=== PATIENT | female | born 1935 | race Caucasian/White ===

== ENCOUNTER 2018-03-25 09:11 | Outpatient (CLI) | payer MEDICARE, SELFPAY ==
[2018-03-25 10:47] LABS: Abs Immature Grans 0.01 k/cumm (0.0-0.09); Absolute Basophil Count 0.02 k/cumm (0.0-0.2); Absolute Eosinophil Count 0.09 k/cumm (0.0-0.7); Absolute Lymphocyte Count 0.95 k/cumm (1.2-3.4); Absolute Monocyte Count 0.53 k/cumm (0.11-0.7); Absolute Neutrophil Count 4.66 k/cumm (1.2-6.7); Basophils % 0.3; Eosinophils % 1.4; HCT 43.4 % (36.0-46.0); HGB 14.2 g/dL (12.0-15.5); Immature Grans % 0.2; Lymphocytes % 15.2; Mean Corp. HGB Concentration 32.7 g/dL (32.0-36.0); Mean Corpuscular Volume 94.8 fL (80-95); Monocytes % 8.5; Neutrophils % 74.4; Platelet Count 240 x1000/uL (130-400); RBC 4.58 m/cumm (4.00-5.20); RBC Distribution Width 13.2 % (11.7-14.6); White Blood Cell Count 6.26 k/cumm (4.4-10.8)
[2018-03-25 11:23] LABS: ALT 28 U/L (12-78); AST 19 U/L (15-37); Albumin 3.8 g/dL (3.4-5.0); Alkaline Phosphatase 57 U/L (46-116); Amylase 55 U/L (25-115); BUN 11 mg/dL (7-18); Bilirubin, Total 0.7 mg/dL (0.2-1.0); C-Reactive Protein 0.56 mg/dL (0.0-0.3); CREATININE 0.77 mg/dL (0.55-1.02); Calcium 9.2 mg/dL (8.5-10.1); Chloride 98 mmol/L (98-107); Glucose 92 mg/dL (70-100); Lipase 119 U/L (73-393); Potassium 3.8 mmol/L (3.5-5.1); Sodium 137 mmol/L (136-145); TSH 2.03 uIU/mL (0.358-3.74); Total Protein 6.9 g/dL (6.4-8.2)
[2018-03-25 11:25] LABS: ESR 19 MM/HR (0-30)
[2018-03-25 21:32] LABS: CRP, High Sensitivity 3.83 mg/L
== END 2018-03-25 09:31 ==
PROVIDERS: PCP Nurse Practitioner Family; Visit Provider Physician Assistant Medical
DX: R61 Generalized hyperhidrosis (principal)
CPT/HCPCS: 36415; 80053; 83690; 85652; 86141; 82150; 84443; 85025; 86140

== ENCOUNTER 2018-04-02 00:26 | Outpatient (CLI) | payer MEDICARE, SELFPAY ==
--- NOTE | 2018-04-02 15:10 | DI.CT_ITS ---
SYMPTOMS/DIAGNOSIS: SMOKING GREATER THAN 40 PACK YEARS, F17.[address] FOR LUNG CANCER SCREENING: A low dose noncontrast exam was performed. There is a 4 mm nodule seen peripherally at the left upper lobe. There are a few scattered calcified nodules bilaterally. There are mild underlying emphysematous changes. There is bronchial thickening in the lower lobes and mild bronchiectasis, right greater than left. No acute infiltrates or effusions are seen. There is mild basilar atelectasis and/or scarring. The visualized portions of the upper abdomen are unremarkable. There is calcification in the aorta, which is normal in diameter. Coronary artery calcifications are seen. The heart size is normal. IMPRESSION: Benign findings. Annual low dose CT is recommended. Lung-RAD Category: 2- Benign Appearance/Behavior Lung- RAD Management of Findings: Continue annual LDCT screening in 12 months
== END 2018-04-02 00:46 ==
PROVIDERS: PCP Nurse Practitioner Family; Visit Provider Physician Assistant Medical
DX: F17.210 Nicotine dependence, cigarettes, uncomplicated (principal); Z12.2 Encounter for screening for malignant neoplasm of respiratory organs; R91.1 Solitary pulmonary nodule
CPT/HCPCS: 71250

== ENCOUNTER 2018-04-08 10:19 | Outpatient (REF) | payer MEDICARE, SELFPAY ==
[2018-04-08 20:28] LABS: Bacteria Negative HPF (Negative); C & S Indicated? Yes; Crystals Negative HPF (Negative); Epithelial Cells Few HPF (Negative); Mucus Moderate (Negative); WBC 20-50 HPF (0-5)
== END 2018-04-08 10:39 ==
LOC: NCHCN 10:19
PROVIDERS: PCP Nurse Practitioner Family; Visit Provider Specialist/Technologist Athletic Trainer
DX: R35.0 Frequency of micturition (principal)
CPT/HCPCS: 81015; 87086

== ENCOUNTER 2018-05-05 20:46 | Outpatient (REF) | payer MEDICARE, SELFPAY | END 2018-05-05 21:06 | LOC: NCHCN 20:46 | PROVIDERS: PCP Nurse Practitioner Family; Visit Provider Nurse Practitioner Family | DX: R35.0 Frequency of micturition (principal) | CPT/HCPCS: 87086 ==

== ENCOUNTER 2018-09-29 00:31 | Outpatient (CLI) | payer MEDICARE, SELFPAY ==
--- NOTE | 2018-09-29 10:20 | DI.MAMMO_ITS ---
SYMPTOM/DIAGNOSIS: SCREENING, Z12.39 MAMMOGRAMS: Mammograms were interpreted according to the usual protocol including computer analysis with CAD system, tomosynthesis and C view imaging. Comparison with prior examinations. Breast density A. No suspicious masses or microcalcifications are seen. There is no definite evidence of malignancy. IMPRESSION: Negative mammogram. Routine screening is recommended. Category I. MQSA ASSESSMENT OF FINDINGS: Negative. Category 1. Patient will receive a letter notifying them of these results. BI-RAD category A. The breasts are almost entirely fatty.
== END 2018-09-29 00:51 ==
PROVIDERS: PCP Nurse Practitioner Family; Visit Provider Nurse Practitioner Family
DX: Z12.31 Encounter for screening mammogram for malignant neoplasm of breast (principal)
CPT/HCPCS: 77063; 77067

== ENCOUNTER 2019-01-17 09:18 | Emergency (ER) | payer MEDICARE, SELFPAY ==
--- NOTE | 2019-01-17 09:23 | NUR.NOTE ---
Nursing Note: pt states that she developed neck pain back left side Saturday that has persisted till now. pain is aggravated by movement
[2019-01-17 09:24] VITALS: BP 161/57; PULSE 77; RESP 14; TEMP 36.7; O2SAT 97
--- NOTE | 2019-01-17 09:38 | DI.RAD_ITS ---
SYMPTOM/DIAGNOSIS: NECK PAIN, LEFT SIDE CERVICAL SPINE: Odontoid, AP lateral and oblique views. No priors for comparison. The odontoid appears intact. The lateral masses are well aligned. There is normal alignment of the cervical spine. There is disc space narrowing at C2-3 , C3-4 and C4-5. End plate osteophytes are seen posteriorly at C2, C3, anteriorly and posteriorly at C3-C4 and C4-C5. There are degenerative changes of the facet joints bilaterally. There is narrowing of the neural foramen on the right at C-3-4 and 4-5 and on the left at C3-4. No acute fractures or subluxations are seen. The soft tissues are unremarkable. Calcifications in the soft tissues are present predominantly on the right and likely reflecting vascular calcifications. IMPRESSION: 1. No acute fracture or subluxation of the cervical spine. 2. Moderate spondylosis of the cervical spine. If there are radicular concerns an MRI may be considered for further evaluation.
[2019-01-17] MEDS: Acetaminophen 500 MG TAB PO (10:12)
[2019-01-17] MEDS: Baclofen 10 MG TAB 5 MG PO (10:12)
--- NOTE | 2019-01-17 11:00 | DI.VRAD_ITS ---
EXAM: XR Spine, 1 view. EXAM DATE/TIME: 01/17/2019 9:43 AM CLINICAL HISTORY: 83 years old, female; Symptoms: Pain in left side of neck since Saturday. No trauma or fall TECHNIQUE: Imaging protocol: XR of the spine, 1 view. COMPARISON: No relevant prior studies available. FINDINGS: Vertebrae: No acute fracture of the cervical spine. No subluxation or dislocation of the cervical spine. Intervertebral disc space narrowing C3/C4 may represent degenerative disc disease.. Anterior osteophyte formation C3/C4 Posterior osteophyte formation C3/C4/C5 Degenerative changes in the facets at multiple levels Degenerative changes at C1/C2 Soft tissues: Normal. IMPRESSION: 1. No acute fracture of the cervical spine. 2. No subluxation or dislocation of the cervical spine. 3. Intervertebral disc space narrowing C3/C4 may represent degenerative disc disease. Recommend MRI if clinically indicated. Dictated and Authenticated by: Deshawn Quinones MD. Ordering:JEISON Moe MD
--- NOTE | 2019-01-17 11:21 | W.ED.GENAD ---
Discharge Plan Disposition Patient Disposition: HOME Discharge Details Chief Complaint: Nk/Back Pain Primary Care Provider: Mary Hollingsworth ED Provider: Abhi Ellison Home Meds and New Rx's Prescriptions: New baclofen 5 mg tablet 5 mg PO BID PRN (Reason: muscle spasm) Qty: 8 RF: 0 Continued ascorbate calcium (vitamin C) 500 MG tablet 500 mg PO DAILY RF: 0 nystatin-triamcinolone 15 GM cream 15 gm Topical BID RF: 0 aspirin 81 MG tablet,chewable 81 mg PO DAILY RF: 0 ranitidine HCl 150 MG capsule 150 mg PO BID RF: 0 cholecalciferol (vitamin D3) [Vitamin D3] 2,000 UNIT capsule 2,000 unit PO DAILY RF: 0 ProAir RespiClick 90 MCG aerosol powdr breath activated 90 mcg Inhalation Q 4 HR RF: 0 lidocaine 15 GM cream 15 gm Topical Q4H PRN Qty: 3 RF: 5 venlafaxine [Effexor XR] 37.5 MG capsule,extended release 24hr 37.5 mg PO DAILY Qty: 30 RF: 3 fluticasone propion-salmeterol [Advair Diskus] 1 EACH blister with device 1 ea Inhalation BID RF: 0 lisinopril 20 MG tablet 10 mg PO QAM RF: 0 hydrochlorothiazide 25 MG tablet 25 mg PO DAILY RF: 0 Discharge Data Discharge Date/Time-TO BE ENTERED AT DEPARTURE: 01/17/19 11:37 Medical Decision Making Patient presenting to the emergency department for chief complaint of left-sided neck pain. She states that 4 days ago she was doing laundry and reaching to get laundry does not remember specifically feeling anything abnormal but then shortly afterwards she started having neck pain. She states that it is significantly worsened when she turns her head and sometimes feels radiation of the pain up into her scalp. Physical exam shows point tenderness to the posterior superior aspect of the at the atachment point of the left trapezius. I feel that pain is secondary to muscular spasm plan to do radiological imaging given patient's age. Pending results patient given baclofen and acetaminophen. Review of radiological imaging and radiologist interpretation showsIMPRESSION: 1. No acute fracture of the cervical spine. 2. No subluxation or dislocation of the cervical spine. 3. Intervertebral disc space narrowing C3/C4 may represent degenerative disc disease. Recommend MRI if clinically indicated. Patient has no severe neurological symptoms I do not feel that MRI is needed at this time. Patient reassessed and did state improvement of symptoms after having the medications. Patient was given limited supply of baclofen. Return precautions were discussed. After discussion of diagnosis and plan of care patient has no further needs, questions, or concerns and states clear understanding to return to the emergency department for any worsening symptoms. HPI General Mode of arrival: ambulatory. Date/Time Provider Initiated Documentation: 01/17/19 09:19. Limitations to Documentation: no limitations. Information obtained by: patient and RN notes reviewed. History of Present Illness 83 year old F presents to the emergency department with the chief complaint of Left-sided neck, described as moderate, with intensity rated at 7. Quality is described as aching and sharp, and is localized to the neck (Posterior). Patient reports radiation to (Left side of skin). Patient started experiencing this day(s) (4) and it has been constant. Movement worsens symptoms . Patient notes no other symptoms.. Patient did receive the following treatments prior to arrival, other (Acetaminophen) Related Data Home Medications Medication Instructions Recorded Confirmed fluticasone propion-salmeterol 1 ea INHALATION BID 01/09/14 01/17/19 [Advair Diskus] hydrochlorothiazide 25 mg PO DAILY 01/09/14 01/17/19 lisinopril 10 mg PO QAM 01/09/14 01/17/19 ProAir RespiClick 90 mcg INHALATION Q 4 HR 06/10/17 01/17/19 ascorbate calcium (vitamin C) 500 mg PO DAILY 06/10/17 01/17/19 aspirin 81 mg PO DAILY tab-cap 06/10/17 01/17/19 cholecalciferol (vitamin D3) 2,000 unit PO DAILY 06/10/17 01/17/19 [Vitamin D3] nystatin-triamcinolone 15 gm TOPICAL BID 06/10/17 ranitidine HCl 150 mg PO BID tab-cap 06/10/17 01/17/19 lidocaine 15 gm TOPICAL Q4H PRN #3 tube 07/29/17 01/17/19 venlafaxine [Effexor XR] 37.5 mg PO DAILY #30 tab-cap 08/12/17 01/17/19 baclofen 5 mg PO BID PRN #8 tab 01/17/19 Previous Rx's Medication Instructions Recorded lidocaine 15 gm TOPICAL Q4H PRN #3 tube 07/29/17 venlafaxine [Effexor XR] 37.5 mg PO DAILY #30 tab-cap 08/12/17 baclofen 5 mg PO BID PRN #8 tab 01/17/19 Allergies Allergy/AdvReac Type Severity Reaction Status Date / Time pregabalin [From Lyrica] Allergy Severe RASH/EXTREMITY Unverified 01/17/19 09:27 EDEMA atorvastatin calcium Allergy Intermediate Unverified 01/17/19 09:27 [From Lipitor] gabapentin [From Neurontin] Allergy Intermediate Unverified 01/17/19 09:27 prednisone Allergy Mild Unverified 01/17/19 09:27 codeine Allergy Unverified 01/17/19 09:27 rosuvastatin calcium Allergy Unverified 01/17/19 09:27 [From Crestor] sulfamethoxazole Allergy Unverified 01/17/19 09:27 [From Bactrim] trimethoprim [From Bactrim] Allergy Unverified 01/17/19 09:27 General Stated Complaint: Nk/Back Pain SATHISH: 4 Review of Systems Constitutional Denies headache(s) and Denies weakness ENT Denies headache(s) and Reports neck pain Cardiovascular Denies syncope Musculoskeletal Reports as per HPI, Denies limited range of motion, Reports neck pain, Denies numbness, Denies radiating pain into limb, Denies stiffness and Denies tingling Integumentary/Breasts Denies rash, Denies sores and Denies wounds Neurologic Denies syncope, Denies headache(s), Denies numbness, Denies tingling and Denies weakness [facility] Medical History Cataracts, bilateral COPD (chronic obstructive pulmonary disease) Diabetes Diverticulosis Fatty liver Hyperlipidemia Hypertension Surgical History Biopsy of breast Family History Sister Personal history of malignant neoplasm Sister Personal history of malignant neoplasm Social History Smoking/Tobacco Use Status: Former Tobacco Use Alcohol Intake: never Drug use: Never Substance use type: does not use Do you feel safe at home: Yes Do you feel safe in your relationship?: Yes Exam HENIL Head: normal to inspection, no palpable skull fracture and atraumatic Neck Neck: normal visual inspection, full ROM, no lymphadenopathy, no meningeal signs, trachea midline, supple and no anterior neck swelling Carotids: normal carotid upstroke and no bruits Resp Effort & Inspection: normal respiratory effort and able to speak in complete sentences Auscultation: clear to auscultation bilaterally Cardio Rate: regular rate Rhythm: regular rhythm Heart Sounds: S1 normal, S2 normal, no click, no gallops, no murmurs and no rubs Back/Spine/Pelvis Cervical Spine: normal cervical lordosis, cervical ROM normal, No loss of normal cervical lordosis, cervical muscular tenderness (left upper trapezius), pain with cervical ROM, cervical spasm (left upper trapezius), No cervical spinal tenderness and No step off deformity Thoracic/Lumbar Spine: No thoracic spinal tenderness Neuro General: alert, awake, oriented x3, gait normal, tone normal, moves all extremities and no focal motor deficits Cognition: normal cognition Speech: speech normal Sensory Exam: no sensory deficits noted Course Vital Signs Temperature 36.7 C 01/17/19 09:24 Pulse 77 01/17/19 09:24 Respiratory Rate 75 H 01/17/19 09:24 Blood Pressure 161/57 H 01/17/19 09:24 Pulse Oximetry 97 01/17/19 09:24 Temperature 36.7 C 01/17/19 09:24 Temperature Source Skin 01/17/19 09:24 Pulse 77 01/17/19 09:24 Respiratory Rate 75 H 01/17/19 09:24 Respiratory Effort 01/17/19 09:28 Blood Pressure 161/57 H 01/17/19 09:24 Blood Pressure Position Sitting 01/17/19 09:24 Pulse Oximetry 97 01/17/19 09:24 Oxygen Delivery Method Room Air 01/17/19 09:24 Oxygen Flow Rate 0 01/17/19 09:24 Pain Level 7 01/17/19 09:24
[2019-01-17 11:34] VITALS: BP 154/50; PULSE 77; RESP 16; TEMP 36.7; O2SAT 95
== END 2019-01-17 11:37 | disposition home or self-care (01) ==
PROVIDERS: Emergency Provider Nurse Practitioner Family; PCP Nurse Practitioner Family
DX: S16.1XXA Strain of muscle, fascia and tendon at neck level, initial encounter (principal); X50.9XXA Other and unspecified overexertion or strenuous movements or postures, initial encounter; Y93.E2 Activity, laundry; J44.9 Chronic obstructive pulmonary disease, unspecified; Z87.891 Personal history of nicotine dependence; I10 Essential (primary) hypertension; E11.9 Type 2 diabetes mellitus without complications
CPT/HCPCS: 99283; 72050

== ENCOUNTER 2019-03-30 09:22 | Outpatient (REF) | payer MEDICARE, SELFPAY | END 2019-03-30 09:42 | LOC: NCHCO 09:22 | PROVIDERS: PCP Nurse Practitioner Family; Visit Provider Nurse Practitioner Family | DX: I10 Essential (primary) hypertension (principal); Z53.8 Procedure and treatment not carried out for other reasons | CPT/HCPCS: 80048 ==

== ENCOUNTER 2019-03-31 09:50 | Outpatient (CLI) | payer MEDICARE, SELFPAY ==
[2019-03-31 11:18] LABS: Anion Gap 7.6 mmol/L (3-11); BUN 17 mg/dL (7-18); CO2 30.4 mmol/L (21.0-32.0); CREATININE 0.95 mg/dL (0.55-1.02); Calcium 8.8 mg/dL (8.5-10.1); Chloride 103 mmol/L (98-107); Estimated GFR 56.46 (mL/min/1.73m2); Glucose 99 mg/dL (70-100); Potassium 4.6 mmol/L (3.5-5.1); Sodium 141 mmol/L (136-145)
== END 2019-03-31 10:10 ==
PROVIDERS: PCP Nurse Practitioner Family; Visit Provider Nurse Practitioner Family
DX: G25.0 Essential tremor (principal); E78.5 Hyperlipidemia, unspecified; I10 Essential (primary) hypertension; R35.0 Frequency of micturition
CPT/HCPCS: 36415; 80048; 80053

== ENCOUNTER → 2019-05-05 08:08 | Outpatient (BNVA) | payer MEDICARE, SELFPAY | PROVIDERS: PCP Nurse Practitioner Family; Referring Provider Nurse Practitioner Family; Visit Provider Nurse Practitioner Gerontology | DX: R35.0 Frequency of micturition (principal); E11.42 Type 2 diabetes mellitus with diabetic polyneuropathy; I10 Essential (primary) hypertension; J44.9 Chronic obstructive pulmonary disease, unspecified; Z87.891 Personal history of nicotine dependence | CPT/HCPCS: 51798; 99204; 99215 ==

== ENCOUNTER → 2019-06-25 10:12 | Outpatient (BNVA) | payer MEDICARE, SELFPAY | PROVIDERS: PCP Nurse Practitioner Family; Referring Provider Nurse Practitioner Family; Visit Provider Nurse Practitioner Gerontology | DX: R35.0 Frequency of micturition (principal); J44.9 Chronic obstructive pulmonary disease, unspecified; E11.9 Type 2 diabetes mellitus without complications; I10 Essential (primary) hypertension | CPT/HCPCS: 99213 ==

== ENCOUNTER 2019-08-28 09:35 | Outpatient (CLI) | payer MEDICARE, SELFPAY ==
[2019-08-28 11:21] LABS: Calculated LDL 132 mg/dL (<100); Cholesterol 198 mg/dL (<200); HDL Cholesterol 52 mg/dL (40-60); Triglyceride 71 mg/dL (<150)
== END 2019-08-28 09:55 ==
PROVIDERS: PCP Nurse Practitioner Family; Visit Provider Nurse Practitioner Family
DX: E78.5 Hyperlipidemia, unspecified (principal); I10 Essential (primary) hypertension; K76.0 Fatty (change of) liver, not elsewhere classified; R73.01 Impaired fasting glucose; R41.89 Other symptoms and signs involving cognitive functions and awareness
CPT/HCPCS: 36415; 80061

== ENCOUNTER → 2019-09-23 10:37 | Outpatient (BNVA) | payer MEDICARE, SELFPAY | PROVIDERS: PCP Nurse Practitioner Family; Referring Provider Nurse Practitioner Family; Visit Provider Nurse Practitioner Gerontology | DX: R35.0 Frequency of micturition (principal); J44.9 Chronic obstructive pulmonary disease, unspecified; E11.9 Type 2 diabetes mellitus without complications; I10 Essential (primary) hypertension; Z87.891 Personal history of nicotine dependence | CPT/HCPCS: 99213; 99442 ==

== ENCOUNTER 2019-10-02 13:12 | Outpatient (CLI) | payer MEDICARE, SELFPAY ==
--- NOTE | 2019-10-02 | DI.CT_ITS ---
EXAM: CT ABDOMEN PELVIS WO/W CLINICAL HISTORY: RLQ ABD PAIN, R10.31, GROSS HEMATURIA, R31.0 TECHNIQUE: COMPARISON: CT CHEST WO from 04/02/2018 FINDINGS: CT examination of the abdomen and pelvis was performed prior to and following intravenous infusion of 100 cc of Omnipaque 350. Images obtained through the lung bases show scattered reticular and tree i n bud opacities particularly in the right lung base which are nonspecific and may represent chronic o r acute process, acute infectious process not excluded. There is no evidence of urinary tract calcification on the noncontrast scan. However there is increa sed attenuation of the right renal collecting system which is hydronephrotic. The findings are sugge stive of obstructing thrombus in the in the renal collecting system. An upper to midpole caliceal f illing defect is noted which is nonspecific, probably representing a urine within the collecting syst em. There is 4 cm in diameter right lower pole renal cyst. Post contrast imaging shows the right renal cortex to enhance heterogeneously with in particular patc hy decreased attenuation in upper pole renal cortex. Right kidney is enlarged as compared to the lef t. There is perinephric fat stranding on the right, no fat stranding identified in left para renal f at. No gross extra renal fluid collection or abscess identified. The left kidney is normal in appea floyd except for a tiny upper pole renal cyst. Left renal cortex enhances normally and there is no e vidence obstruction. No ureteral calculus identified. Abdominal aorta is of normal diameter. No major vascular abnormality seen apart from moderate calcif ied atheromatous plaque of aorta and major vessels. There is a prior cholecystectomy. No biliary di latation. Tiny low-attenuation hepatic lesions noted consistent with cysts. Spleen and pancreas are unremarkable. No abdominal or pelvic adenopathy. No significant abdominal wall hernia. Appendix i s normal. No evidence of diverticulitis or bowel obstruction. IMPRESSION: Markedly abnormal appearance of right kidney, with renal cortical heterogeneity, enlargement of the k idney, perinephric fat stranding, and probable clot in right renal collecting system, etiology uncert ain. The findings as described could be due to obstructed pyelonephritis, possibility of a right upp er pole renal neoplasm with associated hematuria and resultant thrombus and obstruction is not exclud ed. Urgent urology consult recommended due to the possible infected obstructed kidney.
[2019-10-02 14:04] LABS: Abs Immature Grans 0.03 k/cumm (0.0-0.09); Absolute Eosinophil Count 0.01 k/cumm (0.0-0.7); Absolute Monocyte Count 0.61 k/cumm (0.11-0.7); Absolute Neutrophil Count 13.16 k/cumm (1.2-6.7); Basophils % 0.1; Eosinophils % 0.1; HCT 40.1 % (36.0-46.0); HGB 13.1 g/dL (12.0-15.5); Immature Grans % 0.2 %; Lymphocytes % 4.2; Mean Corp. HGB Concentration 32.7 g/dL (32.0-36.0); Mean Corpuscular Hemoglobin 30.7 pg (27.0-33.0); Mean Corpuscular Volume 93.9 fL (80-95); Mean Platelet Volume 10.2 fL (8.0-11.0); Monocytes % 4.2; Neutrophils % 91.2; Platelet Count 306 x1000/uL (130-400); RBC 4.27 m/cumm (4.00-5.20); RBC Distribution Width 13.6 % (11.7-14.6); White Blood Cell Count 14.43 k/cumm (4.4-10.8)
[2019-10-02 14:05] LABS: Absolute Basophil Count 0.01 k/cumm (0.0-0.2); Absolute Lymphocyte Count 0.61 k/cumm (1.2-3.4)
[2019-10-02 14:12] LABS: Anion Gap 6.9 mmol/L (3-11); BUN 20 mg/dL (7-18); CO2 31.1 mmol/L (21.0-32.0); CREATININE 1.04 mg/dL (0.55-1.02); Calcium 8.9 mg/dL (8.5-10.1); Chloride 96 mmol/L (98-107); Estimated GFR 50.73 (mL/min/1.73m2); Glucose 121 mg/dL (74-106); Potassium 3.5 mmol/L (3.5-5.1); Sodium 134 mmol/L (136-145)
[2019-10-02] MEDS: Normal Saline - Diluent 50 ML VIAL IV (14:27)
[2019-10-02 15:26] LABS: Bilirubin Moderate (Negative); Blood Large (Negative); Clarity Cloudy (Clear); Glucose Negative (Negative); Ketones 15 mg/dL (Negative); Leukocyte Esterase Negative (Negative); Nitrite Negative (Negative)
[2019-10-02 15:36] LABS: Bacteria Few HPF (Negative); Epithelial Cells Few HPF (Negative); Other Cells Negative (Negative); RBC >50 HPF (0-2)
[2019-10-02 15:37] LABS: C & S Indicated? C&S Done As Ordered; Casts Negative LPF (Negative); Crystals Negative HPF (Negative); Mucus Negative (Negative)
== END 2019-10-02 13:32 ==
PROVIDERS: PCP Nurse Practitioner Family; Visit Provider Nurse Practitioner Family
DX: R10.31 Right lower quadrant pain (principal); R31.0 Gross hematuria; N28.89 Other specified disorders of kidney and ureter; N28.1 Cyst of kidney, acquired; R93.41 Abnormal radiologic findings on diagnostic imaging of renal pelvis, ureter, or bladder
CPT/HCPCS: 80048; 74178; 81003; 81015; 85025; 87086

== ENCOUNTER 2019-10-02 15:21 | Emergency (ER) | payer MEDICARE, SELFPAY ==
--- NOTE | 2019-10-02 15:25 | ED.GENADUL_ITS ---
Discharge Plan Disposition Patient Disposition: HOME Condition: Stable Discharge Details Chief Complaint: Abd Prob Clinical Impression: Hematuria, Hydronephrosis, right Primary Care Provider: Mary Hollingsworth ED Provider: Kareen Doe Home Meds and New Rx's Prescriptions: No Action Myrbetriq 25 mg tablet extended release 24 hr 25 mg PO DAILY RF: 0 Hold Instructions: Home Medication placed on hold at Doctor's office ascorbate calcium (vitamin C) 500 MG tablet 500 mg PO DAILY RF: 0 nystatin-triamcinolone 15 GM cream 15 gm Topical BID RF: 0 aspirin 81 MG tablet,chewable 81 mg PO DAILY RF: 0 cholecalciferol (vitamin D3) [Vitamin D3] 2,000 UNIT capsule 2,000 unit PO DAILY RF: 0 ProAir RespiClick 90 MCG aerosol powdr breath activated 90 mcg Inhalation Q 4 HR RF: 0 lidocaine 15 GM cream 15 gm Topical Q4H PRN Qty: 3 RF: 5 venlafaxine [Effexor XR] 37.5 MG capsule,extended release 24hr 37.5 mg PO DAILY Qty: 30 RF: 3 hydrochlorothiazide 25 mg tablet 12.5 mg PO DAILY RF: 0 aluminum hydrox-magnesium carb 160-105 mg tablet,chewable 1 tab PO DAILY RF: 0 polyethylene glycol 3350 [Miralax] 17 gram/dose powder 17 gm PO DAILY PRNRF: 0 lisinopril 20 mg tablet 40 mg PO QAM RF: 0 fluticasone propion-salmeterol [Advair Diskus] 1 EACH blister with device 1 ea Inhalation BID RF: 0 baclofen 5 mg tablet 5 mg PO BID PRN (Reason: muscle spasm) Qty: 8 RF: 0 Discharge Instructions Instructions: Hematuria (ED) Additional Instructions: Dr. Max the urologist is going to call you in the a.m. If at all you are feeling any worse or start having a fever vomiting any concerns please return to the ED. Please make sure you have urine output at least every 3-4 hours. Follow up with primary care provider in 3-5 days. Return to ED sooner if any worsening or concerns. Increase oral fluids. We are sending you home with 2 tablets of tramadol 50 mg to be taken once every 6 hours as needed for pain. It is best taken with food. Do not drive or operate heavy machinery while taking this medication. Referrals: Rudolph Max MD [ [facility] STAFF PHYSICIAN] - Discharge Data Discharge Date/Time-TO BE ENTERED AT DEPARTURE: 10/02/19 16:37 Medical Decision Making <YOLY Myles - Last Filed: 10/03/19 16:21> 84-year-old female presents after having had an outpatient work-up, abnormal CT. I reviewed the CBC, CMP, urinalysis. I also reviewed the CT. A call was placed to urologist, Dr. Max. He does not request any additional laboratories outside of a CBC, CMP, urinalysis. He will review the case and come to the ER for evaluation. CBC reveals a white blood cell count of 14.43, BUN 20, creatinine 1.04, urinalysis reveals greater than 300 protein, 15 ketones, large blood, moderate bilirubin, greater than 50 high-power field red blood cells. CT reveals a markedly abnormal appearance of the right kidney, with renal cortical heterogeneity, enlargement of the kidney, perinephric fat stranding, and probable clot in the right renal collecting system, etiology uncertain. The findings as described could be due to obstructive pyelonephritis, possibility of a right upper pole renal neoplasm with associated hematuria and resultant thrombus and obstruction is not excluded. Urgent urology consult recommended due to the possible infected obstructing kidney Medical Records Medical records reviewed: Yes I reviewed the patient's medical records. Lab Data Lab results reviewed: Yes I reviewed the patient's lab results. <Kareen Doe - Last Filed: 10/02/19 16:55> 1616: Care assumed by YOLY Frias awaiting urology consult with Dr. Max who is at the bedside for patient evaluation. Spoke with Dr. Max regarding his discussion for possible options with patient. Option #1 to go to the OR putting the stent and discharge home. Option #2 is to give p.o. pain medication and have him follow-up with patient by phone tomorrow. Third option is for patient to be admitted. He relays that patient would rather try the pain medication go home and be followed up with tomorrow. I did confirm this with the patient. We will give a tramadol p.o. here in department and a bottle to go with 2 pills. HPI <YOLY Myles - Last Filed: 10/03/19 16:21> General Mode of arrival: ambulatory . Date/Time Provider Initiated Documentation: 10/02/19 15:25 . Limitations to Documentation: no limitations . Information obtained by: patient . HPI Narrative: This is a 84-year-old female who presents to the ER having already had an outpatient work-up completed today. She has an extensive past medical history which includes COPD, diabetes, esophagitis, fatty liver, GERD, hyperlipidemia, hypertension, nocturia, peripheral neuropathy, squamous cell carcinoma, urinary frequency and incontinence. She developed right sided abdominal pain, moderate in nature as well as mild hematuria this morning. She spoke with her primary care provider who ordered a CBC, CMP, urinalysis and a CT of her abdomen and pelvis. The CT was apparently abnormal and sent to the ER for urgent urology consultation. Patient denies any fever, chest pain, cough, shortness of breath, nausea, vomiting, back pain. She reports chronic urinary frequency but no dysuria. Denies diarrhea or constipation. Related Data Home Medications Medication Instructions Recorded Confirmed fluticasone propion-salmeterol 1 ea INHALATION BID 01/09/14 10/02/19 [Advair Diskus] ProAir RespiClick 90 mcg INHALATION Q 4 HR 06/10/17 10/02/19 ascorbate calcium (vitamin C) 500 mg PO DAILY 06/10/17 10/02/19 aspirin 81 mg PO DAILY tab-cap 06/10/17 10/02/19 cholecalciferol (vitamin D3) 2,000 unit PO DAILY 06/10/17 10/02/19 [Vitamin D3] nystatin-triamcinolone 15 gm TOPICAL BID 06/10/17 10/02/19 lidocaine 15 gm TOPICAL Q4H PRN #3 tube 07/29/17 10/02/19 venlafaxine [Effexor XR] 37.5 mg PO DAILY #30 tab-cap 08/12/17 09/23/19 baclofen 5 mg PO BID PRN #8 tab 01/17/19 09/23/19 aluminum hydrox-magnesium carb 160 1 tab PO DAILY tab 04/03/19 09/23/19 mg-105 mg chewable tablet hydrochlorothiazide 25 mg tablet 12.5 mg PO DAILY tab 04/03/19 10/02/19 polyethylene glycol 3350 17 17 gm PO DAILY PRN 04/03/19 10/02/19 gram/dose oral powder mirabegron 25 mg tablet,extended 25 mg PO DAILY 05/05/19 09/23/19 release 24 hr lisinopril 20 mg tablet 40 mg PO QAM tab 09/23/19 10/02/19 Previous Rx's Medication Instructions Recorded lidocaine 15 gm TOPICAL Q4H PRN #3 tube 07/29/17 venlafaxine [Effexor XR] 37.5 mg PO DAILY #30 tab-cap 08/12/17 baclofen 5 mg PO BID PRN #8 tab 01/17/19 Allergies Allergy/AdvReac Type Severity Reaction Status Date / Time pregabalin [From Lyrica] Allergy Severe RASH/EXTREMITY Unverified 10/02/19 15:41 EDEMA atorvastatin calcium Allergy Intermediate Unverified 10/02/19 15:41 [From Lipitor] gabapentin [From Neurontin] Allergy Intermediate Unverified 10/02/19 15:41 prednisone Allergy Mild Unverified 10/02/19 15:41 codeine Allergy Unverified 10/02/19 15:41 rosuvastatin calcium Allergy Unverified 10/02/19 15:41 [From Crestor] sulfamethoxazole Allergy Unverified 10/02/19 15:41 [From Bactrim] trimethoprim [From Bactrim] Allergy Unverified 10/02/19 15:41 General SATHISH: 4 Review of Systems <YOLY Myles - Last Filed: 10/03/19 16:21> Constitutional Constitutional: Denies fatigue and Denies fever(s) Eyes Eyes: Denies change in vision ENT Ears, Nose, Mouth, and Throat: Denies dizziness Cardiovascular Cardiovascular: Denies chest pain and Denies dyspnea Respiratory Respiratory: Denies cough and Denies dyspnea Gastrointestinal Gastrointestinal: Reports abdominal pain, Denies diarrhea, Denies nausea and Denies vomiting Genitourinary Genitourinary: Reports hematuria, Reports nocturia and Denies dysuria Musculoskeletal Musculoskeletal: Denies back pain Integumentary/Breasts Skin/Breast: Denies rash Neurologic Neurologic: Denies dizziness Endocrine Endocrine: Denies fatigue Hematologic/Lymphatic Hematologic/Lymphatic: Denies easy bleeding and Denies easy bruising PFSH <YOLY Myles - Last Filed: 10/03/19 16:21> Medical History (Updated 10/02/19 @ 16:34 by Kareen Doe) Cataracts, bilateral Cervical spondylosis (Acute) Colon polyps (Acute) COPD (chronic obstructive pulmonary disease) Diabetes Diverticulosis Diverticulosis (Acute) Easy bruising (Acute) Esophagitis (Acute) Essential tremor (Acute) Fatty liver Fatty liver disease, nonalcoholic (Acute) GERD (gastroesophageal reflux disease) (Chronic) Hiatal hernia (Chronic) Hydronephrosis, right (Acute) Hyperlipidemia Hypertension Impaired fasting glucose (Acute) Night sweats (Acute) Nocturia (Acute) Peripheral neuropathy (Acute) Squamous cell carcinoma (Acute) Statin intolerance (Acute) Urinary frequency (Acute) Urinary incontinence (Acute) Surgical History Biopsy of breast Family History Sister Personal history of malignant neoplasm breast, colon Sister Personal history of malignant neoplasm uterine Social History Smoking/Tobacco Use Status: Former Tobacco Use Alcohol Intake: never Drug use: Never Substance use type: does not use Do you feel safe at home: Yes Do you feel safe in your relationship?: Yes Exam <YOLY Myles - Last Filed: 10/03/19 16:21> Const General: cooperative, healthy appearing, comfortable and no acute distress Orientation: alert, awake and oriented x3 HENMT Head: normal to inspection, normocephalic and atraumatic Mouth: moist mucous membranes Eyes Conjunctivae: conjunctivae normal Neck Neck: normal visual inspection, full ROM, no lymphadenopathy, trachea midline and supple Resp Effort & Inspection: normal respiratory effort and able to speak in complete sentences Auscultation: clear to auscultation bilaterally Cardio Rate: regular rate Rhythm: regular rhythm GI Inspection: normal to inspection Palpation: soft, not firm, no guarding, not rigid and tender (Diffuse right demi e, worse over the right flank and right lower quadrant.) with no rebound tenderness Auscultation: normal bowel sounds Back/Spine/Pelvis Back: back tenderness (Mild diffuse lumbar region, slightly worse in the right) Skin General skin exam: no rashes or lesions noted Neuro General: patient alert, patient awake, patient oriented x3, moves all extremities and no focal motor deficits Gait: normal gait Motor: muscle tone normal throughout Sensory Exam: no sensory deficits noted Psych Appearance: grossly normal Mental Status: mental status grossly normal Sign Out <YOLY yMles - Last Filed: 10/03/19 16:21> Sign Out Data: Sign Out Comment: Pending evaluation and consultation by Dr. Max Last updated by Yordan Cerna PA at 10/02/19 16:02
[2019-10-02 15:30] VITALS: BP 131/72; PULSE 104; RESP 16; TEMP 37.1; O2SAT 95
--- NOTE | 2019-10-02 16:14 | W.UROLOGYCON ---
Date of service: 10/02/19 Time of Service: 16:18 Assessment and Plan Assessment and plan (1) Hydronephrosis, right: Status: Acute Assessment and plan: Clinically, she has no sign of an infected cyst. It is much more likely that she has a bleed from her right kidney. It is unclear as to the exact etiology at this point in time. From an acute standpoint, I did give the patient a few options. I could certainly place a ureteral stent to relieve any obstruction (as the obstruction is likely the source of her discomfort). Since she has not tried any pain medication and she is not septic, a trial of pain medication to see if any ureteral clot dissolves or passes is certainly reasonable. Finally, we gave her the option of staying in the hospital for observation overnight. After our discussion, she would like to try a trial of outpatient pain medication. She promises that she will return to the emergency room this evening if her pain is not controlled. If she does reasonably well through the night, I am planning on calling her by phone tomorrow to touch base and see if we need to bring her in as an outpatient for a stent placement. I discussed this plan with both the patient and her and they are both in agreement. History of Present Illness History of Present Illness Chief Complaint: Right hydronephrosis Narrative: This is an 84-year-old woman who has been followed by urology for lower urinary tract symptoms in the past. Back in 2016 she had 0-2 red cells per high-powered field, so no hematuria work-up was performed. She presented to the emergency room with right lower abdominal pain that began just this morning. She passed a small clot in her urine. She underwent a CT scan which showed right hydronephrosis, perinephric stranding and what appears to be a clot in her right ureter. The radiologist suggested an urgent urologic evaluation for the possibility of an infected system. The patient is not having any dysuria. She has no fevers or chills. She has not tried any oral pain medications for her discomfort. She did not sustain any flank trauma. She has no history of kidney stones. She is not on any anticoagulants. Review of Systems Narrative: No fevers or chills No vision change or dysphasia No diabetes or thyroid dysfunction Chronic shortness of breath, but no new sputum production or hemoptysis No chest pain or palpitations No nausea, vomiting, hepatitis, ulcers, jaundice No seizures, strokes. History of peripheral neuropathy No bleeding disorders but states that she bruises easily No gout. Chronic back pain [facility] Medical History Cataracts, bilateral Cervical spondylosis (Acute) Colon polyps (Acute) COPD (chronic obstructive pulmonary disease) Diabetes Diverticulosis Diverticulosis (Acute) Easy bruising (Acute) Esophagitis (Acute) Essential tremor (Acute) Fatty liver Fatty liver disease, nonalcoholic (Acute) GERD (gastroesophageal reflux disease) (Chronic) Hiatal hernia (Chronic) Hyperlipidemia Hypertension Impaired fasting glucose (Acute) Night sweats (Acute) Nocturia (Acute) Peripheral neuropathy (Acute) Squamous cell carcinoma (Acute) Statin intolerance (Acute) Urinary frequency (Acute) Urinary incontinence (Acute) Surgical History Biopsy of breast Family History Sister Personal history of malignant neoplasm breast, colon Sister Personal history of malignant neoplasm uterine Social History Smoking/Tobacco Use Status: Former Tobacco Use Alcohol Intake: never Drug use: Never Substance use type: does not use Do you feel safe at home: Yes Do you feel safe in your relationship?: Yes Exam Narrative Exam Narrative: She does not appear septic or toxic Her vital signs are documented elsewhere She does appear slightly short of breath at rest Her abdomen is soft with no guarding or rebound tenderness. There is some mild right lower quadrant tenderness She is awake and alert. I reviewed her CT scan on the PACS system The scan was done without contrast. There is definite right hydronephrosis and a filling defect in the right ureter. I do not see any sign of stone. Her urinalysis shows blood but no sign of infection Results Last Vital Signs Temp 37.1 C 10/02/19 15:30 Pulse 104 H 10/02/19 15:30 Resp 16 10/02/19 15:30 BP 131/72 10/02/19 15:30 Pulse Ox 95 10/02/19 15:30
[2019-10-02] MEDS: traMADol 50 MG TAB PO (16:34)
[2019-10-02 16:35] VITALS: BP 124/63; PULSE 80; RESP 16; TEMP 36.5; O2SAT 94
== END 2019-10-02 16:37 | disposition home or self-care (01) ==
PROVIDERS: Emergency Provider Registered Nurse Emergency; PCP Nurse Practitioner Family
DX: N13.39 Other hydronephrosis (principal); R31.9 Hematuria, unspecified; R93.41 Abnormal radiologic findings on diagnostic imaging of renal pelvis, ureter, or bladder; J44.9 Chronic obstructive pulmonary disease, unspecified; E11.40 Type 2 diabetes mellitus with diabetic neuropathy, unspecified; I10 Essential (primary) hypertension
CPT/HCPCS: 80048; 99252; 99283; 74178; 81003; 81015; 85025; 87086

== ENCOUNTER → 2019-10-05 10:14 | Outpatient (BNVA) | payer MEDICARE, SELFPAY | PROVIDERS: PCP Nurse Practitioner Family; Referring Provider Nurse Practitioner Family; Visit Provider Urology | DX: N13.30 Unspecified hydronephrosis (principal); R31.9 Hematuria, unspecified; J44.9 Chronic obstructive pulmonary disease, unspecified; E11.42 Type 2 diabetes mellitus with diabetic polyneuropathy; I10 Essential (primary) hypertension | CPT/HCPCS: 99213 ==

== ENCOUNTER 2019-10-05 11:10 | Day surgery (SDC) | payer MEDICARE, SELFPAY ==
[2019-10-05 11:32] VITALS: BP 143/59; PULSE 87; RESP 16; TEMP 36.4; O2SAT 92
[2019-10-05] MEDS: Lactated Ringers 1,000 ML 80 ML IV (12:02)
--- NOTE | 2019-10-05 12:07 | W.PM.DSUDISC ---
Discharge Plan Disposition Patient Disposition: HOME Condition: Stable Discharge Details Reason For Visit: CYSTOSCOPE RT RETROGRADE W/STINT Attending Provider: Rudolph Max Primary Care Provider: Mary Hollingsworth Home Meds and New Rx's Prescriptions: No Action Myrbetriq 25 mg tablet extended release 24 hr 25 mg PO DAILY RF: 0 Hold Instructions: Home Medication placed on hold at Doctor's office ascorbate calcium (vitamin C) 500 MG tablet 500 mg PO DAILY RF: 0 nystatin-triamcinolone 15 GM cream 15 gm Topical BID RF: 0 aspirin 81 MG tablet,chewable 81 mg PO DAILY RF: 0 cholecalciferol (vitamin D3) [Vitamin D3] 2,000 UNIT capsule 2,000 unit PO DAILY RF: 0 ProAir RespiClick 90 MCG aerosol powdr breath activated 90 mcg Inhalation Q 4 HR RF: 0 lidocaine 15 GM cream 15 gm Topical Q4H PRN Qty: 3 RF: 5 venlafaxine [Effexor XR] 37.5 MG capsule,extended release 24hr 37.5 mg PO DAILY Qty: 30 RF: 3 hydrochlorothiazide 25 mg tablet 12.5 mg PO DAILY RF: 0 aluminum hydrox-magnesium carb 160-105 mg tablet,chewable 1 tab PO DAILY RF: 0 polyethylene glycol 3350 [Miralax] 17 gram/dose powder 17 gm PO DAILY PRNRF: 0 lisinopril 20 mg tablet 40 mg PO QAM RF: 0 fluticasone propion-salmeterol [Advair Diskus] 1 EACH blister with device 1 ea Inhalation BID RF: 0 baclofen 5 mg tablet 5 mg PO BID PRN (Reason: muscle spasm) Qty: 8 RF: 0 Discharge Instructions Additional Instructions: my office will contact patient with arrangement for additional imaging studies and followup expect to see blood in urine as long as stent is present Activity:: Activity as Tolerated Shower/Bathe:: 24 hours Diet:: As Tolerated DS: Diagnosis Discharge Diagnosis (1) Hematuria: Status: Acute (2) Hydronephrosis, right: Status: Acute
[2019-10-05] MEDS: ceFAZolin 2 GM/50 ML BAG IVPB (12:30)
[2019-10-05] MEDS: Lidocaine 2% Jelly 6 ML SYR (12:40)
--- NOTE | 2019-10-05 12:40 | PAPNONF_PTH ---
PATIENT: Domenica Clemente LOC: [facility] U#:[id number] AGE/SX: 84/F ROOM: RE10/05/[address]: Rudolph Max MD : [id number] BED: DIS: 10/05/2019 SPEC #: [id number] RECD: 10/05/19 14:19 STATUS: ROSSI RE #: [id number] NELLIE: 10/05/19 12:[address]: Rudolph Max DEPT: [facility] Cytology RECD BY: Abe Stovall ENTERED: 10/05/19 14:22 SP TYPE: MOLLY LE DR: Mary Hollingsworth Tissues: 1 - BODY FLUID CYTO(SPUTUM/URINE)[facility] 2 - BODY FLUID CYTO(SPUTUM/URINE)[facility] Procedures: BODY FLUID CYTO(URINE/SPUTUM) Comments: [id number] (Total Volume= 60mls)
[2019-10-05] MEDS: Omnipaque 300 MG/ML 50 ML BTL (12:43)
--- NOTE | 2019-10-05 12:53 | DI.RAD_ITS ---
EXAM: XR RETROGRADE IN OR CLINICAL HISTORY: Hydronephrosis, right hematuria. TECHNIQUE: Fluoroscopy was provided for the referring physician for guidance with performing retrogr titus procedure. COMPARISON: CT ABDOMEN PELVIS WO/W from 10/02/2019 FINDINGS: Please see procedure note for details. Fluoro time: 20.7 sec, 4.40 mGy RADIATION DOSE DELIVERED:
[2019-10-05] MEDS: traMADol 50 MG TAB PO (13:23)
[2019-10-05] MEDS: Phenazopyridine 200 MG TAB PO (13:23)
[2019-10-05 13:31] VITALS: BP 137/54; PULSE 88; RESP 16; TEMP 37; O2SAT 98
--- NOTE | 2019-10-05 13:37 | ROE_ITS ---
DATE: OCTOBER 05, 2019 Preoperative Diagnosis: Right hydronephrosis Postoperative Diagnosis: Same Operation: Cystoscopy, right renal cytology, right retrograde pyelogram, insert right ureteral stent Surgeon: Rudolph Max M.D. Anesthesia: MAC with local Complications: none History: This is an 84 year-old woman who presented to the Emergency Department three days ago with right-sided pain and gross hematuria. She was found to have clot in the right renal pelvis and hydronephrosis. She had no clinical evidence of an infected renal unit. She failed conservative management with hydration and analgesia. Her pain returned today. She presents now for right ureteral stent. Procedure: The patient was brought to the Operating Room on 10/05/19. She was given monitored anesthesia care and placed in the dorsal lithotomy position. Her genitalia was prepped. 2% Xylocaine jelly was instilled into the urethra to act as a local anesthetic. A #22 Ecuadorean rigid cystoscope was passed through the urethra into the bladder. The urine that was in the bladder was collected and sent to pathology for cytology examination. The right ureteral orifice was then identified. The orifice was cannulated with a #6 Ecuadorean access catheter. Once the orifice was cannulated, multiple old blood clots could be seen coming around the catheter. Using saline, we irrigated through the catheter and collected a large amount of grossly bloody urine. The color was suggestive of old blood rather than an active bleed. This sample was also sent to pathology for cytology. We then injected Omnipaque through the access catheter under fluoroscopic guidance. A large amount of clot-type filling defect was seen within the collecting system. We then passed a guidewire through the access catheter and positioned a 4.8 Ecu[place]orean variable length stent such that the proximal end was curled in the renal pelvis and the distal end was curled within the bladder. Repeat cystoscopy revealed no significant clot within the bladder that would make it difficult for the patient to void. The patient tolerated the procedure well. There were no complications. We will plan on contacting the patient with the cytology exams and make arrangements for future imaging studies whether they may be a CT urogram, angiogram or ureteroscopy.
== END 2019-10-05 13:50 | disposition home or self-care (01) ==
PROVIDERS: PCP Nurse Practitioner Family; Visit Provider Urology
PROC: 0T768DZ Dilation of Right Ureter with Intraluminal Device, Via Natural or Artificial Opening Endoscopic (ICD-10-PCS; CPT 74450; principal; 2019-10-05 12:15)
DX: N13.39 Other hydronephrosis (principal); R31.9 Hematuria, unspecified; J44.9 Chronic obstructive pulmonary disease, unspecified; E11.42 Type 2 diabetes mellitus with diabetic polyneuropathy; I10 Essential (primary) hypertension
CPT/HCPCS: 52005; 52332; 99213; 74420; 88104; J0690; J2001; J2370; J2704; Q9967

== ENCOUNTER 2019-10-16 08:35 | Outpatient (CLI) | payer MEDICARE, SELFPAY ==
[2019-10-17 14:02] LABS: COVID-19 RT-PCR UVMMC Result Negative (Negative)
== END 2019-10-16 08:55 ==
PROVIDERS: PCP Nurse Practitioner Family; Visit Provider Urology
DX: Z03.818 Encounter for observation for suspected exposure to other biological agents ruled out (principal)
CPT/HCPCS: U0003

== ENCOUNTER 2019-10-22 06:46 | Day surgery (SDC) | payer MEDICARE, SELFPAY ==
--- NOTE | 2019-10-22 06:55 | HPE_ITS ---
Date of service: 10/22/19 Time of Service: 06:55 Assessment and Plan Assessment and plan (1) Hematuria: Status: Acute Assessment and plan: The site of her bleeding has been identified as the right kidney, but the exact source/etiology is unknown. We will plan to do a cystoscopy, remove her right ureteral stent, passed the flexible ureteroscope up the ureter to the kidney to evaluate for possible urothelial cell carcinoma of the ureter/renal pelvis/calyces. History of Present Illness History of Present Illness Chief Complaint: Hematuria Narrative: This is an 84-year-old woman who initially presented to the emergency room with right flank pain and hematuria. On CT scan, she had right hydronephrosis with soft tissue density in the renal pelvis and ureter. I placed a ureteral stent to relieve the hydronephrosis. We took cytology samples which were equivocal showing some atypical cells but also inflammation. Her stent has now been in place for 2 to 3 weeks. Her hematuria has resolved. She presents for ureteroscopy to help evaluate the source of the bleeding. If any abnormal mucosa is identified, we will be prepared to biopsy the ureter/renal pelvis endoscopically. Review of Systems Narrative: No fevers or chills No vision change or dysphasia No diabetes or thyroid dysfunction No shortness of breath, cough or hemoptysis No chest pain or palpitations No nausea, vomiting, hepatitis, ulcers, jaundice, diarrhea or constipation No seizures, strokes or peripheral neuropathy No bleeding disorders or anemia No gout or arthralgia. C/O sore knot on right lower back [facility] Medical History (Updated 10/05/19 @ 11:30 by Bernadette Green) Cataracts, bilateral Cervical spondylosis (Acute) Colon polyps (Acute) COPD (chronic obstructive pulmonary disease) Diabetes Diverticulosis Diverticulosis (Acute) Easy bruising (Acute) Esophagitis (Acute) Essential tremor (Acute) 10/05/19: Pt denies. -BR Fatty liver Fatty liver disease, nonalcoholic (Acute) GERD (gastroesophageal reflux disease) (Chronic) Hiatal hernia (Chronic) Hydronephrosis, right (Acute) Hyperlipidemia Hypertension Impaired fasting glucose (Acute) Night sweats (Acute) Nocturia (Acute) Peripheral neuropathy (Acute) Squamous cell carcinoma (Acute) Statin intolerance (Acute) Urinary frequency (Acute) Urinary incontinence (Acute) Surgical History (Updated 10/22/19 @ 07:13 by Bernadette Peter) Biopsy of breast History of cataract removal with insertion of prosthetic lens (Acute) History of cholecystectomy (Chronic) History of colonoscopy (Chronic) History of cystoscopy (Acute) Social History Smoking/Tobacco Use Status: Former Tobacco Use Alcohol Intake: never Drug use: Never Substance use type: does not use Do you feel safe at home: Yes Do you feel safe in your relationship?: Yes Meds Home Medications and Allergies Home Medications Medication Instructions Recorded Confirmed Type fluticasone propion-salmeterol 1 ea INHALATION BID 01/09/14 10/22/19 History [Advair Diskus] ProAir RespiClick 90 mcg INHALATION Q 4 HR 06/10/17 10/22/19 History ascorbate calcium (vitamin C) 500 mg PO DAILY 06/10/17 10/22/19 History aspirin 81 mg PO DAILY tab-cap 06/10/17 10/22/19 History cholecalciferol (vitamin D3) 2,000 unit PO DAILY 06/10/17 10/22/19 History [Vitamin D3] nystatin-triamcinolone 15 gm TOPICAL BID 06/10/17 10/22/19 History lidocaine 15 gm TOPICAL Q4H PRN #3 tube 07/29/17 10/22/19 Rx venlafaxine [Effexor XR] 37.5 mg PO DAILY #30 tab-cap 08/12/17 10/22/19 Rx baclofen 5 mg PO BID PRN #8 tab 01/17/19 10/22/19 Rx aluminum hydrox-magnesium carb 160 1 tab PO DAILY tab 04/03/19 10/22/19 History mg-105 mg chewable tablet hydrochlorothiazide 25 mg tablet 12.5 mg PO DAILY tab 04/03/19 10/22/19 History polyethylene glycol 3350 17 17 gm PO DAILY PRN 04/03/19 10/22/19 History gram/dose oral powder mirabegron 25 mg tablet,extended 25 mg PO DAILY 05/05/19 10/22/19 History release 24 hr lisinopril 20 mg tablet 40 mg PO QAM tab 09/23/19 10/22/19 History tramadol 50 mg tablet 50 mg PO Q6H PRN #20 tab 10/05/19 10/22/19 Rx Allergies Allergy/AdvReac Type Severity Reaction Status Date / Time pregabalin [From Lyrica] Allergy Severe RASH/EXTREMITY Unverified 10/22/19 07:12 EDEMA atorvastatin calcium Allergy Intermediate Unverified 10/22/19 07:12 [From Lipitor] gabapentin [From Neurontin] Allergy Intermediate Unverified 10/22/19 07:12 prednisone Allergy Mild Unverified 10/22/19 07:12 codeine Allergy Unverified 10/22/19 07:12 rosuvastatin calcium Allergy Unverified 10/22/19 07:12 [From Crestor] sulfamethoxazole Allergy Unverified 10/22/19 07:12 [From Bactrim] trimethoprim [From Bactrim] Allergy Unverified 10/22/19 07:12 Exam Narrative Exam Narrative: She is in no current distress. She is cooperative. Her vital signs are documented elsewhere in the chart Neck is supple Lungs are clear Cardiac exam shows a regular rate and rhythm Her abdomen is soft with no masses She has no edema in the lower extremities She is awake and alert COVID-19 Screening Traveled to [place] from one of the affected countries or regions?: NO Medical treatment received for symptoms/illness related to travel?: Preop COVID testing completed and negative
[2019-10-22 07:13] VITALS: BP 134/58; PULSE 75; RESP 16; TEMP 36.3; O2SAT 99
[2019-10-22] MEDS: Lactated Ringers 1,000 ML 80 ML IV (07:50)
[2019-10-22] MEDS: ceFAZolin 1 GM/50 ML BAG IVPB (07:56)
[2019-10-22] MEDS: Lidocaine 2% Jelly 6 ML SYR (08:11)
[2019-10-22] MEDS: Omnipaque 300 MG/ML 50 ML BTL (08:29)
--- NOTE | 2019-10-22 08:42 | PAPNONF_PTH ---
PATIENT: Domenica Clemente LOC: [facility] U#:[id number] AGE/SX: 84/F ROOM: RE10/22/[address]: Rudolph Max MD : [id number] BED: DIS: 10/22/2019 SPEC #: [id number] RECD: 10/22/19 13:16 STATUS: ROSSI REDaily #: [id number] NELLIE: 10/22/19 08:[address]: Rudolph Max DEPT: [facility] Cytology RECD BY: Abe Stovall ENTERED: 10/22/19 13:18 SP TYPE: MOLLY LE DR: Mary Hollingsworth Tissues: 1 - BODY FLUID CYTO(SPUTUM/URINE)[facility] Procedures: BODY FLUID CYTO(URINE/SPUTUM) Comments: [id number] (TOTAL VOLUME = 60 ml's) (30 ml's URINE & 30 ml's CYTOLYT ADDED)
--- NOTE | 2019-10-22 08:55 | DI.RAD_ITS ---
EXAM: XR RETROGRADE IN OR INDICATION: Hematuria. TECHNIQUE: 2D digital imaging was performed. FINDINGS: C-arm fluoroscopy was utilized by Dr. Max during retrograde ureterography. Please see Dr. Max's procedure note. Fluoro time was 23.2 seconds. DATA REPOSITORY: RADIATION DOSE DELIVERED:
--- NOTE | 2019-10-22 08:55 | W.PM.DSUDISC ---
Discharge Plan Disposition Patient Disposition: HOME Condition: Stable Discharge Details Reason For Visit: RT CYSTOSCOPY Attending Provider: Rudolph Max Primary Care Provider: Mayr Hollingsworth Home Meds and New Rx's Prescriptions: No Action tramadol 50 mg tablet 50 mg PO Q6H PRN (Reason: pain) Qty: 20 RF: 0 Myrbetriq 25 mg tablet extended release 24 hr 25 mg PO DAILY RF: 0 Hold Instructions: Home Medication placed on hold at Doctor's office ascorbate calcium (vitamin C) 500 MG tablet 500 mg PO DAILY RF: 0 nystatin-triamcinolone 15 GM cream 15 gm Topical BID RF: 0 aspirin 81 MG tablet,chewable 81 mg PO DAILY RF: 0 cholecalciferol (vitamin D3) [Vitamin D3] 2,000 UNIT capsule 2,000 unit PO DAILY RF: 0 ProAir RespiClick 90 MCG aerosol powdr breath activated 90 mcg Inhalation Q 4 HR RF: 0 lidocaine 15 GM cream 15 gm Topical Q4H PRN Qty: 3 RF: 5 venlafaxine [Effexor XR] 37.5 MG capsule,extended release 24hr 37.5 mg PO DAILY Qty: 30 RF: 3 hydrochlorothiazide 25 mg tablet 12.5 mg PO DAILY RF: 0 aluminum hydrox-magnesium carb 160-105 mg tablet,chewable 1 tab PO DAILY RF: 0 polyethylene glycol 3350 [Miralax] 17 gram/dose powder 17 gm PO DAILY PRNRF: 0 lisinopril 20 mg tablet 40 mg PO QAM RF: 0 fluticasone propion-salmeterol [Advair Diskus] 1 EACH blister with device 1 ea Inhalation BID RF: 0 baclofen 5 mg tablet 5 mg PO BID PRN (Reason: muscle spasm) Qty: 8 RF: 0 Discharge Instructions Additional Instructions: F/U 1 week to review cytology results - can be done by phone if pt prefers Activity:: Activity as Tolerated Shower/Bathe:: 24 hours Diet:: As Tolerated Discharge Orders Discharge Orders: Discharge Order (Routine); Ordered 10/22/19 Ordered By: Rudolph Max DS: Diagnosis Discharge Diagnosis (1) Hematuria: Status: Acute
--- NOTE | 2019-10-22 09:22 | ROE_ITS ---
Date of service: 10/22/19 Time of Service: 09:22 Operative Note Operative Note DATE OF PROCEDURE: 10/22/19 PRE-OP DIAGNOSIS: Hematuria POST-OP DIAGNOSIS: same PROCEDURE: Cystoscopy, remove right ureteral stent, right retrograde pyelogram, right flexible ureteroscopy with cytology from right upper pole calyx SURGEON: Rudolph Max ANESTHESIA: MAC ESTIMATED BLOOD LOSS: 50 PATHOLOGY: other (washings of right upper pole calyx for cytology) COMPLICATIONS: None Patient was transported to: same day Patient's condition: stable Indications: This is an 84-year-old woman who initially presented to the emergency room with flank pain and gross hematuria. The CT scan showed right hydronephrosis with soft tissue density within the collecting system and ureter. I wound up placing a ureteral stent and getting a cytology both from the bladder and from the right ureter. The cytologies were equivocal with some atypical urothelial cells as well as inflammatory cells. She presents now for stent removal and flexible ureteroscopy to evaluate her upper tract Findings: Irregular soft tissue/mucosa in right upper pole calyx Procedure Description: The patient was brought to the operating room on 10/22/2019. She is placed in the dorsolithotomy position. She was her genitalia is prepped and draped. 2% Xylocaine jelly was instilled into the urethra to act as a local anesthetic. A 22 [place] rigid cystoscope was passed through the urethra into the bladder. The bladder was inspected with a 30 degree lens. The stent could be seen protruding from the right ureteral orifice. The stent was grasped with alligator forceps and brought out to the level of the urethral meatus. A Glidewire was then advanced through the lumen of the stent and the stent was removed. A dual-lumen catheter was then advanced over the wire. A retrograde pyelogram was obtained by injecting Omnipaque through the second port and the dual-lumen catheter. There was minimal filling of the upper pole calyx but the remainder of the calyces appeared normal. We then passed a second wire through the dual-lumen catheter and shows 1 of the wires as a working wire and the other is a safety wire. The flexible ureteroscope was advanced over the working wire up to the renal pelvis. I saw no mucosal defects in the renal pelvis, lower pole calyces or midpole calyces. There was evidence of mucosal abnormality in the right upper pole calyx with a slow oozing of blood. I attempted to biopsy the mucosa, but was unable to find a suitable biopsy forceps for our ureteroscope. Instead, I performed barbotage of the upper pole calyx using saline. We sent the barbotage sample to the lab for cytology. All scopes and wires were then removed the patient tolerated the procedure well. Further recommendations will be based on the cytology result.
[2019-10-22] MEDS: Phenazopyridine 200 MG TAB PO (09:23)
[2019-10-22 09:26] VITALS: BP 147/62; PULSE 74; RESP 16; TEMP 36.5; O2SAT 99
== END 2019-10-22 09:52 | disposition home or self-care (01) ==
PROVIDERS: PCP Nurse Practitioner Family; Visit Provider Urology
PROC: (CPT 52351; principal; 2019-10-22 07:30)
DX: R31.0 Gross hematuria (principal); N28.89 Other specified disorders of kidney and ureter
CPT/HCPCS: 52351; NC; 74420; 88104; J0690; J2001; J2704; Q9967

== ENCOUNTER → 2019-10-29 15:16 | Outpatient (BNVA) | payer MEDICARE, SELFPAY | PROVIDERS: PCP Nurse Practitioner Family; Referring Provider Nurse Practitioner Family; Visit Provider Urology | DX: R31.9 Hematuria, unspecified (principal) | CPT/HCPCS: 99213; 99441 ==

== ENCOUNTER 2019-11-30 02:18 | Outpatient (CLI) | payer MEDICARE, SELFPAY ==
--- NOTE | 2019-11-30 07:45 | DI.CT_ITS ---
EXAM: CT ABDOMEN PELVIS WO/W CLINICAL HISTORY: spontaneous bleed from right kidney,hematuria,r31.9 TECHNIQUE: Imaging Protocol: Axial computed tomography images with coronal and sagittal reformatted images were created and reviewed CONTRAST MATERIAL: Intravenous: Omnipaque 350 Contrast volume:structured data in ml Oral: yes / no COMPARISON: CT CT CHEST WO from 04/02/[address] ABDOMEN PELVIS WO/W from 10/02/2019 FINDINGS: Noncontrast CT scan of the abdomen and pelvis was performed first. There is no nephrolithiasis prese nt. The patient is status post cholecystectomy. Contrast was administered and a CT scan of the abdomen and pelvis was then performed. There is geogr aphic fatty infiltration of the liver. No suspicious hepatic mass is seen are hypodense lesions seen scattered in the liver. They likely reflect cysts. The liver is enlarged. There is a lobulated co ntour of the liver suggesting hepatic cirrhosis. Please correlate clinically. No biliary ductal dil atation. The portal, superior mesenteric and splenic veins are patent. Spleen and pancreas are unre markable. There is stable thickening and nodularity of the adrenal glands left greater than right. The left kidney is unremarkable. There are few tiny hypodensities on the left kidney likely reflecti ng small cysts. There is again seen a large area of decreased attenuation in the superior pole of the right kidney me asuring 4.5 x 4.9 x 4.5 cm. There is an associated 3.6 cm cyst. Primary diagnostic concern is a [facility] renal neoplasm. There is concern for involvement of the right renal artery. (Series 4, image 2 9). There is no hydronephrosis. There is atherosclerosis of the abdominal aorta but no aneurysmal dilatation. No significant abdomin al or pelvic adenopathy ascites or pneumoperitoneum is present. There is colonic diverticulosis but no evidence of acute diverticulitis. No evidence of bowel obstruction or inflammation is seen. Ther e is a normal appendix present. There is a small hiatal hernia. Multilevel degenerative changes are seen in the spine. No aggressive osseous lesions are identified. A 7 minutes delayed image of the abdomen and pelvis was then performed. There is no dilatation or ob struction of the renal collecting system. The renal calyx in the right upper pole appears blunted an d extension of the mass into the collecting system cannot be excluded. IMPRESSION: 1. Heterogeneous enhancement of a 4.9 cm area in the upper pole of the right kidney suspicious for a mass. Primary renal neoplasm should be considered. Involvement of the renal vascularity and renal c ollecting system should be considered. RADIATION DOSE DELIVERED: 2,740.59mGy.cm Total DLP 2,740.59mGy.cm Total DLP DATA REPOSITORY: All CT scans at this facility are submitted to the National Radiology Data Registry (NRDR) Dose Index Registry (DIR) with the [employer] (A[employer]). RADIATION OPTIMIZATION: All CT scans at this facility use at least one of these dose optimization te chniques: automated exposure control; mA and/or kV adjustment per patient size (includes targeted exa ms where dose is matched to clinical indication); or iterative reconstruction.
[2019-11-30 09:52] LABS: CREATININE 0.86 mg/dL (0.55-1.02)
[2019-11-30] MEDS: Normal Saline - Diluent 50 ML VIAL IV (10:21)
[2019-11-30] MEDS: Omnipaque 350 MG/ML 100 ML BTL IJ (10:21)
[2019-11-30] MEDS: Normal Saline Flush 10 ML SYR IVP (10:22)
== END 2019-11-30 02:38 ==
PROVIDERS: PCP Nurse Practitioner Family; Visit Provider Urology
DX: R31.9 Hematuria, unspecified (principal); Z90.49 Acquired absence of other specified parts of digestive tract; K76.0 Fatty (change of) liver, not elsewhere classified; R16.0 Hepatomegaly, not elsewhere classified; N28.1 Cyst of kidney, acquired; N28.89 Other specified disorders of kidney and ureter
CPT/HCPCS: 36415; 74178; 82565; J3490

== ENCOUNTER → 2019-12-08 10:30 | Outpatient (BNVA) | payer MEDICARE, SELFPAY | PROVIDERS: PCP Nurse Practitioner Family; Referring Provider Nurse Practitioner Family; Visit Provider Urology | DX: N28.89 Other specified disorders of kidney and ureter (principal); J44.9 Chronic obstructive pulmonary disease, unspecified; E11.9 Type 2 diabetes mellitus without complications; I10 Essential (primary) hypertension; Z87.891 Personal history of nicotine dependence | CPT/HCPCS: 99213 ==

== ENCOUNTER 2019-12-14 11:36 | Outpatient (CLI) | payer MEDICARE, SELFPAY ==
[2019-12-16 11:38] LABS: SARS-CoV-2 RNA Undetected (Undetected); SARS-CoV-2 Specimen Source Nasopharynx
== END 2019-12-14 11:56 ==
PROVIDERS: PCP Nurse Practitioner Family; Visit Provider Nurse Practitioner Family
DX: Z03.818 Encounter for observation for suspected exposure to other biological agents ruled out (principal)
CPT/HCPCS: U0003

== ENCOUNTER → 2020-01-26 08:00 | Outpatient (BNVA) | payer MEDICARE, SELFPAY | PROVIDERS: PCP Nurse Practitioner Family; Referring Provider Nurse Practitioner Family; Visit Provider Urology | DX: C64.1 Malignant neoplasm of right kidney, except renal pelvis (principal); E11.9 Type 2 diabetes mellitus without complications; J44.9 Chronic obstructive pulmonary disease, unspecified; I10 Essential (primary) hypertension; Z87.891 Personal history of nicotine dependence | CPT/HCPCS: 99213 ==

== ENCOUNTER 2020-02-23 09:50 | Outpatient (CLI) | payer MEDICARE, SELFPAY ==
[2020-02-23 10:28] LABS: Abs Immature Grans 0.01 10^3/uL (0.0-0.06); Absolute Basophil Count 0.02 10^3/uL (0.0-0.2); Absolute Eosinophil Count 0.04 10^3/uL (0.0-0.7); Absolute Lymphocyte Count 0.62 10^3/uL (1.2-3.4); Absolute Neutrophil Count 2.68 10^3/uL (1.2-6.7); Basophils % 0.5; Eosinophils % 1.1; HCT 37.7 % (36.0-46.0); HGB 12.7 g/dL (11.2-15.7); Immature Grans % 0.3; Lymphocytes % 16.9; MCH 29.6 pg (27.0-33.0); MCHC 33.7 % (32.0-36.0); MCV 87.9 fL (80-95); MPV 10.1 fL (8.0-11.0); Monocytes % 8.2; Nucleated RBC 0 %; Platelet Count 105 10^3/uL (130-400); RBC 4.29 10^6/uL (3.93-5.22); RDW 12.6 % (11.7-14.6); RDW-SD 40.5 fL; WBC 3.67 10^3/uL (4.4-10.8)
[2020-02-23 10:46] LABS: ALT 58 U/L (14-59); AST 32 U/L (15-37); Albumin 3.3 g/dL (3.4-5.0); Alkaline Phosphatase 55 U/L (46-116); Anion Gap 9.9 mmol/L (3-11); BUN 17 mg/dL (7-18); Bilirubin, Total 0.5 mg/dL (0.2-1.0); CO2 27.1 mmol/L (21.0-32.0); CREATININE 1.18 mg/dL (0.55-1.02); Calcium 8.7 mg/dL (8.5-10.1); Chloride 97 mmol/L (98-107); Estimated GFR 43.85 (mL/min/1.73m2); Glucose 90 mg/dL (74-106); Potassium 4.3 mmol/L (3.5-5.1); Sodium 134 mmol/L (136-145); Total Protein 7.1 g/dL (6.4-8.2)
[2020-02-23 15:09] LABS: Magnesium 1.9 mg/dL (1.8-2.4)
== END 2020-02-23 10:10 ==
PROVIDERS: PCP Nurse Practitioner Family; Visit Provider Internal Medicine
DX: C64.1 Malignant neoplasm of right kidney, except renal pelvis (principal); C79.10 Secondary malignant neoplasm of unspecified urinary organs; C65.1 Malignant neoplasm of right renal pelvis
CPT/HCPCS: 36415; 80053; 83735; 85025

== ENCOUNTER 2020-03-15 01:29 | Outpatient (RCR) | payer MEDICARE, SELFPAY ==
[2020-03-08 08:36] LABS: HCT 39.1 % (36.0-46.0); HGB 12.7 g/dL (11.2-15.7); MCH 30.1 pg (27.0-33.0); MCHC 32.5 % (32.0-36.0); MCV 92.7 fL (80-95); MPV 9.7 fL (8.0-11.0); Nucleated RBC 0 %; Platelet Count 467 10^3/uL (130-400); RBC 4.22 10^6/uL (3.93-5.22); RDW 14.2 % (11.7-14.6); RDW-SD 46.7 fL; WBC 14.34 10^3/uL (4.4-10.8)
[2020-03-08 09:00] LABS: ALT 33 U/L (14-59); AST 21 U/L (15-37); Albumin 3.5 g/dL (3.4-5.0); Alkaline Phosphatase 87 U/L (46-116); Anion Gap 6.9 mmol/L (3-11); BUN 15 mg/dL (7-18); Bilirubin, Total 0.3 mg/dL (0.2-1.0); CO2 30.1 mmol/L (21.0-32.0); CREATININE 1.01 mg/dL (0.55-1.02); Calcium 9.2 mg/dL (8.5-10.1); Chloride 98 mmol/L (98-107); Estimated GFR 52.48 (mL/min/1.73m2); Glucose 124 mg/dL (74-106); Sodium 135 mmol/L (136-145); Total Protein 7.1 g/dL (6.4-8.2)
[2020-03-08 09:06] LABS: Absolute Neutrophil Count 11.62 10^3/uL (1.2-6.7); Bands % 7
[2020-03-08 09:07] LABS: Absolute Eosinophil Count 0.29 10^3/uL (0.0-0.7); Absolute Monocyte Count 0.57 10^3/uL (0.1-0.8); Diff Comment Manual Differential; Metamyelocytes % 2; Myelocytes % 4; RBC Morphology Normal
[2020-03-08] MEDS: Normal Saline Flush 10 ML SYR IVP (11:47)
[2020-03-15] MEDS: Normal Saline Flush 10 ML SYR IVP (08:03)
[2020-03-15 08:13] LABS: Abs Immature Grans 0.01 10^3/uL (0.0-0.06); Absolute Basophil Count 0.06 10^3/uL (0.0-0.2); Absolute Eosinophil Count 0.03 10^3/uL (0.0-0.7); Absolute Lymphocyte Count 0.87 10^3/uL (1.2-3.4); Absolute Monocyte Count 0.42 10^3/uL (0.1-0.8); Absolute Neutrophil Count 1.49 10^3/uL (1.2-6.7); Basophils % 2.1; HCT 34.7 % (36.0-46.0); HGB 11.3 g/dL (11.2-15.7); Immature Grans % 0.3; Lymphocytes % 30.2; MCHC 32.6 % (32.0-36.0); MPV 9.9 fL (8.0-11.0); Monocytes % 14.6; Neutrophils % 51.8; Nucleated RBC 0 %; RBC 3.77 10^6/uL (3.93-5.22); RDW 13.7 % (11.7-14.6); RDW-SD 45.4 fL; WBC 2.88 10^3/uL (4.4-10.8)
[2020-03-15 08:15] LABS: Platelet Count 322 10^3/uL (130-400)
[2020-03-15 08:22] LABS: ALT 52 U/L (14-59); AST 24 U/L (15-37); Albumin 3.3 g/dL (3.4-5.0); Alkaline Phosphatase 64 U/L (46-116); Anion Gap 6.9 mmol/L (3-11); BUN 21 mg/dL (7-18); Bilirubin, Total 0.4 mg/dL (0.2-1.0); CO2 30.1 mmol/L (21.0-32.0); Calcium 8.9 mg/dL (8.5-10.1); Chloride 100 mmol/L (98-107); Estimated GFR 53.08 (mL/min/1.73m2); Glucose 114 mg/dL (74-106); Potassium 3.6 mmol/L (3.5-5.1); Sodium 137 mmol/L (136-145); Total Protein 6.9 g/dL (6.4-8.2)
== END 2020-03-23 23:59 | disposition home or self-care (01) ==
LOC: INF 01:29
PROVIDERS: PCP Nurse Practitioner Family; Visit Provider Internal Medicine
DX: C64.1 Malignant neoplasm of right kidney, except renal pelvis (principal); C79.10 Secondary malignant neoplasm of unspecified urinary organs; Z45.2 Encounter for adjustment and management of vascular access device
CPT/HCPCS: 36591; 80053; 83735; 85025

== ENCOUNTER 2020-03-25 18:28 | Inpatient (IN) | payer MEDICARE, SELFPAY ==
[2020-03-25] VITALS (30 sets, daily range): BP systolic 93–136; BP diastolic 39–82; PULSE 84–103; RESP 15–27; TEMP 36.4–37; O2SAT 80–98
--- NOTE | 2020-03-25 18:30 | DI.CT_ITS ---
EXAM: CT ABDOMEN PELVIS W INDICATION: black stools, h/o kidney cancer, r/o acute process. COMPARISON: CT CT ABDOMEN PELVIS WO/W from 11/30/2019 TECHNIQUE: FINDINGS: CT examination of the abdomen and pelvis was performed with a bolus infusion of 100 cc of Omnipaque 3 50. Images obtained through the lung bases are unremarkable. Liver is unremarkable in appearance exc ept for presence of couple of apparent hepatic cysts. Gallbladder is been surgically removed. No bi liary dilatation. Unremarkable appearance the spleen. Adrenals appear normal. Previously described right renal mass lesion again seen, no gross interval change in appearance hilda rison with examination of November 29. Bilateral renal cysts again noted. No evidence of hydronephrosi s on either side. Poor delineation renal arterial circulation noted, unchanged from prior examinatio n, on the right. Mild pericaval/retrocaval lymph node prominence, largest nodes measure less than 10 millimeters in diameter, no change from prior study.. Abdominal aorta is of normal diameter and no major vascular abnormality is seen. No abdominal wall hernia. No additional abdominal or pelvic adenopathy. [employer] structures appear intact for age appendix is normal. No evidence of diverticulitis or bowel obstr uction. IMPRESSION: Stable appearance of right renal mass. No change from November 29 examination. No evidence of acute ob struction. RADIATION DOSE DELIVERED: 776.56mGy.cm Total DLP 776.56mGy.cm Total DLP
--- NOTE | 2020-03-25 18:34 | ED.GENADUL_ITS ---
Discharge Plan Disposition Patient Disposition: [facility] INPATIENT Condition: Stable Discharge Details Clinical Impression: GI bleed, Acute anemia, Melena, History of renal cell cancer Primary Care Provider: Mary Hollingsworth ED Provider: Liz Mace Home Meds and New Rx's Prescriptions: No Action tramadol 50 mg tablet 50 mg PO Q6H PRN (Reason: pain) Qty: 20 RF: 0 Myrbetriq 25 mg tablet extended release 24 hr 25 mg PO DAILY RF: 0 Hold Instructions: Home Medication placed on hold at Doctor's office ascorbate calcium (vitamin C) 500 MG tablet 500 mg PO DAILY RF: 0 nystatin-triamcinolone 15 GM cream 15 gm Topical BID RF: 0 aspirin 81 MG tablet,chewable 81 mg PO DAILY RF: 0 cholecalciferol (vitamin D3) [Vitamin D3] 2,000 UNIT capsule 2,000 unit PO DAILY RF: 0 ProAir RespiClick 90 MCG aerosol powdr breath activated 90 mcg Inhalation Q 4 HR RF: 0 lidocaine 15 GM cream 15 gm Topical Q4H PRN Qty: 3 RF: 5 venlafaxine [Effexor XR] 37.5 MG capsule,extended release 24hr 37.5 mg PO DAILY Qty: 30 RF: 3 hydrochlorothiazide 25 mg tablet 12.5 mg PO DAILY RF: 0 polyethylene glycol 3350 [Miralax] 17 gram/dose powder 17 gm PO DAILY PRNRF: 0 lisinopril 20 mg tablet 40 mg PO QAM RF: 0 fluticasone propion-salmeterol [Advair Diskus] 1 EACH blister with device 1 ea Inhalation BID RF: 0 baclofen 5 mg tablet 5 mg PO BID PRN (Reason: muscle spasm) Qty: 8 RF: 0 Medical Decision Making 1844 -- 84-year-old female with a history of 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 Per Nayan Ellison NP at urgent care, patient sent here for further evaluation and admission for serial H & H per [facility] heme/onc recommendations. Heart rate 100, blood pressure 93/66 on arrival. She appears nontoxic. Shortly after arrival, blood pressure 103/45, heart rate 87. Abdomen is soft and nontender. Bedside rectal exam noted maroon/black color stool and guaiac positive. We will check screening labs and CT abdomen and pelvis. 1935 --labs reviewed. Hemoglobin 8.4. White blood cell count 18. Normal coagulation studies. Bands 5, was 7 last month, suspect possibly due to neulasta injection. No fever and appears nontoxic so do not Case discussed with hospitalist who accepts patient for admission. Case also discussed with Dr. Tay who was notified of patient. No recommendations for Protonix drip at this time. Case d/w [facility] heme/onc -she was informed of lab results. States that there is a possibility she could have myelosuppression from her chemotherapy, but in the setting of melena, low threshold for obtaining EGD for GI bleed. Patient remains hemodynamically stable. Medical Records Medical records reviewed: Yes I reviewed the patient's medical records. Lab Data Lab results reviewed: Yes I reviewed the patient's lab results. Labs: Laboratory Tests Range/Units 03/25/20 03/25/20 03/25/20 19:00 19:00 19:00 WBC (4.4-10.8) 10^3/uL 18.05 H RBC (3.93-5.22) 10^6/uL 2.77 L Hgb (11.2-15.7) g/dL 8.4 L Hct (36.0-46.0) % 26.0 L MCV (80-95) fL 93.9 MCH (27.0-33.0) pg 30.3 MCHC (32.0-36.0) % 32.3 RDW (11.7-14.6) % 15.6 H Plt Count (130-400) 10^3/uL 121 L D MPV (8.0-11.0) fL 10.9 Immature Gran % See Differential Neutrophils % 73.0 Band Neutrophils % 5 Lymphocytes % 7.0 Monocytes % 11.0 Eosinophils % 1.0 Basophils % 0.0 Metamyelocytes % 1 Myelocytes % 2 Nucleated RBC % % 0 Absolute Neutrophils (1.2-6.7) 10^3/uL 14.08 H Absolute Lymphocytes (1.2-3.4) 10^3/uL 1.26 Absolute Monocytes (0.1-0.8) 10^3/uL 1.99 H Absolute Eosinophils (0.0-0.7) 10^3/uL 0.18 Absolute Basophils (0.0-0.2) 10^3/uL 0.00 RBC Morphology See below Polychromasia Present Hypochromasia 1+ Anisocytosis 1+ PT (9.3-11.0) sec 10.3 INR (0.9-1.1) 1.0 APTT (21.0-31.4) sec 19.7 L Sodium (136-145) mmol/L 139 Potassium (3.5-5.1) mmol/L 3.1 L Chloride (98-107) mmol/L 103 Carbon Dioxide (21.0-32.0) mmol/L 28.0 Anion Gap (3-11) mmol/L 8.0 BUN (7-18) mg/dL 25 H Creatinine (0.55-1.02) mg/dL 1.08 H Estimated GFR/1.73 m2 (mL/min/1.73m2) 48.57 Glucose (74-106) mg/dL 124 H Calcium (8.5-10.1) mg/dL 8.2 L Total Bilirubin (0.2-1.0) mg/dL 0.2 AST (15-37) U/L 11 L ALT (14-59) U/L 20 Alkaline Phosphatase (46-116) U/L 98 Total Protein (6.4-8.2) g/dL 6.0 L Albumin (3.4-5.0) g/dL 3.3 L HPI General Mode of arrival: ambulatory . Date/Time Provider Initiated Documentation: 03/25/20 18:29 . Limitations to Documentation: no limitations . Information obtained by: patient . HPI Narrative: Pt is a 84yo F with a history of metastatic urothelial cancer status post last chemotherapy treatment 2 weeks ago presents after sent from urgent care for downtrending hemoglobin and melena. Patient states she is followed by oncology at [facility] and receives her chemotherapy at the [facility]. She states she received a Neulasta injection the last 2 weeks. She states for the last 2 days she has had black-colored stools. She was advised to go to the urgent care from the [facility] and was noted there today to have a hemoglobin of 8.3, down trended from 11.7 in the last week. Nayan Ellison, nurse practitioner from urgent care, called the ED informing us of patient's arrival and that he call [facility] who recommended patient be admitted here for observation overnight and serial H&H. Patient denies any fever, chest pain, shortness of breath, abdominal pain, nausea, vomiting, diarrhea or rectal pain. She states she has had a normal appetite. She states her last colonoscopy within the last few years but was within normal limits. Related Data Home Medications Medication Instructions Recorded Confirmed fluticasone propion-salmeterol 1 ea INHALATION BID 01/09/14 03/25/20 [Advair Diskus] ProAir RespiClick 90 mcg INHALATION Q 4 HR 06/10/17 03/25/20 ascorbate calcium (vitamin C) 500 mg PO DAILY 06/10/17 03/25/20 aspirin 81 mg PO DAILY tab-cap 06/10/17 03/25/20 cholecalciferol (vitamin D3) 2,000 unit PO DAILY 06/10/17 03/25/20 [Vitamin D3] nystatin-triamcinolone 15 gm TOPICAL BID 06/10/17 03/25/20 lidocaine 15 gm TOPICAL Q4H PRN #3 tube 07/29/17 03/25/20 venlafaxine [Effexor XR] 37.5 mg PO DAILY #30 tab-cap 08/12/17 03/25/20 baclofen 5 mg PO BID PRN #8 tab 01/17/19 03/25/20 hydrochlorothiazide 25 mg tablet 12.5 mg PO DAILY tab 04/03/19 03/25/20 polyethylene glycol 3350 17 17 gm PO DAILY PRN 04/03/19 03/25/20 gram/dose oral powder mirabegron 25 mg tablet,extended 25 mg PO DAILY 05/05/19 01/26/20 release 24 hr lisinopril 20 mg tablet 40 mg PO QAM tab 09/23/19 03/25/20 tramadol 50 mg tablet 50 mg PO Q6H PRN #20 tab 10/05/19 03/25/20 Previous Rx's Medication Instructions Recorded lidocaine 15 gm TOPICAL Q4H PRN #3 tube 07/29/17 venlafaxine [Effexor XR] 37.5 mg PO DAILY #30 tab-cap 08/12/17 baclofen 5 mg PO BID PRN #8 tab 07/27/19 tramadol 50 mg tablet 50 mg PO Q6H PRN #20 tab 10/05/19 Allergies Allergy/AdvReac Type Severity Reaction Status Date / Time pregabalin [From Lyrica] Allergy Severe RASH/EXTREMITY Unverified 03/25/20 19:14 EDEMA atorvastatin calcium Allergy Intermediate Unverified 03/25/20 19:14 [From Lipitor] gabapentin [From Neurontin] Allergy Intermediate Unverified 03/25/20 19:14 prednisone Allergy Mild Unverified 03/25/20 19:14 codeine Allergy Unverified 03/25/20 19:14 rosuvastatin calcium Allergy Unverified 03/25/20 19:14 [From Crestor] sulfamethoxazole Allergy Unverified 03/25/20 19:14 [From Bactrim] trimethoprim [From Bactrim] Allergy Unverified 03/25/20 19:14 General SATHISH: 3 Review of Systems All systems reviewed & are unremarkable except as noted in HPI and below Constitutional Constitutional: Reports as per HPI, Denies chills and Denies fever(s) Eyes Eyes: Denies blurry vision ENT Ears, Nose, Mouth, and Throat: Denies dizziness, Denies sore throat and Denies throat swelling Cardiovascular Cardiovascular: Denies chest pain and Denies dyspnea Respiratory Respiratory: Denies cough and Denies dyspnea Gastrointestinal Gastrointestinal: Denies abdominal pain, Reports melena, Denies diarrhea and Denies vomiting Genitourinary Genitourinary: Denies hematuria and Denies dysuria Musculoskeletal Musculoskeletal: Denies back pain and Denies numbness Integumentary/Breasts Skin/Breast: Denies lesions and Denies rash Neurologic Neurologic: Denies dizziness, Denies localized weakness and Denies numbness Allergic/Immunologic Allergic/Immunologic: Denies throat swelling [facility] Medical History (Updated 03/25/20 @ 19:50 by Liz Mace DO) Cataracts, bilateral Cervical spondylosis Colon polyps COPD (chronic obstructive pulmonary disease) Diabetes Diverticulosis Diverticulosis Easy bruising Esophagitis Essential tremor 10/05/19: Pt denies. -BR Fatty liver Fatty liver disease, nonalcoholic GERD (gastroesophageal reflux disease) Hiatal hernia Hydronephrosis, right Hyperlipidemia Hypertension Impaired fasting glucose Night sweats Nocturia Peripheral neuropathy Renal mass Squamous cell carcinoma Statin intolerance Urinary frequency Urinary incontinence Surgical History Biopsy of breast History of cataract removal with insertion of prosthetic lens History of cholecystectomy History of colonoscopy History of cystoscopy Family History Sister Personal history of malignant neoplasm breast, colon Sister Personal history of malignant neoplasm uterine Social History Smoking/Tobacco Use Status: Former Tobacco Use Alcohol Intake: never Drug use: Never Substance use type: does not use Do you feel safe at home: Yes Do you feel safe in your relationship?: Yes Exam Const General: cooperative and no acute distress Orientation: alert, awake and oriented x3 HENMT Head: normal to inspection Face and sinus: normal facial exam Eyes General: appearance normal, both eyes and all related structures Pupils: PERRL EOM: EOM intact bilaterally Neck Neck: normal visual inspection and No submandibular swelling Lymphatic: no lymphadenopathy noted Chest Chest: normal inspection of the chest and no tenderness Resp Effort & Inspection: normal respiratory effort and able to speak in complete sentences Auscultation: clear to auscultation bilaterally Cardio Rate: regular rate Rhythm: regular rhythm GI Inspection: normal to inspection Palpation: soft, not firm, not rigid and nontender Auscultation: normal bowel sounds and hypoactive bowel sounds Rectal Exam - female: visual inspection normal and heme positive stool (maroon/black colored stool) Rectal exam heme positive - female: 3+ Skin General skin exam: no rashes or lesions noted Neuro General: patient alert, patient awake and patient oriented x3 Cognition: normal cognition Speech: speech normal Motor: muscle tone normal throughout Sensory Exam: no sensory deficits noted Extrem General: normal to inspection, full ROM, capillary refill normal, no calf tenderness bilaterally and no edema Psych Appearance: grossly normal Mental Status: mental status grossly normal Speech and Movement: speech and movement normal Affect: normal affect
[2020-03-25 19:10] LABS: HGB 8.4 g/dL (11.2-15.7); MCH 30.3 pg (27.0-33.0); MCHC 32.3 % (32.0-36.0); MCV 93.9 fL (80-95); MPV 10.9 fL (8.0-11.0); Nucleated RBC 0 %; RBC 2.77 10^6/uL (3.93-5.22); RDW 15.6 % (11.7-14.6); RDW-SD 48.9 fL; WBC 18.05 10^3/uL (4.4-10.8)
[2020-03-25 19:22] LABS: PTT Activated 19.7 sec (21.0-31.4); Prothrombin Time 10.3 sec (9.3-11.0)
[2020-03-25 19:24] LABS: ALT 20 U/L (14-59); AST 11 U/L (15-37); Albumin 3.3 g/dL (3.4-5.0); Alkaline Phosphatase 98 U/L (46-116); BUN 25 mg/dL (7-18); Bilirubin, Total 0.2 mg/dL (0.2-1.0); CREATININE 1.08 mg/dL (0.55-1.02); Calcium 8.2 mg/dL (8.5-10.1); Chloride 103 mmol/L (98-107); Estimated GFR 48.57 (mL/min/1.73m2); Glucose 124 mg/dL (74-106); Potassium 3.1 mmol/L (3.5-5.1); Sodium 139 mmol/L (136-145)
[2020-03-25 19:44] LABS: Absolute Eosinophil Count 0.18 10^3/uL (0.0-0.7); Absolute Lymphocyte Count 1.26 10^3/uL (1.2-3.4); Absolute Monocyte Count 1.99 10^3/uL (0.1-0.8); Absolute Neutrophil Count 14.08 10^3/uL (1.2-6.7); Bands % 5; Metamyelocytes % 1; Myelocytes % 2; Platelet Count 121 10^3/uL (130-400)
[2020-03-25 19:45] LABS: Anisocytosis 1+; Diff Comment Manual Differential; Hypochromasia 1+; Polychromasia Present
[2020-03-25] MEDS: Omnipaque 350 MG/ML 100 ML BTL IJ (19:47)
[2020-03-25] MEDS: Normal Saline Flush 10 ML SYR IVP (19:47)
[2020-03-25] MEDS: Normal Saline - Diluent 50 ML VIAL IV (19:48)
--- NOTE | 2020-03-25 20:08 | HPE_ITS ---
Date of service: 03/25/20 Time of Service: 20:08 Assessment and Plan Assessment and plan (1) GI bleed: Status: Chronic Assessment and plan: UGI bleed, ASA possible culprit. Though BP initially soft current hemodynamics after saline satisfactory. Unclear whether drop Hct from bleed, chemo or both. In any case will hold ASA, begin PPI, track Hct and would consider EGD (on preliminary discussion patient seems more inclined to empiric management without direct imaging but will await further discussions in AM). Will also hold antihypertensives until clear where situation settles. Leukocytosis noted. No s/s infection, likely due to Neulata. Will track. Reviewed ADs, unable to make decision. Advised default position is Full Code. History of Present Illness History of Present Illness Chief Complaint: melena Narrative: 84 female with high grade urothelial cell right kidney. Last chemo sometime in past few weeks (cannot locate precisely) and had Neulasta 03/15. On ASA for unknown indication. Presents today with two days of painless melena (initially seen at Urgent Care, sent here for further eval). In ER hcy 26 noted (most recent prior 34); initial BP 90s/sys, currently 120-130 during my visit. ER reviewed with [facility] and surgery, now admitted for further management. Patient states she feels entirely at baseline. Other than daily baby ASA no NSAIDs, no EtOH. Review of Systems All systems reviewed & are unremarkable except as noted in HPI and below PFSH Medical History Cataracts, bilateral Cervical spondylosis Colon polyps COPD (chronic obstructive pulmonary disease) Diabetes Diverticulosis Diverticulosis Easy bruising Esophagitis Essential tremor 10/05/19: Pt denies. -BR Fatty liver Fatty liver disease, nonalcoholic GERD (gastroesophageal reflux disease) Hiatal hernia Hydronephrosis, right Hyperlipidemia Hypertension Impaired fasting glucose Night sweats Nocturia Peripheral neuropathy Renal mass Squamous cell carcinoma Statin intolerance Urinary frequency Urinary incontinence Surgical History Biopsy of breast History of cataract removal with insertion of prosthetic lens History of cholecystectomy History of colonoscopy History of cystoscopy Family History Sister Personal history of malignant neoplasm breast, colon Sister Personal history of malignant neoplasm uterine Social History Smoking/Tobacco Use Status: Former Tobacco Use Alcohol Intake: never Drug use: Never Substance use type: does not use Do you feel safe at home: Yes Do you feel safe in your relationship?: Yes Meds Home Medications and Allergies Home Medications Medication Instructions Recorded Confirmed Type fluticasone propion-salmeterol 1 ea INHALATION BID 01/09/14 03/25/20 History [Advair Diskus] ProAir RespiClick 90 mcg INHALATION Q 4 HR 06/10/17 03/25/20 History ascorbate calcium (vitamin C) 500 mg PO DAILY 06/10/17 03/25/20 History aspirin 81 mg PO DAILY tab-cap 06/10/17 03/25/20 History cholecalciferol (vitamin D3) 2,000 unit PO DAILY 06/10/17 03/25/20 History [Vitamin D3] nystatin-triamcinolone 15 gm TOPICAL BID 06/10/17 03/25/20 History lidocaine 15 gm TOPICAL Q4H PRN #3 tube 07/29/17 03/25/20 Rx venlafaxine [Effexor XR] 37.5 mg PO DAILY #30 tab-cap 08/12/17 03/25/20 Rx baclofen 5 mg PO BID PRN #8 tab 01/17/19 03/25/20 Rx hydrochlorothiazide 25 mg tablet 12.5 mg PO DAILY tab 04/03/19 03/25/20 History polyethylene glycol 3350 17 17 gm PO DAILY PRN 04/03/19 03/25/20 History gram/dose oral powder mirabegron 25 mg tablet,extended 25 mg PO DAILY 05/05/19 01/26/20 History release 24 hr lisinopril 20 mg tablet 40 mg PO QAM tab 09/23/19 03/25/20 History tramadol 50 mg tablet 50 mg PO Q6H PRN #20 tab 10/05/19 03/25/20 Rx Allergies Allergy/AdvReac Type Severity Reaction Status Date / Time pregabalin [From Lyrica] Allergy Severe RASH/EXTREMITY Unverified 03/25/20 19:14 EDEMA atorvastatin calcium Allergy Intermediate Unverified 03/25/20 19:14 [From Lipitor] gabapentin [From Neurontin] Allergy Intermediate Unverified 10/02/20 19:14 prednisone Allergy Mild Unverified 03/25/20 19:14 codeine Allergy Unverified 03/25/20 19:14 rosuvastatin calcium Allergy Unverified 03/25/20 19:14 [From Crestor] sulfamethoxazole Allergy Unverified 03/25/20 19:14 [From Bactrim] trimethoprim [From Bactrim] Allergy Unverified 03/25/20 19:14 Exam Narrative Exam Narrative: 134/49, 96, 36.4, 19, 97% RA. HEENT atraumatic; neck supple; lungs clear; heart RRR w/o MRG; abdomen +BS soft and NT; extremities w/o edema; neuro Ox3, nonfocal Results Labs Result diagrams: 03/25/20 19:00 03/25/20 19:00 Labs: Laboratory Results - last 24 hr 03/25/20 03/25/20 03/25/20 19:00 19:00 19:00 WBC 18.05 H RBC 2.77 L Hgb 8.4 L Hct 26.0 L MCV 93.9 MCH 30.3 MCHC 32.3 RDW 15.6 H Plt Count 121 L D MPV 10.9 Immature Gran % See Differential Neutrophils % 73.0 Band Neutrophils % 5 Lymphocytes % 7.0 Monocytes % 11.0 Eosinophils % 1.0 Basophils % 0.0 Metamyelocytes % 1 Myelocytes % 2 Nucleated RBC % 0 Absolute Neutrophils 14.08 H Absolute Lymphocytes 1.26 Absolute Monocytes 1.99 H Absolute Eosinophils 0.18 Absolute Basophils 0.00 RBC Morphology See below Polychromasia Present Hypochromasia 1+ Anisocytosis 1+ PT 10.3 INR 1.0 APTT 19.7 L Sodium 139 Potassium 3.1 L Chloride 103 Carbon Dioxide 28.0 Anion Gap 8.0 BUN 25 H Creatinine 1.08 H Estimated GFR/1.73 m2 48.57 Glucose 124 H Calcium 8.2 L Total Bilirubin 0.2 AST 11 L ALT 20 Alkaline Phosphatase 98 Total Protein 6.0 L Albumin 3.3 L Last Vital Signs Temp 36.4 C L 03/25/20 18:33 Pulse 87 03/25/20 19:16 Resp 21 03/25/20 19:20 BP 105/44 L 03/25/20 19:16 Pulse Ox 96 03/25/20 19:20 COVID-19 Screening Have you,or household,traveled outside [place] in last 14 days?: No Had IN PERSON contact w/suspected or confirmed C-19 person: No
--- NOTE | 2020-03-25 20:14 | DI.VRAD_ITS ---
PROCEDURE INFORMATION: Exam: CT Abdomen And Pelvis With Contrast Exam date and time: 03/25/2020 7:47 PM Age: 84 years old Clinical indication: Other: Black stool; Patient HX: Currently undergoing cancer treatments for renal cancer TECHNIQUE: Imaging protocol: Computed tomography of the abdomen and pelvis with intravenous contrast. Radiation optimization: All CT scans at this facility use at least one of these dose optimization techniques: automated exposure control; mA and/or kV adjustment per patient size (includes targeted exams where dose is matched to clinical indication); or iterative reconstruction. Contrast material: [id number]; Contrast volume: 96 ml; Contrast route: INTRAVENOUS (IV); COMPARISON: CT ABDOMEN PELVIS WO/W 11/30/2019 10:13 AM FINDINGS: Mediastinal space: Hiatal hernia. Liver: Hepatic cysts. Gallbladder and bile ducts: The patient is status post cholecystectomy. No biliary ductal dilatation. Pancreas: Normal. No ductal dilation. Spleen: Normal. No splenomegaly. Adrenals: Normal adrenal glands. Kidneys and ureters: 4 cm right renal mass. 3 cm simple cyst right kidney. Hypoenhancing area or lesion in left kidney, too small to accurately characterize. No hydronephrosis.There is mild right perinephric stranding. Stomach and bowel: No dilated loops of small bowel or colonic dilatation. Colonic diverticula. Appendix: Normal appendix. Intraperitoneal space: No free intraperitoneal gas. No ascites. Vasculature: No aortic aneurysm or dissection. Both renal veins patent. Lymph nodes: Unremarkable. No enlarged lymph nodes. Urinary bladder: Unremarkable as visualized. Reproductive: Unremarkable as visualized. Bones/joints: Unremarkable. No acute fracture. Soft tissues: There is an uncomplicated fat-containing umbilical hernia. IMPRESSION: 1. Perinephric stranding of fat which could have several possible etiologies including scarring, third spacing of fluid, inflammatory process or infection. 2. Colonic diverticula. 3. Right renal mass, consistent with provided history. Dictated and Authenticated by: Gómez Medina MD. Ordering:TENZIN Hill MD
[2020-03-25] MEDS: Normal Saline 500 ML IV (20:16)
[2020-03-25] MEDS: Pantoprazole 40 MG VIAL IVP (20:17)
[2020-03-25] MEDS: Potassium Chloride 20 MEQ TABCR 40 MEQ PO (20:17)
[2020-03-25] MEDS: POTASSIUM CHLORIDE/0.9% NACL 1,000 ML 100 MEQ IV (22:30)
[2020-03-25 22:42] LABS: HCT 24.3 % (36.0-46.0); HGB 7.8 g/dL (11.2-15.7)
[2020-03-26] VITALS (28 sets, daily range): BP systolic 115–157; BP diastolic 55–85; PULSE 83–92; RESP 16–25; TEMP 36.2–36.7; O2SAT 92–98
[2020-03-26 08:19] LABS: HCT 22.3 % (36.0-46.0); HGB 7.2 g/dL (11.2-15.7); MCH 30.6 pg (27.0-33.0); MCHC 32.3 % (32.0-36.0); MCV 94.9 fL (80-95); MPV 10.6 fL (8.0-11.0); Platelet Count 108 10^3/uL (130-400); RBC 2.35 10^6/uL (3.93-5.22); RDW 16.4 % (11.7-14.6)
[2020-03-26 08:28] LABS: Anion Gap 2.4 mmol/L (3-11); BUN 20 mg/dL (7-18); CO2 29.6 mmol/L (21.0-32.0); CREATININE 0.81 mg/dL (0.55-1.02); Calcium 7.8 mg/dL (8.5-10.1); Chloride 109 mmol/L (98-107); Glucose 107 mg/dL (74-106); Potassium 4.2 mmol/L (3.5-5.1); Sodium 141 mmol/L (136-145)
[2020-03-26] MEDS: Venlafaxine 37.5 MG CAPCR PO (08:46)
[2020-03-26] MEDS: POTASSIUM CHLORIDE/0.9% NACL 1,000 ML 100 MEQ IV (08:46)
--- NOTE | 2020-03-26 08:53 | INITIAL_ITS ---
- If Service Date Differs Date of service: 03/26/20 Time of Service: 08:53 Care Management Initial Assess REASON FOR HOSPITALIZATION:: UGI bleed. PAST MEDICAL HISTORY/PAST SURGICAL HISTORY:: Medical History: Cataracts, bilateral, Cervical spondylosis, Colon polyps,. COPD (chronic obstructive pulmonary disease), Diabetes, Diverticulosis, Easy bruising, Esophagitis, Essential tremor 10/05/19: Pt denies. -BR, Fatty liver disease, nonalcoholic, GERD (gastroesophageal reflux disease), Hiatal hernia, Hydronephrosis, right, Hyperlipidemia, Hypertension, Impaired fasting glucose, Night sweats, Nocturia, Peripheral neuropathy,. Renal mass, Squamous cell carcinoma, Statin intolerance, Urinary frequency, and Urinary incontinence. Surgical History: Biopsy of breast, History of cataract removal with insertion of prosthetic lens, History of cholecystectomy, History of colonoscopy, and History of cystoscopy. PREVIOUS FUNCTIONAL STATUS/SOCIAL/FAMILY SUPPORTS:: Domenica lives in [place], [place], with her , Adiel. She has five children, one who lives in [place] and four in the [facility]. Her son Osorio and daughter Britni both reside in [place] and are identified as supports for Domenica, along with her . 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 She now spends her days cooking, baking, and caring for her home and flower garden. Domenica shares she still occasionally drives and is independent with her ADLs at baseline. CURRENT FUNCTIONAL STATUS:: Domenica is sitting in a chair when CM comes to meet with her. She is pleasant and easily engages in conversation. She tells CM she is remaining at the hospital through the night but is hopeful she will be going home tomorrow. CM will continue to follow. ADVANCE DIRECTIVES:: None on file but Domenica says she has the forms to complete at home. Has patient been provided with info about the portal/API?: Yes Did the patient sign up for the portal?: No (Not interested.) CODE STATUS:: Full Code INSURANCE COVERAGE / FINANCIAL ISSUES:: Medicare and Financial Asst 100. CURRENT HOME/COMMUNITY SERVICES/EQUIPMENT:: Domenica denies having any home/community services or medical equipment. She is independent at baseline. She is receiving chemotherapy for renal cell cancer at [facility]. PRIMARY CARE PHYSICIAN:: VICTORIA Parra POTENTIAL DISCHARGE NEEDS:: Follow up appointments with PCP and oncologist. PATIENT/FAMILY EDUCATION NEEDS:: Discharge instructions, limitations, and plan of care, including Ask Me Three and self-management. ANTICIPATED BARRIERS TO DISCHARGE:: No anticipated barriers at this time. TRANSPORTATION:: Via private vehicle with her , Adiel. PLAN:: Anticipate Domenica will be discharged home with no new services when medically cleared by provider. She will follow up with her PCP, oncologist, and plan of care as directed. Her will drive her home via private vehicle when ready. CM will continue to support Domenica and discharge planning considerations.
--- NOTE | 2020-03-26 08:56 | W.PM.PROGNOT ---
Date of Service Date of service: 03/26/20 Time of Service: 08:56 Assessment and Plan Assessment and plan (1) GI bleed: Status: Chronic Assessment and plan: UGI bleed, ASA possible culprit. Though BP initially soft current hemodynamics after saline satisfactory. Unclear whether drop Hct from bleed, chemo or both. continue to hold ASA, begin PPI, track Hct and would consider EGD awaiting surgical consultation. continue to hold antihypertensives for now. give one unit of PRBC for dropping H&H with 7.2/22.3 this am, continue to trend. iron studies pending give one dose of IV iron. case discussed with Dr King who is in agreement (2) Leukocytosis: Status: Acute Assessment and plan: normalizing and with no fevers or sign of infection likely due to Neulata. continue to monitor. (3) Hypertension: Status: Chronic Assessment and plan: blood pressures stable. continue to hold lisinipril and hctz for now. monitor and adjust as needed. Subjective Subjective Patient reports: no new complaints Interval history since last seen: continues to remain NPO awaiting surgical consult, stooling had stopped overnight but had another black tarry stool this morning, H&H still drifting down. denies chest pain, shortness of breath, dizziness or abdominal pain. is asymptomatic with no c/o. she is sitting up in her recliner in no acute distress. Exam Const General: cooperative, healthy appearing (elderly female of stated age), comfortable, no acute distress and well groomed Nutritional Appearance: average body habitus Orientation: alert, awake and oriented x3 HENMT Head: normal to inspection, normocephalic and atraumatic Mouth: oral mucosae normal (slightly dry) Resp Effort & Inspection: normal respiratory effort Auscultation: clear to auscultation bilaterally Cardio Rate: regular rate and not tachycardic Rhythm: regular rhythm GI Inspection: normal to inspection Palpation: soft Auscultation: normal bowel sounds Skin General skin exam: no rashes or lesions noted Neuro General: patient alert, patient awake, patient oriented x3, moves all extremities and no focal motor deficits Extrem General: normal to inspection, full ROM and no pedal edema Objective Last Vital Signs Temp 36.5 C 03/26/20 07:41 Pulse 87 03/26/20 07:41 Resp 17 03/26/20 07:41 BP 122/73 03/26/20 07:41 Pulse Ox 95 03/26/20 07:41 Laboratory Results - last 24 hr 03/25/20 03/25/20 03/25/20 19:00 19:00 19:00 WBC 18.05 H RBC 2.77 L Hgb 8.4 L Hct 26.0 L MCV 93.9 MCH 30.3 MCHC 32.3 RDW 15.6 H Plt Count 121 L D MPV 10.9 Immature Gran % See Differential Neutrophils % 73.0 Band Neutrophils % 5 Lymphocytes % 7.0 Monocytes % 11.0 Eosinophils % 1.0 Basophils % 0.0 Metamyelocytes % 1 Myelocytes % 2 Nucleated RBC % 0 Absolute Neutrophils 14.08 H Absolute Lymphocytes 1.26 Absolute Monocytes 1.99 H Absolute Eosinophils 0.18 Absolute Basophils 0.00 RBC Morphology See below Polychromasia Present Hypochromasia 1+ Anisocytosis 1+ PT 10.3 INR 1.0 APTT 19.7 L Sodium 139 Potassium 3.1 L Chloride 103 Carbon Dioxide 28.0 Anion Gap 8.0 BUN 25 H Creatinine 1.08 H Estimated GFR/1.73 m2 48.57 Glucose 124 H Calcium 8.2 L Total Bilirubin 0.2 AST 11 L ALT 20 Alkaline Phosphatase 98 Total Protein 6.0 L Albumin 3.3 L Patient ABO/Rh Antibody Screen Crossmatch 03/25/20 03/25/20 03/26/20 19:00 22:30 08:00 WBC RBC Hgb 7.8 L Hct 24.3 L MCV MCH MCHC RDW Plt Count MPV Immature Gran % Neutrophils % Band Neutrophils % Lymphocytes % Monocytes % Eosinophils % Basophils % Metamyelocytes % Myelocytes % Nucleated RBC % Absolute Neutrophils Absolute Lymphocytes Absolute Monocytes Absolute Eosinophils Absolute Basophils RBC Morphology Polychromasia Hypochromasia Anisocytosis PT INR APTT Sodium 141 Potassium 4.2 D Chloride 109 H Carbon Dioxide 29.6 Anion Gap 2.4 L BUN 20 H Creatinine 0.81 Estimated GFR/1.73 m2 >= 60.00 Glucose 107 H Calcium 7.8 L Total Bilirubin AST ALT Alkaline Phosphatase Total Protein Albumin Patient ABO/Rh A Positive Antibody Screen Negative Crossmatch See Detail 03/26/20 08:00 WBC 13.70 H RBC 2.35 L Hgb 7.2 L Hct 22.3 L MCV 94.9 MCH 30.6 MCHC 32.3 RDW 16.4 H Plt Count 108 L MPV 10.6 Immature Gran % Neutrophils % Band Neutrophils % Lymphocytes % Monocytes % Eosinophils % Basophils % Metamyelocytes % Myelocytes % Nucleated RBC % Absolute Neutrophils Absolute Lymphocytes Absolute Monocytes Absolute Eosinophils Absolute Basophils RBC Morphology Polychromasia Hypochromasia Anisocytosis PT INR APTT Sodium Potassium Chloride Carbon Dioxide Anion Gap BUN Creatinine Estimated GFR/1.73 m2 Glucose Calcium Total Bilirubin AST ALT Alkaline Phosphatase Total Protein Albumin Patient ABO/Rh Antibody Screen Crossmatch
[2020-03-26 10:05] LABS: Reticulocyte 3.5 % (0.5-2.4)
[2020-03-26 10:14] LABS: Iron 64 ug/dL (50-170); Total Iron Binding Capacity 224 ug/dL (250-450); Transferrin Sat 29 % (15-50)
[2020-03-26 10:28] LABS: Ferritin 629 ng/mL (8-252)
[2020-03-26] MEDS: Budesonide/Formoterol 160/4.5 6 GM 60 PUFF INH IH ×2 (10:39→21:29)
--- NOTE | 2020-03-26 12:01 | W.SURGCON ---
Date of service: 03/26/20 Time of Service: 11:00 Assessment and Plan Assessment and plan (1) Melena: Status: Acute Assessment and plan: She presumably has gastritis or an ulcer, potentially as a side effect of the aspirin. This has been stopped. She does not have any evidence of ongoing bleeding, urgent EGD not needed at this point. Continue antacids Clears Will follow History of Present Illness Narrative: This 84-year-old woman was admitted yesterday with black tarry stools and a drop in her hemoglobin from the 11.3 to 8.4. Since admission she has few complaints. She did have one black stool this morning. Reports no nausea or vomiting. No abdominal pain. She has been eating well. No change in bowel habits until this episode. She takes a daily aspirin as a precautionary measure but has never had a heart attack or stent. She notes no prior history of peptic ulcer disease. She has not ever had an upper endoscopy. Colonoscopy in 2012 showed a small polyp. She is currently having chemotherapy for renal cell cancer. She denies chest pain or dizziness. No new SOB. Review of Systems All systems reviewed & are unremarkable except as noted in HPI and below PFSH Medical History Cataracts, bilateral Cervical spondylosis Colon polyps COPD (chronic obstructive pulmonary disease) Diabetes Diverticulosis Diverticulosis Easy bruising Esophagitis Essential tremor 10/05/19: Pt denies. -BR Fatty liver Fatty liver disease, nonalcoholic GERD (gastroesophageal reflux disease) Hiatal hernia Hydronephrosis, right Hyperlipidemia Hypertension Impaired fasting glucose Night sweats Nocturia Peripheral neuropathy Renal mass Squamous cell carcinoma Statin intolerance Urinary frequency Urinary incontinence Surgical History Biopsy of breast History of cataract removal with insertion of prosthetic lens History of cholecystectomy History of colonoscopy History of cystoscopy Family History Sister Personal history of malignant neoplasm breast, colon Sister Personal history of malignant neoplasm uterine Social History Smoking/Tobacco Use Status: Former Tobacco Use Alcohol Intake: never Drug use: Never Substance use type: does not use Do you feel safe at home: Yes Do you feel safe in your relationship?: Yes Exam Narrative Exam Narrative: No distress Abdomen soft, nontender. Results Last Vital Signs Temp 97.9 F 03/26/20 11:10 Pulse 84 03/26/20 11:10 Resp 22 03/26/20 11:10 BP 133/77 03/26/20 11:10 Pulse Ox 97 03/26/20 11:10 Labs Result diagrams: 03/26/20 08:00 03/26/20 08:00 Labs: Laboratory Results - last 24 hr 03/25/20 03/25/20 03/25/20 19:00 19:00 19:00 WBC 18.05 H RBC 2.77 L Hgb 8.4 L Hct 26.0 L MCV 93.9 MCH 30.3 MCHC 32.3 RDW 15.6 H Plt Count 121 L D MPV 10.9 Reticulocyte % (Auto) Immature Gran % See Differential Neutrophils % 73.0 Band Neutrophils % 5 Lymphocytes % 7.0 Monocytes % 11.0 Eosinophils % 1.0 Basophils % 0.0 Metamyelocytes % 1 Myelocytes % 2 Nucleated RBC % 0 Absolute Neutrophils 14.08 H Absolute Lymphocytes 1.26 Absolute Monocytes 1.99 H Absolute Eosinophils 0.18 Absolute Basophils 0.00 RBC Morphology See below Polychromasia Present Hypochromasia 1+ Anisocytosis 1+ PT 10.3 INR 1.0 APTT 19.7 L Sodium 139 Potassium 3.1 L Chloride 103 Carbon Dioxide 28.0 Anion Gap 8.0 BUN 25 H Creatinine 1.08 H Estimated GFR/1.73 m2 48.57 Glucose 124 H Calcium 8.2 L Iron TIBC Transferrin % Sat Ferritin Total Bilirubin 0.2 AST 11 L ALT 20 Alkaline Phosphatase 98 Total Protein 6.0 L Albumin 3.3 L Patient ABO/Rh Antibody Screen Crossmatch 03/25/20 03/25/20 03/26/20 19:00 22:30 08:00 WBC RBC Hgb 7.8 L Hct 24.3 L MCV MCH MCHC RDW Plt Count MPV Reticulocyte % (Auto) Immature Gran % Neutrophils % Band Neutrophils % Lymphocytes % Monocytes % Eosinophils % Basophils % Metamyelocytes % Myelocytes % Nucleated RBC % Absolute Neutrophils Absolute Lymphocytes Absolute Monocytes Absolute Eosinophils Absolute Basophils RBC Morphology Polychromasia Hypochromasia Anisocytosis PT INR APTT Sodium 141 Potassium 4.2 D Chloride 109 H Carbon Dioxide 29.6 Anion Gap 2.4 L BUN 20 H Creatinine 0.81 Estimated GFR/1.73 m2 >= 60.00 Glucose 107 H Calcium 7.8 L Iron TIBC Transferrin % Sat Ferritin Total Bilirubin AST ALT Alkaline Phosphatase Total Protein Albumin Patient ABO/Rh A Positive Antibody Screen Negative Crossmatch See Detail 03/26/20 03/26/20 03/26/20 08:00 08:00 08:00 WBC 13.70 H RBC 2.35 L Hgb 7.2 L Hct 22.3 L MCV 94.9 MCH 30.6 MCHC 32.3 RDW 16.4 H Plt Count 108 L MPV 10.6 Reticulocyte % (Auto) Immature Gran % Neutrophils % Band Neutrophils % Lymphocytes % Monocytes % Eosinophils % Basophils % Metamyelocytes % Myelocytes % Nucleated RBC % Absolute Neutrophils Absolute Lymphocytes Absolute Monocytes Absolute Eosinophils Absolute Basophils RBC Morphology Polychromasia Hypochromasia Anisocytosis PT INR APTT Sodium Potassium Chloride Carbon Dioxide Anion Gap BUN Creatinine Estimated GFR/1.73 m2 Glucose Calcium Iron 64 TIBC 224 L Transferrin % Sat 29 Ferritin 629 H Total Bilirubin AST ALT Alkaline Phosphatase Total Protein Albumin Patient ABO/Rh Antibody Screen Crossmatch 03/26/20 08:00 WBC RBC Hgb Hct MCV MCH MCHC RDW Plt Count MPV Reticulocyte % (Auto) 3.5 H Immature Gran % Neutrophils % Band Neutrophils % Lymphocytes % Monocytes % Eosinophils % Basophils % Metamyelocytes % Myelocytes % Nucleated RBC % Absolute Neutrophils Absolute Lymphocytes Absolute Monocytes Absolute Eosinophils Absolute Basophils RBC Morphology Polychromasia Hypochromasia Anisocytosis PT INR APTT Sodium Potassium Chloride Carbon Dioxide Anion Gap BUN Creatinine Estimated GFR/1.73 m2 Glucose Calcium Iron TIBC Transferrin % Sat Ferritin Total Bilirubin AST ALT Alkaline Phosphatase Total Protein Albumin Patient ABO/Rh Antibody Screen Crossmatch
--- NOTE | 2020-03-26 12:36 | PHACLINREV_ITS ---
Pharmacy Admission Review - Admission Clinical Review (Last Reviewed 03/26/20 @ 12:06 by Ada Tay MD) Leukocytosis (Acute) Acute anemia (Acute) Melena (Acute) History of renal cell cancer (Acute) pregabalin [From Lyrica] Allergy (Severe, Unverified 03/25/20 19:14) RASH/EXTREMITY EDEMA atorvastatin calcium [From Lipitor] Allergy (Intermediate, Unverified 03/25/20 19:14) gabapentin [From Neurontin] Allergy (Intermediate, Unverified 03/25/20 19:14) prednisone Allergy (Mild, Unverified 03/25/20 19:14) codeine Allergy (Unverified 03/25/20 19:14) rosuvastatin calcium [From Crestor] Allergy (Unverified 03/25/20 19:14) sulfamethoxazole [From Bactrim] Allergy (Unverified 03/25/20 19:14) trimethoprim [From Bactrim] Allergy (Unverified 03/25/20 19:14) Height 5 ft 1.81 in Weight 67.132 kg - Renal Dosing Renal Dosing: BUN 20 mg/dL (7-18) H 03/26/20 08:00 Creatinine 0.81 mg/dL (0.55-1.02) 03/26/20 08:00 Medications needing adjustments: Reviewed (Crcl ~40.4 mL/min current meds okay.) - Anticoagulation Anticoagulation: Hgb Cancelled 03/26/20 12:00 Hct Cancelled 03/26/20 12:00 Plt Count 108 10^3/uL (130-400) L 03/26/20 08:00 INR 1.0 (0.9-1.1) 03/25/20 19:00 Creatinine 0.81 mg/dL (0.55-1.02) 03/26/20 08:00 DVT Prohphylaxis: N/A (H/H- 7.2/22.3 GI bleed, transfusion ordered for today) - Opiate Usage Evaluate Pain Scale/Pains Meds: Reviewed Scheduled Bowel Reg ordered if on Opiates?: No (PRN miralax ordered) - Relevant Labs Sodium 141 mmol/L (136-145) 03/26/20 08:00 Potassium 4.2 mmol/L (3.5-5.1) D 03/26/20 08:00 Chloride 109 mmol/L (98-107) H 03/26/20 08:00 Electrolytes, C-Reactive P, ESR: Reviewed (K+ improved, replacement given yesterday and in current IVF) - DM Control DM Control: Glucose 107 mg/dL (74-106) H 03/26/20 08:00 Insulin Dosing: Intervened (DM noted in patients medical history, no DM meds on home med list. Last A1c in 2014. Will mention to provider.) - Heart Failure/NV EF%, SOLEDAD's, B-Blockers, Diuretics: N/A - BP Control BP Control: Blood Pressure 115/56 Blood Pressure 133/77 Blood Pressure 120/77 Blood Pressure 121/78 Blood Pressure 122/73 If elevated: N/A - Qtc Review If Elevated: N/A - IV to PO Switch IV Medications: Reviewed - Home Meds Home Med List reviewed: Reviewed (Multiple [employer] depressants: baclofen, tramadol (avoid concomitant use when possible). Not much info in external med history.) Relevent Home Meds Not ordered & why?: adviar (symbicort is substituted), albuterol (PRN), ascorbic acid, aspirin (GI bleed), cholecalciferol, hydrochlorothiazide, lidocaine (PRN), lisinopril, mirabegron (unconfirmed), nystatin/triamcinolone - Current meds Current Medication Order Review: Intervened (discontinued DI meds (already given)) - Comments Comments/Follow Ups: Pt. receiving transfusion today. Watch BP, BG, K+, H/H, and for med changes (IV to PO, home med orders, renal adjustments).
[2020-03-26] MEDS: Pantoprazole 40 MG VIAL IVP ×2 (13:44→21:22)
[2020-03-26] MEDS: Furosemide 20 MG/2 ML VIAL IVP (13:44)
[2020-03-26] MEDS: IRON SUCROSE COMPLEX 100 MG in Normal Saline 100 ML 420 MG IVPB (15:08)
[2020-03-26 15:17] LABS: COVID-19 RT-PCR UVMMC Result Negative (Negative)
--- NOTE | 2020-03-26 16:07 | PGE_ITS ---
Date of Service Date of service: 03/26/20 Time of Service: 16:07 Assessment and Plan Assessment and plan (1) GI bleed: Status: Chronic Assessment and plan: Transfer to the intensive care unit. Transfuse at least 1 unit probably 2 units of packed red blood cells as anticipate that her repeat hemogram will probably not have improved since her 1 unit of packed cells this morning. Continue with Protonix 40 mg IV every 12 hours. Keep her n.p.o. and transfer her to the intensive care unit where she can be closely monitored. We will do serial hemograms every 4 hr Qualifiers: GI bleed type/associated pathology: unspecified gastrointestinal hemorrhage type Qualified Code(s): K92.2 - Gastrointestinal hemorrhage, unspecified Subjective Subjective Interval history since last seen: Patient had recurrent GI bleeding this afternoon. She has had 3 bowel movements the first 1 was black melanotic stools but in the last hour patient has had 2 maroon liquid bloody bowel movements. She denies any abdominal pain nausea or vomiting. She denies any dizziness or lightheadedness. Vital signs remained stable with a blood pressure 139/74 and a pulse of 92. She is can be transfused 2 more units of packed red cells and transferred to the intensive care unit. Dr. Ada Llanos is been notified of the recurrent GI bleeding. I will keep her n.p.o. anticipating that she will need an EGD tomorrow morning if not sooner. Patient will remain on double dose of IV Protonix. No Carafate is been added in that we anticipate she will need an EGD. Exam Narrative Exam Narrative: Elderly female now lying in bed. She appears to be pale but she is not diaphoretic she is alert and oriented person place time circumstance. Abdomen soft nondistended hyperactive bowel sounds no palpable masses. Extremities without edema or cyanosis. Heart is regular Lungs are clear Objective Last Vital Signs Temp 36.4 C L 03/26/20 15:57 Pulse 92 H 03/26/20 15:57 Resp 16 03/26/20 15:57 BP 139/74 03/26/20 15:57 Pulse Ox 95 03/26/20 15:57 Laboratory Results - last 24 hr 03/25/20 03/25/20 03/25/20 19:00 19:00 19:00 WBC 18.05 H RBC 2.77 L Hgb 8.4 L Hct 26.0 L MCV 93.9 MCH 30.3 MCHC 32.3 RDW 15.6 H Plt Count 121 L D MPV 10.9 Reticulocyte % (Auto) Immature Gran % See Differential Neutrophils % 73.0 Band Neutrophils % 5 Lymphocytes % 7.0 Monocytes % 11.0 Eosinophils % 1.0 Basophils % 0.0 Metamyelocytes % 1 Myelocytes % 2 Nucleated RBC % 0 Absolute Neutrophils 14.08 H Absolute Lymphocytes 1.26 Absolute Monocytes 1.99 H Absolute Eosinophils 0.18 Absolute Basophils 0.00 RBC Morphology See below Polychromasia Present Hypochromasia 1+ Anisocytosis 1+ PT 10.3 INR 1.0 APTT 19.7 L Sodium 139 Potassium 3.1 L Chloride 103 Carbon Dioxide 28.0 Anion Gap 8.0 BUN 25 H Creatinine 1.08 H Estimated GFR/1.73 m2 48.57 Glucose 124 H Calcium 8.2 L Iron TIBC Transferrin % Sat Ferritin Total Bilirubin 0.2 AST 11 L ALT 20 Alkaline Phosphatase 98 Total Protein 6.0 L Albumin 3.3 L COVID-19 PCR Nasopharyn COVID-19 PCR Ref Test Perform Site Patient ABO/Rh Antibody Screen Crossmatch 03/25/20 03/25/20 03/25/20 19:00 20:54 22:30 WBC RBC Hgb 7.8 L Hct 24.3 L MCV MCH MCHC RDW Plt Count MPV Reticulocyte % (Auto) Immature Gran % Neutrophils % Band Neutrophils % Lymphocytes % Monocytes % Eosinophils % Basophils % Metamyelocytes % Myelocytes % Nucleated RBC % Absolute Neutrophils Absolute Lymphocytes Absolute Monocytes Absolute Eosinophils Absolute Basophils RBC Morphology Polychromasia Hypochromasia Anisocytosis PT INR APTT Sodium Potassium Chloride Carbon Dioxide Anion Gap BUN Creatinine Estimated GFR/1.73 m2 Glucose Calcium Iron TIBC Transferrin % Sat Ferritin Total Bilirubin AST ALT Alkaline Phosphatase Total Protein Albumin COVID-19 PCR Negative Nasopharyn COVID-19 PCR Not Applicable Ref Test Perform Site [facility] lab Patient ABO/Rh A Positive Antibody Screen Negative Crossmatch See Detail 03/26/20 03/26/20 03/26/20 08:00 08:00 08:00 WBC 13.70 H RBC 2.35 L Hgb 7.2 L Hct 22.3 L MCV 94.9 MCH 30.6 MCHC 32.3 RDW 16.4 H Plt Count 108 L MPV 10.6 Reticulocyte % (Auto) Immature Gran % Neutrophils % Band Neutrophils % Lymphocytes % Monocytes % Eosinophils % Basophils % Metamyelocytes % Myelocytes % Nucleated RBC % Absolute Neutrophils Absolute Lymphocytes Absolute Monocytes Absolute Eosinophils Absolute Basophils RBC Morphology Polychromasia Hypochromasia Anisocytosis PT INR APTT Sodium 141 Potassium 4.2 D Chloride 109 H Carbon Dioxide 29.6 Anion Gap 2.4 L BUN 20 H Creatinine 0.81 Estimated GFR/1.73 m2 >= 60.00 Glucose 107 H Calcium 7.8 L Iron 64 TIBC 224 L Transferrin % Sat 29 Ferritin Total Bilirubin AST ALT Alkaline Phosphatase Total Protein Albumin COVID-19 PCR Nasopharyn COVID-19 PCR Ref Test Perform Site Patient ABO/Rh Antibody Screen Crossmatch 03/26/20 03/26/20 03/26/20 08:00 08:00 12:00 WBC RBC Hgb Cancelled Hct Cancelled MCV MCH MCHC RDW Plt Count MPV Reticulocyte % (Auto) 3.5 H Immature Gran % Neutrophils % Band Neutrophils % Lymphocytes % Monocytes % Eosinophils % Basophils % Metamyelocytes % Myelocytes % Nucleated RBC % Absolute Neutrophils Absolute Lymphocytes Absolute Monocytes Absolute Eosinophils Absolute Basophils RBC Morphology Polychromasia Hypochromasia Anisocytosis PT INR APTT Sodium Potassium Chloride Carbon Dioxide Anion Gap BUN Creatinine Estimated GFR/1.73 m2 Glucose Calcium Iron TIBC Transferrin % Sat Ferritin 629 H Total Bilirubin AST ALT Alkaline Phosphatase Total Protein Albumin COVID-19 PCR Nasopharyn COVID-19 PCR Ref Test Perform Site Patient ABO/Rh Antibody Screen Crossmatch
[2020-03-26 16:14] LABS: HCT 29.1 % (36.0-46.0); HGB 9.6 g/dL (11.2-15.7)
--- NOTE | 2020-03-26 16:24 | NUR.NOTE ---
Nursing Note: after blood was infused. other medications pending as well as the Venofer were infused. Staff repoirted that patient had a bm that was bloody, and reported as mixed black and red. This was reported to the [facility]. Short time later patient had another BM, ther were puddles of gelatinous blood both red and black along the path to the toilet. as well patient had soiled her gown. Patient was cleaned up , provider was contacted. He ordered a stat H&H, this I leo off the patients port, and gave to lab staff to transport down. Dr Mtz ordered 2 additional units of blood to be transfused and ordered transfer of the patient to the unit. I gave report to Jessica Nobles RN. and With staff facilitated a timely and coordinated transfer to the unit. She left the room and floor at about 1615. was present ahd accompanied the patient to her new room, and he was made comfortable to.
[2020-03-26] MEDS: Normal Saline 500 ML IV (18:00)
[2020-03-26] MEDS: Normal Saline Flush 10 ML SYR IVP ×2 (21:24→22:10)
[2020-03-26] MEDS: Furosemide 20 MG/2 ML VIAL 10 MG IVP (21:24)
[2020-03-26 22:51] LABS: HCT 30.4 % (36.0-46.0); HGB 10.1 g/dL (11.2-15.7)
[2020-03-27] VITALS (17 sets, daily range): BP systolic 121–156; BP diastolic 49–78; PULSE 75–89; RESP 15–24; TEMP 36.3–36.8; O2SAT 92–97
[2020-03-27 07:16] LABS: Abs Immature Grans 1.43 10^3/uL (0.0-0.06); HCT 28.4 % (36.0-46.0); HGB 9.7 g/dL (11.2-15.7); MCH 30.3 pg (27.0-33.0); MCHC 34.2 % (32.0-36.0); MCV 88.8 fL (80-95); MPV 10.4 fL (8.0-11.0); Nucleated RBC 0 %; Platelet Count 171 10^3/uL (130-400); RDW 17.9 % (11.7-14.6); RDW-SD 51.5 fL; WBC 16.44 10^3/uL (4.4-10.8)
[2020-03-27 07:49] LABS: Anion Gap 6.8 mmol/L (3-11); BUN 17 mg/dL (7-18); CO2 28.2 mmol/L (21.0-32.0); CREATININE 0.93 mg/dL (0.55-1.02); Calcium 8.2 mg/dL (8.5-10.1); Chloride 106 mmol/L (98-107); Estimated GFR 57.72 (mL/min/1.73m2); Glucose 114 mg/dL (74-106); Sodium 141 mmol/L (136-145)
[2020-03-27] MEDS: Budesonide/Formoterol 160/4.5 6 GM 60 PUFF INH IH ×2 (07:57→19:54)
[2020-03-27 08:00] LABS: Absolute Eosinophil Count 0.16 10^3/uL (0.0-0.7); Absolute Lymphocyte Count 0.49 10^3/uL (1.2-3.4); Absolute Monocyte Count 0.99 10^3/uL (0.1-0.8); Absolute Neutrophil Count 13.97 10^3/uL (1.2-6.7); Anisocytosis 1+; Bands % 5; Diff Comment Manual Differential; Metamyelocytes % 4; Myelocytes % 1; Polychromasia Present
[2020-03-27] MEDS: Pantoprazole 40 MG VIAL IVP ×2 (09:07→21:42)
[2020-03-27] MEDS: Normal Saline Flush 10 ML SYR IVP ×2 (09:08→21:43)
--- NOTE | 2020-03-27 09:51 | W.PM.PROGNOT ---
Date of Service Date of service: 03/27/20 Time of Service: 09:51 Assessment and Plan Assessment and plan (1) GI bleed: Status: Chronic Assessment and plan: HgB has responded appropriately to a total of 2units of PRBC No evidence of further bleeding overnight. Plan for EGD today. Risks per consent. Patient agrees to proceed. Qualifiers: GI bleed type/associated pathology: unspecified gastrointestinal hemorrhage type Qualified Code(s): K92.2 - Gastrointestinal hemorrhage, unspecified Subjective Subjective Interval history since last seen: Had two maroon stools yesterday afternoon. Transferred to ICU. Has been stable, no complaints Denies abdominal pain or SOB/chest pain Exam Narrative Exam Narrative: Appears well Lungs CTA Heart RRR Abdomen soft, nontender Objective Last Vital Signs Temp 97.9 F 03/27/20 07:22 Pulse 84 03/27/20 08:26 Resp 16 03/27/20 08:26 BP 138/55 L 03/27/20 08:26 Pulse Ox 94 03/27/20 08:26 Laboratory Results - last 24 hr 03/25/20 03/25/20 03/26/20 19:00 20:54 08:00 WBC RBC Hgb Hct MCV MCH MCHC RDW Plt Count MPV Reticulocyte % (Auto) Immature Gran % Neutrophils % Band Neutrophils % Lymphocytes % Monocytes % Eosinophils % Basophils % Metamyelocytes % Myelocytes % Nucleated RBC % Absolute Neutrophils Absolute Lymphocytes Absolute Monocytes Absolute Eosinophils Absolute Basophils RBC Morphology Polychromasia Anisocytosis Sodium Potassium Chloride Carbon Dioxide Anion Gap BUN Creatinine Estimated GFR/1.73 m2 Glucose Calcium Iron 64 TIBC 224 L Transferrin % Sat 29 Ferritin COVID-19 PCR Negative Nasopharyn COVID-19 PCR Not Applicable Ref Test Perform Site [facility] lab Patient ABO/Rh A Positive Antibody Screen Negative Crossmatch See Detail 03/26/20 03/26/20 03/26/20 08:00 08:00 12:00 WBC RBC Hgb Cancelled Hct Cancelled MCV MCH MCHC RDW Plt Count MPV Reticulocyte % (Auto) 3.5 H Immature Gran % Neutrophils % Band Neutrophils % Lymphocytes % Monocytes % Eosinophils % Basophils % Metamyelocytes % Myelocytes % Nucleated RBC % Absolute Neutrophils Absolute Lymphocytes Absolute Monocytes Absolute Eosinophils Absolute Basophils RBC Morphology Polychromasia Anisocytosis Sodium Potassium Chloride Carbon Dioxide Anion Gap BUN Creatinine Estimated GFR/1.73 m2 Glucose Calcium Iron TIBC Transferrin % Sat Ferritin 629 H COVID-19 PCR Nasopharyn COVID-19 PCR Ref Test Perform Site Patient ABO/Rh Antibody Screen Crossmatch 03/26/20 03/26/20 03/27/20 16:00 22:48 00:00 WBC RBC Hgb 9.6 L D 10.1 L Cancelled Hct 29.1 L D 30.4 L Cancelled MCV MCH MCHC RDW Plt Count MPV Reticulocyte % (Auto) Immature Gran % Neutrophils % Band Neutrophils % Lymphocytes % Monocytes % Eosinophils % Basophils % Metamyelocytes % Myelocytes % Nucleated RBC % Absolute Neutrophils Absolute Lymphocytes Absolute Monocytes Absolute Eosinophils Absolute Basophils RBC Morphology Polychromasia Anisocytosis Sodium Potassium Chloride Carbon Dioxide Anion Gap BUN Creatinine Estimated GFR/1.73 m2 Glucose Calcium Iron TIBC Transferrin % Sat Ferritin [facility]- [facility] COVID-[facility] PCR Ref Test Perform Site Patient ABO/Rh Antibody Screen Crossmatch 03/27/20 03/27/20 06:40 06:40 WBC 16.44 H RBC 3.20 L Hgb 9.7 L Hct 28.4 L MCV 88.8 D MCH 30.3 MCHC 34.2 RDW 17.9 H Plt Count 171 MPV 10.4 Reticulocyte % (Auto) Immature Gran % See Differential Neutrophils % 80.0 Band Neutrophils % 5 Lymphocytes % 3.0 Monocytes % 6.0 Eosinophils % 1.0 Basophils % 0.0 Metamyelocytes % 4 Myelocytes % 1 Nucleated RBC % 0 Absolute Neutrophils 13.97 H Absolute Lymphocytes 0.49 L Absolute Monocytes 0.99 H Absolute Eosinophils 0.16 Absolute Basophils 0.00 RBC Morphology See below Polychromasia Present Anisocytosis 1+ Sodium 141 Potassium 4.0 Chloride 106 Carbon Dioxide 28.2 Anion Gap 6.8 BUN 17 Creatinine 0.93 Estimated GFR/1.73 m2 57.72 Glucose 114 H Calcium 8.2 L Iron TIBC Transferrin % Sat Ferritin COVID-19 PCR Nasopharyn COVID-19 PCR Ref Test Perform Site Patient ABO/Rh Antibody Screen Crossmatch
[2020-03-27] MEDS: Lactated Ringers 1,000 ML 30 ML IV (10:09)
--- NOTE | 2020-03-27 10:22 | STOM_PTH ---
PATIENT: Domenica Clemente LOC: [facility]#:[id number] AGE/SX: 84/F ROOM: RE03/27/[address]: Nando Conrad : 1935 BED: A DIS: 03/30/2020 SPEC #: [id number] RECD: 03/28/20 12:50 STATUS: SOUT REQ #: [id number] NELLIE: 03/27/20 10:[address]: Nando Conrad DEPT: Surgical Specimen RECD BY: Wendi Clark ENTERED: 03/28/20 12:50 SP TYPE: STOMACH OTHR DR: YOLY Glaser PA Cole, Shola Eugene Dixon, MD Patrick Fitzpatrick, DO Wendy Frye, MD Heck,Mary Snyder,Velia Red,Chris Fernandez,MD Karen Noe,Bird Esteban,Lashay Sanches III,Oswaldo Manrique,MD Rocío Jennings,Andrea Birch,Cecille Swan Tissues: 1 - STOMACH BIOPSY Procedures: GROSS AND MICRO LEVEL 4 IMMUNOPEROXIDASE STAIN Comments: [id number]
--- NOTE | 2020-03-27 10:33 | ENDO_ITS ---
Date of service: 03/27/20 Time of Service: 10:33 Endoscopy Report DATE OF PROCEDURE: 03/27/20 PRE-OP DIAGNOSIS: Melena, anemia POST-OP DIAGNOSIS: other (Small hiatal hernia) PROCEDURE: EGD with gastric antrum biopsy SURGEON: Ada Tay ANESTHESIA: MAC INDICATIONS: This 84-year-old woman was admitted with black tarry stools and a drop in her hemoglobin from the 11 range to the 8 range. Since admission she has had 2 other more bloody stools. She has no complaints of abdominal pain. She has been taking aspirin. PROCEDURE DESCRIPTION: The patient was placed in the left lateral position and propofol titrated to sedation. The endoscope was advanced into the esophagus under direct visualization. The scope was passed through the stomach and into the duodenum. There was no duodenitis or ulceration noted. No blood present in the duodenum. The stomach itself was normal including on retroflexed view of the fundus and lesser curvature with the exception of a small hiatal hernia. No Black- Higgens ulcers noted. Routine biopsies were taken from the gastric antrum to evaluate for H pylori. The GE junction was inspected and showed no significant stricture, inflammation, masses or Barretts. The scope was slowly withdrawn with no other esophageal lesions found. The patient tolerated the procedure well and was stable to recovery.
--- NOTE | 2020-03-27 11:39 | PDOC.CMPRO ---
- If Service Date Differs Date of service: 03/27/20 Time of Service: 11:39 Care Management Progress Note S/O: Domenica was transferred from Med/Surg to ICU late afternoon yesterday due to recurrent GI bleeding. She received 1 unit of packed red blood cells yesterday and 1 more unit was transfused this morning. Domenica underwent an EGD with gastric antrum biopsy this a.m., performed by Dr. Tay. The EGD report states there was no duodenitis or ulceration noted, no blood present in the duodenum, and no Black-Higgens ulcers. CM will continue to follow. A: Domenica is a 84 year old female admitted to [facility] on 03/25/20 for a GI bleed. P: Anticipate Domenica will be discharged home with no new services when medically cleared by provider. She will follow up with her PCP, surgeon, and plan of care as directed. Her , Adiel, will drive her home via private vehicle when ready. CM will continue to support patient and discharge planning needs.
--- NOTE | 2020-03-27 11:59 | W.PM.PROGNOT ---
Date of Service Date of service: 03/27/20 Time of Service: 11:59 Assessment and Plan Assessment and plan (1) GI bleed: Status: Chronic Assessment and plan: Continue GI prophylaxis with Protonix. We will keep n.p.o. and prepare her for colonoscopy tomorrow. Continue with gentle IV fluid hydration overnight. Qualifiers: GI bleed type/associated pathology: unspecified gastrointestinal hemorrhage type Qualified Code(s): K92.2 - Gastrointestinal hemorrhage, unspecified Subjective Subjective Interval history since last seen: No further GI bleeding overnight. Hemoglobin is stabilized at 9.6 g after repeat transfusion yesterday evening. Patient denies any nausea or vomiting or abdominal pain. She denies any chest pain or shortness of breath. Patient underwent EGD this morning by Dr. Ada Llanos. No source of upper GI bleeding was found. Plan will be for her to have a colonoscopy tomorrow. Exam Narrative Exam Narrative: Elderly female alert and reports place time circumstance Lungs are clear Heart regular rate and rhythm Abdomen soft nondistended normal active bowel sounds nontender Objective Last Vital Signs Temp 36.6 C 03/27/20 07:22 Pulse 84 03/27/20 08:26 Resp 16 03/27/20 08:26 BP 138/55 L 03/27/20 08:26 Pulse Ox 94 03/27/20 08:26 Laboratory Results - last 24 hr 03/25/20 03/25/20 03/26/20 19:00 20:54 12:00 WBC RBC Hgb Cancelled Hct Cancelled MCV MCH MCHC RDW Plt Count MPV Immature Gran % Neutrophils % Band Neutrophils % Lymphocytes % Monocytes % Eosinophils % Basophils % Metamyelocytes % Myelocytes % Nucleated RBC % Absolute Neutrophils Absolute Lymphocytes Absolute Monocytes Absolute Eosinophils Absolute Basophils RBC Morphology Polychromasia Anisocytosis Sodium Potassium Chloride Carbon Dioxide Anion Gap BUN Creatinine Estimated GFR/1.73 m2 Glucose Calcium COVID-19 PCR Negative Nasopharyn COVID-19 PCR Not Applicable Ref Test Perform Site [facility] lab Patient ABO/Rh A Positive Antibody Screen Negative Crossmatch See Detail 03/26/20 03/26/20 03/27/20 16:00 22:48 00:00 WBC RBC Hgb 9.6 L D 10.1 L Cancelled Hct 29.1 L D 30.4 L Cancelled MCV MCH MCHC RDW Plt Count MPV Immature Gran % Neutrophils % Band Neutrophils % Lymphocytes % Monocytes % Eosinophils % Basophils % Metamyelocytes % Myelocytes % Nucleated RBC % Absolute Neutrophils Absolute Lymphocytes Absolute Monocytes Absolute Eosinophils Absolute Basophils RBC Morphology Polychromasia Anisocytosis Sodium Potassium Chloride Carbon Dioxide Anion Gap BUN Creatinine Estimated GFR/1.73 m2 Glucose Calcium COVID-19 PCR Nasopharyn COVID-19 PCR Ref Test Perform Site Patient ABO/Rh Antibody Screen Crossmatch 03/27/20 03/27/20 06:40 06:40 WBC 16.44 H RBC 3.20 L Hgb 9.7 L Hct 28.4 L MCV 88.8 D MCH 30.3 MCHC 34.2 RDW 17.9 H Plt Count 171 MPV 10.4 Immature Gran % See Differential Neutrophils % 80.0 Band Neutrophils % 5 Lymphocytes % 3.0 Monocytes % 6.0 Eosinophils % 1.0 Basophils % 0.0 Metamyelocytes % 4 Myelocytes % 1 Nucleated RBC % 0 Absolute Neutrophils 13.97 H Absolute Lymphocytes 0.49 L Absolute Monocytes 0.99 H Absolute Eosinophils 0.16 Absolute Basophils 0.00 RBC Morphology See below Polychromasia Present Anisocytosis 1+ Sodium 141 Potassium 4.0 Chloride 106 Carbon Dioxide 28.2 Anion Gap 6.8 BUN 17 Creatinine 0.93 Estimated GFR/1.73 m2 57.72 Glucose 114 H Calcium 8.2 L COVID-19 PCR Nasopharyn COVID-19 PCR Ref Test Perform Site Patient ABO/Rh Antibody Screen Crossmatch
[2020-03-27] MEDS: POTASSIUM CHLORIDE/0.9% NACL 1,000 ML 65 MEQ IV (13:57)
[2020-03-27 17:19] LABS: HCT 28.6 % (36.0-46.0); HGB 9.8 g/dL (11.2-15.7)
[2020-03-27] MEDS: Polyethylene Glycol 3350 238 GM BTL PO (18:11)
[2020-03-28] VITALS (7 sets, daily range): BP systolic 116–160; BP diastolic 64–89; PULSE 75–87; RESP 17–19; TEMP 36.5–37.4; O2SAT 94–98
[2020-03-28] MEDS: POTASSIUM CHLORIDE/0.9% NACL 1,000 ML 65 MEQ IV ×2 (04:20→12:25)
[2020-03-28 06:34] LABS: HCT 26.3 % (36.0-46.0); HGB 8.7 g/dL (11.2-15.7); MCH 29.9 pg (27.0-33.0); MCHC 33.1 % (32.0-36.0); MCV 90.4 fL (80-95); MPV 9.9 fL (8.0-11.0); Platelet Count 236 10^3/uL (130-400); RBC 2.91 10^6/uL (3.93-5.22); RDW 17.7 % (11.7-14.6); WBC 11.37 10^3/uL (4.4-10.8)
[2020-03-28 06:45] LABS: Anion Gap 4.6 mmol/L (3-11); BUN 14 mg/dL (7-18); CO2 30.4 mmol/L (21.0-32.0); CREATININE 0.86 mg/dL (0.55-1.02); Calcium 7.9 mg/dL (8.5-10.1); Chloride 107 mmol/L (98-107); Glucose 104 mg/dL (74-106); Potassium 3.8 mmol/L (3.5-5.1); Sodium 142 mmol/L (136-145)
[2020-03-28] MEDS: Budesonide/Formoterol 160/4.5 6 GM 60 PUFF INH IH ×2 (07:52→19:56)
[2020-03-28] MEDS: Pantoprazole 40 MG VIAL IVP (09:45)
[2020-03-28] MEDS: Normal Saline Flush 10 ML SYR IVP (09:45)
--- NOTE | 2020-03-28 10:46 | W.PM.PROGNOT ---
Date of Service Date of service: 03/28/20 Time of Service: 10:46 Assessment and Plan Assessment and plan (1) GI bleed: Status: Chronic Assessment and plan: Awaiting colonoscopy. Further therapy depends on C scope findings. Will discuss her case with Dr. Margareth Hanson Qualifiers: GI bleed type/associated pathology: unspecified gastrointestinal hemorrhage type Qualified Code(s): K92.2 - Gastrointestinal hemorrhage, unspecified Subjective Subjective Interval history since last seen: Patient denies any abdominal pain nausea or vomiting. Still having bloody stools however this is expected as the patient has been on a bowel regimen in preparation for her colonoscopy today. Hemoglobin dropped slightly overnight down to 8.7 hematocrit 26%. Patient gives a history of previous diverticulitis. However she has no abdominal pain or fever. Her leukocytosis of 16,000 is coming down on its own to 11,000. Exam Narrative Exam Narrative: Elderly female alert and reports place time circumstance Lungs are clear Heart regular rate and rhythm Abdomen soft nondistended normal active bowel sounds nontender Objective Last Vital Signs Temp 37.3 C 03/28/20 08:23 Pulse 82 03/28/20 08:23 Resp 18 03/28/20 08:23 BP 137/77 03/28/20 08:23 Pulse Ox 95 03/28/20 08:23 Laboratory Results - last 24 hr 03/27/20 03/28/20 03/28/20 17:05 06:05 06:05 WBC 11.37 H D RBC 2.91 L Hgb 9.8 L 8.7 L Hct 28.6 L 26.3 L MCV 90.4 MCH 29.9 MCHC 33.1 RDW 17.7 H Plt Count 236 MPV 9.9 Sodium 142 Potassium 3.8 Chloride 107 Carbon Dioxide 30.4 Anion Gap 4.6 BUN 14 Creatinine 0.86 Estimated GFR/1.73 m2 >= 60.00 Glucose 104 Calcium 7.9 L 03/28/20 08:30 WBC RBC Hgb Cancelled Hct Cancelled MCV MCH MCHC RDW Plt Count MPV Sodium Potassium Chloride Carbon Dioxide Anion Gap BUN Creatinine Estimated GFR/1.73 m2 Glucose Calcium
[2020-03-28] MEDS: Lactated Ringers 1,000 ML 80 ML IV (11:14)
--- NOTE | 2020-03-28 11:25 | W.PM.PROGNOT ---
Date of Service Date of service: 03/28/20 Time of Service: 11:25 Assessment and Plan Assessment and plan (1) GI bleed: Status: Chronic Assessment and plan: Risks: Informed consent is obtained for the procedural (explained in simple layman's terms that the pt and/or family could understand) explaining risks vs benefits and alternatives to the procedure and consequences if we do not do the procedure and need/rational for the procedure. Risks include but are not limited to: bleeding, infection, perforation of colon. This would necessitate emergency surgery to repair the damage w/ possible ostomy; and other associated complications w/ the required surgery. Also complications of anesthesia including aspiration, NV/CVA/. egd w steen over weekend- nl on PPI/ still having blood in stools hx of diverticuls. no blood thinners cisplatin/gemcitabine. Reviewed w/ pharmacy. Not usually a cause a GI bleeding/mucosal slough Qualifiers: GI bleed type/associated pathology: unspecified gastrointestinal hemorrhage type Qualified Code(s): K92.2 - Gastrointestinal hemorrhage, unspecified (2) Acute anemia: Status: Acute (3) Melena: Status: Acute (4) History of renal cell cancer: Status: Acute Assessment and plan: Last chemo 03/15. also received Neulasta Renal CA w/ mets to nodes. Notes from Onc reviewed Subjective Subjective Interval history since last seen: Reviewed notes from her H&P. Reviewed notes from Dr. Tan on 922. Reviewed findings from her EGD. Today the patient is Pt is not having any abo,dinal pain. No fevers. WHen she moves her bowels she is having dark bloody stools. EGD was nl. No prior hx of anything like this before. Does have divertiucla. SHe is on chemo. Last chemo was 03/15. SHe has had a CE in the past. No polyps. no problems w/ aenthesia. no staining to move her bowels. She says she was eating ok at home. SHe was having diarrhea at home =. NO it is bloody. Exam Const General: cooperative, comfortable, acute distress and ill appearing Orientation: alert, awake and oriented x3 HENMT Other: slt plaque on tongue no mouth/dental pain. Resp Effort & Inspection: normal respiratory effort and able to speak in complete sentences Auscultation: clear to auscultation bilaterally GI Palpation: soft and tender (none) Auscultation: normal bowel sounds Objective Last Vital Signs Temp 37.3 C 03/28/20 08:23 Pulse 82 03/28/20 08:23 Resp 18 03/28/20 08:23 BP 137/77 03/28/20 08:23 Pulse Ox 95 03/28/20 08:23 Laboratory Results - last 24 hr 03/27/20 03/28/20 03/28/20 17:05 06:05 06:05 WBC 11.37 H D RBC 2.91 L Hgb 9.8 L 8.7 L Hct 28.6 L 26.3 L MCV 90.4 MCH 29.9 MCHC 33.1 RDW 17.7 H Plt Count 236 MPV 9.9 Sodium 142 Potassium 3.8 Chloride 107 Carbon Dioxide 30.4 Anion Gap 4.6 BUN 14 Creatinine 0.86 Estimated GFR/1.73 m2 >= 60.00 Glucose 104 Calcium 7.9 L 03/28/20 08:30 WBC RBC Hgb Cancelled Hct Cancelled MCV MCH MCHC RDW Plt Count MPV Sodium Potassium Chloride Carbon Dioxide Anion Gap BUN Creatinine Estimated GFR/1.73 m2 Glucose Calcium
--- NOTE | 2020-03-28 11:56 | BOWEL_PTH ---
PATIENT: Domenica Clemente LOC: U#:[id number] AGE/SX: 84/F ROOM: RE03/27/[address]: Nando Conrad : 1935 BED: A DIS: 03/30/2020 SPEC #: [id number] RECD: 03/28/20 16:57 STATUS: ROSSI REQ #: [id number] NELLIE: 03/28/20 11:[address]: Nando Conrad DEPT: Surgical Specimen RECD BY: Wendi Clark ENTERED: 03/28/20 16:58 SP TYPE: Bowel OTHR DR: YOLY Glaser PA Cole, Shola Eugene Dixon, MD Patrick Fitzpatrick, DO Wendy Frye, MD Heck,Mary Snyder,Velia Red,Chris Fernandez,MD Karen Noe,Bird Esteban,Lashay Sanches III,Oswaldo Manrique,MD Rocío Jennings,Andrea Birch,Cecille Swan Tissues: 1 - BIOPSY BOWEL Procedures: GROSS AND MICRO LEVEL 4 Comments: [id number]
[2020-03-28] MEDS: Venlafaxine 37.5 MG CAPCR PO (12:25)
[2020-03-28] MEDS: Lisinopril 20 MG TAB 40 MG PO (12:25)
--- NOTE | 2020-03-28 13:50 | W.NUTCONSULT ---
Date of service: 03/28/20 Time of Service: 13:50 Nutritional Consult ASSESSMENT: 84 year old female admitted with GI bleed, melena. Recently on chemo for kidney CA. BMI 27, has lost 17 lbs in last 6 months (-11%) considered significant and of concern. Awaiting colonoscopy today and NPO. Met with Domenica and . They report no change in appetite that led to weight loss. Appears well nourished, weight wnl for age. Suspect weight loss related to CA dx. Estimated Needs: [id number] kcal, 67-77 g protein, 2000 ml NUTRITIONAL DIAGNOSIS: Moderate Malnutrition in view of significant weight loss in response to cancer treatment INTERVENTION: Advance to regular diet when able MONITORING AND EVALUATION: will monitor po intake, labs, weight. Time Spent in Nutritional Counseling and Treatment: 10 min spent face to face
--- NOTE | 2020-03-28 15:17 | CHAPLAIN ---
Domeinca was in bed when I visited. Her , Adiel was there. I introduced myself, explained my role and offered support. Adiel asked for a cup of copy. Domenica hopes to be discharged soon.
--- NOTE | 2020-03-28 15:37 | CMPROGNOTE_ITS ---
- If Service Date Differs Date of service: 03/28/20 Time of Service: 15:37 Care Management Progress Note S/O: Domenica remains acute today. No change in the plan, CM will continue to follow for coordination of discharge needs. A: Domenica is a 84 year old female admitted to [facility] on 03/25/20 for a GI bleed. P: Anticipate Domenica will be discharged home with no new services when medically cleared by provider. She will follow up with her PCP, surgeon, and plan of care as directed. Her , Adiel, will drive her home via private vehicle when ready. CM will continue to support patient and discharge planning needs.
[2020-03-28] MEDS: POTASSIUM CHLORIDE/0.45% NACL 1,000 ML 65 MEQ IV (16:25)
--- NOTE | 2020-03-28 17:10 | ROE_ITS ---
Date of service: 03/28/20 Time of Service: 12:00 Operative Note Operative Note DATE OF PROCEDURE: 03/27/20 PRE-OP DIAGNOSIS: rectal bleeding POST-OP DIAGNOSIS: other (diverticula ) PROCEDURE: flex sig w/ Bx ANESTHESIA: MAC ESTIMATED BLOOD LOSS: 1 PATHOLOGY: other Patient was transported to: PACU Procedure Description: After informed consent was obtained the patient was taken to the procedure room and placed in a left decubitous position. Monitors were applied and a time out was done. The patients name, date of , procedure, allergies to medications and metal in their body was reviewed. The patient was then sedated. Once sedated and comfortable a rectal exam was done. External exam was normal. Internal exam revealed a normal sphincter tone and no palpable masses. The scope was then introduced and retrofelexed. No internal hemorrhoids were identified. Old blood is identified in the colon. There are multiple small diverticula throught out the colon. the muscosa is very edmatous and pale. There are no signs of infection/inflammation/ischemia. Once I get to the splenic flexure, The mucosa is so swollen and edmatous, that I am not able to pass the colonoscope any further. The prep was adequate. A bx was done at 40cm. All specimen is retrieved adn no bleeding is noted. She has multiple small diverticula- there is no sign of bleeding or infection. The bleeding does not seem to be coming from any of the diverticula. The scope was removed and the patient was woken up and taken back to Same day surgery in stable condition. The patient tolerated the procedure well and there were no immediate complicatio ns.
[2020-03-28] MEDS: IRON SUCROSE COMPLEX 200 MG in Normal Saline 100 ML 400 MG IVPB (17:54)
[2020-03-28 20:52] LABS: HCT 29.6 % (36.0-46.0); HGB 9.6 g/dL (11.2-15.7)
[2020-03-28] MEDS: Magnesium Citrate 300 ML BTL PO (21:06)
[2020-03-29 04:42] VITALS: BP 155/74; PULSE 91; RESP 18; TEMP 36.7; O2SAT 95
[2020-03-29] MEDS: POTASSIUM CHLORIDE/0.45% NACL 1,000 ML 65 MEQ IV ×2 (06:00→23:05)
[2020-03-29 06:38] LABS: Anion Gap 5.6 mmol/L (3-11); BUN 11 mg/dL (7-18); C-Reactive Protein 1.35 mg/dL (0.0-0.3); CO2 28.4 mmol/L (21.0-32.0); CREATININE 0.79 mg/dL (0.55-1.02); Calcium 7.9 mg/dL (8.5-10.1); Chloride 106 mmol/L (98-107); Glucose 105 mg/dL (74-106); Potassium 3.9 mmol/L (3.5-5.1); Sodium 140 mmol/L (136-145)
[2020-03-29 06:40] LABS: HCT 26.5 % (36.0-46.0); HGB 8.8 g/dL (11.2-15.7)
[2020-03-29 07:15] VITALS: BP 111/66; PULSE 90; RESP 16; TEMP 36.8; O2SAT 95
[2020-03-29 07:15] LABS: Ferritin 959 ng/mL (8-252)
[2020-03-29 07:25] LABS: Iron 145 ug/dL (50-170); Total Iron Binding Capacity 205 ug/dL (250-450); Transferrin Sat 71 % (15-50)
[2020-03-29] MEDS: Pantoprazole 20 MG TABCR PO (07:52)
[2020-03-29] MEDS: Venlafaxine 37.5 MG CAPCR PO (07:52)
[2020-03-29] MEDS: Budesonide/Formoterol 160/4.5 6 GM 60 PUFF INH IH ×2 (07:54→19:40)
[2020-03-29 13:31] VITALS: BP 138/63; PULSE 87; RESP 17; TEMP 36.9; O2SAT 95
[2020-03-29 14:08] LABS: HCT 28.5 % (36.0-46.0); HGB 9.2 g/dL (11.2-15.7)
--- NOTE | 2020-03-29 14:43 | W.PM.PROGNOT ---
Date of Service Date of service: 03/29/20 Time of Service: 14:43 Assessment and Plan Assessment and plan (1) GI bleed: Status: Chronic Assessment and plan: Incomplete colonoscopy due to bowel wall edema. C scope only went as far as the splenic flexure. Patient has diverticuli but no diverticulitis. Nuclear bleeding scan was negative. We will proceed with barium enema as soon as feasible. Hemoglobin today has been stable at 9.2 g. Qualifiers: GI bleed type/associated pathology: unspecified gastrointestinal hemorrhage type Qualified Code(s): K92.2 - Gastrointestinal hemorrhage, unspecified Subjective Subjective Interval history since last seen: Patient states that she passed some blood with her bowel movement today. She denies abdominal pain nausea or vomiting. Nuclear GI bleeding scan was negative for acute bleeding thus it seems that the blood she passes probably old blood. Barium enema did not get done this morning. I placed a call to Dr. Ojeda, radiologist, regarding trying to expedite the barium enema. He indicated that they usually do not do a barium enema when people are acutely bleeding. Explained to him that with a negative GI bleeding scan and an incomplete colonoscopy we really need to get the barium enema done for completion evaluation of her transverse and ascending colon. He indicated he would get back to me and see if they have the technicians available to complete the studies today otherwise he will be tomorrow morning. Exam Narrative Exam Narrative: Elderly female sitting up in her chair talking with her in no distress. Abdomen is soft nondistended normal active bowel sounds nontender no guarding or rebound tenderness. Objective Last Vital Signs Temp 36.9 C 03/29/20 13:31 Pulse 87 03/29/20 13:31 Resp 17 03/29/20 13:31 BP 138/63 03/29/20 13:31 Pulse Ox 95 03/29/20 13:31 Laboratory Results - last 24 hr 03/25/20 03/28/20 03/28/20 19:00 16:19 20:20 Hgb 9.0 L 9.6 L Hct 28.0 L 29.6 L Sodium Potassium Chloride Carbon Dioxide Anion Gap BUN Creatinine Estimated GFR/1.73 m2 Glucose Calcium Iron TIBC Transferrin % Sat Ferritin C-Reactive Protein Crossmatch See Detail 03/29/20 03/29/20 03/29/20 06:05 06:05 06:05 Hgb 8.8 L Hct 26.5 L Sodium 140 Potassium 3.9 Chloride 106 Carbon Dioxide 28.4 Anion Gap 5.6 BUN 11 Creatinine 0.79 Estimated GFR/1.73 m2 >= 60.00 Glucose 105 Calcium 7.9 L Iron 145 TIBC 205 L Transferrin % Sat 71 H Ferritin 959 H C-Reactive Protein 1.35 H Crossmatch 03/29/20 14:00 Hgb 9.2 L Hct 28.5 L Sodium Potassium Chloride Carbon Dioxide Anion Gap BUN Creatinine Estimated GFR/1.73 m2 Glucose Calcium Iron TIBC Transferrin % Sat Ferritin C-Reactive Protein Crossmatch
[2020-03-29 15:37] VITALS: BP 140/56; PULSE 89; RESP 18; TEMP 36.7; O2SAT 95
--- NOTE | 2020-03-29 15:57 | DI.NM_ITS ---
EXAM: NM GI BLEED TAGGED RBC GRP CLINICAL HISTORY: acute lower GI bleeding. COMPARISON: CT CT ABDOMEN PELVIS W from 03/25/2020 EXAMINATION: GI bleed study was performed with injection of 25 millicuries of technetium 99 labeled autologous tagged red blood cells. There is normal expected uptake in vascular and visceral structur es. There is no evidence of GI bleed seen on serial images obtained up to 1 hour post injection of r adiopharmaceutical. FINDINGS: Negative GI bleed study. IMPRESSION:
--- NOTE | 2020-03-29 16:13 | PDOC.CMPRO ---
- If Service Date Differs Date of service: 03/29/20 Time of Service: 16:13 Care Management Progress Note S/O: Domenica was having a procedure when CM attempted to meet with her. Her , Adiel was in the room waiting for her. He shared that they have been for 61 years and they both take care of each other. Later, CM met with Domenica who reported that she was feeling better, and was hoping to return home soon. [facility]. CM will continue to follow. A: Domenica is an 84 year old female admitted to [facility] on 03/25/20 for a GI bleed. P: Anticipate Domenica will be discharged home with no new services when medically cleared by provider. She will follow up with her PCP, surgeon, and plan of care as directed. Her , Adiel, will drive her home via private vehicle when ready. CM will continue to support patient and discharge planning needs.
[2020-03-29 19:27] VITALS: BP 157/78; PULSE 89; RESP 18; TEMP 36.6; O2SAT 95
[2020-03-29 23:21] VITALS: BP 107/71; PULSE 92; RESP 17; TEMP 36.1; O2SAT 95
[2020-03-30 03:16] VITALS: BP 157/72; PULSE 88; RESP 18; TEMP 36.5; O2SAT 96
[2020-03-30 06:47] LABS: HCT 25.7 % (36.0-46.0); HGB 8.5 g/dL (11.2-15.7)
--- NOTE | 2020-03-30 07:00 | DI.RAD_ITS ---
EXAM: RF BARIUM ENEMA CLINICAL HISTORY: GI bleeding TECHNIQUE: COMPARISON: CT CT ABDOMEN PELVIS WO/W from 11/30/[address] ABDOMEN PELVIS W from 03/25/2020 FINDINGS: Barium was introduced in the rectum and flowed to the cecum. No terminal ileum reflux observed. Jane endix is normal. There is moderate sigmoid diverticulosis and muscular hypertrophy. The colonic mucosa appears intact throughout, no mass lesion identified IMPRESSION: negative barium enema except for diverticulosis of the sigmoid RADIATION DOSE DELIVERED: Total DLP
[2020-03-30] MEDS: Pantoprazole 20 MG TABCR PO (07:42)
[2020-03-30] MEDS: Venlafaxine 37.5 MG CAPCR PO (07:42)
[2020-03-30] MEDS: Budesonide/Formoterol 160/4.5 6 GM 60 PUFF INH IH (07:48)
[2020-03-30 07:53] VITALS: BP 160/80; PULSE 93; RESP 19; TEMP 37.2; O2SAT 97
--- NOTE | 2020-03-30 11:13 | PGE_ITS ---
Date of Service Date of service: 03/30/20 Time of Service: 11:13 Assessment and Plan Assessment and plan (1) GI bleed: Status: Chronic Assessment and plan: Incomplete colonoscopy due to bowel wall edema. C scope only went as far as the splenic flexure. Patient has diverticuli but no diverticulitis. Nuclear bleeding scan was negative. Awaiting results of barium enema. Repeat hemoglobin is now 8.5 g hematocrit 25%. Qualifiers: GI bleed type/associated pathology: unspecified gastrointestinal hemorrhage type Qualified Code(s): K92.2 - Gastrointestinal hemorrhage, unspecified Subjective Subjective Interval history since last seen: Patient denies any further GI bleeding. She has no abdominal pain nausea or vomiting. She is awaiting her barium enema. O nce with the results of that she can be discharged home with follow-up with her oncologist and her PCP. Exam Narrative Exam Narrative: Alert and oriented person place time circumstance and upper chair time with her . Abdomen soft nontender NABS nondistention no palpable masses Objective Last Vital Signs Temp 37.2 C 03/30/20 07:53 Pulse 93 H 03/30/20 07:53 Resp 19 03/30/20 07:53 BP 160/80 H 03/30/20 07:53 Pulse Ox 97 03/30/20 07:53 Laboratory Results - last 24 hr 03/29/20 03/30/20 14:00 06:25 Hgb 9.2 L 8.5 L Hct 28.5 L 25.7 L
--- NOTE | 2020-03-30 12:21 | W.PM.PROGNOT ---
Date of Service Date of service: 03/30/20 Time of Service: 12:21 Assessment and Plan Assessment and plan (1) GI bleed: Status: Chronic Assessment and plan: EGD was neg. Bx from colon was neg. BE was neg. No etiology for bleeding could be found. Paperwork was done to schedule her for capsular endoscopy by my office. She should f/u w/ oncology as previously scheduled for her chemo. d/c per hospitalist today. d/w Smith Qualifiers: GI bleed type/associated pathology: unspecified gastrointestinal hemorrhage type Qualified Code(s): K92.2 - Gastrointestinal hemorrhage, unspecified (2) Melena: Status: Acute (3) History of renal cell cancer: Status: Acute Assessment and plan: This was pt on 2nd sessinon of chemo. Subjective Subjective Interval history since last seen: BE was negative. No masses or strictures. no signs of tumor eroding into colon consider capsular endoscopy. hgb stable iron studies are nl. Exam GI Inspection: normal to inspection and non-distended Palpation: soft, not firm, no guarding and nontender Other: pt has never had any pain Objective Last Vital Signs Temp 37.2 C 03/30/20 07:53 Pulse 93 H 03/30/20 07:53 Resp 19 03/30/20 07:53 BP 160/80 H 03/30/20 07:53 Pulse Ox 97 03/30/20 07:53 Laboratory Results - last 24 hr 03/29/20 03/30/20 14:00 06:25 Hgb 9.2 L 8.5 L Hct 28.5 L 25.7 L
--- NOTE | 2020-03-30 13:27 | DSE_ITS ---
Date of service: 03/30/20 Time of Service: 13:27 DS: Diagnosis Discharge Diagnosis (1) GI bleed: Status: Chronic Asessment and Plan: Patient's GI bleed was treated with transfusion of packed red cells. She received a total of 2 units of packed red cells during this hospitalization. Patient underwent EGD and colonoscopy. EGD was negative for ulcer or source of upper GI bleeding. Colonoscopy was incomplete but demonstrated diverticulosis without evidence of bleeding. Colonoscopy was only accomplished to the level of her splenic flexure. Patient subsequently underwent a barium enema that showed diverticulosis but no diverticulitis and no polyps or masses or source for her bleeding. Dr. Birch had her office set the patient up for an outpatient capsule endoscopy through [facility]. Upon discharge patient was started on iron supplementation. Patient should have repeat iron levels and CBC checked in a few weeks. 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 Patient was directed from the urgent care center to the emergency room at [facility] for further evaluation and admission with serial hemograms per the handle machine operator/oncologist at [facility]. Upon arrival she was found to be tachycardic and mildly hypotensive. Rectal exam demonstrated maroon/black-colored stool that was guaiac positive. Hemoglobin was rechecked found to be 8.4 g coagulation studies were normal. CT of the abdomen pelvis showed a stable appearing right renal mass. There was no evidence of acute bowel obstruction. No evidence of diverticulitis. Patient was admitted to the hospital by jamilah Braun. Consultation was obtained with Dr. Ada Llanos from surgery to evaluate for possible upper GI bleeding. She saw the patient on March 26, 2020 and felt that the patient could potentially have gastritis or an ulcer as a side effect of her daily use of aspirin. Aspirin was discontinued and patient was started on IV Protonix. From 03/25/2020 to 03/26/2020 her Hb dropped from 8.4 gm to 7.2 gm necessitating transfusion of one unit of PRBC. Her hemoglobin subsequently pradip to 9.6 gm however she had resumption of her bleeding on 03/26 which necessitated another transfusion of PRBC and she underwent an EGD on 03/27 which demonstrated a small hiatal hernia but no PUD or gastritis. Biopsies of the gastric antrum were obtained for H. pylori. Patient underwent prep for C-scope which was performed on 03/27/[address] Cecille Birch. This was an incomplete exam as the patient had edematous bowel which limited the exam to the splenic flexure. Diverticulosis but no diverticular bleeding or diverticulitis was seen nor were any polyps seen. Procedure was terminated to avoid complications. Post colonoscopy the patient reported passing liquid bright red blood. Repeat hemogram was checked and found to be stable at 9.0 gm. A stat GI nuclear bleeding scan was ordered but not performed until the morning of 03/29/2020. This did not demonstrate any active GI bleeding. A barium enema was ordered to complete her evaluation of her colon. This was completed on the morning of 03/30/2020. This demonstrated sigmoid diverticulosis but no acute pathology. Patient's diet was advanced to regular diet and she was discharged home w/ follow up capsule endoscopy to be arranged by Dr. Birch's office [place] [facility] [place] Patient's hemoglobin was 8.5 gm at discharge. Patient was started on iron supplementation to treat her anemia. Home Meds and New Rx's Prescriptions: New ferrous sulfate 324 mg (65 mg iron) tablet,delayed release (DR/EC) 324 mg PO BID Qty: 60 RF: 0 Continued tramadol 50 mg tablet 50 mg PO Q6H PRN (Reason: pain) Qty: 20 RF: 0 Myrbetriq 25 mg tablet extended release 24 hr 25 mg PO DAILY RF: 0 Hold Instructions: Home Medication placed on hold at Doctor's office ascorbate calcium (vitamin C) 500 MG tablet 500 mg PO DAILY RF: 0 nystatin-triamcinolone 15 GM cream 15 gm Topical BID RF: 0 cholecalciferol (vitamin D3) [Vitamin D3] 2,000 UNIT capsule 2,000 unit PO DAILY RF: 0 ProAir RespiClick 90 MCG aerosol powdr breath activated 90 mcg Inhalation Q 4 HR RF: 0 lidocaine 15 GM cream 15 gm Topical Q4H PRN Qty: 3 RF: 5 venlafaxine [Effexor XR] 37.5 MG capsule,extended release 24hr 37.5 mg PO DAILY Qty: 30 RF: 3 hydrochlorothiazide 25 mg tablet 12.5 mg PO DAILY RF: 0 polyethylene glycol 3350 [Miralax] 17 gram/dose powder 17 gm PO DAILY PRNRF: 0 lisinopril 20 mg tablet 40 mg PO QAM RF: 0 fluticasone propion-salmeterol [Advair Diskus] 1 EACH blister with device 1 ea Inhalation BID RF: 0 baclofen 5 mg tablet 5 mg PO BID PRN (Reason: muscle spasm) Qty: 8 RF: 0 Discontinued aspirin 81 MG tablet,chewable 81 mg PO DAILY RF: 0 Discharge Instructions Instructions: Gastrointestinal Bleeding (DC), Capsule Endoscopy (DC) Additional Instructions: Dr. Birch's office will give you a call once your capsule endoscopy has been set up with [facility]. Stand Alone Forms: Nursing Discharge Form Referrals: Frederick Payne [ NON-[facility] STAFF PHYSICIAN] - 04/05/20 9:30 am Mary Hollingsworth [Primary Care Provider] - 03/31/20 8:15 am Activity:: Activity as Tolerated Equipment/Supplies:: No Equipment Needed Diet:: Normal Diet Discharge Orders Discharge Orders: Discharge Order (Routine); Ordered 03/30/20 Ordered By: Yordan Mtz Other Ambulatory Orders: Complete Blood Count w/Diff (Routine) Timeframe: 6 Weeks Facility: [facility] - Location: Laboratory Outpatient Ordered By: Yordan Mtz Discharge Data Discharge Date/Time-TO BE ENTERED AT DEPARTURE: 03/30/20 15:04 DS: Summary Status at Discharge Functional status at discharge: independent ambulation Overall status at discharge: patient is progressing back to baseline Mental Status: mental status grossly normal Speech and Movement: speech and movement normal Mood: congruent mood Affect: normal affect Time Spent with Patient providing and/or coordinating discharge services: Less than 30 minutes Exam Narrative Exam Narrative: Alert and oriented person place time circumstance and upper chair time with her . Abdomen soft nontender NABS nondistention no palpable masses Psych Mental Status: mental status grossly normal Speech and Movement: speech and movement normal Mood: congruent mood Affect: normal affect DS: Data Vitals/I&O Vitals and I&O: Vital Signs Temperature 37.2 C 03/30/20 07:53 Temperature Source Temporal Artery Scan 03/30/20 07:53 Pulse 93 H 03/30/20 07:53 Pulse Rhythm Regular 03/30/20 07:45 Pulse 84 03/27/20 15:00 Respiratory Rate 19 03/30/20 07:53 Respiratory Effort Non-Labored 03/30/20 07:45 Respiratory Depth Normal 03/30/20 07:45 Respiratory Pattern Normal 03/30/20 07:45 Blood Pressure 160/80 H 03/30/20 07:53 Blood Pressure Mean 79 03/27/20 14:57 Blood Pressure Position Supine 03/26/20 16:20 Pulse Oximetry 97 03/30/20 07:53 Oxygen Delivery Method Room Air 03/30/20 07:53 Oxygen Flow Rate 0 03/30/20 07:53 Pain Level 0 03/30/20 07:53 Comment 03/25/20 21:35 Intake & Output 03/29/20 03/30/20 03/30/20 23:59 11:59 23:59 Intake Total 2220 / 3142.917 738.833 / 738.833 Balance 2220 / 2342.917 738.833 / 738.833 Weight 66.7 kg Intake: IV 1000 / 1922.917 738.833 / 738.833 Oral 1220 / 1220 Other: Urine Color Yellow Urine Appearance Clear Clear Urine Odor None Comment stool mixed with urine Stool Occult Blood Positive Stool Size Moderate Stool Characteristics Bloody Voiding Methods Toilet Bedside Commode Data Completed and Pending Labs on day of discharge: Labs from last 24 hours 03/30/20 03/29/20 06:25 14:00 Hgb 8.5 L 9.2 L Hct 25.7 L 28.5 L PFSH Medical History Cataracts, bilateral Cervical spondylosis Colon polyps COPD (chronic obstructive pulmonary disease) Diabetes Diverticulosis Diverticulosis Easy bruising Esophagitis Essential tremor 10/05/19: Pt denies. -BR Fatty liver Fatty liver disease, nonalcoholic GERD (gastroesophageal reflux disease) Hiatal hernia Hydronephrosis, right Hyperlipidemia Hypertension Impaired fasting glucose Night sweats Nocturia Peripheral neuropathy Renal mass Squamous cell carcinoma Statin intolerance Urinary frequency Urinary incontinence Surgical History Biopsy of breast History of cataract removal with insertion of prosthetic lens History of cholecystectomy History of colonoscopy History of cystoscopy Family History Sister Personal history of malignant neoplasm breast, colon Sister Personal history of malignant neoplasm uterine Social History Smoking/Tobacco Use Status: Former Tobacco Use Alcohol Intake: never Drug use: Never Substance use type: does not use Do you feel safe at home: Yes Do you feel safe in your relationship?: Yes
[2020-03-30 13:42] VITALS: BP 148/73; PULSE 110; RESP 20; TEMP 36.8; O2SAT 95
[2020-03-30] MEDS: Normal Saline Flush 10 ML SYR IVP (14:55)
[2020-03-30] MEDS: Heparin 500 UNITS/5 ML SYRINGE IVP (14:55)
--- NOTE | 2020-03-30 14:57 | PDOC.CMDIS ---
- If Service Date Differs Date of service: 03/30/20 Time of Service: 14:57 LACE Index Scoring Tool - Questions: Length of Stay (in days): 3 Acuity (Admit via E.D.?): Yes Comorbidities: Any Tumor E.D. Visits: 2 - Answers: Total Score: 10 Risk of Readmission: High Risk Care Management Discharge Reason for Hospitalization: UGI bleed. Discharge Plan: Domenica will return home with no additional services at this time. Her will drive her home via private vehicle. She will follow up with surgical services, her PCP and discharge plan of care. She is happy to be going home. Patient/Family Education Needs: Review discharge instructions regarding activity levels and medications, discussion of self care needs and goals of care.
== END 2020-03-30 15:04 | disposition home or self-care (01) | DRG 378 ==
LOC: ER 20:42 → MS 03-27 11:02 → ICU 03-27 11:03 → MS 03-27 16:58
PROVIDERS: Internal Medicine; Nurse Practitioner Acute Care; Surgery; Admitting Provider General Practice; Emergency Provider Physician Assistant; PCP Nurse Practitioner Family; Visit Provider General Practice
PROC: 0DJ68ZZ Inspection of Stomach, Via Natural or Artificial Opening Endoscopic (ICD-10-PCS; CPT 43235; principal; 2020-03-27 09:20)
PROC: 0DJD8ZZ Inspection of Lower Intestinal Tract, Via Natural or Artificial Opening Endoscopic (ICD-10-PCS; CPT 45378; principal; 2020-03-28 10:30)
DX: K92.1 Melena (principal); C64.1 Malignant neoplasm of right kidney, except renal pelvis; C77.9 Secondary and unspecified malignant neoplasm of lymph node, unspecified; M47.892 Other spondylosis, cervical region; J44.9 Chronic obstructive pulmonary disease, unspecified; E11.9 Type 2 diabetes mellitus without complications; K20.90 Esophagitis, unspecified without bleeding; G25.0 Essential tremor; K76.0 Fatty (change of) liver, not elsewhere classified; K44.9 Diaphragmatic hernia without obstruction or gangrene; E78.5 Hyperlipidemia, unspecified; E11.42 Type 2 diabetes mellitus with diabetic polyneuropathy; D72.828 Other elevated white blood cell count; K57.30 Diverticulosis of large intestine without perforation or abscess without bleeding
CPT/HCPCS: 43239; 45331; 36415; 36591; 80048; 80053; 85027; 86850; 86900; 86901; 86920; 86945; 88305; 94640; 96361; 96374; 99212; 99222; 99226; 99231; 99232; 99233; 99238; 99252; 99285; 99291; U0003; 74177; 74270; 78278; 82728; 83540; 83550; 85014; 85018; 85025; 85045; 85610; 85730; 86140; 88361; 99219; G0378; J1756; J1941; J2001; J2704; J3490; P9016

== ENCOUNTER 2020-04-04 09:54 | Observation (INO) | payer MEDICARE, SELFPAY ==
[2020-04-04 10:01] VITALS: BP 153/59; PULSE 99; RESP 18; TEMP 36.4; O2SAT 96
--- NOTE | 2020-04-04 10:15 | DI.CT_ITS ---
EXAM: CT HEAD FACIAL WO CLINICAL HISTORY: fall, rt facial trauma. TECHNIQUE: Imaging Protocol: Axial computed tomography images with coronal and sagittal reformatted images were created and reviewed COMPARISON: No exams were available for comparison FINDINGS: CT Head: Ventricles and Extra axial spaces: Normal in size and morphology for the patient's age. Hemorrhage: There is a single round hyperdense focus to the right of the falx superior to the ventric les. A small focal hemorrhage cannot be excluded. It measures 0.5 cm. Cerebral parenchyma: There are areas of decreased attenuation in the white matter consistent with sma ll vessel ischemic disease. No acute territorial infarct. Midline shift: None. Brainstem/Cerebellum: Normal. Calvarium: Normal. Visualized Paranasal sinuses/Mastoids: Clear. Soft Tissues: Unremarkable. CT Face: Facial Bones: No definite fracture is noted in facial bones. Sinuses and Mastoids: Unremarkable. Globes, extraocular muscles, optic nerves and retrobulbar fat: Normal. Upper aerodigestive tract: Normal. Mandible and bilateral temporomandibular joints: Normal. Soft tissues: Normal. IMPRESSION: 1. Single 0.5 cm hyperdense focus to the right of the falx superior to the ventricles. A tiny focal extra-axial hemorrhage cannot be excluded. There is no mass effect on the surrounding structures. 2. No acute facial fracture. 3. Findings were discussed with the emergency department on the date of the examination. RADIATION DOSE DELIVERED: 988.04mGy.cm Total DLP DATA REPOSITORY: All CT scans at this facility are submitted to the National Radiology Data Registry (NRDR) Dose Index Registry (DIR) with the [employer] ([employer]). RADIATION OPTIMIZATION: All CT scans at this facility use at least one of these dose optimization te chniques: automated exposure control; mA and/or kV adjustment per patient size (includes targeted exa ms where dose is matched to clinical indication); or iterative reconstruction.
--- NOTE | 2020-04-04 10:22 | ED.GENADUL_ITS ---
Discharge Plan Disposition Patient Disposition: HOME Condition: Serious Discharge Details Clinical Impression: Fall, Laceration of chin, Contusion of face, Abnormal CT of the head Primary Care Provider: Mary Hollingsworth ED Provider: Wenceslao Palafox Discharge Data Discharge Date/Time-TO BE ENTERED AT DEPARTURE: 04/04/20 13:29 Medical Decision Making 84-year-old female here with mechanical trip and fall with laceration to her chin and pain and tenderness right maxilla. Considered facial fracture. Plan to obtain CT of the face. Patient did strike her head, consider acute intracranial traumatic hemorrhage. Will obtain CT of the head. Patient has no cervical tenderness or pain with range of motion. Laceration to be anesthetized, irrigated and repaired. See procedure report. --CT head and facial bones was interpreted by radiology: IMPRESSION: 1. Single 0.5 cm hyperdense focus to the right of the falx superior to the ventricles. A tiny focal extra-axial hemorrhage cannot be excluded. There is no mass effect on the surrounding structures. 2. No acute facial fracture. 3. Findings were discussed with the emergency department on the date of the examination. Patient was reassessed and continues to have no headache and no acute neurologic symptoms. I suspect CT finding is calcification but out of abundance of caution plan to hospitalize, monitor and repeat imaging. I called and spoke with Dr. Tay, on- call general surgeon, discussed ED presentation and course including diagnostics, she will admit the patient for observation and repeat head imaging. HPI General Mode of arrival: ambulatory . Date/Time Provider Initiated Documentation: 04/04/20 10:03 . Limitations to Documentation: no limitations . Information obtained by: patient . HPI Narrative: 84-year-old female presents with chief complaint of laceration. Patient tripped and fell over a heat register from standing to the floor and impacted her chin and right face. This occurred at 530 this morning. Laceration is moderate and continues to ooze blood. No modifiers. She did strike her head but does not have a headache. No loss of consciousness. No neck pain. No back pain. No other injury. Related Data Home Medications Medication Instructions Recorded Confirmed fluticasone propion-salmeterol 1 ea INHALATION BID 01/09/14 04/04/20 [Advair Diskus] ProAir RespiClick 90 mcg INHALATION Q 4 HR 06/10/17 04/04/20 ascorbate calcium (vitamin C) 500 mg PO DAILY 06/10/17 04/04/20 cholecalciferol (vitamin D3) 2,000 unit PO DAILY 06/10/17 04/04/20 [Vitamin D3] nystatin-triamcinolone 15 gm TOPICAL BID 06/10/17 04/04/20 lidocaine 15 gm TOPICAL Q4H PRN #3 tube 07/29/17 04/04/20 venlafaxine [Effexor XR] 37.5 mg PO DAILY #30 tab-cap 08/12/17 04/04/20 baclofen 5 mg PO BID PRN #8 tab 01/17/19 04/04/20 hydrochlorothiazide 25 mg tablet 12.5 mg PO DAILY tab 04/03/19 04/04/20 polyethylene glycol 3350 17 17 gm PO DAILY PRN 04/03/19 04/04/20 gram/dose oral powder mirabegron 25 mg tablet,extended 25 mg PO DAILY 05/05/19 04/04/20 release 24 hr lisinopril 20 mg tablet 40 mg PO QAM tab 09/23/19 04/04/20 tramadol 50 mg tablet 50 mg PO Q6H PRN #20 tab 10/05/19 04/04/20 ferrous sulfate 324 mg PO BID #60 tab 03/30/20 04/04/20 Previous Rx's Medication Instructions Recorded lidocaine 15 gm TOPICAL Q4H PRN #3 tube 07/29/17 venlafaxine [Effexor XR] 37.5 mg PO DAILY #30 tab-cap 08/12/17 baclofen 5 mg PO BID PRN #8 tab 01/17/19 tramadol 50 mg tablet 50 mg PO Q6H PRN #20 tab 10/05/19 ferrous sulfate 324 mg PO BID #60 tab 03/30/20 Allergies Allergy/AdvReac Type Severity Reaction Status Date / Time pregabalin [From Lyrica] Allergy Severe RASH/EXTREMITY Unverified 04/04/20 10:05 EDEMA atorvastatin calcium Allergy Intermediate Unverified 04/04/20 10:05 [From Lipitor] gabapentin [From Neurontin] Allergy Intermediate Unverified 04/04/20 10:05 prednisone Allergy Mild Unverified 04/04/20 10:05 codeine Allergy Unverified 04/04/20 10:05 rosuvastatin calcium Allergy Unverified 04/04/20 10:05 [From Crestor] sulfamethoxazole Allergy Unverified 04/04/20 10:05 [From Bactrim] trimethoprim [From Bactrim] Allergy Unverified 04/04/20 10:05 General Stated Complaint: HeadInjury SATHISH: 3 Review of Systems All systems reviewed & are unremarkable except as noted in HPI and below ENT Ears, Nose, Mouth, and Throat: Reports as per HPI Cardiovascular Cardiovascular: Denies chest pain Gastrointestinal Gastrointestinal: Denies abdominal pain PFSH Medical History Cataracts, bilateral Cervical spondylosis Colon polyps COPD (chronic obstructive pulmonary disease) Diabetes Diverticulosis Diverticulosis Easy bruising Esophagitis Essential tremor 10/05/19: Pt denies. -BR Fatty liver Fatty liver disease, nonalcoholic GERD (gastroesophageal reflux disease) Hiatal hernia Hydronephrosis, right Hyperlipidemia Hypertension Impaired fasting glucose Night sweats Nocturia Peripheral neuropathy Renal mass Squamous cell carcinoma Statin intolerance Urinary frequency Urinary incontinence Surgical History Biopsy of breast History of cataract removal with insertion of prosthetic lens History of cholecystectomy History of colonoscopy History of cystoscopy Family History Sister Personal history of malignant neoplasm breast, colon Sister Personal history of malignant neoplasm uterine Social History Smoking/Tobacco Use Status: Former Tobacco Use Alcohol Intake: never Drug use: Never Substance use type: does not use Do you feel safe at home: Yes Do you feel safe in your relationship?: Yes Exam Const General: cooperative and no acute distress HENMT Face and sinus: tenderness on the right mandible and maxilla Eyes EOM: EOM intact bilaterally Neck Neck: trachea midline, supple and nontender Resp Auscultation: clear to auscultation bilaterally, no rales, no rhonchi and no wheezes Cardio Rate: regular rate and not tachycardic Rhythm: regular rhythm GI Palpation: soft, not firm, no guarding, no masses, not rigid and nontender Back/Spine/Pelvis Cervical Spine: cervical ROM normal, No cervical spinal tenderness and No step off deformity Thoracic/Lumbar Spine: thoracic and lumbar spine normal to inspection Pelvis: no pain with lateral compression Skin Trauma: laceration (Flap chin laceration, oozing blood) Neuro General: patient alert, patient awake, patient oriented x3 and tone normal Extrem General: no edema Right upper extremity: wrist Details: normal ROM, ecchymosis and normal vascular exam; no tenderness Left upper extremity: wrist Details: normal ROM, ecchymosis and normal vascular exam; no tenderness Psych Appearance: grossly normal Mental Status: mental status grossly normal Speech and Movement: speech and movement normal Course Vital Signs Vital signs: Vital Signs Temperature 36.4 C L 04/04/20 10:01 Pulse 99 H 04/04/20 10:01 Respiratory Rate 18 04/04/20 10:01 Blood Pressure 153/59 H 04/04/20 10:01 Pulse Oximetry 96 04/04/20 10:01 Temperature 36.4 C L 04/04/20 10:01 Temperature Source Skin 04/04/20 10:01 Pulse 99 H 04/04/20 10:01 Respiratory Rate 18 04/04/20 10:01 Respiratory Effort 04/04/20 10:04 Blood Pressure 153/59 H 04/04/20 10:01 Blood Pressure Position Sitting 04/04/20 10:01 Pulse Oximetry 96 04/04/20 10:01 Oxygen Delivery Method Room Air 04/04/20 10:01 Oxygen Flow Rate 0 04/04/20 10:01 Pain Level 10 04/04/20 10:01 Procedures Laceration Laceration 1: Site: face Size (cm): 4 Description: flap Depth: simple, single layer Local Anesthetic: Bupivicaine 0.5% and with Epi Amount of anesthesia used (mL): 2 Pre-repair: wound explored, irrigated extensively and deep structures intact Skin layer closed with: other (prolene) Size (cm): 6-0 Number of sutures: 10 Technique: simple, interrupted (9) and horizontal mattress (1)
[2020-04-04] MEDS: Lidocaine/Epinephri/Tetracaine Topical Gel 3 ML TP (10:26)
[2020-04-04 11:10] VITALS: BP 126/46; PULSE 80; RESP 18; TEMP 36.1; O2SAT 96
--- NOTE | 2020-04-04 12:41 | HPE_ITS ---
Date of service: 04/04/20 Time of Service: 13:15 Assessment and Plan Assessment and plan (1) Fall: Status: Acute Assessment and plan: Head CT report:Single 0.5 cm hyperdense focus to the right of the falx superior to the ventricles. A tiny focal extra-axial hemorrhage cannot be excluded. Will observe patient for symptoms and repeat head CT in am. History and symptoms do not suggest a significant head injury. Will check CBC given history of recent GI bleed and dark stools. (2) Contusion of face: Status: Acute History of Present Illness Narrative: This 84 year old woman tripped over a heater this morning and fell on her wrists and face. She denies LOC or headache. Upon presentation to the ER she was noted to have a chin laceration which was repaired. She had some ten derness and bruising over the right maxillary and jaw area. Facial CT showed no evidence of fracture. Head CT done as a precaution showed a 5mm hyperdense area above the ventricle of uncertain significance. Review of Systems Narrative: She currently denies significant pain Has noted darker stools for the past two days [facility] Medical History Cataracts, bilateral Cervical spondylosis Colon polyps COPD (chronic obstructive pulmonary disease) Diabetes Diverticulosis Diverticulosis Easy bruising Esophagitis Essential tremor 10/05/19: Pt denies. -BR Fatty liver Fatty liver disease, nonalcoholic GERD (gastroesophageal reflux disease) Hiatal hernia Hydronephrosis, right Hyperlipidemia Hypertension Impaired fasting glucose Night sweats Nocturia Peripheral neuropathy Renal mass Squamous cell carcinoma Statin intolerance Urinary frequency Urinary incontinence Surgical History Biopsy of breast History of cataract removal with insertion of prosthetic lens History of cholecystectomy History of colonoscopy History of cystoscopy Family History Sister Personal history of malignant neoplasm breast, colon Sister Personal history of malignant neoplasm uterine Social History Smoking/Tobacco Use Status: Former Tobacco Use Alcohol Intake: never Drug use: Never Substance use type: does not use Do you feel safe at home: Yes Do you feel safe in your relationship?: Yes Meds Home Medications and Allergies Home Medications Medication Instructions Recorded Confirmed Type fluticasone propion-salmeterol 1 ea INHALATION BID 01/09/14 04/04/20 History [Advair Diskus] ProAir RespiClick 90 mcg INHALATION Q 4 HR 06/10/17 04/04/20 History ascorbate calcium (vitamin C) 500 mg PO DAILY 06/10/17 04/04/20 History cholecalciferol (vitamin D3) 2,000 unit PO DAILY 06/10/17 04/04/20 History [Vitamin D3] nystatin-triamcinolone 15 gm TOPICAL BID 06/10/17 04/04/20 History lidocaine 15 gm TOPICAL Q4H PRN #3 tube 07/29/17 04/04/20 Rx venlafaxine [Effexor XR] 37.5 mg PO DAILY #30 tab-cap 08/12/17 04/04/20 Rx baclofen 5 mg PO BID PRN #8 tab 01/17/19 04/04/20 Rx hydrochlorothiazide 25 mg tablet 12.5 mg PO DAILY tab 04/03/19 04/04/20 History polyethylene glycol 3350 17 17 gm PO DAILY PRN 04/03/19 04/04/20 History gram/dose oral powder mirabegron 25 mg tablet,extended 25 mg PO DAILY 05/05/19 04/04/20 History release 24 hr lisinopril 20 mg tablet 40 mg PO QAM tab 09/23/19 04/04/20 History tramadol 50 mg tablet 50 mg PO Q6H PRN #20 tab 10/05/19 04/04/20 Rx ferrous sulfate 324 mg PO BID #60 tab 03/30/20 04/04/20 Rx Allergies Allergy/AdvReac Type Severity Reaction Status Date / Time pregabalin [From Lyrica] Allergy Severe RASH/EXTREMITY Unverified 04/04/20 10:05 EDEMA atorvastatin calcium Allergy Intermediate Unverified 04/04/20 10:05 [From Lipitor] gabapentin [From Neurontin] Allergy Intermediate Unverified 04/04/20 10:05 prednisone Allergy Mild Unverified 04/04/20 10:05 codeine Allergy Unverified 04/04/20 10:05 rosuvastatin calcium Allergy Unverified 04/04/20 10:05 [From Crestor] sulfamethoxazole Allergy Unverified 04/04/20 10:05 [From Bactrim] trimethoprim [From Bactrim] Allergy Unverified 04/04/20 10:05 Exam Narrative Exam Narrative: Alert PERRLA No focal neurologic deficits. Bruising over right maxilla and jaw. Bandaged laceration on chin Bilateral wrist and left forearm with bruising. Results Labs Result diagrams: 04/04/20 13:25 Last Vital Signs Temp 97.0 F L 04/04/20 11:10 Pulse 80 04/04/20 11:10 Resp 18 04/04/20 11:10 BP 126/46 L 04/04/20 11:10 Pulse Ox 96 04/04/20 11:10 COVID-19 Screening Have you,or household,traveled outside [place] in last 14 days?: No Had IN PERSON contact w/suspected or confirmed C-19 person: No
[2020-04-04 13:31] VITALS: BP 135/73; PULSE 94; RESP 18; TEMP 36.9; O2SAT 98
[2020-04-04 13:36] LABS: HCT 26.2 % (36.0-46.0); HGB 8.5 g/dL (11.2-15.7); MCH 31.5 pg (27.0-33.0); MCHC 32.4 % (32.0-36.0); MPV 9.7 fL (8.0-11.0); Platelet Count 544 10^3/uL (130-400); RDW 20.4 % (11.7-14.6); RDW-SD 70.4 fL; WBC 11.08 10^3/uL (4.4-10.8)
[2020-04-04 15:20] VITALS: BP 112/69; PULSE 89; RESP 18; TEMP 37.1; O2SAT 95
[2020-04-04 18:45] VITALS: BP 112/52; PULSE 87; RESP 18; TEMP 37.5; O2SAT 96
[2020-04-04] MEDS: Acetaminophen 325 MG TAB 650 MG PO (18:48)
[2020-04-04] MEDS: Budesonide/Formoterol 160/4.5 6 GM 60 PUFF INH IH (20:08)
[2020-04-04 21:34] LABS: COVID-19 RT-PCR UVMMC Result Negative (Negative)
[2020-04-04 23:34] VITALS: BP 127/65; PULSE 82; RESP 17; TEMP 36.8; O2SAT 95
[2020-04-05] MEDS: Lactated Ringers 1,000 ML 30 ML IV (01:08)
[2020-04-05 02:45] VITALS: BP 129/71; PULSE 82; RESP 18; TEMP 36.9; O2SAT 96
[2020-04-05 06:48] LABS: Abs Immature Grans 0.03 10^3/uL (0.0-0.06); Absolute Basophil Count 0.06 10^3/uL (0.0-0.2); Absolute Lymphocyte Count 0.74 10^3/uL (1.2-3.4); Absolute Monocyte Count 0.62 10^3/uL (0.1-0.8); Absolute Neutrophil Count 2.84 10^3/uL (1.2-6.7); Basophils % 1.4; Eosinophils % 2.3; HCT 22.6 % (36.0-46.0); HGB 7.3 g/dL (11.2-15.7); Immature Grans % 0.7; Lymphocytes % 16.9; MCH 30.9 pg (27.0-33.0); MCHC 32.3 % (32.0-36.0); MCV 95.8 fL (80-95); MPV 9.7 fL (8.0-11.0); Monocytes % 14.1; Neutrophils % 64.6; Nucleated RBC 0 %; RBC 2.36 10^6/uL (3.93-5.22); RDW 20.3 % (11.7-14.6); RDW-SD 69.1 fL; WBC 4.39 10^3/uL (4.4-10.8)
[2020-04-05 07:22] LABS: Anisocytosis 2+; Diff Comment Diff Reviewed; Hypochromasia 2+
[2020-04-05 07:23] LABS: Poikilocytes 2+; Polychromasia Present
[2020-04-05 07:24] LABS: Platelet Count 367 10^3/uL (130-400)
--- NOTE | 2020-04-05 07:25 | DI.CT_ITS ---
EXAM: CT HEAD NECK WO CLINICAL HISTORY: Fall. TECHNIQUE: Imaging Protocol: Axial computed tomography images with coronal and sagittal reformatted images were created and reviewed COMPARISON: CT CT HEAD FACIAL WO from 04/04/2020 FINDINGS: Head CT Ventricles and Extra axial spaces: Atrophy, consistent with the patient's age. Hemorrhage: There is again noted to be a small focus of hemorrhage adjacent to the right side of the falx. It appears slightly less dense when compared with the previous exam. There are no new areas o f hemorrhage. Cerebral parenchyma: Atrophy and white matter changes of small vessel disease. No in intraparenchyma l hemorrhage. Midline shift: None. Brainstem/Cerebellum: Normal. Calvarium: Normal. Visualized Paranasal sinuses/Mastoids: Clear. Cervical Spine CT BONES: Vertebral body heights are maintained. Alignment is normal. There is no evidence of acute frac ture. Degenerative disc changes and facet degenerative changes are seen . SOFT TISSUES: No paraspinal hematoma. The airway appears intact. There is a port overlying the right pectoral muscle. No pneumothorax is seen at the lung apices. Mild emphysematous changes. IMPRESSION: Head CT: Mild interval decrease in size and intensity of the small focus of extra-axial hemorrhage a djacent to the right falx. C-spine CT: Degenerative changes, no acute abnormality. Incidental RADIATION DOSE DELIVERED: LINK-TO-SR Total DLP DATA REPOSITORY: All CT scans at this facility are submitted to the National Radiology Data Registry (NRDR) Dose Index Registry (DIR) with the [employer] (ACR). RADIATION OPTIMIZATION: All CT scans at this facility use at least one of these dose optimization te chniques: automated exposure control; mA and/or kV adjustment per patient size (includes targeted exa ms where dose is matched to clinical indication); or iterative reconstruction.
[2020-04-05 07:42] LABS: ALT 19 U/L (14-59); AST 13 U/L (15-37); Albumin 2.7 g/dL (3.4-5.0); Alkaline Phosphatase 51 U/L (46-116); BUN 12 mg/dL (7-18); Bilirubin, Total 0.3 mg/dL (0.2-1.0); CREATININE 0.84 mg/dL (0.55-1.02); Chloride 104 mmol/L (98-107); Glucose 107 mg/dL (74-106); Magnesium 1.9 mg/dL (1.8-2.4); Potassium 3.6 mmol/L (3.5-5.1); Sodium 143 mmol/L (136-145); Total Protein 4.9 g/dL (6.4-8.2)
[2020-04-05] MEDS: Lisinopril 20 MG TAB 40 MG PO (07:46)
[2020-04-05] MEDS: hydroCHLOROthiazide 12.5 MG TAB PO (07:47)
[2020-04-05] MEDS: Mirabegron 25 MG TABCR PO (07:47)
[2020-04-05] MEDS: Venlafaxine 37.5 MG CAPCR PO (07:47)
[2020-04-05 07:50] VITALS: BP 116/74; PULSE 90; RESP 17; TEMP 36.7; O2SAT 95
[2020-04-05] MEDS: Budesonide/Formoterol 160/4.5 6 GM 60 PUFF INH IH (07:52)
[2020-04-05 11:33] VITALS: BP 104/60; PULSE 85; RESP 17; TEMP 37.1; O2SAT 94
--- NOTE | 2020-04-05 12:16 | W.PM.PROGNOT ---
Date of Service Date of service: 04/05/20 Time of Service: 12:16 Assessment and Plan Assessment and plan (1) Abnormal CT of the head: Status: Acute Assessment and plan: Repeat CT today shows the same area near the falx which may be slightly less prominent. This has been reviewed by [place] [facility] [place] They are not convinced it represents a bleed and advises no further action except follow up at their clinic in one month with a head CT. (2) Fall: Status: Acute (3) Laceration of chin: Status: Acute Assessment and plan: Looks good. RTC one week for suture removal (4) Contusion of face: Status: Acute (5) Anemia: Status: Chronic Assessment and plan: Asymptomatic and no evidence of active bleeding. Suspect dilutional. Will check outpatient labs on . Subjective Subjective Interval history since last seen: No new complaints today No headache, no nausea, no weakness or tingling. No dizziness with ambulation. No pain in wrists No new injuries identified. Exam Narrative Exam Narrative: Alert, appropriate PERRLA. No focal deficits Chin laceration looks good. No infection or drainage Wrists bruised but not tender. Objective Last Vital Signs Temp 98.8 F 04/05/20 11:33 Pulse 85 04/05/20 11:33 Resp 17 04/05/20 11:33 BP 104/60 04/05/20 11:33 Pulse Ox 94 04/05/20 11:33 Laboratory Results - last 24 hr 04/04/20 04/04/20 04/05/20 13:00 13:25 06:19 WBC 11.08 H 4.39 L D RBC 2.70 L 2.36 L Hgb 8.5 L 7.3 L Hct 26.2 L 22.6 L MCV 97.0 H 95.8 H MCH 31.5 30.9 MCHC 32.4 32.3 RDW 20.4 H 20.3 H Plt Count 544 H D 367 D MPV 9.7 9.7 Immature Gran % 0.7 Neutrophils % 64.6 Lymphocytes % 16.9 Monocytes % 14.1 Eosinophils % 2.3 Basophils % 1.4 Nucleated RBC % 0 Absolute Neutrophils 2.84 Absolute Lymphocytes 0.74 L Absolute Monocytes 0.62 Absolute Eosinophils 0.10 Absolute Basophils 0.06 RBC Morphology See below Polychromasia Present Hypochromasia 2+ Poikilocytosis 2+ Anisocytosis 2+ Sodium Potassium Chloride Carbon Dioxide Anion Gap BUN Creatinine Estimated GFR/1.73 m2 Glucose Calcium Magnesium Total Bilirubin AST ALT Alkaline Phosphatase Total Protein Albumin COVID-19 PCR Negative Nasopharyn COVID-19 PCR Not Applicable Ref Test Perform Site [place] [facility] 04/05/20 06:19 WBC RBC Hgb Hct MCV MCH MCHC RDW Plt Count MPV Immature Gran % Neutrophils % Lymphocytes % Monocytes % Eosinophils % Basophils % Nucleated RBC % Absolute Neutrophils Absolute Lymphocytes Absolute Monocytes Absolute Eosinophils Absolute Basophils RBC Morphology Polychromasia Hypochromasia Poikilocytosis Anisocytosis Sodium 143 Potassium 3.6 Chloride 104 Carbon Dioxide 34.0 H Anion Gap 5.0 BUN 12 Creatinine 0.84 Estimated GFR/1.73 m2 >= 60.00 Glucose 107 H Calcium 8.0 L Magnesium 1.9 Total Bilirubin 0.3 AST 13 L ALT 19 Alkaline Phosphatase 51 Total Protein 4.9 L Albumin 2.7 L COVID-19 PCR Nasopharyn COVID-19 PCR Ref Test Perform Site
--- NOTE | 2020-04-05 12:25 | DSE_ITS ---
Date of service: 04/05/20 Time of Service: 12:25 DS: Diagnosis Discharge Diagnosis (1) Abnormal CT of the head: Status: Acute (2) Fall: Status: Acute (3) Laceration of chin: Status: Acute (4) Contusion of face: Status: Acute (5) Anemia: Status: Chronic Discharge Plan Disposition Patient Disposition: HOME Condition: Good Discharge Details Reason For Visit: FALL, HEAD INJURY Admit Date/Time: 04/04/20 12:00 Admit Provider: Ada Tay Attending Provider: Ada Tay Primary Care Provider: Mary Hollingsworth Hospital Course Hospital Course: This patient tripped and fell in her kitchen and landed on her wrists and face. She did not have loss of consciousness. She presented to the emergency department due to a bleeding chin laceration. She had a CT scan of her head and face which showed no facial bony injury. There is a possibility of a 5 mm bleed to the right side of the falx. The patient had no headache, nausea or neurologic symptoms. She was placed in observation with no development of any neurologic symptoms. Follow-up CT scan of the head the morning after admission showed the same area, possibly slightly less prominent. This was reviewed by neurosurgery at [facility] and was not felt to be definitely a bleed. May also be a calcified area. They advised follow-up in the neurosurgery clinic in [address] CT. The patient had no new complaints on the day of discharge. Her chin laceration had been repaired in the ER and looked good. She did have a drift in her hemoglobin from 8.5 to 7.3 but was asymptomatic with no abdominal pain, bloody stools or dizziness with ambulation. This will be rechecked in 2 days. She also plans to stop by the [facility] to reschedule her chemotherapy that did not happen as planned this morning. Home Meds and New Rx's Prescriptions: Continued tramadol 50 mg tablet 50 mg PO Q6H PRN (Reason: pain) Qty: 20 RF: 0 Myrbetriq 25 mg tablet extended release 24 hr 25 mg PO DAILY RF: 0 Hold Instructions: Home Medication placed on hold at Doctor's office ascorbate calcium (vitamin C) 500 MG tablet 500 mg PO DAILY RF: 0 nystatin-triamcinolone 15 GM cream 15 gm Topical BID RF: 0 cholecalciferol (vitamin D3) [Vitamin D3] 2,000 UNIT capsule 2,000 unit PO DAILY RF: 0 ProAir RespiClick 90 MCG aerosol powdr breath activated 90 mcg Inhalation Q 4 HR RF: 0 lidocaine 15 GM cream 15 gm Topical Q4H PRN Qty: 3 RF: 5 venlafaxine [Effexor XR] 37.5 MG capsule,extended release 24hr 37.5 mg PO DAILY Qty: 30 RF: 3 hydrochlorothiazide 25 mg tablet 12.5 mg PO DAILY RF: 0 polyethylene glycol 3350 [Miralax] 17 gram/dose powder 17 gm PO DAILY PRNRF: 0 lisinopril 20 mg tablet 40 mg PO QAM RF: 0 fluticasone propion-salmeterol [Advair Diskus] 1 EACH blister with device 1 ea Inhalation BID RF: 0 baclofen 5 mg tablet 5 mg PO BID PRN (Reason: muscle spasm) Qty: 8 RF: 0 ferrous sulfate 324 mg (65 mg iron) tablet,delayed release (DR/EC) 324 mg PO BID Qty: 60 RF: 0 Discharge Instructions Instructions: Laceration (ED) Additional Instructions: My office will contact you to schedule blood work for . Call with any headache, nausea, bloody stools, dizziness. May shower as usual Referrals: Mary Hollingsworth [Primary Care Provider] - Ada Tay MD [ [facility] STAFF PHYSICIAN] - (Return on 04/11 for suture removal) Activity:: Activity as Tolerated Equipment/Supplies:: No Equipment Needed Diet:: As Tolerated Discharge Orders Discharge Orders: Discharge Order (Routine); Ordered 04/05/20 Ordered By: Ada Tay DS: Summary Status at Discharge Functional status at discharge: independent ambulation Overall status at discharge: patient is progressing back to baseline Mental Status: mental status grossly normal Speech and Movement: speech and movement normal Mood: congruent mood Affect: normal affect Exam Psych Mental Status: mental status grossly normal Speech and Movement: speech and movement normal Mood: congruent mood Affect: normal affect DS: Data Vitals/I&O Vitals and I&O: Vital Signs Temperature 98.8 F 04/05/20 11:33 Temperature Source Temporal Artery Scan 04/05/20 11:33 Pulse 85 04/05/20 11:33 Pulse Rhythm Regular 04/05/20 09:05 Respiratory Rate 17 04/05/20 11:33 Respiratory Effort Non-Labored 04/05/20 09:05 Respiratory Depth Normal 04/05/20 09:05 Respiratory Pattern Normal 04/05/20 09:05 Blood Pressure 104/60 04/05/20 11:33 Blood Pressure Position Sitting 04/04/20 10:01 Pulse Oximetry 94 04/05/20 11:33 Oxygen Delivery Method Room Air 04/05/20 11:33 Oxygen Flow Rate 0 04/05/20 11:33 Pain Level 3 04/05/20 11:33 Comment 04/04/20 14:45 Intake & Output 04/04/20 04/05/20 04/05/20 23:59 11:59 23:59 Intake Total 1200 / 1200 490 / 490 Output Total 700 / 700 200 / 200 Balance 500 / 500 290 / 290 Weight 150 lb Intake: IV Oral 1200 / 1200 480 / 480 Output: Urine 700 / 700 200 / 200 Other: Urine Color Yellow Urine Appearance Clear Clear Urine Odor None Comment Void x1 in the toilet. Stool Size Moderate Stool Characteristics Formed Voiding Methods Toilet Toilet Data Completed and Pending Labs on day of discharge: Labs from last 24 hours 04/05/20 04/05/20 04/04/20 06:19 06:19 13:25 WBC 4.39 L D 11.08 H RBC 2.36 L 2.70 L Hgb 7.3 L 8.5 L Hct 22.6 L 26.2 L MCV 95.8 H 97.0 H MCH 30.9 31.5 MCHC 32.3 32.4 RDW 20.3 H 20.4 H Plt Count 367 D 544 H D MPV 9.7 9.7 Immature Gran % 0.7 Neutrophils % 64.6 Lymphocytes % 16.9 Monocytes % 14.1 Eosinophils % 2.3 Basophils % 1.4 Nucleated RBC % 0 Absolute Neutrophils 2.84 Absolute Lymphocytes 0.74 L Absolute Monocytes 0.62 Absolute Eosinophils 0.10 Absolute Basophils 0.06 RBC Morphology See below Polychromasia Present Hypochromasia 2+ Poikilocytosis 2+ Anisocytosis 2+ Sodium 143 Potassium 3.6 Chloride 104 Carbon Dioxide 34.0 H Anion Gap 5.0 BUN 12 Creatinine 0.84 Estimated GFR/1.73 m2 >= 60.00 Glucose 107 H Calcium 8.0 L Magnesium 1.9 Total Bilirubin 0.3 AST 13 L ALT 19 Alkaline Phosphatase 51 Total Protein 4.9 L Albumin 2.7 L COVID-19 PCR Nasopharyn COVID-19 PCR Ref Test Perform Site 04/04/20 13:00 WBC RBC Hgb Hct MCV MCH MCHC RDW Plt Count MPV Immature Gran % Neutrophils % Lymphocytes % Monocytes % Eosinophils % Basophils % Nucleated RBC % Absolute Neutrophils Absolute Lymphocytes Absolute Monocytes Absolute Eosinophils Absolute Basophils RBC Morphology Polychromasia Hypochromasia Poikilocytosis Anisocytosis Sodium Potassium Chloride Carbon Dioxide Anion Gap BUN Creatinine Estimated GFR/1.73 m2 Glucose Calcium Magnesium Total Bilirubin AST ALT Alkaline Phosphatase Total Protein Albumin COVID-19 PCR Negative Nasopharyn COVID-19 PCR Not Applicable Ref Test Perform Site [place] [facility] Medical History Cataracts, bilateral Cervical spondylosis Colon polyps COPD (chronic obstructive pulmonary disease) Diabetes Diverticulosis Diverticulosis Easy bruising Esophagitis Essential tremor 10/05/19: Pt denies. -BR Fatty liver Fatty liver disease, nonalcoholic GERD (gastroesophageal reflux disease) Hiatal hernia Hydronephrosis, right Hyperlipidemia Hypertension Impaired fasting glucose Night sweats Nocturia Peripheral neuropathy Renal mass Squamous cell carcinoma Statin intolerance Urinary frequency Urinary incontinence Surgical History Biopsy of breast History of cataract removal with insertion of prosthetic lens History of cholecystectomy History of colonoscopy History of cystoscopy Family History Sister Personal history of malignant neoplasm breast, colon Sister Personal history of malignant neoplasm uterine Social History Smoking/Tobacco Use Status: Former Tobacco Use Alcohol Intake: never Drug use: Never Substance use type: does not use Do you feel safe at home: Yes Do you feel safe in your relationship?: Yes
[2020-04-05] MEDS: Heparin 500 UNITS/5 ML SYRINGE (14:23)
--- NOTE | 2020-04-05 16:12 | INITIAL_ITS ---
- If Service Date Differs Date of service: 04/05/20 Time of Service: 16:12 Care Management Initial Assess REASON FOR HOSPITALIZATION:: Fall, Head Injury PAST MEDICAL HISTORY/PAST SURGICAL HISTORY:: Medical History . Cataracts, bilateral. Cervical spondylosis. Colon polyps. COPD (chronic obstructive pulmonary disease). Diabetes. Diverticulosis. Diverticulosis. Easy bruising. Esophagitis. Essential luis eduardo mor. 10/05/19: Pt denies. -BR. Fatty liver. Fatty liver disease, nonalcoholic. GERD (gastroesophageal reflux disease). Hiatal hernia. Hydronephrosis, right. Hyperlipidemia. Hypertension. Impaired fasting glucose. Night sweats. Nocturia. Peripheral neuropathy. Renal mass. Squamous cell carcinoma. Statin intolerance. Urinary frequency. Urinary incontinence. Surgical History . Biopsy of breast. History of cataract removal with insertion of prosthetic lens. History of cholecystectomy. History of colonoscopy. History of cystoscopy PREVIOUS FUNCTIONAL STATUS/SOCIAL/FAMILY SUPPORTS:: Domenica lives in [place], [place], with her , Adiel. She has five children, one who lives in [place] and four in the [facility]. Her son Osorio and daughter Britni both reside in [place] and are identified as supports for Domenica, along with her . 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 She now spends her days cooking, baking, and caring for her home and flower garden. Domenica shares she still occasionally drives and is independent with her ADLs at baseline. CURRENT FUNCTIONAL STATUS:: Domenica was sitting up in her chair when met with her. Her , Adiel was by her side. Dr. Tay was also in the room, dis cussing her discharge. Per MD, Domenica would be discharged today, and will have close follow up from surgical services. She will not need additional services at this time. ADVANCE DIRECTIVES:: None on file but Domenica says she has the forms to complete at home. Has patient been provided with info about the portal/API?: Yes Did the patient sign up for the portal?: No CODE STATUS:: Full Code INSURANCE COVERAGE / FINANCIAL ISSUES:: MCR/ Financial Assist 100% CURRENT HOME/COMMUNITY SERVICES/EQUIPMENT:: No current services or equipment. PRIMARY CARE PHYSICIAN:: VICTORIA Parra POTENTIAL DISCHARGE NEEDS:: Follow up appointments with PCP and oncologist. PATIENT/FAMILY EDUCATION NEEDS:: Discharge instructions, limitations, and plan of care, including Ask Me Three and self-management. ANTICIPATED BARRIERS TO DISCHARGE:: None identified at this time. TRANSPORTATION:: Via private vehicle by her . PLAN:: Anticipate Domenica will be discharged home with no new services when medically cleared by provider. She will follow up with her PCP, oncologist, and plan of care as directed. Her will drive her home via private vehicle when ready. CM will continue to support Domenica and discharge planning considerations. Readmission - Within the Past 30 Days Yes or No: Y - Date of First Admission Date of 1st Admission: 03/27/20 - Date of this Admission Date of Admission: 04/05/20 This admission was: Through ED - Office Visit Since 1st Admission Have you seen your PCP in the office since discharge?: No Date of PCP Appointment: 04/11/20 Had an appointment Been Scheduled?: Yes Date of Scheduled Appointment: 04/11/20 - I. Interview patient and/or Family Difficulty reaching your doctor or getting an office appt?: No Have you had trouble purchasing/ or taking medication?: No Have you had trouble with getting meals at home?: No Describe your typical meals since you have been home: Children help with food when needed. Did you feel ready for discharge when you left the last time: Yes Were services received that you thought were set up on disch: No If patient did not receive services, were there orders at: No Reason there were no orders at discharge: None needed, independent How do you think you became sick enough to come back?: Fall, head injury - Assessment for Readmission Summary of readmission circumstances, based upon interviews: Domenica had an accidental fall which brought her back into the ED. She reported that she felt she needed to be seen because she was bleeding a lot from a laceration on her chin. She did require stitches for the laceration. She was admitted for observation due to the risk of intracranial traumatic hemorrhage. She is ready for discharge today, and is happy to be returning home. She does n ot feel that the two admissions so close together are related.
--- NOTE | 2020-04-05 16:32 | PDOC.CMDIS ---
- If Service Date Differs Date of service: 04/05/20 Time of Service: 16:32 LACE Index Scoring Tool - Questions: Length of Stay (in days): 2 Acuity (Admit via E.D.?): Yes Comorbidities: Any Tumor E.D. Visits: 3 - Answers: Total Score: 10 Risk of Readmission: High Risk Care Management Discharge Reason for Hospitalization: Fall, Head Injury Discharge Plan: Domenica will return home today with no additional services at this time. She will follow up with her PCP, surgical services, and her discharge plan of care. Her will drive her home via private vehicle. She is happy to be returning home. Patient/Family Education Needs: Review discharge instructions regarding activity levels and medications, discussion of self care needs inlcuding ask me three and goals of care.
--- NOTE | 2020-04-07 16:03 | DI.VRAD_ITS ---
Addendum created by Roberto London MD on 04/05/2020 8:11:37 AM EDT: When compared with the prior study, the appearance is grossly stable regarding the trace traumatic subarachnoid hemorrhage in a right parafalcine parietal location and trace subdural blood layering along the falx Addendum created by Roberto London MD on 04/05/2020 8:09:52 AM EDT: THIS REPORT CONTAINS FINDINGS THAT MAY BE CRITICAL TO PATIENT CARE. The findings were verbally communicated via telephone conference with Ada Tay at 8:09 AM EDT on 04/05/2020. The findings were acknowledged and understood. Initial report created on 04/05/2020 8:03:15 AM EDT: PROCEDURE INFORMATION: Exam: CT Head Without Contrast Exam date and time: 04/05/2020 7:26 AM Age: 84 years old Clinical indication: Other: Fall TECHNIQUE: Imaging protocol: Computed tomography of the head without contrast. COMPARISON: CT HEAD FACIAL WO 04/04/2020 10:43 AM FINDINGS: Brain: A trace extra-axial hemorrhage in a right parafalcine parietal location compatible with trace traumatic subarachnoid hemorrhage. Trace hemorrhage along the falx may reflect subdural hemorrhage measuring up to 2 mm in transverse dimension without intracranial mass effect. Age- related chronic microvascular changes are noted within the white matter. Cerebral ventricles: The ventricles and sulci are prominent compatible with age-appropriate atrophy. Bones/joints: Unremarkable. No acute fracture. Paranasal sinuses: Visualized sinuses are unremarkable. No fluid levels. Mastoid air cells: Visualized mastoid air cells are well aerated. Soft tissues: Unremarkable. IMPRESSION: 1. A trace extra-axial hemorrhage in a right parafalcine parietal location compatible with trace traumatic subarachnoid hemorrhage. Trace hemorrhage along the falx may reflect subdural hemorrhage measuring up to 2 mm in transverse dimension without intracranial mass effect. 2. Age-appropriate atrophy and chronic microvascular change. PROCEDURE INFORMATION: Exam: CT Cervical Spine Without Contrast Exam date and time: 04/05/2020 7:26 AM Age: 84 years old Clinical indication: Other: Fall TECHNIQUE: Imaging protocol: Computed tomography images of the cervical spine without contrast. COMPARISON: CT HEAD FACIAL WO 04/04/2020 10:43 AM FINDINGS: Vertebrae: Cervical degenerative disc disease and facet joint arthropathy noted. No evidence for fracture, dislocation or subluxation. Soft tissues: Unremarkable. IMPRESSION: No acute findings Dictated and Authenticated by: Roberto London MD. Ordering:CRISTIANA Caballero MD
== END 2020-04-05 14:17 | disposition home or self-care (01) ==
LOC: ER 12:56 → MS 13:35
PROVIDERS: Admitting Provider Surgery; Emergency Provider Student in an Organized Health Care Education/Training Program; PCP Nurse Practitioner Family; Visit Provider Surgery
DX: S00.83XA Contusion of other part of head, initial encounter (principal); S01.81XA Laceration without foreign body of other part of head, initial encounter; R93.0 Abnormal findings on diagnostic imaging of skull and head, not elsewhere classified; J44.9 Chronic obstructive pulmonary disease, unspecified; K76.0 Fatty (change of) liver, not elsewhere classified; K21.9 Gastro-esophageal reflux disease without esophagitis; E78.5 Hyperlipidemia, unspecified; I10 Essential (primary) hypertension; E11.42 Type 2 diabetes mellitus with diabetic polyneuropathy; D64.9 Anemia, unspecified; W01.0XXA Fall on same level from slipping, tripping and stumbling without subsequent striking against object, initial encounter
CPT/HCPCS: 12013; 36415; 80053; 85027; 94640; 99217; 99219; 99225; 99285; U0003; 70450; 70486; 70490; 83735; 85025; G0378

== ENCOUNTER → 2020-04-11 12:48 | Outpatient (BNVA) | payer MEDICARE, SELFPAY | PROVIDERS: PCP Nurse Practitioner Family; Referring Provider Nurse Practitioner Family; Visit Provider Surgery | DX: S01.81XA Laceration without foreign body of other part of head, initial encounter (principal); W01.0XXA Fall on same level from slipping, tripping and stumbling without subsequent striking against object, initial encounter; Z48.02 Encounter for removal of sutures | CPT/HCPCS: 99212 ==

== ENCOUNTER 2020-04-17 09:43 | Emergency (ER) | payer MEDICARE, SELFPAY ==
[2020-04-17 09:47] VITALS: BP 137/65; PULSE 88; RESP 16; TEMP 36.1; O2SAT 96
--- NOTE | 2020-04-17 09:50 | ED.GENADUL_ITS ---
Discharge Plan Disposition Patient Disposition: HOME Condition: Good Discharge Details Clinical Impression: Visit for suture removal Primary Care Provider: Mary Hollingsworth ED Provider: Renee Amador Home Meds and New Rx's Prescriptions: Continued tramadol 50 mg tablet 50 mg PO Q6H PRN (Reason: pain) Qty: 20 RF: 0 Myrbetriq 25 mg tablet extended release 24 hr 25 mg PO DAILY RF: 0 Hold Instructions: Home Medication placed on hold at Doctor's office ascorbate calcium (vitamin C) 500 MG tablet 500 mg PO DAILY RF: 0 nystatin-triamcinolone 15 GM cream 15 gm Topical BID RF: 0 cholecalciferol (vitamin D3) [Vitamin D3] 2,000 UNIT capsule 2,000 unit PO DAILY RF: 0 ProAir RespiClick 90 MCG aerosol powdr breath activated 90 mcg Inhalation Q 4 HR RF: 0 lidocaine 15 GM cream 15 gm Topical Q4H PRN Qty: 3 RF: 5 venlafaxine [Effexor XR] 37.5 MG capsule,extended release 24hr 37.5 mg PO DAILY Qty: 30 RF: 3 hydrochlorothiazide 25 mg tablet 12.5 mg PO DAILY RF: 0 polyethylene glycol 3350 [Miralax] 17 gram/dose powder 17 gm PO DAILY PRNRF: 0 lisinopril 20 mg tablet 40 mg PO QAM RF: 0 fluticasone propion-salmeterol [Advair Diskus] 1 EACH blister with device 1 ea Inhalation BID RF: 0 baclofen 5 mg tablet 5 mg PO BID PRN (Reason: muscle spasm) Qty: 8 RF: 0 ferrous sulfate 324 mg (65 mg iron) tablet,delayed release (DR/EC) 324 mg PO BID Qty: 60 RF: 0 Discharge Instructions Instructions: Laceration (ED) Additional Instructions: Your wound appears to be healing quite well. I do not see any evidence of retained stitches. You do have some dry skin and scar tissue but this is normal for the stage of healing. You may use vitamin E oil to massage and break up scar tissue. Please monitor wounds for signs of infection including redness, warmth, drainage, increased pain, fever/chills. Develop these or the new/worsening symptoms to seek care urgently once again. Otherwise, please continue to do what you are doing as a seems to be working well for you. Referrals: Mary Hollingsworth [Primary Care Provider] - Discharge Data Discharge Date/Time-TO BE ENTERED AT DEPARTURE: 04/17/20 12:04 Medical Decision Making Patient is a pleasant 84-year-old female, accompanied by her , with chief complaint of suture removal. She reports that she had stitches placed in the emergency department a few weeks ago after a fall to her chin. She states that these were subsequently taken out by surgeon. There was concern that 2 may have been retained. She presents today for evaluation. Her wound appears to be healing very well. I do not see any evidence to suggest retained sutures. She does have some dry skin which may be causing the sensation she is feeling when she palpates the area. She also has 2 very small dots centrally along the wound that appear to be scabs. I do not see any evidence of retained sutures or infection. We did discuss wound care in depth. Return precautions were discussed. All the questions and concerns were addressed and she is in agreement this plan. HPI General Mode of arrival: ambulatory . Date/Time Provider Initiated Documentation: 04/17/20 09:49 . Limitations to Documentation: no limitations . Information obtained by: patient, RN notes reviewed and old records reviewed . History of Present Illness 84 year old F presents to the emergency department with the chief complaint of suture removal of chin, described as mild (denies any pain), and is localized to the face. Patient started experiencing this week(s) and it has been now resolved. Patient notes no other symptoms.. Trevor paul did receive the following treatments prior to arrival, none Related Data Home Medications Medication Instructions Recorded Confirmed fluticasone propion-salmeterol 1 ea INHALATION BID 01/09/14 04/17/20 [Advair Diskus] ProAir RespiClick 90 mcg INHALATION Q 4 HR 06/10/17 04/17/20 ascorbate calcium (vitamin C) 500 mg PO DAILY 06/10/17 04/17/20 cholecalciferol (vitamin D3) 2,000 unit PO DAILY 06/10/17 04/17/20 [Vitamin D3] nystatin-triamcinolone 15 gm TOPICAL BID 06/10/17 04/17/20 lidocaine 15 gm TOPICAL Q4H PRN #3 tube 07/29/17 04/17/20 venlafaxine [Effexor XR] 37.5 mg PO DAILY #30 tab-cap 08/12/17 04/17/20 baclofen 5 mg PO BID PRN #8 tab 01/17/19 04/17/20 hydrochlorothiazide 25 mg tablet 12.5 mg PO DAILY tab 04/03/19 04/17/20 polyethylene glycol 3350 17 17 gm PO DAILY PRN 04/03/19 04/11/20 gram/dose oral powder mirabegron 25 mg tablet,extended 25 mg PO DAILY 05/05/19 04/17/20 release 24 hr lisinopril 20 mg tablet 40 mg PO QAM tab 09/23/19 04/17/20 tramadol 50 mg tablet 50 mg PO Q6H PRN #20 tab 10/05/19 04/17/20 ferrous sulfate 324 mg PO BID #60 tab 03/30/20 04/17/20 Previous Rx's Medication Instructions Recorded lidocaine 15 gm TOPICAL Q4H PRN #3 tube 07/29/17 venlafaxine [Effexor XR] 37.5 mg PO DAILY #30 tab-cap 08/12/17 baclofen 5 mg PO BID PRN #8 tab 01/17/19 tramadol 50 mg tablet 50 mg PO Q6H PRN #20 tab 10/05/19 ferrous sulfate 324 mg PO BID #60 tab 03/30/20 Allergies Allergy/AdvReac Type Severity Reaction Status Date / Time pregabalin [From Lyrica] Allergy Severe RASH/EXTREMITY Unverified 04/17/20 09:51 EDEMA atorvastatin calcium Allergy Intermediate Unverified 04/17/20 09:51 [From Lipitor] gabapentin [From Neurontin] Allergy Intermediate Unverified 04/17/20 09:51 prednisone Allergy Mild Unverified 04/17/20 09:51 codeine Allergy Unverified 04/17/20 09:51 rosuvastatin calcium Allergy Unverified 04/17/20 09:51 [From Crestor] sulfamethoxazole Allergy Unverified 04/17/20 09:51 [From Bactrim] trimethoprim [From Bactrim] Allergy Unverified 04/17/20 09:51 General SATHISH: 3 Review of Systems Constitutional Constitutional: Reports as per HPI, Denies chills, Denies fever(s) and Denies weakness Musculoskeletal Musculoskeletal: Reports as per HPI and Denies tingling Integumentary/Breasts Skin/Breast: Reports as per HPI Neurologic Neurologic: Denies sensory deficit, Denies tingling and Denies weakness [facility] Medical History Cataracts, bilateral Cervical spondylosis Colon polyps COPD (chronic obstructive pulmonary disease) Diabetes Diverticulosis Diverticulosis Easy bruising Esophagitis Essential tremor 10/05/19: Pt denies. -BR Fatty liver Fatty liver disease, nonalcoholic GERD (gastroesophageal reflux disease) Hiatal hernia Hydronephrosis, right Hyperlipidemia Hypertension Impaired fasting glucose Night sweats Nocturia Peripheral neuropathy Renal mass Squamous cell carcinoma Statin intolerance Urinary frequency Urinary incontinence Surgical History Biopsy of breast History of cataract removal with insertion of prosthetic lens History of cholecystectomy History of colonoscopy History of cystoscopy Family History Sister Personal history of malignant neoplasm breast, colon Sister Personal history of malignant neoplasm uterine Social History Smoking/Tobacco Use Status: Former Tobacco Use Alcohol Intake: never Drug use: Never Substance use type: does not use Do you feel safe at home: Yes Do you feel safe in your relationship?: Yes Exam Const General: cooperative, healthy appearing, comfortable, no acute distress and well developed Nutritional Appearance: average body habitus and well nourished Orientation: alert and awake [facility] Face images: 1. Laceration appears to be healing very well. No erythema, warmth, drainage. Small amount of scar tissue is palpable. She does have some dry skin. This seems to be with the patient is feeling and confusing for sutures. I did examine with him magnifying glass. I do not see any evidence of retained suture s. Wound appears to be healing very well and do not feel that further intervention is warranted at this point. Resp Effort & Inspection: normal respiratory effort, able to speak in complete sentences and no respiratory distress Cardio Rate: regular rate Rhythm: regular rhythm Skin General skin exam: no rashes or lesions noted (As above) Neuro General: patient alert and patient awake Cognition: normal cognition Speech: speech normal Gait: normal gait Motor: muscle tone normal throughout Psych Appearance: grossly normal and well kempt Mental Status: mental status grossly normal Speech and Movement: speech and movement normal
== END 2020-04-17 12:04 | disposition home or self-care (01) ==
LOC: ER 10:04
PROVIDERS: Emergency Provider Physician Assistant; PCP Nurse Practitioner Family
DX: S01.81XA Laceration without foreign body of other part of head, initial encounter (principal); W01.0XXD Fall on same level from slipping, tripping and stumbling without subsequent striking against object, subsequent encounter; Z48.01 Encounter for change or removal of surgical wound dressing
CPT/HCPCS: 99282

== ENCOUNTER 2020-04-19 01:23 | Outpatient (RCR) | payer MEDICARE, SELFPAY ==
[2020-04-07] MEDS: Normal Saline Flush 10 ML SYR IVP (11:12)
[2020-04-07] MEDS: Heparin 500 UNITS/5 ML SYRINGE IV (11:13)
[2020-04-07 11:40] LABS: HGB 8.5 g/dL (11.2-15.7)
[2020-04-19 08:44] LABS: Abs Immature Grans 0.02 10^3/uL (0.0-0.06); Absolute Basophil Count 0.06 10^3/uL (0.0-0.2); Absolute Eosinophil Count 0.34 10^3/uL (0.0-0.7); Absolute Lymphocyte Count 0.96 10^3/uL (1.2-3.4); Absolute Monocyte Count 0.71 10^3/uL (0.1-0.8); Absolute Neutrophil Count 5.09 10^3/uL (1.2-6.7); Basophils % 0.8; Eosinophils % 4.7; HCT 30.2 % (36.0-46.0); HGB 9.5 g/dL (11.2-15.7); Immature Grans % 0.3; Lymphocytes % 13.4; MCH 32.1 pg (27.0-33.0); MCHC 31.5 % (32.0-36.0); MPV 10.1 fL (8.0-11.0); Monocytes % 9.9; Neutrophils % 70.9; Nucleated RBC 0 %; Platelet Count 212 10^3/uL (130-400); RBC 2.96 10^6/uL (3.93-5.22); RDW-SD 67.4 fL; WBC 7.18 10^3/uL (4.4-10.8)
[2020-04-19 09:07] LABS: ALT 19 U/L (14-59); AST 16 U/L (15-37); Albumin 3.2 g/dL (3.4-5.0); Alkaline Phosphatase 52 U/L (46-116); Anion Gap 3.6 mmol/L (3-11); BUN 13 mg/dL (7-18); Bilirubin, Total 0.3 mg/dL (0.2-1.0); CO2 30.4 mmol/L (21.0-32.0); CREATININE 0.83 mg/dL (0.55-1.02); Calcium 8.5 mg/dL (8.5-10.1); Chloride 102 mmol/L (98-107); Glucose 101 mg/dL (74-106); Magnesium 1.9 mg/dL (1.8-2.4); Potassium 3.7 mmol/L (3.5-5.1); Sodium 136 mmol/L (136-145); Total Protein 6.5 g/dL (6.4-8.2)
[2020-04-19] MEDS: Normal Saline Flush 10 ML SYR IVP (09:24)
== END 2020-04-23 23:59 | disposition home or self-care (01) ==
LOC: INF 01:23
PROVIDERS: Surgery; PCP Nurse Practitioner Family; Visit Provider Internal Medicine
DX: C79.10 Secondary malignant neoplasm of unspecified urinary organs (principal); Z45.2 Encounter for adjustment and management of vascular access device
CPT/HCPCS: 36591; 80053; 83735; 85018; 85025

== ENCOUNTER 2020-05-06 03:12 | Outpatient (CLI) | payer MEDICARE, SELFPAY ==
--- NOTE | 2020-05-06 07:15 | DI.CT_ITS ---
EXAM: CT HEAD WO CLINICAL HISTORY: Follow up bleed vs calcification,F/U ABNL CT OF HEAD,R93.0. TECHNIQUE: Imaging Protocol: Axial computed tomography images with coronal and sagittal reformatted images were created and reviewed COMPARISON: CT CT HEAD FACIAL WO from 04/04/[address] HEAD FACIAL WO from 04/04/[address] HEAD NECK WO from 04/05/2020 FINDINGS: Ventricles and Extra axial spaces: Normal in size and morphology for the patient's age. Hemorrhage: Hemorrhage seen to the right side of the falx has resolved since the prior examination. No acute intracranial hemorrhage is noted. Cerebral parenchyma: There are areas of decreased attenuation in the white matter consistent with chr onic microvascular ischemic change. No acute territorial infarct. Midline shift: None. Brainstem/Cerebellum: Normal. Calvarium: Normal. Visualized Paranasal sinuses/Mastoids: Clear. Soft Tissues: Unremarkable. IMPRESSION: Resolution of the intracranial hemorrhage. No acute intracranial process. RADIATION DOSE DELIVERED: 610.21mGy.cm Total DLP DATA REPOSITORY: All CT scans at this facility are submitted to the National Radiology Data Registry (NRDR) Dose Index Registry (DIR) with the [employer] (ACR). RADIATION OPTIMIZATION: All CT scans at this facility use at least one of these dose optimization te chniques: automated exposure control; mA and/or kV adjustment per patient size (includes targeted exa ms where dose is matched to clinical indication); or iterative reconstruction.
== END 2020-05-06 03:32 ==
PROVIDERS: PCP Nurse Practitioner Family; Visit Provider Surgery
DX: R93.0 Abnormal findings on diagnostic imaging of skull and head, not elsewhere classified (principal)
CPT/HCPCS: 70450

== ENCOUNTER 2020-05-17 02:02 | Outpatient (RCR) | payer MEDICARE, SELFPAY ==
[2020-04-26] MEDS: Normal Saline Flush 10 ML SYR IVP (08:32)
[2020-04-26 08:48] LABS: Abs Immature Grans 0.01 10^3/uL (0.0-0.06); Absolute Basophil Count 0.03 10^3/uL (0.0-0.2); Absolute Eosinophil Count 0.17 10^3/uL (0.0-0.7); Absolute Lymphocyte Count 0.76 10^3/uL (1.2-3.4); Absolute Monocyte Count 0.24 10^3/uL (0.1-0.8); Absolute Neutrophil Count 1.82 10^3/uL (1.2-6.7); Eosinophils % 5.6; HGB 9.8 g/dL (11.2-15.7); Immature Grans % 0.3; Lymphocytes % 25.1; MCH 32.7 pg (27.0-33.0); MCHC 32.7 % (32.0-36.0); MPV 9.9 fL (8.0-11.0); Monocytes % 7.9; Neutrophils % 60.1; Nucleated RBC 0 %; Platelet Count 117 10^3/uL (130-400); RDW 15.9 % (11.7-14.6); WBC 3.03 10^3/uL (4.4-10.8)
[2020-04-26 08:53] LABS: ALT 27 U/L (14-59); AST 15 U/L (15-37); Albumin 3.3 g/dL (3.4-5.0); Alkaline Phosphatase 57 U/L (46-116); Anion Gap 6.3 mmol/L (3-11); BUN 18 mg/dL (7-18); Bilirubin, Total 0.3 mg/dL (0.2-1.0); CO2 29.7 mmol/L (21.0-32.0); CREATININE 1.09 mg/dL (0.55-1.02); Calcium 8.5 mg/dL (8.5-10.1); Chloride 100 mmol/L (98-107); Estimated GFR 48.06 (mL/min/1.73m2); Glucose 97 mg/dL (74-106); Potassium 3.8 mmol/L (3.5-5.1); Sodium 136 mmol/L (136-145); Total Protein 6.9 g/dL (6.4-8.2)
[2020-05-10 09:10] LABS: Abs Immature Grans 0.88 10^3/uL (0.0-0.06); HCT 26.1 % (36.0-46.0); HGB 8.5 g/dL (11.2-15.7); MCH 32.9 pg (27.0-33.0); MCHC 32.6 % (32.0-36.0); MCV 101.2 fL (80-95); MPV 10.1 fL (8.0-11.0); RBC 2.58 10^6/uL (3.93-5.22); RDW 16.4 % (11.7-14.6); RDW-SD 56.9 fL; WBC 10.61 10^3/uL (4.4-10.8)
[2020-05-10 09:23] LABS: Platelet Count 239 10^3/uL (130-400)
[2020-05-10 09:24] LABS: Absolute Lymphocyte Count 0.85 10^3/uL (1.2-3.4); Absolute Monocyte Count 0.95 10^3/uL (0.1-0.8); Absolute Neutrophil Count 8.17 10^3/uL (1.2-6.7); Anisocytosis 1+; Bands % 3; Diff Comment Manual Differential; Macrocytosis 2+; Metamyelocytes % 4; Myelocytes % 2; Nucleated RBC 1 %; Polychromasia Present
[2020-05-10 09:30] LABS: ALT 15 U/L (14-59); AST 10 U/L (15-37); Albumin 3.4 g/dL (3.4-5.0); Alkaline Phosphatase 81 U/L (46-116); BUN 17 mg/dL (7-18); Bilirubin, Total 0.2 mg/dL (0.2-1.0); CREATININE 1.38 mg/dL (0.55-1.02); Calcium 8.8 mg/dL (8.5-10.1); Chloride 100 mmol/L (98-107); Glucose 132 mg/dL (74-106); Potassium 3.4 mmol/L (3.5-5.1); Sodium 138 mmol/L (136-145); Total Protein 6.5 g/dL (6.4-8.2)
[2020-05-10] MEDS: Normal Saline Flush 10 ML SYR IVP (09:36)
[2020-05-10 10:29] LABS: Magnesium 1.8 mg/dL (1.8-2.4)
[2020-05-17 08:36] LABS: Abs Immature Grans 0.15 10^3/uL (0.0-0.06); Absolute Basophil Count 0.03 10^3/uL (0.0-0.2); Absolute Eosinophil Count 0.04 10^3/uL (0.0-0.7); Absolute Lymphocyte Count 0.98 10^3/uL (1.2-3.4); Absolute Monocyte Count 1.16 10^3/uL (0.1-0.8); Absolute Neutrophil Count 6.71 10^3/uL (1.2-6.7); Basophils % 0.3; Eosinophils % 0.4; Immature Grans % 1.7; Lymphocytes % 10.8; MCH 33.3 pg (27.0-33.0); MCHC 32.1 % (32.0-36.0); MCV 103.7 fL (80-95); MPV 9.2 fL (8.0-11.0); Monocytes % 12.8; Nucleated RBC 0 %; Platelet Count 481 10^3/uL (130-400); RDW 17.5 % (11.7-14.6); RDW-SD 66.5 fL; WBC 9.07 10^3/uL (4.4-10.8)
[2020-05-17] MEDS: Normal Saline Flush 10 ML SYR IVP (08:39)
[2020-05-17 08:49] LABS: ALT 15 U/L (14-59); AST 14 U/L (15-37); Albumin 3.4 g/dL (3.4-5.0); Alkaline Phosphatase 69 U/L (46-116); Anion Gap 8.8 mmol/L (3-11); BUN 14 mg/dL (7-18); Bilirubin, Total 0.3 mg/dL (0.2-1.0); CO2 27.2 mmol/L (21.0-32.0); CREATININE 1.17 mg/dL (0.55-1.02); Calcium 8.7 mg/dL (8.5-10.1); Chloride 102 mmol/L (98-107); Estimated GFR 44.28 (mL/min/1.73m2); Glucose 102 mg/dL (74-106); Potassium 4.7 mmol/L (3.5-5.1); Sodium 138 mmol/L (136-145); Total Protein 6.6 g/dL (6.4-8.2)
== END 2020-05-23 23:59 | disposition home or self-care (01) ==
LOC: INF 02:02
PROVIDERS: PCP Nurse Practitioner Family; Visit Provider Internal Medicine
DX: C79.10 Secondary malignant neoplasm of unspecified urinary organs (principal); D63.0 Anemia in neoplastic disease; Z45.2 Encounter for adjustment and management of vascular access device
CPT/HCPCS: 36591; 80053; 86900; 86901; 83735; 85025

== ENCOUNTER 2020-06-07 11:00 | Outpatient (RCR) | payer MEDICARE, SELFPAY ==
[2020-05-24] MEDS: Normal Saline Flush 10 ML SYR 30 ML IVP (07:56)
[2020-05-24 08:00] LABS: Abs Immature Grans 0.01 10^3/uL (0.0-0.06); Absolute Basophil Count 0.05 10^3/uL (0.0-0.2); Absolute Eosinophil Count 0.02 10^3/uL (0.0-0.7); Absolute Lymphocyte Count 0.67 10^3/uL (1.2-3.4); Absolute Monocyte Count 0.49 10^3/uL (0.1-0.8); Absolute Neutrophil Count 1.59 10^3/uL (1.2-6.7); Basophils % 1.8; Eosinophils % 0.7; HCT 25.9 % (36.0-46.0); HGB 8.7 g/dL (11.2-15.7); Immature Grans % 0.4; Lymphocytes % 23.7; MCHC 33.6 % (32.0-36.0); MCV 101.2 fL (80-95); MPV 9.8 fL (8.0-11.0); Monocytes % 17.3; Neutrophils % 56.1; Nucleated RBC 0 %; Platelet Count 257 10^3/uL (130-400); RBC 2.56 10^6/uL (3.93-5.22); RDW 15.4 % (11.7-14.6); RDW-SD 58.1 fL; WBC 2.83 10^3/uL (4.4-10.8)
[2020-05-24 08:15] LABS: ALT 28 U/L (14-59); AST 20 U/L (15-37); Albumin 3.4 g/dL (3.4-5.0); Alkaline Phosphatase 60 U/L (46-116); Anion Gap 6.6 mmol/L (3-11); BUN 14 mg/dL (7-18); Bilirubin, Total 0.3 mg/dL (0.2-1.0); CO2 27.4 mmol/L (21.0-32.0); CREATININE 1.26 mg/dL (0.55-1.02); Calcium 8.6 mg/dL (8.5-10.1); Chloride 100 mmol/L (98-107); Estimated GFR 40.66 (mL/min/1.73m2); Glucose 121 mg/dL (74-106); Magnesium 1.6 mg/dL (1.8-2.4); Potassium 4.1 mmol/L (3.5-5.1); Sodium 134 mmol/L (136-145)
[2020-06-07] MEDS: Heparin 500 UNITS/5 ML SYRINGE IV (10:50)
[2020-06-07] MEDS: Normal Saline Flush 10 ML SYR 30 ML IVP (10:50)
[2020-06-07 11:14] LABS: Abs Immature Grans 0.61 10^3/uL (0.0-0.06); HCT 27.3 % (36.0-46.0); HGB 8.8 g/dL (11.2-15.7); MCHC 32.2 % (32.0-36.0); MCV 105.4 fL (80-95); MPV 10.1 fL (8.0-11.0); Nucleated RBC 0 %; Platelet Count 286 10^3/uL (130-400); RBC 2.59 10^6/uL (3.93-5.22); RDW 17.4 % (11.7-14.6); RDW-SD 66.6 fL
[2020-06-07 11:28] LABS: ALT 16 U/L (14-59); AST 13 U/L (15-37); Albumin 3.5 g/dL (3.4-5.0); Alkaline Phosphatase 97 U/L (46-116); Anion Gap 8.9 mmol/L (3-11); BUN 15 mg/dL (7-18); Bilirubin, Total 0.2 mg/dL (0.2-1.0); CO2 28.1 mmol/L (21.0-32.0); CREATININE 1.34 mg/dL (0.55-1.02); Calcium 8.5 mg/dL (8.5-10.1); Chloride 100 mmol/L (98-107); Estimated GFR 37.87 (mL/min/1.73m2); Glucose 120 mg/dL (74-106); Magnesium 1.3 mg/dL (1.8-2.4); Sodium 137 mmol/L (136-145); Total Protein 6.6 g/dL (6.4-8.2)
[2020-06-07 11:31] LABS: Absolute Lymphocyte Count 1.09 10^3/uL (1.2-3.4)
[2020-06-07 11:32] LABS: Absolute Eosinophil Count 0.41 10^3/uL (0.0-0.7); Absolute Monocyte Count 1.36 10^3/uL (0.1-0.8); Anisocytosis 2+; Diff Comment Manual Differential; Macrocytosis 2+; Metamyelocytes % 2; Myelocytes % 2; Poikilocytes 1+; Polychromasia Present
== END 2020-06-23 23:59 | disposition home or self-care (01) ==
LOC: INF 11:00
PROVIDERS: PCP Nurse Practitioner Family; Visit Provider Internal Medicine
DX: C79.10 Secondary malignant neoplasm of unspecified urinary organs (principal); Z45.2 Encounter for adjustment and management of vascular access device; D63.0 Anemia in neoplastic disease
CPT/HCPCS: 36591; 80053; 86850; 86900; 86901; 83735; 85025

== ENCOUNTER 2020-06-12 12:34 | Emergency (ER) | payer MEDICARE, SELFPAY ==
--- NOTE | 2020-06-12 12:35 | W.ED.GENAD ---
Discharge Plan Disposition Patient Disposition: HOME Condition: Stable Discharge Details Clinical Impression: Fall at home, Forehead contusion, Closed head injury without loss of consciousness, Contusion of forearm, right, Noninfected skin tear of leg Primary Care Provider: Mary Hollingsworth ED Provider: Liz Mace Home Meds and New Rx's Prescriptions: Continued Myrbetriq 25 mg tablet extended release 24 hr 25 mg PO DAILY RF: 0 Hold Instructions: Home Medication placed on hold at Doctor's office ascorbate calcium (vitamin C) 500 MG tablet 500 mg PO DAILY RF: 0 nystatin-triamcinolone 15 GM cream 15 gm Topical BID RF: 0 cholecalciferol (vitamin D3) [Vitamin D3] 2,000 UNIT capsule 2,000 unit PO DAILY RF: 0 ProAir RespiClick 90 MCG aerosol powdr breath activated 90 mcg Inhalation Q 4 HR RF: 0 lidocaine 15 GM cream 15 gm Topical Q4H PRN Qty: 3 RF: 5 hydrochlorothiazide 25 mg tablet 12.5 mg PO DAILY RF: 0 polyethylene glycol 3350 [Miralax] 17 gram/dose powder 17 gm PO DAILY PRNRF: 0 lisinopril 20 mg tablet 40 mg PO QAM RF: 0 fluticasone propion-salmeterol [Advair Diskus] 1 EACH blister with device 1 ea Inhalation BID RF: 0 Discharge Instructions Instructions: Head Injury (ED), Contusion in Adults (ED), Skin Tear (ED) Additional Instructions: Keep wounds clean and dry. You can replace with nonadherent dressings as needed to prevent risk of reopening or infection. Take Tylenol as needed and directed for headache. Follow-up with your primary care doctor in 1 week. Return to the emergency department with any worsening or new concerning symptoms such as persistent headaches, vomiting or any other concerns. Discharge Data Discharge Physician: Liz Mace Medical Decision Making 84-year-old female presents for evaluation after fall at home after losing her balance just prior to arrival. She has a history of balance problems. She denies any recent illnesses and states she has been feeling well. Vitals within normal limits. She appears nontoxic and comfortable. She is oriented x3. She has a hematoma to her right forehead. She has ecchymosis and a skin tear to her right forearm but no pain with range of motion of deformity. She has 3 abrasions to her right proximal lower leg with some tenderness to palpation. Lungs clear. Abdomen soft and nontender. No midline spinal tenderness. No focal deficits. Will obtain a CT head and cervical spine, right tib-fib x-ray and give a dose of Tylenol. All imaging reviewed and negative. Patient's skin tear and abrasion wounds were cleaned and covered with antibiotic ointment and Tegaderm. Tetanus up-to-date 2011. She was advised on proper wound care. She was given head injury instructions. Usual and customary return precautions given prior to discharge. Medical Records Medical records reviewed: Yes I reviewed the patient's medical records. Imaging Data Radiologic Study: Radiologist's impression: CT HEAD CERVICAL SPINE WO CLINICAL HISTORY: s/p fall, hematoma R forehead. TECHNIQUE: Imaging Protocol: Axial computed tomography images with coronal and sagittal reformatted images were created and reviewed COMPARISON: CT CT HEAD NECK WO from 04/05/[address] HEAD WO from 05/06/2020 FINDINGS: The examination is limited due to patient motion artifact. CT Head: Ventricles and Extra axial spaces: Normal in size and morphology for the patient's age. Hemorrhage: None. Cerebral parenchyma: There are areas of decreased attenuation in the white matter consistent with small vessel ischemic disease. No acute territorial infarct is present. Midline shift: None. Brainstem/Cerebellum: Normal. Calvarium: Normal. Visualized Paranasal sinuses/Mastoids: Clear. Soft Tissues: There is a small subcutaneous hematoma overlying the right frontal bone. CT Cervical Spine: Bones: No acute fracture or subluxation. Degenerative changes are seen in the spine. Soft Tissues: Unremarkable. Atherosclerosis. Lung Apices: Clear. IMPRESSION: 1. No acute intracranial process. 2. Small scalp hematoma overlying the right frontal bone. 3. No acute fracture or subluxation in the cervical spine. XR TIB/FIB RT CLINICAL HISTORY: s/p fall, abrasions R proximal lateral leg, r/o fx. TECHNIQUE: 2D digital imaging was performed. COMPARISON: No exams were available for comparison FINDINGS: BONES: No acute fracture is present. No bony destructive lesion is seen. Visualized portion of knee and ankle joints are unremarkable. SOFT TISSUE: Normal. IMPRESSION: Unremarkable radiographs of the right tibia and fibula. HPI General Date/Time Provider Initiated Documentation: 06/12/20 12:35. HPI Narrative: Pt is a 84yo F with a history of metastatic urothelial cancer with history of chemotherapy with planned surgical resection of cancer at [facility] next month presents for evaluation after fall at home just prior to arrival. Patient states she has a history of balance issues and states she lost her balance while walking today and fell and hit the right side of her head on a wooden table. She states she also scraped her right forearm and right leg in the fall. She admits to 4/10 headache but denies any report of LOC or vomiting. She denies dizziness, chest pain or shortness of breath prior to fall. She states she has been feeling well without report of fever, illness, nausea, vomiting and states this is typical of a fall after losing her balance. She denies any neck pain, chest pain, abdominal pain, back pain, left arm or leg pain. Related Data Home Medications Medication Instructions Recorded Confirmed fluticasone propion-salmeterol 1 ea INHALATION BID 01/09/14 06/12/20 [Advair Diskus] ProAir RespiClick 90 mcg INHALATION Q 4 HR 06/10/17 06/12/20 ascorbate calcium (vitamin C) 500 mg PO DAILY 06/10/17 06/12/20 cholecalciferol (vitamin D3) 2,000 unit PO DAILY 06/10/17 06/12/20 [Vitamin D3] nystatin-triamcinolone 15 gm TOPICAL BID 06/10/17 06/12/20 lidocaine 15 gm TOPICAL Q4H PRN #3 tube 07/29/17 06/12/20 hydrochlorothiazide 25 mg tablet 12.5 mg PO DAILY tab 04/03/19 06/12/20 polyethylene glycol 3350 17 17 gm PO DAILY PRN 04/03/19 06/12/20 gram/dose oral powder mirabegron 25 mg tablet,extended 25 mg PO DAILY 05/05/19 06/12/20 release 24 hr lisinopril 20 mg tablet 40 mg PO QAM tab 09/23/19 06/12/20 Previous Rx's Medication Instructions Recorded lidocaine 15 gm TOPICAL Q4H PRN #3 tube 07/29/17 Allergies Allergy/AdvReac Type Severity Reaction Status Date / Time pregabalin [From Lyrica] Allergy Severe RASH/EXTREMITY Unverified 06/12/20 12:42 EDEMA atorvastatin calcium Allergy Intermediate Unverified 06/12/20 12:42 [From Lipitor] gabapentin [From Neurontin] Allergy Intermediate Unverified 06/12/20 12:42 prednisone Allergy Mild Unverified 06/12/20 12:42 codeine Allergy Unverified 06/12/20 12:42 rosuvastatin calcium Allergy Unverified 06/12/20 12:42 [From Crestor] sulfamethoxazole Allergy Unverified 06/12/20 12:42 [From Bactrim] trimethoprim [From Bactrim] Allergy Unverified 06/12/20 12:42 General SATHISH: 3 Review of Systems All systems reviewed & are unremarkable except as noted in HPI and below Constitutional Constitutional: Reports as per HPI, Denies chills, Denies fever(s) and Reports headache(s) Eyes Eyes: Denies blurry vision ENT Ears, Nose, Mouth, and Throat: Denies dizziness, Reports headache(s), Denies sore throat and Denies throat swelling Cardiovascular Cardiovascular: Denies chest pain and Denies dyspnea Respiratory Respiratory: Denies cough and Denies dyspnea Gastrointestinal Gastrointestinal: Denies abdominal pain, Denies diarrhea and Denies vomiting Genitourinary Genitourinary: Denies hematuria and Denies dysuria Musculoskeletal Musculoskeletal: Denies back pain and Denies numbness Integumentary/Breasts Skin/Breast: Denies lesions and Denies rash Neurologic Neurologic: Denies dizziness, Reports headache(s), Denies localized weakness and Denies numbness Allergic/Immunologic Allergic/Immunologic: Denies throat swelling PFSH Medical History Cataracts, bilateral Cervical spondylosis Colon polyps COPD (chronic obstructive pulmonary disease) Diabetes Diverticulosis Diverticulosis Easy bruising Esophagitis Essential tremor 10/05/19: Pt denies. -BR Fatty liver Fatty liver disease, nonalcoholic GERD (gastroesophageal reflux disease) Hiatal hernia Hydronephrosis, right Hyperlipidemia Hypertension Impaired fasting glucose Night sweats Nocturia Peripheral neuropathy Renal mass Squamous cell carcinoma Statin intolerance Urinary frequency Urinary incontinence Surgical History Biopsy of breast History of cataract removal with insertion of prosthetic lens History of cholecystectomy History of colonoscopy History of cystoscopy Family History Sister Personal history of malignant neoplasm breast, colon Sister Personal history of malignant neoplasm uterine Social History Smoking/Tobacco Use Status: Former Tobacco Use Smoking risk assessment performed?: Yes Alcohol Intake: never Drug use: Never Substance use type: does not use Do you feel safe at home: Yes Do you feel safe in your relationship?: Yes Exam Const General: cooperative and no acute distress Orientation: alert, awake and oriented x3 HENMT Head: no palpable skull fracture Head images: 1. 7 x 6 mm raised area of ecchymosis consistent with hematoma to the right forehead. Ears: hearing grossly normal bilaterally, external ears normal and TM's normal bilaterally General nose exam: external nose normal Face and sinus: normal facial exam Mouth: oral mucosae normal Teeth and gingiva: edentulous Eyes General: appearance normal, both eyes and all related structures Eyelids: eyelids normal Pupils: PERRL EOM: EOM intact bilaterally Neck Neck: normal visual inspection Lymphatic: no lymphadenopathy noted Chest Chest: normal inspection of the chest, normal palpation of entire chest wall and no tenderness Chest/axillae images: 1. Port. No surrounding trauma, cellulitis, rash, crepitus. Resp Effort & Inspection: normal respiratory effort and able to speak in complete sentences Auscultation: clear to auscultation bilaterally Cardio Rate: regular rate Rhythm: regular rhythm GI Inspection: normal to inspection Palpation: soft, not firm, no guarding, no hepatosplenomegaly, no masses and nontender Auscultation: normal bowel sounds Back/Spine/Pelvis Cervical Spine: cervical ROM normal and No cervical spinal tenderness Thoracic/Lumbar Spine: No thoracic spinal tenderness and No lumbar spinal tenderness Pelvis: no pain with anterior-posterior compression Skin General skin exam: no rashes or lesions noted Neuro General: patient alert, patient awake, moves all extremities, no meningeal signs and no focal motor deficits Cranial Nerves: CN's II-XI intact bilaterally Cognition: normal cognition Speech: speech normal Motor: muscle tone normal throughout and strength 5/5 throughout Sensory Exam: no sensory deficits noted Extrem General: full ROM and capillary refill normal Elbow/forearm/wrist images: 1. Ecchymosis. There is a 1 x 2 cm skin tear noted at proximal aspect of this area of linear ecchymosis. No crepitus, tenderness to palpation, pain with range of motion or deformity. Knee images: 1. 3 separate 1 x 1 cm areas of abrasion and skin tear noted to right anterior lateral proximal leg. There is some tenderness to the area of the lateral proximal tibia. No deformity. Other: No pain in bilateral hips, knees, ankles or feet with range of motion. There is some tenderness to palpation of the right lateral proximal tibia. Bilateral distal pulses intact. Psych Appearance: grossly normal Mental Status: mental status grossly normal Speech and Movement: speech and movement normal Affect: normal affect Thought Process: normal
[2020-06-12 12:38] VITALS: BP 132/80; PULSE 97; RESP 18; TEMP 36.7; O2SAT 97
--- NOTE | 2020-06-12 13:00 | DI.CT_ITS ---
EXAM: CT HEAD CERVICAL SPINE WO CLINICAL HISTORY: s/p fall, hematoma R forehead. TECHNIQUE: Imaging Protocol: Axial computed tomography images with coronal and sagittal reformatted images were created and reviewed COMPARISON: CT CT HEAD NECK WO from 04/05/[address] HEAD WO from 05/06/2020 FINDINGS: The examination is limited due to patient motion artifact. CT Head: Ventricles and Extra axial spaces: Normal in size and morphology for the patient's age. Hemorrhage: None. Cerebral parenchyma: There are areas of decreased attenuation in the white matter consistent with sma ll vessel ischemic disease. No acute territorial infarct is present. Midline shift: None. Brainstem/Cerebellum: Normal. Calvarium: Normal. Visualized Paranasal sinuses/Mastoids: Clear. Soft Tissues: There is a small subcutaneous hematoma overlying the right frontal bone. CT Cervical Spine: Bones: No acute fracture or subluxation. Degenerative changes are seen in the spine. Soft Tissues: Unremarkable. Atherosclerosis. Lung Apices: Clear. IMPRESSION: 1. No acute intracranial process. 2. Small scalp hematoma overlying the right frontal bone. 3. No acute fracture or subluxation in the cervical spine. RADIATION DOSE DELIVERED: 1,532.85mGy.cm Total DLP DATA REPOSITORY: All CT scans at this facility are submitted to the National Radiology Data Registry (NRDR) Dose Index Registry (DIR) with the [employer] (A[employer]). RADIATION OPTIMIZATION: All CT scans at this facility use at least one of these dose optimization te chniques: automated exposure control; mA and/or kV adjustment per patient size (includes targeted exa ms where dose is matched to clinical indication); or iterative reconstruction.
[2020-06-12] MEDS: Acetaminophen 325 MG TAB 650 MG PO (13:11)
--- NOTE | 2020-06-12 13:38 | DI.RAD_ITS ---
EXAM: XR TIB/FIB RT CLINICAL HISTORY: s/p fall, abrasions R proximal lateral leg, r/o fx. TECHNIQUE: 2D digital imaging was performed. COMPARISON: No exams were available for comparison FINDINGS: BONES: No acute fracture is present. No bony destructive lesion is seen. Visualized portion of knee a nd ankle joints are unremarkable. SOFT TISSUE: Normal. IMPRESSION: Unremarkable radiographs of the right tibia and fibula. DATA REPOSITORY: RADIATION DOSE DELIVERED:
--- NOTE | 2020-06-12 13:50 | DI.VRAD_ITS ---
PROCEDURE INFORMATION: Exam: CT Head Without Contrast Exam date and time: 06/12/2020 1:08 PM Age: 84 years old Clinical indication: Other: S/P fall, hematoma R forehead TECHNIQUE: Imaging protocol: Computed tomography of the head without contrast. COMPARISON: CT HEAD WO 05/06/2020 1:12 PM FINDINGS: Brain: There is decreased white matter density which indicates chronic small vessel white matter ischemia. There is generalized chronic atrophy with prominence of the ventricles and sulci. No intracranial hemorrhage, edema or other acute abnormalities are seen in the brain. There is no mass effect or midline shift. Cerebral ventricles: See Brain finding. Bones/joints: Unremarkable. No acute fracture. Paranasal sinuses: Visualized sinuses are unremarkable. No fluid levels. Mastoid air cells: Visualized mastoid air cells are well aerated. Soft tissues: There is a small subcutaneous hematoma over the right side of the frontal bone. IMPRESSION: No acute intracranial abnormality. PROCEDURE INFORMATION: Exam: CT Cervical Spine Without Contrast Exam date and time: 06/12/2020 1:08 PM Age: 84 years old Clinical indication: Other: S/P fall, hematoma R forehead TECHNIQUE: Imaging protocol: Computed tomography images of the cervical spine without contrast. COMPARISON: CT HEAD WO 05/06/2020 1:12 PM FINDINGS: Bones/joints: No fracture or other acute abnormality is seen. There is no malalignment. Discs/Spinal canal/Neural foramina: Degenerative changes are present in cervical spine with disc space narrowing and osteophytes predominantly at C3-C4. No fracture or other acute bone or joint abnormality is seen. Lungs: Lung apices are normal. Vasculature: There is calcification of the carotid arteries. Soft tissues: Unremarkable. IMPRESSION: Degenerative disease. No acute abnormality. Dictated and Authenticated by: Jose Andres MD. Ordering:TENZIN Hill MD
--- NOTE | 2020-06-12 13:51 | DI.VRAD_ITS ---
PROCEDURE INFORMATION: Exam: XR Right Tibia and Fibula Exam date and time: 06/12/2020 1:38 PM Age: 84 years old Clinical indication: Other: S/P fall, abrasions R proximal lateral leg, R/O FX TECHNIQUE: Imaging protocol: XR Right tibia and fibula. Views: 2 views. COMPARISON: CR RIGHT KNEE 3 VIEWS 01/09/2014 4:57 PM FINDINGS: Bones/joints: Normal. Soft tissues: Normal. IMPRESSION: No acute findings. Dictated and Authenticated by: Jose Andres MD. Ordering:TENZIN Hill MD
[2020-06-12 15:08] VITALS: BP 144/60; PULSE 85; RESP 16; TEMP 36.6
== END 2020-06-12 15:09 | disposition home or self-care (01) ==
PROVIDERS: Emergency Provider Physician Assistant; PCP Nurse Practitioner Family
DX: S00.83XA Contusion of other part of head, initial encounter (principal); S50.11XA Contusion of right forearm, initial encounter; S81.811A Laceration without foreign body, right lower leg, initial encounter; W01.190A Fall on same level from slipping, tripping and stumbling with subsequent striking against furniture, initial encounter; J44.9 Chronic obstructive pulmonary disease, unspecified; Z87.891 Personal history of nicotine dependence; E11.9 Type 2 diabetes mellitus without complications; I10 Essential (primary) hypertension
CPT/HCPCS: 99284; 70450; 72125; 73590; 99285

== ENCOUNTER 2020-07-08 04:20 | Outpatient (CLI) | payer MEDICARE, SELFPAY ==
--- NOTE | 2020-07-08 12:21 | DI.US_ITS ---
APPROVED REPORT EXAM: Comprehensive 2D, Doppler, and color-flow Echocardiogram Patient Location: Out-Patient Pivot End Polisher: Elysia Bennett RDCS (AE) Indications: HTN, COPD, Exertional Dyspnea, Preop Other Information Study Quality: Fair. Technically limited study due to body habitus. Conclusion Normal left ventricular wall thickness and chamber size. Estimated ejection fraction is 55%.. Wall motion is normal Normal right ventricular size and function Both atria are normal in size The aortic valve is structurally normal without stenosis or regurgitation Mild mitral annular calcification with trace mitral regurgitation The tricuspid valve is structurally normal with trace regurgitation. Estimated right ventricular sys tolic pressure is 33 mmHg The pulmonic valve is not well visualized Wall motion Left Ventricle The left ventricle is normal size. The left ventricular systolic function is normal. The left ventric ular ejection fraction is within the normal range. There is normal left ventricular wall thickness. T here is normal LV segmental wall motion. There is no ventricular septal defect visualized. LVEF is 55 %. Right Ventricle The right ventricle is normal size. The right ventricular systolic function is normal. The RVSP is 33 .0mmHg. Atria The left atrium size is normal. Left atrium is not well visualized. The right atrium size is normal. The interatrial septum is intact with no evidence for an atrial septal defect. Aortic Valve The aortic valve is normal in structure. There is no aortic valvular stenosis. No aortic regurgitatio n is present. Mitral Valve Mild mitral annular calcification. No evidence of mitral valve stenosis. Trace mitral regurgitation. Tricuspid Valve The tricuspid valve is normal in structure. There is no tricuspid valve stenosis. Trace tricuspid reg urgitation. Pulmonic Valve Pulmonic valve is not well visualized. There is no pulmonic valvular stenosis. There is no pulmonic v alvular regurgitation. Great Vessels The aortic root is normal in size. The ascending aorta is normal in size. IVC is normal in size and c ollapses >50% with inspiration. Pericardium Trace pericardial effusion. 2D Dimensions IVSD d PLAX 1.05 cm F: 0.6-1.0 LV Vol A2C d MOD 64.0 mL LVPW d PLAX 1.03 cm F: 0.6 - 1.0 LV Vol A4C d MOD 68.2 mL LVID d PLAX 4.01 cm F: 3.8 - 5.2 LA vol/ BSA A2C s A-L 20.8 mL/m2 LVDs 2.80 cm F: 2.2 - 3.5 LA vol/ BSA A4C s A-L 27.9 mL/m2 Ao Root d 2.91 cm F: 2.7 - 3.3 LA Vol/ BSA Biplane s A-L 26.3 mL/m2 RA Area A4C 9.36 cm2 LA Area A4C s MOD 16.46 cm2 RA Vol/ BSA A4C s A-L 11.7 mL/m2 LA Area A2C s MOD 13.04 cm2 Ao Asc Diam d 2.51 cm F: 2.3 - 3.1 LV EF A4C MOD 55.0 % LV EF Teichholz 56.8 % LV EF A2C MOD 54.3 % LVEF (Caamrena's) 55.85 % F: 54 - 74 LV EF Biplane MOD 55.8 % LV Volume 55.48 mL F: 46 - 106 SV 38.69 mL LV Volume Index 33.42 mL/m2 F: 29 - 61 SV Index 23.28 mL/m2 LV Vol Biplane MOD 69.3 mL FS 29.35 % M-Mode TAPSE 1.89 cm (M/F) >1.7 LV Diastology MV E' medial 0.098 (>0.07 m/s) E/A Ratio 0.9 LV E/e MED 7.85 (<14) MV E Vmax 0.77 (0.4-1.3 m/s) MV E' lateral 0.098 (>0.1 m/s) MV A Vmax 0.85 (0.4-1.3 m/s) LV E/e LAT 7.85 (<14) MV E/A Ratio 0.90 MV E/E' medial 7.87 MV E/E' lateral 7.87 Aortic Valve LVOT Area 2.57 cm2 AoV Area Vmax 1.90 cm2 LVOT Vmax 1.08 m/s AoV Area/ BSA (Vmax) 1.14 cm2/m2 LVOT Mean Favio. 0.81 m/s KRYS Mean Favio. 2.01 cm2 LVOT Peak Grad 4.7 mmHg KRYS Mean Favio. Index 1.21 cm2/m2 LVOT Mean Grad 2.8 mmHg LVOT VTI 0.246 m LVOT Diam s 1.80 cm AoV Vmax 1.46 m/s Velocity Ratio 0.73 AoV Mean Favio. 1.04 m/s AoV Peak Grad 8.5 mmHg LVOT SV 63.26 mL AoV Mean Grad 4.6 mmHg AoV VTI 0.323 m AoV Area VTI 1.96 cm2 AoV Area/ BSA (VTI) 1.18 cm/m2 Mitral Valve MV DT 246 (160-240 msec) MV PHT 71 msec MV Area PHT 3.09 cm2 MV VTI 0.302 m MV VTI Annulus 0.304 m MV Area VTI 2.10 (4.0-6.0 cm2) Pulmonary Valve PV Vmax 0.98 (0.5-1.5 m/s) RVOT Peak Gr. 2.63 mmHg PV Peak Grad 3.8 mmHg RVOT Mean Gr. 1.30 mmHg PV Mean Grad 2.1 mmHg RVOT VTI 0.170 m PV VTI 0.226 m RVOT Vmax 0.81 m/s Tricuspid Valve TR Peak Grad 29.9 mmHg TR Vmax 2.74 m/s RA Pressure 3.00 mmHg RVSP (TR) 33.0 mmHg
== END 2020-07-08 04:40 ==
PROVIDERS: PCP Nurse Practitioner Family; Visit Provider Internal Medicine Adolescent Medicine
DX: R06.00 Dyspnea, unspecified (principal); I34.0 Nonrheumatic mitral (valve) insufficiency
CPT/HCPCS: 93306

== ENCOUNTER 2020-07-29 13:13 | Outpatient (REF) | payer MEDICARE, SELFPAY ==
[2020-07-29 14:32] LABS: Anion Gap 6.4 mmol/L (3-11); BUN 15 mg/dL (7-18); CO2 30.6 mmol/L (21.0-32.0); CREATININE 0.9 mg/dL (0.55-1.02); Calcium 8.6 mg/dL (8.5-10.1); Chloride 96 mmol/L (98-107); Glucose 98 mg/dL (74-106); Potassium 4.4 mmol/L (3.5-5.1); Sodium 133 mmol/L (136-145)
== END 2020-07-29 13:14 | disposition home or self-care (01) ==
LOC: LBN 13:13
PROVIDERS: PCP Nurse Practitioner Family; Visit Provider Nurse Practitioner Family
DX: C65.1 Malignant neoplasm of right renal pelvis (principal); C79.10 Secondary malignant neoplasm of unspecified urinary organs
CPT/HCPCS: 80048

== ENCOUNTER 2020-09-20 13:56 | Outpatient (RCR) | payer MEDICARE, SELFPAY ==
[2020-09-20] MEDS: Normal Saline Flush 10 ML SYR IVP (14:10)
[2020-09-20] MEDS: Heparin 500 UNITS/5 ML SYRINGE (14:10)
[2020-09-20 14:11] LABS: Abs Immature Grans 0.01 10^3/uL (0.0-0.06); Absolute Basophil Count 0.03 10^3/uL (0.0-0.2); Absolute Eosinophil Count 0.16 10^3/uL (0.0-0.7); Absolute Lymphocyte Count 1.08 10^3/uL (1.2-3.4); Absolute Monocyte Count 0.44 10^3/uL (0.1-0.8); Basophils % 0.5; Eosinophils % 2.7; HCT 29.6 % (36.0-46.0); HGB 9.4 g/dL (11.2-15.7); Immature Grans % 0.2; Lymphocytes % 18.2; MCH 31.2 pg (27.0-33.0); MCHC 31.8 % (32.0-36.0); MCV 98.3 fL (80-95); MPV 9.6 fL (8.0-11.0); Monocytes % 7.4; Nucleated RBC 0 %; Platelet Count 189 10^3/uL (130-400); RBC 3.01 10^6/uL (3.93-5.22); RDW 16.1 % (11.7-14.6); RDW-SD 58.3 fL; WBC 5.92 10^3/uL (4.4-10.8)
[2020-09-20 14:31] LABS: ALT 22 U/L (14-59); AST 13 U/L (15-37); Alkaline Phosphatase 65 U/L (46-116); Anion Gap 5.4 mmol/L (3-11); BUN 24 mg/dL (7-18); Bilirubin, Total 0.4 mg/dL (0.2-1.0); CO2 30.6 mmol/L (21.0-32.0); CREATININE 1.4 mg/dL (0.55-1.02); Calcium 8.9 mg/dL (8.5-10.1); Chloride 103 mmol/L (98-107); Estimated GFR 35.91 (mL/min/1.73m2); Glucose 116 mg/dL (74-106); Potassium 4.3 mmol/L (3.5-5.1); Sodium 139 mmol/L (136-145); Total Protein 6.5 g/dL (6.4-8.2)
== END 2020-09-21 23:59 | disposition home or self-care (01) ==
LOC: INF 13:56
PROVIDERS: PCP Nurse Practitioner Family; Visit Provider Internal Medicine
DX: C79.10 Secondary malignant neoplasm of unspecified urinary organs (principal); Z45.2 Encounter for adjustment and management of vascular access device
CPT/HCPCS: 36591; 80053; 85025

== ENCOUNTER → 2020-09-26 09:11 | Outpatient (BNVA) | payer MEDICARE, SELFPAY | PROVIDERS: PCP Nurse Practitioner Family; Referring Provider Nurse Practitioner Family; Visit Provider Surgery | DX: K29.60 Other gastritis without bleeding (principal); B96.81 Helicobacter pylori [H. pylori] as the cause of diseases classified elsewhere; D64.9 Anemia, unspecified; Z90.5 Acquired absence of kidney | CPT/HCPCS: 99211; 99213 ==

== ENCOUNTER → 2020-10-11 09:50 | Outpatient (BNVA) | payer MEDICARE, SELFPAY | PROVIDERS: PCP Nurse Practitioner Family; Referring Provider Nurse Practitioner Family; Visit Provider Nurse Practitioner Gerontology | DX: R35.0 Frequency of micturition (principal); N28.89 Other specified disorders of kidney and ureter; Z90.5 Acquired absence of kidney; C79.10 Secondary malignant neoplasm of unspecified urinary organs; D89.89 Other specified disorders involving the immune mechanism, not elsewhere classified; Z45.2 Encounter for adjustment and management of vascular access device; D63.0 Anemia in neoplastic disease | CPT/HCPCS: 36591; 80053; 99214; 83735; 84439; 84443; 85025 ==

== ENCOUNTER 2020-10-18 02:20 | Outpatient (CLI) | payer MEDICARE, SELFPAY ==
[2020-10-18] MEDS: Gadoterate meglumine 20 ML VIAL 7 ML IVP (11:14)
--- NOTE | 2020-10-18 11:15 | DI.MRI_ITS ---
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 CONTRAST MATERIAL: IV Contrast: 7 mL of Dotarem contrast administered. COMPARISON: CT CT ABDOMEN PELVIS W from 03/25/2020 CT,PT NM PET CT SKULL BASE TO MID-THIGH from 09/27/2020 FINDINGS: Liver: There are few simple cysts seen within the liver. The largest measures 9 mm and is in the ant erior segment of the right lobe of the liver. There is a 1.1 x 1.1 cm soft tissue mass interposed be tween the hepatic flexure of the colon and the inferior aspect of the liver. The lesion enhances fol lowing contrast administration. Pancreas: Unremarkable. Gallbladder and Bile Ducts: Status post cholecystectomy. No biliary ductal dilatation. Adrenals: The left adrenal gland is unremarkable. The right adrenal gland appears to have been remov ed. Kidneys: Status post right nephrectomy. The left kidney is unremarkable. Spleen: Unremarkable. Aorta: Unremarkable. Soft Tissues: Unremarkable. Bone: Within normal limits with degenerative changes seen in the lumbar spine. Lymph Nodes: Unremarkable. IMPRESSION: 1. 1.1 x 1.1 cm soft tissue enhancing mass adjacent to the inferior aspect of the right lobe of the l iver. Recurrent or metastatic disease should be considered. 2. Status post right nephrectomy. 3. Status post cholecystectomy. DATA REPOSITORY:
--- NOTE | 2020-10-18 11:15 | DI.MRI_ITS ---
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 CONTRAST MATERIAL: IV Contrast: 7 ML of Dotarem contrast administered. COMPARISON: CT,PT NM PET CT SKULL BASE TO MID-THIGH from 09/27/2020 FINDINGS: Examination is limited secondary to patient motion artifact. BONES: There is hyperintense signal on the T2 weighted images in the lateral aspect of the left 3rd r ib. Following contrast administration this area shows enhancement. (Series 50200, image 34). No ot her enhancing lesions are identified. The visualized lungs are unremarkable. SOFT TISSUES: Unremarkable. ENHANCEMENT: Please see the above discussion. IMPRESSION: Enhancing lesion involving the lateral aspect of the left 3rd rib. Metastatic focus cannot be exclud ed. DATA REPOSITORY:
== END 2020-10-18 02:40 ==
PROVIDERS: PCP Nurse Practitioner Family; Visit Provider Nurse Practitioner Adult Health
DX: C79.10 Secondary malignant neoplasm of unspecified urinary organs (principal); R93.89 Abnormal findings on diagnostic imaging of other specified body structures; R93.7 Abnormal findings on diagnostic imaging of other parts of musculoskeletal system; K76.89 Other specified diseases of liver; Z90.49 Acquired absence of other specified parts of digestive tract; Z90.5 Acquired absence of kidney; D89.89 Other specified disorders involving the immune mechanism, not elsewhere classified; Z45.2 Encounter for adjustment and management of vascular access device; D63.0 Anemia in neoplastic disease
CPT/HCPCS: 36591; 71552; 74183; 82565

== ENCOUNTER 2020-10-18 02:39 | Outpatient (RCR) | payer MEDICARE, SELFPAY ==
[2020-10-11 10:08] LABS: Abs Immature Grans 0.01 10^3/uL (0.0-0.06); Absolute Basophil Count 0.04 10^3/uL (0.0-0.2); Absolute Eosinophil Count 0.12 10^3/uL (0.0-0.7); Absolute Lymphocyte Count 0.97 10^3/uL (1.2-3.4); Absolute Monocyte Count 0.45 10^3/uL (0.1-0.8); Absolute Neutrophil Count 2.87 10^3/uL (1.2-6.7); Basophils % 0.9; Eosinophils % 2.7; HGB 10.6 g/dL (11.2-15.7); Immature Grans % 0.2; Lymphocytes % 21.7; MCH 32.2 pg (27.0-33.0); MCHC 33.1 % (32.0-36.0); MCV 97.3 fL (80-95); MPV 9.5 fL (8.0-11.0); Monocytes % 10.1; Neutrophils % 64.4; Nucleated RBC 0 %; Platelet Count 197 10^3/uL (130-400); RBC 3.29 10^6/uL (3.93-5.22); RDW 15.5 % (11.7-14.6); RDW-SD 55.5 fL; WBC 4.46 10^3/uL (4.4-10.8)
[2020-10-11] MEDS: Normal Saline Flush 10 ML SYR IVP (10:21)
[2020-10-11] MEDS: Heparin 500 UNITS/5 ML SYRINGE IV (10:22)
[2020-10-11 10:33] LABS: ALT 27 U/L (14-59); AST 17 U/L (15-37); Albumin 3.6 g/dL (3.4-5.0); Alkaline Phosphatase 69 U/L (46-116); Anion Gap 11.1 mmol/L (3-11); BUN 29 mg/dL (7-18); Bilirubin, Total 0.4 mg/dL (0.2-1.0); CO2 25.9 mmol/L (21.0-32.0); CREATININE 1.7 mg/dL (0.55-1.02); Calcium 9.1 mg/dL (8.5-10.1); Chloride 102 mmol/L (98-107); Glucose 112 mg/dL (74-106); Potassium 4.3 mmol/L (3.5-5.1); Sodium 139 mmol/L (136-145); TSH 1.93 uIU/mL (0.36-3.74); Total Protein 6.8 g/dL (6.4-8.2)
[2020-10-18] MEDS: Normal Saline Flush 10 ML SYR IVP (08:45)
[2020-10-18] MEDS: Heparin 500 UNITS/5 ML SYRINGE IV (09:02)
[2020-10-18 09:13] LABS: CREATININE 1.6 mg/dL (0.55-1.02); Estimated GFR 30.78 (mL/min/1.73m2)
== END 2020-10-21 23:59 | disposition home or self-care (01) ==
LOC: INF 02:39
PROVIDERS: Nurse Practitioner Adult Health; PCP Nurse Practitioner Family; Visit Provider Internal Medicine
DX: C79.10 Secondary malignant neoplasm of unspecified urinary organs (principal); D89.89 Other specified disorders involving the immune mechanism, not elsewhere classified; Z45.2 Encounter for adjustment and management of vascular access device; D63.0 Anemia in neoplastic disease
CPT/HCPCS: 36591; 80053; 96523; 82565; 83735; 84439; 84443; 85025

== ENCOUNTER 2020-11-08 02:41 | Outpatient (RCR) | payer MEDICARE, SELFPAY ==
[2020-11-08 09:00] LABS: Abs Immature Grans 0.01 10^3/uL (0.0-0.06); Absolute Basophil Count 0.02 10^3/uL (0.0-0.2); Absolute Eosinophil Count 0.13 10^3/uL (0.0-0.7); Absolute Lymphocyte Count 0.79 10^3/uL (1.2-3.4); Absolute Monocyte Count 0.36 10^3/uL (0.1-0.8); Absolute Neutrophil Count 2.79 10^3/uL (1.2-6.7); Basophils % 0.5; Eosinophils % 3.2; HCT 33.1 % (36.0-46.0); HGB 10.5 g/dL (11.2-15.7); Immature Grans % 0.2; Lymphocytes % 19.3; MCH 31.7 pg (27.0-33.0); MCHC 31.7 % (32.0-36.0); MPV 9.9 fL (8.0-11.0); Monocytes % 8.8; Nucleated RBC 0 %; Platelet Count 193 10^3/uL (130-400); RBC 3.31 10^6/uL (3.93-5.22); RDW 14.6 % (11.7-14.6); RDW-SD 53.3 fL
[2020-11-08] MEDS: Normal Saline Flush 10 ML SYR IVP (09:10)
[2020-11-08 09:21] LABS: ALT 22 U/L (14-59); AST 13 U/L (15-37); Albumin 3.4 g/dL (3.4-5.0); Alkaline Phosphatase 59 U/L (46-116); Anion Gap 6.1 mmol/L (3-11); BUN 28 mg/dL (7-18); Bilirubin, Total 0.4 mg/dL (0.2-1.0); CO2 29.9 mmol/L (21.0-32.0); CREATININE 1.3 mg/dL (0.55-1.02); Calcium 8.8 mg/dL (8.5-10.1); Chloride 104 mmol/L (98-107); Estimated GFR 39.12 (mL/min/1.73m2); FREE T4 1.07 ng/dL (0.76-1.46); Glucose 103 mg/dL (74-106); Potassium 4.3 mmol/L (3.5-5.1); Sodium 140 mmol/L (136-145); TSH 3.34 uIU/mL (0.36-3.74); Total Protein 6.6 g/dL (6.4-8.2)
== END 2020-11-21 23:59 | disposition home or self-care (01) ==
LOC: INF 02:41
PROVIDERS: PCP Nurse Practitioner Family; Visit Provider Internal Medicine
DX: C79.10 Secondary malignant neoplasm of unspecified urinary organs (principal); D89.89 Other specified disorders involving the immune mechanism, not elsewhere classified; D63.0 Anemia in neoplastic disease; Z45.2 Encounter for adjustment and management of vascular access device
CPT/HCPCS: 36591; 80053; 83735; 84439; 84443; 85025

== ENCOUNTER 2020-12-06 01:38 | Outpatient (RCR) | payer MEDICARE, SELFPAY ==
[2020-12-06] MEDS: Normal Saline Flush 10 ML SYR IVP (08:59)
[2020-12-06 09:08] LABS: Abs Immature Grans 0.01 10^3/uL (0.0-0.06); Absolute Basophil Count 0.03 10^3/uL (0.0-0.2); Absolute Eosinophil Count 0.16 10^3/uL (0.0-0.7); Absolute Lymphocyte Count 0.85 10^3/uL (1.2-3.4); Absolute Monocyte Count 0.42 10^3/uL (0.1-0.8); Absolute Neutrophil Count 3.24 10^3/uL (1.2-6.7); Basophils % 0.6; Eosinophils % 3.4; HCT 34.3 % (36.0-46.0); HGB 11.1 g/dL (11.2-15.7); Immature Grans % 0.2; MCHC 32.4 % (32.0-36.0); MCV 98.8 fL (80-95); MPV 9.6 fL (8.0-11.0); Monocytes % 8.9; Neutrophils % 68.9; Nucleated RBC 0 %; Platelet Count 192 10^3/uL (130-400); RBC 3.47 10^6/uL (3.93-5.22); RDW 13.4 % (11.7-14.6); RDW-SD 48.2 fL; WBC 4.71 10^3/uL (4.4-10.8)
[2020-12-06 09:34] LABS: ALT 22 U/L (14-59); AST 11 U/L (15-37); Albumin 3.5 g/dL (3.4-5.0); Alkaline Phosphatase 62 U/L (46-116); Anion Gap 6.2 mmol/L (3-11); BUN 25 mg/dL (7-18); Bilirubin, Total 0.5 mg/dL (0.2-1.0); CO2 28.8 mmol/L (21.0-32.0); CREATININE 1.3 mg/dL (0.55-1.02); Calcium 8.9 mg/dL (8.5-10.1); Chloride 105 mmol/L (98-107); Estimated GFR 39.12 (mL/min/1.73m2); FREE T4 1.08 ng/dL (0.76-1.46); Glucose 99 mg/dL (74-106); Potassium 4.5 mmol/L (3.5-5.1); Sodium 140 mmol/L (136-145); TSH 3.25 uIU/mL (0.36-3.74); Total Protein 6.8 g/dL (6.4-8.2)
== END 2020-12-21 23:59 | disposition home or self-care (01) ==
LOC: INF 01:38
PROVIDERS: PCP Nurse Practitioner Family; Visit Provider Internal Medicine
DX: C79.10 Secondary malignant neoplasm of unspecified urinary organs (principal); D89.89 Other specified disorders involving the immune mechanism, not elsewhere classified; Z45.2 Encounter for adjustment and management of vascular access device; D63.0 Anemia in neoplastic disease
CPT/HCPCS: 36591; 80053; 84439; 84443; 85025

== ENCOUNTER 2021-01-03 02:54 | Outpatient (RCR) | payer MEDICARE, SELFPAY ==
[2021-01-03] MEDS: Normal Saline Flush 10 ML SYR IVP (10:56)
[2021-01-03 11:20] LABS: Abs Immature Grans 0.01 10^3/uL (0.0-0.06); Absolute Basophil Count 0.02 10^3/uL (0.0-0.2); Absolute Eosinophil Count 0.17 10^3/uL (0.0-0.7); Absolute Monocyte Count 0.47 10^3/uL (0.1-0.8); Basophils % 0.4; Eosinophils % 3.8; HCT 33.5 % (36.0-46.0); HGB 10.8 g/dL (11.2-15.7); Immature Grans % 0.2; Lymphocytes % 22.4; MCHC 32.2 % (32.0-36.0); MCV 99.4 fL (80-95); MPV 9.6 fL (8.0-11.0); Monocytes % 10.5; Neutrophils % 62.7; Nucleated RBC 0 %; Platelet Count 191 10^3/uL (130-400); RBC 3.37 10^6/uL (3.93-5.22); RDW 13.2 % (11.7-14.6); RDW-SD 48.1 fL; WBC 4.47 10^3/uL (4.4-10.8)
[2021-01-03 11:41] LABS: ALT 19 U/L (14-59); AST 10 U/L (15-37); Albumin 3.5 g/dL (3.4-5.0); Alkaline Phosphatase 47 U/L (46-116); Anion Gap 5.7 mmol/L (3-11); BUN 24 mg/dL (7-18); Bilirubin, Total 0.3 mg/dL (0.2-1.0); CO2 29.3 mmol/L (21.0-32.0); CREATININE 1.5 mg/dL (0.55-1.02); Calcium 8.8 mg/dL (8.5-10.1); Chloride 105 mmol/L (98-107); Estimated GFR 33.16 (mL/min/1.73m2); FREE T4 0.89 ng/dL (0.76-1.46); Glucose 86 mg/dL (74-106); Magnesium 2.2 mg/dL (1.8-2.4); Potassium 4.6 mmol/L (3.5-5.1); Sodium 140 mmol/L (136-145); TSH 10.11 uIU/mL (0.36-3.74); Total Protein 6.5 g/dL (6.4-8.2)
== END 2021-01-21 23:59 | disposition home or self-care (01) ==
LOC: INF 02:54
PROVIDERS: PCP Nurse Practitioner Family; Visit Provider Internal Medicine
DX: C65.1 Malignant neoplasm of right renal pelvis (principal); C79.10 Secondary malignant neoplasm of unspecified urinary organs; D89.89 Other specified disorders involving the immune mechanism, not elsewhere classified; D63.0 Anemia in neoplastic disease; Z45.2 Encounter for adjustment and management of vascular access device
CPT/HCPCS: 36591; 80053; 83735; 84439; 84443; 85025

== ENCOUNTER 2021-01-31 02:18 | Outpatient (RCR) | payer MEDICARE, SELFPAY ==
[2021-01-31] MEDS: Normal Saline Flush 10 ML SYR IVP (11:00)
[2021-01-31 11:22] LABS: Absolute Basophil Count 0.03 10^3/uL (0.0-0.2); Absolute Eosinophil Count 0.17 10^3/uL (0.0-0.7); Absolute Lymphocyte Count 0.94 10^3/uL (1.2-3.4); Absolute Monocyte Count 0.52 10^3/uL (0.1-0.8); Absolute Neutrophil Count 3.29 10^3/uL (1.2-6.7); Basophils % 0.6; Eosinophils % 3.4; HCT 34.2 % (36.0-46.0); HGB 11.2 g/dL (11.2-15.7); MCH 32.2 pg (27.0-33.0); MCHC 32.7 % (32.0-36.0); MCV 98.3 fL (80-95); MPV 9.9 fL (8.0-11.0); Monocytes % 10.5; Neutrophils % 66.5; Nucleated RBC 0 %; Platelet Count 158 10^3/uL (130-400); RBC 3.48 10^6/uL (3.93-5.22); RDW-SD 46.8 fL; WBC 4.95 10^3/uL (4.4-10.8)
[2021-01-31 11:48] LABS: ALT 21 U/L (14-59); AST 16 U/L (15-37); Albumin 3.6 g/dL (3.4-5.0); Alkaline Phosphatase 50 U/L (46-116); Anion Gap 6.7 mmol/L (3-11); BUN 29 mg/dL (7-18); Bilirubin, Total 0.5 mg/dL (0.2-1.0); CO2 28.3 mmol/L (21.0-32.0); CREATININE 1.6 mg/dL (0.55-1.02); Calcium 8.7 mg/dL (8.5-10.1); Chloride 103 mmol/L (98-107); Estimated GFR 30.78 (mL/min/1.73m2); FREE T4 0.65 ng/dL (0.76-1.46); Glucose 102 mg/dL (74-106); Magnesium 2.1 mg/dL (1.8-2.4); Potassium 4.4 mmol/L (3.5-5.1); Sodium 138 mmol/L (136-145); TSH 27.68 uIU/mL (0.36-3.74); Total Protein 6.7 g/dL (6.4-8.2)
== END 2021-02-21 23:59 | disposition home or self-care (01) ==
LOC: INF 02:18
PROVIDERS: PCP Nurse Practitioner Family; Visit Provider Internal Medicine
DX: C79.10 Secondary malignant neoplasm of unspecified urinary organs (principal); C65.1 Malignant neoplasm of right renal pelvis; D63.0 Anemia in neoplastic disease; D89.89 Other specified disorders involving the immune mechanism, not elsewhere classified; Z45.2 Encounter for adjustment and management of vascular access device
CPT/HCPCS: 36591; 80053; 83735; 84439; 84443; 85025

== ENCOUNTER 2021-02-24 09:34 | Outpatient (REF) | payer MEDICARE, SELFPAY ==
--- NOTE | 2021-02-24 09:30 | SKI_PTH ---
PATIENT: Domenica Clemente LOC: [facility] U#:[id number] AGE/SX: 85/F ROOM: RE02/24/[address]: YOLY Glaser : 1935 BED: DIS: 02/28/2021 SPEC #: [id number] RECD: 02/28/21 10:14 STATUS: ROSSI REDaily #: [id number] NELLIE: 02/24/21 09:[address]: Hasmukh Jorgensne DEPT: Surgical Specimen RECD BY: Jackelyn Cook ENTERED: 02/28/21 10:15 SP TYPE: BENNY LE DR: Mary Hollingsworth Tissues: 1 - SKIN BIOPSY(SHAVE/PUNCH) Procedures: SKIN LEVEL 4 Comments: [id number]
== END 2021-02-28 08:57 | disposition home or self-care (01) ==
LOC: LBN 09:34
PROVIDERS: PCP Nurse Practitioner Family; Visit Provider Physician Assistant
DX: C44.41 Basal cell carcinoma of skin of scalp and neck (principal)
CPT/HCPCS: 88305

== ENCOUNTER 2021-02-28 10:50 | Outpatient (RCR) | payer MEDICARE, SELFPAY ==
[2021-02-28 11:20] LABS: Abs Immature Grans 0.02 10^3/uL (0.0-0.06); Absolute Basophil Count 0.03 10^3/uL (0.0-0.2); Absolute Eosinophil Count 0.16 10^3/uL (0.0-0.7); Absolute Lymphocyte Count 0.95 10^3/uL (1.2-3.4); Absolute Monocyte Count 0.55 10^3/uL (0.1-0.8); Absolute Neutrophil Count 3.53 10^3/uL (1.2-6.7); Basophils % 0.6; Eosinophils % 3.1; HCT 35.3 % (36.0-46.0); HGB 11.4 g/dL (11.2-15.7); Immature Grans % 0.4; Lymphocytes % 18.1; MCH 32.1 pg (27.0-33.0); MCHC 32.3 % (32.0-36.0); MCV 99.4 fL (80-95); MPV 9.5 fL (8.0-11.0); Monocytes % 10.5; Neutrophils % 67.3; Nucleated RBC 0 %; Platelet Count 195 10^3/uL (130-400); RBC 3.55 10^6/uL (3.93-5.22); RDW 12.8 % (11.7-14.6); RDW-SD 47.1 fL; WBC 5.24 10^3/uL (4.4-10.8)
[2021-02-28] MEDS: Normal Saline Flush 10 ML SYR IVP (11:31)
[2021-02-28 11:47] LABS: ALT 25 U/L (14-59); AST 15 U/L (15-37); Albumin 3.5 g/dL (3.4-5.0); Alkaline Phosphatase 59 U/L (46-116); Anion Gap 4.8 mmol/L (3-11); BUN 23 mg/dL (7-18); Bilirubin, Total 0.4 mg/dL (0.2-1.0); CO2 31.2 mmol/L (21.0-32.0); CREATININE 1.4 mg/dL (0.55-1.02); Calcium 8.8 mg/dL (8.5-10.1); Chloride 101 mmol/L (98-107); Estimated GFR 35.91 (mL/min/1.73m2); FREE T4 0.77 ng/dL (0.76-1.46); Glucose 94 mg/dL (74-106); Potassium 4.6 mmol/L (3.5-5.1); Sodium 137 mmol/L (136-145); Total Protein 6.7 g/dL (6.4-8.2)
[2021-02-28 11:55] LABS: Magnesium 2.1 mg/dL (1.8-2.4)
== END 2021-03-23 23:59 | disposition home or self-care (01) ==
LOC: INF 10:50
PROVIDERS: Nurse Practitioner Adult Health; PCP Nurse Practitioner Family; Visit Provider Internal Medicine
DX: C79.10 Secondary malignant neoplasm of unspecified urinary organs (principal); D63.0 Anemia in neoplastic disease; D89.89 Other specified disorders involving the immune mechanism, not elsewhere classified; Z45.2 Encounter for adjustment and management of vascular access device
CPT/HCPCS: 36591; 80053; 83735; 84439; 84443; 85025

== ENCOUNTER 2021-03-28 02:47 | Outpatient (RCR) | payer MEDICARE, SELFPAY ==
[2021-03-28] MEDS: Normal Saline Flush 10 ML SYR IVP (12:38)
[2021-03-28 12:39] LABS: Abs Immature Grans 0.01 10^3/uL (0.0-0.06); Absolute Basophil Count 0.04 10^3/uL (0.0-0.2); Absolute Eosinophil Count 0.18 10^3/uL (0.0-0.7); Absolute Lymphocyte Count 1.02 10^3/uL (1.2-3.4); Absolute Monocyte Count 0.62 10^3/uL (0.1-0.8); Basophils % 0.7; Eosinophils % 3.1; HCT 35.5 % (36.0-46.0); HGB 11.4 g/dL (11.2-15.7); Immature Grans % 0.2; Lymphocytes % 17.4; MCH 32.3 pg (27.0-33.0); MCHC 32.1 % (32.0-36.0); MCV 100.6 fL (80-95); MPV 9.6 fL (8.0-11.0); Monocytes % 10.6; Nucleated RBC 0 %; Platelet Count 195 10^3/uL (130-400); RBC 3.53 10^6/uL (3.93-5.22); RDW 13.2 % (11.7-14.6); RDW-SD 48.8 fL; WBC 5.87 10^3/uL (4.4-10.8)
[2021-03-28 13:08] LABS: ALT 21 U/L (14-59); AST 13 U/L (15-37); Albumin 3.7 g/dL (3.4-5.0); Alkaline Phosphatase 59 U/L (46-116); Anion Gap 5.3 mmol/L (3-11); BUN 29 mg/dL (7-18); Bilirubin, Total 0.5 mg/dL (0.2-1.0); CO2 30.7 mmol/L (21.0-32.0); CREATININE 1.5 mg/dL (0.55-1.02); Calcium 9.2 mg/dL (8.5-10.1); Chloride 103 mmol/L (98-107); Estimated GFR 33.16 (mL/min/1.73m2); FREE T4 0.65 ng/dL (0.76-1.46); Glucose 94 mg/dL (74-106); Potassium 4.3 mmol/L (3.5-5.1); Sodium 139 mmol/L (136-145)
== END 2021-04-23 23:59 | disposition home or self-care (01) ==
LOC: INF 02:47
PROVIDERS: PCP Nurse Practitioner Family; Visit Provider Internal Medicine
DX: C79.10 Secondary malignant neoplasm of unspecified urinary organs (principal); D63.0 Anemia in neoplastic disease; D89.89 Other specified disorders involving the immune mechanism, not elsewhere classified; Z45.2 Encounter for adjustment and management of vascular access device
CPT/HCPCS: 36591; 80053; 84439; 84443; 85025

== ENCOUNTER 2021-03-31 12:00 | Outpatient (REF) | payer MEDICARE, SELFPAY ==
--- NOTE | 2021-03-31 10:00 | SKI_PTH ---
PATIENT: Domenica Clemente LOC: [facility] U#:[id number] AGE/SX: 85/F ROOM: RE03/31/[address]: YOLY Glaser : 1935 BED: DIS: 03/31/2021 SPEC #: [id number] RECD: 04/03/21 12:44 STATUS: ROSSI REQ #: [id number] NELLIE: 03/31/21 10:[address]: Hasmukh Jorgensen DEPT: Surgical Specimen RECD BY: Wendi Clark ENTERED: 04/03/21 12:44 SP TYPE: BENNY LE DR: Mary Hollingsworth Tissues: 1 - SKIN BIOPSY(SHAVE/PUNCH) Procedures: SKIN LEVEL 4 Comments: [id number]
== END 2021-03-31 12:01 | disposition home or self-care (01) ==
LOC: LBN 12:00
PROVIDERS: PCP Nurse Practitioner Family; Visit Provider Physician Assistant
DX: L90.5 Scar conditions and fibrosis of skin (principal)
CPT/HCPCS: 88305

== ENCOUNTER 2021-04-25 01:55 | Outpatient (RCR) | payer MEDICARE, SELFPAY ==
[2021-04-25] MEDS: Normal Saline Flush 10 ML SYR IVP (10:24)
[2021-04-25 10:26] LABS: Abs Immature Grans 0.02 10^3/uL (0.0-0.06); Absolute Basophil Count 0.02 10^3/uL (0.0-0.2); Absolute Eosinophil Count 0.16 10^3/uL (0.0-0.7); Absolute Lymphocyte Count 0.81 10^3/uL (1.2-3.4); Absolute Monocyte Count 0.59 10^3/uL (0.1-0.8); Absolute Neutrophil Count 4.25 10^3/uL (1.2-6.7); Basophils % 0.3; Eosinophils % 2.7; HCT 35.5 % (36.0-46.0); HGB 11.4 g/dL (11.2-15.7); Immature Grans % 0.3; Lymphocytes % 13.8; MCHC 32.1 % (32.0-36.0); MCV 99.7 fL (80-95); MPV 10.1 fL (8.0-11.0); Monocytes % 10.1; Neutrophils % 72.8; Nucleated RBC 0 %; Platelet Count 175 10^3/uL (130-400); RBC 3.56 10^6/uL (3.93-5.22); RDW 13.1 % (11.7-14.6); RDW-SD 48.1 fL; WBC 5.85 10^3/uL (4.4-10.8)
[2021-04-25 10:48] LABS: ALT 21 U/L (14-59); AST 14 U/L (15-37); Albumin 3.6 g/dL (3.4-5.0); Alkaline Phosphatase 63 U/L (46-116); Anion Gap 6.4 mmol/L (3-11); BUN 27 mg/dL (7-18); Bilirubin, Total 0.4 mg/dL (0.2-1.0); CO2 29.6 mmol/L (21.0-32.0); CREATININE 1.5 mg/dL (0.55-1.02); Calcium 8.7 mg/dL (8.5-10.1); Chloride 106 mmol/L (98-107); Estimated GFR 33.16 (mL/min/1.73m2); FREE T4 0.82 ng/dL (0.76-1.46); Glucose 100 mg/dL (74-106); Potassium 4.1 mmol/L (3.5-5.1); Sodium 142 mmol/L (136-145); TSH 18.82 uIU/mL (0.36-3.74); Total Protein 6.8 g/dL (6.4-8.2)
== END 2021-05-23 23:59 | disposition home or self-care (01) ==
LOC: INF 01:55
PROVIDERS: Nurse Practitioner Adult Health; PCP Nurse Practitioner Family; Visit Provider Internal Medicine
DX: C79.10 Secondary malignant neoplasm of unspecified urinary organs (principal); D63.0 Anemia in neoplastic disease; D89.89 Other specified disorders involving the immune mechanism, not elsewhere classified
CPT/HCPCS: 36591; 80053; 84439; 84443; 85025

== ENCOUNTER 2021-06-20 02:19 | Outpatient (RCR) | payer MEDICARE, SELFPAY ==
[2021-05-24] MEDS: Normal Saline Flush 10 ML SYR IVP (08:11)
[2021-05-24 08:20] LABS: Abs Immature Grans 0.01 10^3/uL (0.0-0.06); Absolute Basophil Count 0.03 10^3/uL (0.0-0.2); Absolute Eosinophil Count 0.16 10^3/uL (0.0-0.7); Absolute Lymphocyte Count 0.91 10^3/uL (1.2-3.4); Absolute Monocyte Count 0.64 10^3/uL (0.1-0.8); Absolute Neutrophil Count 3.82 10^3/uL (1.2-6.7); Basophils % 0.5; Eosinophils % 2.9; HCT 36.9 % (36.0-46.0); HGB 11.9 g/dL (11.2-15.7); Immature Grans % 0.2; Lymphocytes % 16.3; MCHC 32.2 % (32.0-36.0); MCV 99.2 fL (80-95); MPV 9.4 fL (8.0-11.0); Monocytes % 11.5; Neutrophils % 68.6; Nucleated RBC 0 %; Platelet Count 178 10^3/uL (130-400); RBC 3.72 10^6/uL (3.93-5.22); RDW 12.7 % (11.7-14.6); WBC 5.57 10^3/uL (4.4-10.8)
[2021-05-24 08:58] LABS: ALT 26 U/L (14-59); AST 13 U/L (15-37); Albumin 3.4 g/dL (3.4-5.0); Alkaline Phosphatase 68 U/L (46-116); BUN 27 mg/dL (7-18); Bilirubin, Total 0.4 mg/dL (0.2-1.0); CREATININE 1.5 mg/dL (0.55-1.02); Calcium 8.4 mg/dL (8.5-10.1); Chloride 102 mmol/L (98-107); Estimated GFR 33.16 (mL/min/1.73m2); FREE T4 1.13 ng/dL (0.76-1.46); Glucose 89 mg/dL (74-106); Sodium 136 mmol/L (136-145); TSH 7.27 uIU/mL (0.36-3.74); Total Protein 6.6 g/dL (6.4-8.2)
[2021-06-20 12:02] LABS: Abs Immature Grans 0.02 10^3/uL (0.0-0.06); Absolute Basophil Count 0.03 10^3/uL (0.0-0.2); Absolute Eosinophil Count 0.19 10^3/uL (0.0-0.7); Absolute Lymphocyte Count 0.98 10^3/uL (1.2-3.4); Absolute Monocyte Count 0.62 10^3/uL (0.1-0.8); Absolute Neutrophil Count 3.93 10^3/uL (1.2-6.7); Basophils % 0.5; Eosinophils % 3.3; HCT 36.7 % (36.0-46.0); HGB 11.6 g/dL (11.2-15.7); Immature Grans % 0.3; MCH 31.6 pg (27.0-33.0); MCHC 31.6 % (32.0-36.0); MPV 9.2 fL (8.0-11.0); Monocytes % 10.7; Neutrophils % 68.2; Nucleated RBC 0 %; Platelet Count 206 10^3/uL (130-400); RBC 3.67 10^6/uL (3.93-5.22); RDW 12.7 % (11.7-14.6); RDW-SD 46.9 fL; WBC 5.77 10^3/uL (4.4-10.8)
[2021-06-20] MEDS: Normal Saline Flush 10 ML SYR IVP (12:06)
[2021-06-20 12:25] LABS: ALT 24 U/L (14-59); AST 15 U/L (15-37); Albumin 3.5 g/dL (3.4-5.0); Alkaline Phosphatase 71 U/L (46-116); BUN 32 mg/dL (7-18); Bilirubin, Total 0.4 mg/dL (0.2-1.0); CREATININE 1.5 mg/dL (0.55-1.02); Calcium 8.8 mg/dL (8.5-10.1); Chloride 102 mmol/L (98-107); Estimated GFR 33.16 (mL/min/1.73m2); FREE T4 1.09 ng/dL (0.76-1.46); Glucose 93 mg/dL (74-106); Potassium 4.5 mmol/L (3.5-5.1); Sodium 138 mmol/L (136-145); TSH 6.35 uIU/mL (0.36-3.74); Total Protein 7.1 g/dL (6.4-8.2)
== END 2021-06-23 23:59 | disposition home or self-care (01) ==
LOC: INF 02:19
PROVIDERS: Nurse Practitioner Adult Health; PCP Nurse Practitioner Family; Visit Provider Internal Medicine
DX: C79.10 Secondary malignant neoplasm of unspecified urinary organs (principal); D89.89 Other specified disorders involving the immune mechanism, not elsewhere classified; Z45.2 Encounter for adjustment and management of vascular access device; D63.0 Anemia in neoplastic disease
CPT/HCPCS: 36591; 80053; 84439; 84443; 85025

== ENCOUNTER 2021-07-18 03:48 | Outpatient (RCR) | payer MEDICARE, SELFPAY ==
[2021-07-18] MEDS: Normal Saline Flush 10 ML SYR IVP (08:34)
[2021-07-18 08:46] LABS: Abs Immature Grans 0.01 10^3/uL (0.0-0.06); Absolute Basophil Count 0.04 10^3/uL (0.0-0.2); Absolute Eosinophil Count 0.25 10^3/uL (0.0-0.7); Absolute Lymphocyte Count 0.78 10^3/uL (1.2-3.4); Absolute Neutrophil Count 3.32 10^3/uL (1.2-6.7); Basophils % 0.8; Eosinophils % 5.1; HCT 35.3 % (36.0-46.0); HGB 11.4 g/dL (11.2-15.7); Immature Grans % 0.2; Lymphocytes % 15.9; MCH 31.8 pg (27.0-33.0); MCHC 32.3 % (32.0-36.0); MCV 98.6 fL (80-95); MPV 10.1 fL (8.0-11.0); Monocytes % 10.2; Neutrophils % 67.8; Nucleated RBC 0 %; Platelet Count 184 10^3/uL (130-400); RBC 3.58 10^6/uL (3.93-5.22); RDW-SD 46.5 fL
[2021-07-18 09:10] LABS: ALT 22 U/L (14-59); AST 14 U/L (15-37); Albumin 3.5 g/dL (3.4-5.0); Alkaline Phosphatase 66 U/L (46-116); Anion Gap 7.2 mmol/L (3-11); BUN 25 mg/dL (7-18); Bilirubin, Total 0.5 mg/dL (0.2-1.0); CO2 27.8 mmol/L (21.0-32.0); CREATININE 1.7 mg/dL (0.55-1.02); Calcium 8.9 mg/dL (8.5-10.1); Chloride 103 mmol/L (98-107); FREE T4 1.19 ng/dL (0.76-1.46); Glucose 109 mg/dL (74-106); Potassium 4.4 mmol/L (3.5-5.1); Sodium 138 mmol/L (136-145); Total Protein 6.9 g/dL (6.4-8.2)
== END 2021-07-24 23:59 | disposition home or self-care (01) ==
LOC: INF 03:48
PROVIDERS: PCP Nurse Practitioner Family; Visit Provider Internal Medicine
DX: C79.10 Secondary malignant neoplasm of unspecified urinary organs (principal); D89.89 Other specified disorders involving the immune mechanism, not elsewhere classified; Z45.2 Encounter for adjustment and management of vascular access device
CPT/HCPCS: 36591; 80053; 84439; 84443; 85025

== ENCOUNTER 2021-08-04 16:59 | Inpatient (IN) | payer MEDICARE, SELFPAY ==
[2021-08-04] VITALS (22 sets, daily range): BP systolic 100–161; BP diastolic 33–102; PULSE 74–96; RESP 16–27; TEMP 36–36.7; O2SAT 87–97
--- NOTE | 2021-08-04 17:00 | RT.EKG_ITS ---
APPROVED REPORT Exam: Resting ECG Reason for Exam: shortness of breath Patient Location: E HR:84 bpm ECG Measurements Heart Rate 84 AXIS FL 194 P 65 QRSd 75 QRS 58 QT 365 T 59 QTc 433 Conclusion Sinus rhythm...normal P axis, V-rate 60- 99 Low voltage, extremity and precordial leads...extremity<0.5mV, precordial<1.0mV
--- NOTE | 2021-08-04 17:30 | DI.RAD_ITS ---
Exam(s) XR PORTABLE CHEST AP EXAM: XR PORTABLE CHEST AP CLINICAL HISTORY: cough TECHNIQUE: 2D digital imaging was performed of the chest. One image was obtained. An AP view was ob tained. COMPARISON: CR CHEST 2 VIEWS PA,LAT from 07/18/2012 FINDINGS: MEDIASTINUM: Normal. HEART: Normal. PULMONARY VASCULATURE: Normal. LUNGS: Clear. The lungs appear hyperinflated suggesting COPD. PLEURAL SPACE: No pleural effusion or pneumothorax. BONE:Within normal limits for the patient's age. OTHER FINDINGS:There is a right-sided central venous catheter. The tip is in good position at the ju nction of the superior vena cava and right atrium. IMPRESSION: No acute pulmonary findings. DATA REPOSITORY: RADIATION DOSE DELIVERED:
--- NOTE | 2021-08-04 17:55 | ED.GENADUL_ITS ---
Discharge Plan Disposition Patient Disposition: [facility] INPATIENT Condition: Improving Discharge Details Clinical Impression: Shortness of breath, Cough, Elevated d-dimer Admit Date/Time: 08/05/21 15:10 Admit Provider: Ubaldo Hamilton Attending Provider: Ubaldo Hamilton Primary Care Provider: Mary Hollingsworth ED Provider: Wenceslao Palafox Discharge Data Discharge Date/Time-TO BE ENTERED AT DEPARTURE: 08/04/21 21:05 Medical Decision Making --86-year-old female with multiple medical problems including history of nephrectomy for renal cell carcinoma, on chemotherapy, here for increased work of breathing and shortness of breath with new cough per cancer center. Patient is poor historian. Patient is saturating the mid 90s with some tachypnea, diminished lung sounds but clear bilaterally. No lower extremity edema or calf tenderness. Patient denies chest pain. Hemodynamically stable. EKG was reviewed and interpreted by me: Please see report, nondiagnostic, of note low voltage. Initial troponin is negative. Plan for CT of the chest. Unfortunately labs reviewed and patient has poor GFR. D-dimer is elevated. I am concerned about potential for pulmonary embolism. Plan to initiate treatment with Lovenox and obtain VQ scan when available. Consider Covid. Patient is vaccinated and boosted. Covid test pending. -- Additional history obtained on review of medical chart - history of COPD. Allergy to prednisone listed and patient does not have any knowledge of this allergy. Will hold prednisone at this time but I will treat with DuoNeb. I called and spoke with Dr. Hamilton, on-call hospitalist, discussed ED presentation and course, he will admit the patient. HPI General Mode of arrival: ambulatory . Date/Time Provider Initiated Documentation: 08/04/21 17:01 . Limitations to Documentation: no limitations . Information obtained by: patient . HPI Narrative: 86-year-old female with multiple medical problems including history of renal cancer status post nephrectomy, on chemotherapy, sent from cancer center with concern for shortness of breath, new cough and rash on bilateral upper extremities. History and review of systems is limited as patient is poor historian. Patient acknowledges some increased work of breathing and cough. Patient denies chest pain. Patient is vaccinated and boosted for Covid. Related Data Home Medications Medication Instructions Recorded Confirmed fluticasone 250 mcg-salmeterol 50 1 ea INHALATION BID 01/09/14 08/04/21 mcg/dose blistr powdr for inhalation (Advair Diskus) albuterol sulfate 90 mcg/actuation 90 mcg INHALATION Q 4 HR 06/10/17 08/04/21 breath activated powder inhaler (ProAir RespiClick) ascorbate calcium (vitamin C) 500 500 mg PO DAILY 06/10/17 08/04/21 mg tablet cholecalciferol (vitamin D3) 50 2,000 unit PO DAILY 06/10/17 08/04/21 mcg (2,000 unit) capsule (Vitamin D3) nystatin-triamcinolone 100,000 15 gm TOPICAL BID 06/10/17 08/04/21 unit/g-0.1 % topical cream lidocaine 5 % topical cream 15 gm TOPICAL Q4H PRN #3 tube 07/29/17 08/04/21 hydrochlorothiazide 25 mg tablet 12.5 mg PO DAILY tab 04/03/19 08/04/21 polyethylene glycol 3350 17 17 gm PO DAILY PRN 04/03/19 08/04/21 gram/dose oral powder (Miralax) lisinopril 20 mg tablet 40 mg PO QAM tab 09/23/19 08/04/21 L. acidophilus,casei,rhamnosus 50 1 cap PO DAILY #30 cap 09/26/20 08/04/21 billion cell capsule,delayed release (Bio-K plus) hydrocortisone 1 % topical cream 1 applic TOPICAL BID #28.4 g 08/07/21 with perineal applicator Previous Rx's Medication Instructions Recorded lidocaine 5 % topical cream 15 gm TOPICAL Q4H PRN #3 tube 07/29/17 L. acidophilus,casei,rhamnosus 50 1 cap PO DAILY #30 cap 09/26/20 billion cell capsule,delayed release (Bio-K plus) hydrocortisone 1 % topical cream 1 applic TOPICAL BID #28.4 g 08/07/21 with perineal applicator Allergies Allergy/AdvReac Type Severity Reaction Status Date / Time pregabalin [From Lyrica] Allergy Severe RASH/EXTREMITY Verified 09/26/20 09:01 EDEMA atorvastatin calcium Allergy Intermediate Verified 09/26/20 09:01 [From Lipitor] gabapentin [From Neurontin] Allergy Intermediate Verified 09/26/20 09:01 prednisone Allergy Mild Verified 09/26/20 09:01 codeine Allergy Verified 02/14/22 14:53 rosuvastatin calcium Allergy Verified 09/26/20 09:01 [From Crestor] sulfamethoxazole Allergy Verified 09/26/20 09:01 [From Bactrim] trimethoprim [From Bactrim] Allergy Verified 09/26/20 09:01 General Stated Complaint: GenMedical SATHISH: 3 Review of Systems All systems reviewed & are unremarkable except as noted in HPI and below Constitutional Constitutional: Denies fever(s) Cardiovascular Cardiovascular: Denies chest pain PFSH All Active Problems (Updated 08/08/21 @ 00:04 by NENITA WILLIAM) Rash (Acute) Shortness of breath (Acute) Cough (Acute) Elevated d-dimer (Acute) Helicobacter pylori gastritis (Acute) EGD 03/2020. rare. will treat 2wk amox/lilia AFTER her nephrectomy 07/13/20 Follow up (Acute) Anemia (Chronic) Abnormal CT of the head (Acute) Fall (Acute) Laceration of chin (Acute) Contusion of face (Acute) Leukocytosis (Acute) GI bleed (Chronic) Acute anemia (Acute) Melena (Acute) Renal mass (Acute) Hydronephrosis, right (Acute) Urinary frequency (Acute) Medical History Cataracts, bilateral Cervical spondylosis Colon polyps COPD (chronic obstructive pulmonary disease) Diabetes Diverticulosis Diverticulosis Easy bruising Esophagitis Essential tremor 10/05/19: Pt denies. -BR Fatty liver Fatty liver disease, nonalcoholic GERD (gastroesophageal reflux disease) Hiatal hernia Hyperlipidemia Hypertension Impaired fasting glucose Night sweats Nocturia Peripheral neuropathy Squamous cell carcinoma Statin intolerance Urinary incontinence Surgical History Biopsy of breast History of cataract removal with insertion of prosthetic lens History of cholecystectomy History of colonoscopy History of cystoscopy Family History Sister Personal history of malignant neoplasm breast, colon Sister Personal history of malignant neoplasm uterine Social History Smoking/Tobacco Use Status: Former Tobacco Use Smoking risk assessment performed?: Yes Alcohol Intake: never Drug use: Never Substance use type: does not use Do you feel safe at home: Yes Do you feel safe in your relationship?: Yes Exam Const General: cooperative and no acute distress HENMT Head: normocephalic Mouth: moist mucous membranes Eyes Conjunctivae: normal conjunctivae Sclera: normal sclerae Neck Neck: trachea midline and supple Resp Effort & Inspection: tachypneic Auscultation: clear to auscultation bilaterally, no rales, no rhonchi and no wheezes Cardio Rate: regular rate and not tachycardic Rhythm: regular rhythm GI Palpation: soft, not firm, no guarding, no masses, not rigid and nontender Skin Rashes: rashes noted (Macular rash sparsely distributed on upper extremities) Neuro General: patient alert, patient awake, oriented Patient Orientation: Person and Place and tone normal Cognition: abnormal cognition (Poor historian) Speech: speech normal Motor: strength 5/5 throughout Sensory Exam: no sensory deficits noted Extrem General: no edema Psych Appearance: grossly normal Speech and Movement: speech and movement normal Course Vital Signs Vital signs: Vital Signs Temperature 36.6 C 08/04/21 17:16 Pulse 96 H 08/04/21 17:16 Respiratory Rate 08/04/21 17:16 Blood Pressure 140/52 L 08/04/21 17:16 Pulse Oximetry 94 08/04/21 17:16 Temperature 36.6 C 08/04/21 17:16 Temperature Source Skin 08/04/21 17:16 Pulse 96 H 08/04/21 17:16 Respiratory Rate 22 08/04/21 17:16 Respiratory Effort 08/04/21 17:22 Blood Pressure 140/52 L 08/04/21 17:16 Pulse Oximetry 94 08/04/21 17:16 Oxygen Delivery Method Room Air 08/04/21 17:16 Oxygen Flow Rate 0 08/04/21 17:16 Pain Level 0 08/04/21 17:16
[2021-08-04 18:09] LABS: Abs Immature Grans 0.01 10^3/uL (0.0-0.06); Absolute Basophil Count 0.04 10^3/uL (0.0-0.2); Absolute Eosinophil Count 0.26 10^3/uL (0.0-0.7); Absolute Lymphocyte Count 0.88 10^3/uL (1.2-3.4); Absolute Monocyte Count 0.52 10^3/uL (0.1-0.8); Absolute Neutrophil Count 3.11 10^3/uL (1.2-6.7); Basophils % 0.8; Eosinophils % 5.4; HGB 10.8 g/dL (11.2-15.7); Immature Grans % 0.2; Lymphocytes % 18.3; MCH 31.9 pg (27.0-33.0); MCHC 31.8 % (32.0-36.0); MCV 100.3 fL (80-95); MPV 10.3 fL (8.0-11.0); Monocytes % 10.8; Neutrophils % 64.5; Nucleated RBC 0 %; Platelet Count 178 10^3/uL (130-400); RBC 3.39 10^6/uL (3.93-5.22); RDW 12.9 % (11.7-14.6); RDW-SD 48.4 fL; WBC 4.82 10^3/uL (4.4-10.8)
[2021-08-04 18:23] LABS: ALT 20 U/L (14-59); AST 15 U/L (15-37); Albumin 3.4 g/dL (3.4-5.0); Alkaline Phosphatase 69 U/L (46-116); Anion Gap 6.5 mmol/L (3-11); BUN 29 mg/dL (7-18); Bilirubin, Total 0.3 mg/dL (0.2-1.0); CO2 27.5 mmol/L (21.0-32.0); CREATININE 1.7 mg/dL (0.55-1.02); Calcium 8.7 mg/dL (8.5-10.1); Chloride 104 mmol/L (98-107); Estimated GFR 28.63 (mL/min/1.73m2); Glucose 130 mg/dL (74-106); Potassium 4.1 mmol/L (3.5-5.1); Sodium 138 mmol/L (136-145); Total Protein 6.5 g/dL (6.4-8.2); Troponin I < 50 ng/L (<or=60)
[2021-08-04 18:29] LABS: NT-proBNP 203 pg/mL (<300)
[2021-08-04 18:40] LABS: D-Dimer 1187 ng/mlFEU (<500)
[2021-08-04 18:44] LABS: Source Nasopharynx
--- NOTE | 2021-08-04 19:02 | DI.VRAD_ITS ---
PROCEDURE INFORMATION: Exam: XR Chest Exam date and time: 08/04/2021 5:39 PM Age: 86 years old Clinical indication: Cough TECHNIQUE: Imaging protocol: XR of the chest. Views: 1 view. COMPARISON: MR CHEST WO/W 10/18/2020 9:27 AM FINDINGS: Tubes, catheters and devices: Right chest/IJ Port-A-Cath is in position. Lungs: Hyperinflation suggesting emphysema or COPD. No consolidation. No edema. Pleural spaces: Unremarkable. No pleural effusion. No pneumothorax. Heart/Mediastinum: Unremarkable. No cardiomegaly. Bones/joints: Unremarkable. IMPRESSION: 1. No acute findings. 2. No acute lung infiltrates or consolidation. 3. Hyperinflation suggesting emphysema or COPD. Dictated and Authenticated by: Bernabe Overton MD. Ordering:TANNA Billy MD
[2021-08-04] MEDS: Enoxaparin 80 MG/0.8 ML SYR SC (19:20)
[2021-08-04 19:23] LABS: COVID-19 PCR Negative (Negative); Influenza A PCR Negative (Negative); Influenza B PCR Negative (Negative); RSV PCR Negative (Negative)
[2021-08-04 19:24] LABS: INR 1.1 (0.9-1.1); Prothrombin Time 10.6 sec (9.3-11.0)
[2021-08-04] MEDS: Albuterol/Ipratropium 3 ML UPD VIAL UPD (19:52)
--- NOTE | 2021-08-04 20:23 | W.PM.HP.N ---
Date of service: 08/04/21 Time of Service: 20:23 Assessment and Plan Assessment and plan (1) Hypertension: Status: Chronic Assessment and plan: On lisinopril 40mg daily. Creatinine has gone from 1.5 to 1.7 since late last year though readings in chart may reflect periods when there was an acute issue causing elevations. NS 250ml bolus given. Can continue lisinopril in AM with some caution given she has liver steatosis that can effect the metabolism of lisinopril. (2) History of renal cell cancer: Status: Acute Assessment and plan: s/p nephrectomy. Ongoing tx with oncology. Avoid hypotension and nephrotoxic drugs. (3) COPD (chronic obstructive pulmonary disease): Assessment and plan: LIkely cause of her cough, SOA, dyspnea. Sched Duonebs. Cont Advair Prn albuterol. Consider adding a steroid if not improving adequately. (4) Shortness of breath: Status: Acute Assessment and plan: No acute findngs on CXR NTProBNP normal. COPD vs concern for pulmonary embolism. No CTA chest d/t renal concerns. Ordered V/Q scan, but if improved with nebs less likely a P.E. so could consider cancelling the V/Q scan. (5) Rash: Status: Acute Assessment and plan: Not coincidental with any new meds. Not pruritic. Was given topical agent by oncologist. Hydrocortisone 1% BID. History of Present Illness History of Present Illness Chief Complaint: Dyspnea, Shortness of breath Narrative: This is an 86 yo female with a PMH of renal cell carcinoma s/p nephrectomy on chemotx, HTN, anemia, GI bleed. Pt noted to be a poor historian. She does endorse increasing SANTIAGO and shortness of breath. Also has noted a new cough / endorsed by staff at cancer center. Denied CP, F/C, dysuria. No N/V/hemetesesis/melena/hematochezia. Initial VS: Temperature ?36.6 C ?08/04/21 17:16 Pulse ?96 H ?08/04/21 17:16 Respiratory Rate ?22 ?08/04/21 17:16 Blood Pressure ?140/52 L ?08/04/21 17:16 Pulse Oximetry ?94 ?08/04/21 17:16 Lab in ED: WBC count 4.82. Hgb 10.8. Platelets 178. INR 1.1. Lytes normal. Creatinine 1.7. Troponin neg. LFTS normal. Covid-19 neg. Influenza neg. RSV neg. She was given a duoneb treatment in ED. D-dimer elevated. Review of Systems All systems reviewed & are unremarkable except as noted in HPI and below PFSH All Active Problems (Updated 08/04/21 @ 21:34 by Ubaldo Hamilton MD) Rash (Acute) Shortness of breath (Acute) Cough (Acute) Elevated d-dimer (Acute) Helicobacter pylori gastritis (Acute) EGD 03/2020. rare. will treat 2wk amox/lilia AFTER her nephrectomy 07/13/20 Follow up (Acute) Anemia (Chronic) Abnormal CT of the head (Acute) Fall (Acute) Laceration of chin (Acute) Contusion of face (Acute) Hypertension (Chronic) Leukocytosis (Acute) GI bleed (Chronic) Acute anemia (Acute) Melena (Acute) History of renal cell cancer (Acute) Renal mass (Acute) Hydronephrosis, right (Acute) Urinary frequency (Acute) Medical History Cataracts, bilateral Cervical spondylosis Colon polyps COPD (chronic obstructive pulmonary disease) Diabetes Diverticulosis Diverticulosis Easy bruising Esophagitis Essential tremor 10/05/19: Pt denies. -BR Fatty liver Fatty liver disease, nonalcoholic GERD (gastroesophageal reflux disease) Hiatal hernia Hyperlipidemia Hypertension Impaired fasting glucose Night sweats Nocturia Peripheral neuropathy Squamous cell carcinoma Statin intolerance Urinary incontinence Surgical History Biopsy of breast History of cataract removal with insertion of prosthetic lens History of cholecystectomy History of colonoscopy History of cystoscopy Family History Sister Personal history of malignant neoplasm breast, colon Sister Personal history of malignant neoplasm uterine Social History Smoking/Tobacco Use Status: Former Tobacco Use Smoking risk assessment performed?: Yes Alcohol Intake: never Drug use: Never Substance use type: does not use Do you feel safe at home: Yes Do you feel safe in your relationship?: Yes Meds Allergies and Home Medications Allergies Allergy/AdvReac Type Severity Reaction Status Date / Time pregabalin [From Lyrica] Allergy Severe RASH/EXTREMITY Verified 09/26/20 09:01 EDEMA atorvastatin calcium Allergy Intermediate Verified 09/26/20 09:01 [From Lipitor] gabapentin [From Neurontin] Allergy Intermediate Verified 09/26/20 09:01 prednisone Allergy Mild Verified 09/26/20 09:01 codeine Allergy Verified 09/26/20 09:01 rosuvastatin calcium Allergy Verified 09/26/20 09:01 [From Crestor] sulfamethoxazole Allergy Verified 09/26/20 09:01 [From Bactrim] trimethoprim [From Bactrim] Allergy Verified 09/26/20 09:01 Home Medications Medication Instructions Recorded Confirmed Type fluticasone 250 mcg-salmeterol 50 1 ea INHALATION BID 01/09/14 08/04/21 History mcg/dose blistr powdr for inhalation (Advair Diskus) albuterol sulfate 90 mcg/actuation 90 mcg INHALATION Q 4 HR 06/10/17 08/04/21 History breath activated powder inhaler (ProAir RespiClick) ascorbate calcium (vitamin C) 500 500 mg PO DAILY 06/10/17 08/04/21 History mg tablet cholecalciferol (vitamin D3) 50 2,000 unit PO DAILY 06/10/17 08/04/21 History mcg (2,000 unit) capsule (Vitamin D3) nystatin-triamcinolone 100,000 15 gm TOPICAL BID 06/10/17 08/04/21 History unit/g-0.1 % topical cream lidocaine 5 % topical cream 15 gm TOPICAL Q4H PRN #3 tube 07/29/17 08/04/21 Rx hydrochlorothiazide 25 mg tablet 12.5 mg PO DAILY tab 04/03/19 08/04/21 History polyethylene glycol 3350 17 17 gm PO DAILY PRN 04/03/19 08/04/21 History gram/dose oral powder (Miralax) lisinopril 20 mg tablet 40 mg PO QAM tab 09/23/19 08/04/21 History L. acidophilus,casei,rhamnosus 50 1 cap PO DAILY #30 cap 09/26/20 08/04/21 Rx billion cell capsule,delayed release (Bio-K plus) Exam Narrative Exam Narrative: Lying supine in bed. No labored breathing noted. Pleasant and interactive. Const Nutritional Appearance: overweight Orientation: alert, oriented to person and oriented to place [facility] Head: normocephalic and atraumatic Ears: hearing grossly normal bilaterally Eyes General: appearance normal, both eyes and all related structures Sclera: sclerae normal Neck Neck: full ROM and no JVD Resp Effort & Inspection: normal respiratory effort Auscultation: clear to auscultation bilaterally and diminished lung sounds Cardio Rate: regular rate Rhythm: regular rhythm Heart Sounds: S1 normal and S2 normal GI Palpation: soft and nontender Skin Rashes: rashes noted (red,macular,hands/arms/upper back. Crusts. No drainage.) Neuro General: moves all extremities Cranial Nerves: facial strength normal Speech: speech normal Extrem General: no pedal edema and no calf tenderness Psych Appearance: grossly normal Affect: normal affect Results Labs Result diagrams: 08/04/21 17:40 08/04/21 17:40 Labs: Laboratory Results - last 24 hr 08/04/21 08/04/21 08/04/21 17:40 17:40 17:40 WBC 4.82 RBC 3.39 L Hgb 10.8 L Hct 34.0 L MCV 100.3 H MCH 31.9 MCHC 31.8 L RDW 12.9 Plt Count 178 MPV 10.3 Immature Gran % 0.2 Neutrophils % 64.5 Lymphocytes % 18.3 Monocytes % 10.8 Eosinophils % 5.4 Basophils % 0.8 Nucleated RBC % 0 Absolute Neutrophils 3.11 Absolute Lymphocytes 0.88 L Absolute Monocytes 0.52 Absolute Eosinophils 0.26 Absolute Basophils 0.04 PT INR APTT D-Dimer Sodium 138 Potassium 4.1 Chloride 104 Carbon Dioxide 27.5 Anion Gap 6.5 BUN 29 H Creatinine 1.7 H Estimated GFR/1.73 m2 28.63 Glucose 130 H Calcium 8.7 Total Bilirubin 0.3 AST 15 ALT 20 Alkaline Phosphatase 69 Troponin I < 50 NT-Pro-B Natriuret Pep 203 Total Protein 6.5 Albumin 3.4 COVID-19 Source SARS-CoV-2 (PCR) Influenza Type A (PCR) Influenza Type B (PCR) RSV (PCR) 08/04/21 08/04/21 08/04/21 17:40 17:40 18:00 WBC RBC Hgb Hct MCV MCH MCHC RDW Plt Count MPV Immature Gran % Neutrophils % Lymphocytes % Monocytes % Eosinophils % Basophils % Nucleated RBC % Absolute Neutrophils Absolute Lymphocytes Absolute Monocytes Absolute Eosinophils Absolute Basophils PT 10.6 INR 1.1 APTT 27.0 D-Dimer 1187 H Sodium Potassium Chloride Carbon Dioxide Anion Gap BUN Creatinine Estimated GFR/1.73 m2 Glucose Calcium Total Bilirubin AST ALT Alkaline Phosphatase Troponin I NT-Pro-B Natriuret Pep Total Protein Albumin COVID-19 Source Nasopharynx SARS-CoV-2 (PCR) Negative Influenza Type A (PCR) Negative Influenza Type B (PCR) Negative RSV (PCR) Negative Last Vital Signs Temp 36.6 C 08/04/21 17:16 Pulse 78 08/04/21 20:01 Resp 16 08/04/21 20:01 BP 124/45 L 08/04/21 20:01 Pulse Ox 96 08/04/21 19:49
[2021-08-04] MEDS: Normal Saline 250 ML IV (20:59)
[2021-08-05] VITALS (12 sets, daily range): BP systolic 101–149; BP diastolic 68–81; PULSE 71–111; RESP 14–24; TEMP 36.3–37.3; O2SAT 89–96
--- NOTE | 2021-08-05 | DI.US_ITS ---
Exam(s) US EXTREMITY VENOUS BI EXAM: US EXTREMITY VENOUS BI CLINICAL HISTORY: shortness of breath, concern for DVT/PE. TECHNIQUE: Bilateral lower extremity venous ultrasound performed using grayscale, color-flow, and sp ectral Doppler analysis. COMPARISON: No exams were available for comparison FINDINGS: The bilateral common femoral, femoral and popliteal veins demonstrate normal compressibility, augment ation, and color Doppler. The posterior tibial veins are patent. The saphenofemoral junctions are unr emarkable. There is no evidence of a Ferguson's cyst. The soft tissues are unremarkable. IMPRESSION: Right: Negative for DVT Left: Negative for DVT DATA REPOSITORY:
[2021-08-05 08:07] LABS: Abs Immature Grans 0.01 10^3/uL (0.0-0.06); Absolute Basophil Count 0.02 10^3/uL (0.0-0.2); Absolute Eosinophil Count 0.19 10^3/uL (0.0-0.7); Absolute Lymphocyte Count 0.67 10^3/uL (1.2-3.4); Absolute Monocyte Count 0.43 10^3/uL (0.1-0.8); Absolute Neutrophil Count 2.39 10^3/uL (1.2-6.7); Basophils % 0.5; Eosinophils % 5.1; HGB 10.3 g/dL (11.2-15.7); Immature Grans % 0.3; Lymphocytes % 18.1; MCHC 32.2 % (32.0-36.0); MCV 99.4 fL (80-95); MPV 9.7 fL (8.0-11.0); Monocytes % 11.6; Neutrophils % 64.4; Nucleated RBC 0 %; Platelet Count 148 10^3/uL (130-400); RBC 3.22 10^6/uL (3.93-5.22); RDW 12.8 % (11.7-14.6); RDW-SD 46.8 fL; WBC 3.71 10^3/uL (4.4-10.8)
--- NOTE | 2021-08-05 08:12 | INITIAL_ITS ---
- If Service Date Differs Date of service: 08/05/21 Time of Service: 08:12 Care Management Initial Assess REASON FOR HOSPITALIZATION:: Shortness of breath, COPD,rash PAST MEDICAL HISTORY/PAST SURGICAL HISTORY:: All Active Problems (Updated 08/04/21 @ 21:34 by Ubaldo Hamilton MD). Rash (Acute). Shortness of breath (Acute). Cough (Acute). Elevated d-dimer (Acute). Helicobacter pylori gastritis (Acute). EGD 03/2020. rare. will treat 2wk amox/lilia AFTER her nephrectomy 07/13/20. Follow up (Acute). Anemia (Chronic). Abnormal CT of the head (Acute). Fall (Acute). Laceration of chin (Acute). Contusion of face (Acute). Hypertension (Chronic). Leukocytosis (Acute). GI bleed (Chronic). Acute anemia (Acute). Melena (Acute). History of renal cell cancer (Acute). Renal mass (Acute). Hydronephrosis, right (Acute). Urinary frequency (Acute). Medical History . Cataracts, bilateral. Cervical spondylosis. Colon polyps. COPD (chronic obstructive pulmonary disease). Diabetes. Diverticulosis. Diverticulosis. Easy bruising. Esophagitis. Essential tremor. 10/05/19: Pt denies. -BR. Fatty liver. Fatty liver disease, nonalcoholic. GERD (gastroesophageal reflux disease). Hiatal hernia. Hyperlipidemia. Hypertension. Impaired fasting glucose. Night sweats. Nocturia. Peripheral neuropathy. Squamous cell carcinoma. Statin intolerance. Urinary incontinence. Surgical History . Biopsy of breast. History of cataract removal with insertion of prosthetic lens. History of cholecystectomy. History of colonoscopy. History of cystoscopy PREVIOUS FUNCTIONAL STATUS/SOCIAL/FAMILY SUPPORTS:: Domenica lives in [place], [place], with her , Adiel. She has five children, one who lives in [facility] and [place] [facility] [place] Her son Osorio and daughter Britni both reside in [place] and are identified as supports for Domenica, along with her . 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 She now spends her days cooking, baking, and caring for her home and flower garden. Domenica shares she still occasionally drives and is independent with her ADLs at baseline. CURRENT FUNCTIONAL STATUS:: Domenica was sitting up in her chair when CM met with her. She was pleasant and easily engaged in conversation. She reports that she is feeling fine and denies sob. She is on RA. She is hoping to be discharged home today. RT is planning on doing a walking oximetry assessment and depending on her O2 requirements she may discharge after that. ADVANCE DIRECTIVES:: None on file but Domenica says she has the forms to complete at home. Has patient been provided with info about the portal/API?: Yes Did the patient sign up for the portal?: No CODE STATUS:: Full Code INSURANCE COVERAGE / FINANCIAL ISSUES:: MCR/ Financial Assist 100% CURRENT HOME/COMMUNITY SERVICES/EQUIPMENT:: None at this time. PRIMARY CARE PHYSICIAN:: VICTORIA Parra POTENTIAL DISCHARGE NEEDS:: Discharge plan and follow up appointment. PATIENT/FAMILY EDUCATION NEEDS:: Discharge instructions, limitations, and plan of care, including Ask Me Three and self-management. ANTICIPATED BARRIERS TO DISCHARGE:: None identified TRANSPORTATION:: Via private vehicle by her . PLAN:: Anticipate Domenica will be discharged home with no new services when medically cleared by provider. Her will drive her home via private vehicle when ready. CM will continue to support Domenica and discharge planning considerations.
[2021-08-05 08:19] LABS: Anion Gap 8.5 mmol/L (3-11); BUN 26 mg/dL (7-18); CO2 27.5 mmol/L (21.0-32.0); CREATININE 1.5 mg/dL (0.55-1.02); Calcium 8.4 mg/dL (8.5-10.1); Chloride 107 mmol/L (98-107); Estimated GFR 33.08 (mL/min/1.73m2); Glucose 104 mg/dL (74-106); Magnesium 1.8 mg/dL (1.8-2.4); Potassium 3.9 mmol/L (3.5-5.1); Sodium 143 mmol/L (136-145)
[2021-08-05] MEDS: hydroCHLOROthiazide 25 MG TAB 12.5 MG PO (10:42)
[2021-08-05] MEDS: Lisinopril 20 MG TAB 40 MG PO (10:43)
[2021-08-05] MEDS: Hydrocortisone 1% CR 30 GM TUBE TP ×2 (10:52→19:35)
[2021-08-05] MEDS: Albuterol/Ipratropium 3 ML UPD VIAL UPD ×2 (14:18→19:25)
--- NOTE | 2021-08-05 15:03 | W.PM.PROGNOT ---
Date of Service Date of service: 08/05/21 Time of Service: 15:06 Assessment and Plan Assessment and plan (1) Shortness of breath: Status: Acute Assessment and plan: Highest on differential are acute exacerbation of COPD vs PE vs pulmonary toxicity of nivolumab. Nivolumab can also cause respiratory failure. Would agree with avoiding IV contrast at this time given h/o renal cell ca. Continue scheduled and prn nebs as well as symbicort. Allergic to prednisone per medical record (unclear if this is a true allergy). Continue full anticoagulation on empiric basis. Await VQ scan (unavailable until Saturday08/07/21); obtain venous doppler of BLEs. There may still be a role for a dry CT of the chest and pulmonology consult, if above studies are unremarkable. 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 s/p nephrectomy On nivolumab. Has immune-mediated hypothyroidism. Cr is at her baseline, but will avoid IV contrast. Consider role of nivolumab in her respiratory symptoms. (4) Rash: Status: Acute Assessment and plan: Dermatitis could be due to opdivo as well. Continue hydrocortisone (was just initiated by oncology). (5) Hypertension: Status: Chronic Assessment and plan: Continue lisinopril and HCTZ while monitoring kidney function. (6) DVT prophylaxis: Status: Acute Assessment and plan: Empirically fully anticoagulated. (7) Discharge planning issues: Status: Acute Assessment and plan: Full code. Consider palliative care consult if still here past Saturday. Subjective Subjective Interval history since last seen: Ms Clemente states that she does not feel short of breath and wants to go home. Her who is visiting states that her breathing is not normal and that it became like this two days ago. The patient states that she has had a nonproductive cough. She denies dizziness, chest pain, nausea. Exam Narrative Exam Narrative: General: Pleasant elderly female who is having an abdominal breathing pattern/is dyspneic. She is able to complete short sentences. HEENT: EOMI, MMM Heart: RRR, no m/r/g Lungs: CTAB (forces an expiratory wheeze) Abdomen: soft, nontender, nondistended Extremities: trace edema RLE, no edema LLE. Objective Last Vital Signs Temp 37.3 C 08/05/21 14:04 Pulse 82 08/05/21 14:18 Resp 22 08/05/21 14:18 BP 124/71 08/05/21 14:04 Pulse Ox 95 08/05/21 14:18 Laboratory Results - last 24 hr 08/04/21 08/04/21 08/04/21 17:40 17:40 17:40 WBC 4.82 RBC 3.39 L Hgb 10.8 L Hct 34.0 L MCV 100.3 H MCH 31.9 MCHC 31.8 L RDW 12.9 Plt Count 178 MPV 10.3 Immature Gran % 0.2 Neutrophils % 64.5 Lymphocytes % 18.3 Monocytes % 10.8 Eosinophils % 5.4 Basophils % 0.8 Nucleated RBC % 0 Absolute Neutrophils 3.11 Absolute Lymphocytes 0.88 L Absolute Monocytes 0.52 Absolute Eosinophils 0.26 Absolute Basophils 0.04 PT INR APTT D-Dimer Sodium 138 Potassium 4.1 Chloride 104 Carbon Dioxide 27.5 Anion Gap 6.5 BUN 29 H Creatinine 1.7 H Estimated GFR/1.73 m2 28.63 Glucose 130 H Calcium 8.7 Magnesium Total Bilirubin 0.3 AST 15 ALT 20 Alkaline Phosphatase 69 Troponin I < 50 NT-Pro-B Natriuret Pep 203 Total Protein 6.5 Albumin 3.4 COVID-19 Source SARS-CoV-2 (PCR) Influenza Type A (PCR) Influenza Type B (PCR) RSV (PCR) 08/04/21 08/04/21 08/04/21 17:40 17:40 18:00 WBC RBC Hgb Hct MCV MCH MCHC RDW Plt Count MPV Immature Gran % Neutrophils % Lymphocytes % Monocytes % Eosinophils % Basophils % Nucleated RBC % Absolute Neutrophils Absolute Lymphocytes Absolute Monocytes Absolute Eosinophils Absolute Basophils PT 10.6 INR 1.1 APTT 27.0 D-Dimer 1187 H Sodium Potassium Chloride Carbon Dioxide Anion Gap BUN Creatinine Estimated GFR/1.73 m2 Glucose Calcium Magnesium Total Bilirubin AST ALT Alkaline Phosphatase Troponin I NT-Pro-B Natriuret Pep Total Protein Albumin COVID-19 Source Nasopharynx SARS-CoV-2 (PCR) Negative Influenza Type A (PCR) Negative Influenza Type B (PCR) Negative RSV (PCR) Negative 08/05/21 08/05/21 07:55 07:55 WBC 3.71 L RBC 3.22 L Hgb 10.3 L Hct 32.0 L MCV 99.4 H MCH 32.0 MCHC 32.2 RDW 12.8 Plt Count 148 MPV 9.7 Immature Gran % 0.3 Neutrophils % 64.4 Lymphocytes % 18.1 Monocytes % 11.6 Eosinophils % 5.1 Basophils % 0.5 Nucleated RBC % 0 Absolute Neutrophils 2.39 Absolute Lymphocytes 0.67 L Absolute Monocytes 0.43 Absolute Eosinophils 0.19 Absolute Basophils 0.02 PT INR APTT D-Dimer Sodium 143 Potassium 3.9 Chloride 107 Carbon Dioxide 27.5 Anion Gap 8.5 BUN 26 H Creatinine 1.5 H Estimated GFR/1.73 m2 33.08 Glucose 104 Calcium 8.4 L Magnesium 1.8 Total Bilirubin AST ALT Alkaline Phosphatase Troponin I NT-Pro-B Natriuret Pep Total Protein Albumin COVID-19 Source SARS-CoV-2 (PCR) Influenza Type A (PCR) Influenza Type B (PCR) RSV (PCR)
[2021-08-05] MEDS: Enoxaparin 40 MG/0.4 ML SYR 80 MG SC (19:31)
[2021-08-05] MEDS: Normal Saline Flush 10 ML SYR IVP (19:41)
--- NOTE | 2021-08-05 21:31 | DI.VRAD_ITS ---
PROCEDURE INFORMATION: Exam: US Duplex Lower Extremity Veins, Bilateral Exam date and time: 08/05/2021 15:13 Age: 86 years old Clinical indication: Pain; Leg, lower; Bilateral TECHNIQUE: Imaging protocol: Real-time Duplex ultrasound of the bilateral extremities with 2-D goodman scale, color Doppler flow and spectral waveform analysis with image documentation. Complete exam focused on the bilateral lower extremity veins. COMPARISON: CT ABDOMEN PELVIS W 03/25/2020 19:43 FINDINGS: Right deep veins: The common femoral, femoral and popliteal veins are patent without thrombus. Normal compressibility, augmentation response and Doppler waveforms. Visualized calf veins are patent. Right superficial veins: Saphenofemoral junction is patent without thrombus. Left deep veins: The common femoral, femoral and popliteal veins are patent without thrombus. Normal compressibility, augmentation response and Doppler waveforms. Visualized calf veins are patent. Left superficial veins: Saphenofemoral junction is patent without thrombus. Soft tissues: Unremarkable. IMPRESSION: No deep venous thrombus. Dictated and Authenticated by: Mesha Pierre MD. Ordering:AL Tejeda MD
[2021-08-05 21:51] LABS: Bilirubin Negative (Negative); Blood Negative (Negative); Clarity Clear (Clear); Glucose Negative (Negative); Ketones Negative (Negative); Leukocyte Esterase Moderate (Negative); Nitrite Negative (Negative); Specific Gravity 1.015 (1.005-1.025); Urobilinogen 0.2 EU/dL (Up TO 0.2)
[2021-08-05 22:00] LABS: Bacteria Few HPF (Negative); C & S Indicated? Yes; Crystals Negative HPF (Negative); Epithelial Cells Moderate HPF (Negative); Mucus Negative (Negative); RBC 0-2 HPF (0-2)
[2021-08-06] VITALS (11 sets, daily range): BP systolic 110–121; BP diastolic 53–81; PULSE 75–93; RESP 1–18; TEMP 36.5–37.1; O2SAT 92–96
--- NOTE | 2021-08-06 | DI.CT_ITS ---
Exam(s) CT CHEST WO EXAM: CT CHEST WO CLINICAL HISTORY: shortness of breath, on immunotherapy. TECHNIQUE: Imaging protocol: Axial computed tomography images were obtained and coronal and sagittal reformatted images were created and reviewed. COMPARISON: CT CT CHEST WO from 04/02/[address] ABDOMEN PELVIS W from 03/25/2020 CR,XR XR PORTABLE CHEST AP from 08/04/2021 FINDINGS: The examination is limited due to patient motion artifact. Tracheobronchial tree: Patent where visualized. Pulmonary parenchyma: There is an unchanged area of scarring or atelectasis in the right middle lobe. Mild bronchiectatic changes are again seen in the right lung base. Scarring and/or atelectasis is seen in the lower lobes, right greater than left. Mild emphysematous changes are present in the lung s. There is a 2 mm nodule in the right upper lobe. There is a 2 mm nodule in the left upper lobe. These are unchanged. Mediastinum and Liss: No dominant adenopathy or fluid collection. The esophagus is unremarkable.There is a small hiatal hernia. Thyroid gland: Unremarkable. Pleura: No effusion or pneumothorax. Heart: The heart is not dilated. Coronary artery calcifications are present. No pericardial effusion . Aorta: Thoracic aorta non-dilated. Atherosclerosis. Upper abdomen: Status post cholecystectomy. Stable hepatic cysts are present. There is stable nodu larity of the left adrenal gland. The liver has a cirrhotic appearance. Please correlate clinically . Lymph nodes: Within normal limits. Tubes, Catheters, and Lines: The tip of the Actrdf-V-Ecgi catheter is in good position at the junctio n of the superior vena cava and right atrium. Soft tissues: Unremarkable. Bones:Within normal limits for the patient's age. The left 3rd rib lesion is best appreciated on the MRI from 2020. IMPRESSION: No acute pulmonary process. RADIATION DOSE DELIVERED: 588.29mGy.cm Total DLP DATA REPOSITORY: All CT scans at this facility are submitted to the National Radiology Data Registry (NRDR) Dose Index Registry (DIR) with the [employer] ([employer]). RADIATION OPTIMIZATION: All CT scans at this facility use at least one of these dose optimization te chniques: automated exposure control; mA and/or kV adjustment per patient size (includes targeted exa ms where dose is matched to clinical indication); or iterative reconstruction.
[2021-08-06 00:31] LABS: HCT 31.7 % (36.0-46.0); HGB 10.1 g/dL (11.2-15.7); MCH 31.9 pg (27.0-33.0); MCHC 31.9 % (32.0-36.0); MPV 9.5 fL (8.0-11.0); Platelet Count 166 10^3/uL (130-400); RBC 3.17 10^6/uL (3.93-5.22); RDW 12.8 % (11.7-14.6); WBC 4.54 10^3/uL (4.4-10.8)
[2021-08-06] MEDS: Hydrocortisone 1% CR 30 GM TUBE TP ×2 (08:18→20:06)
[2021-08-06] MEDS: Lisinopril 20 MG TAB 40 MG PO (08:18)
[2021-08-06] MEDS: hydroCHLOROthiazide 25 MG TAB 12.5 MG PO (08:19)
[2021-08-06] MEDS: Albuterol/Ipratropium 3 ML UPD VIAL UPD ×3 (08:26→20:06)
--- NOTE | 2021-08-06 09:48 | DI.VRAD_ITS ---
PROCEDURE INFORMATION: Exam: CT Chest Without Contrast; Diagnostic Exam date and time: 08/06/2021 8:53 AM Age: 86 years old Clinical indication: Other: Shortness of breath, on immunotherapy TECHNIQUE: Imaging protocol: Diagnostic computed tomography of the chest without contrast. 3D rendering (Not supervised by radiologist): MIP and/or 3D reconstructed images were created by the technologist. Radiation optimization: All CT scans at this facility use at least one of these dose optimization techniques: automated exposure control; mA and/or kV adjustment per patient size (includes targeted exams where dose is matched to clinical indication); or iterative reconstruction. COMPARISON: MR CHEST WO/W 10/18/2020 9:27 AM and PET-CT 09/27/2020 FINDINGS: Tubes, catheters and devices: Right internal jugular MediPort Lungs: Centrilobular emphysema. Mild diffuse bronchiectasis. Scarring in the right lung base, unchanged Pleural spaces: 3 mm pleural base nodule left upper lobe, unchanged Heart: Coronary artery atherosclerotic calcifications Aorta: Unremarkable. No aortic aneurysm. Lymph nodes: Pretracheal lymph nodes, unchanged Liver: Cirrhotic appearing liver Gallbladder and bile ducts: Status post cholecystectomy Kidneys and ureters: Prior right nephrectomy Bones/joints: Left 3rd rib lesion better seen with MRI imaging. Soft tissues: Unremarkable. IMPRESSION: Stable appearance of the chest Dictated and Authenticated by: Magdalena Mccabe MD. Ordering:AL Tejeda MD
--- NOTE | 2021-08-06 16:10 | PGE_ITS ---
Date of Service Date of service: 08/06/21 Time of Service: 16:11 Assessment and Plan Assessment and plan (1) Shortness of breath: Status: Acute Assessment and plan: Highest on differential are acute exacerbation of COPD vs PE. CT chest w/o contrast shows evidence of acute process. Venous dopplers are negative for DVT. Await VQ scan tomorrow. Avoiding IV contrast at this time given h/o renal cell ca. Continue scheduled and prn nebs as well as symbicort. Allergic to prednisone per medical record (unclear if this is a true allergy). Continue full anticoagulation on empiric basis. 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 s/p nephrectomy On nivolumab. Has immune-mediated hypothyroidism. Cr is at her baseline, but will avoid IV contrast. Nivolivumab does not appear to be causing toxicity as per CT chest. (4) Rash: Status: Acute Assessment and plan: Dermatitis could be due to opdivo as well. Continue hydrocortisone (was just initiated by oncology). (5) Hypertension: Status: Chronic Assessment and plan: Continue lisinopril and HCTZ while monitoring kidney function. (6) DVT prophylaxis: Status: Acute Assessment and plan: Empirically fully anticoagulated. (7) Discharge planning issues: Status: Acute Assessment and plan: Full code. Consider palliative care consult if still here past Saturday. Likely discharge home tomorrow independent of the results of the VQ scan as doing much better. Subjective Subjective Interval history since last seen: Breathing is better, per the patient and per . Denies dizziness, chest pain, nausea. Exam Narrative Exam Narrative: General: Pleasant elderly female who looks significantly less dyspneic, A&Ox3, able to complete sentences without having to pause to breathe; I see a lot less of the abdominal breathing pattern today. HEENT: EOMI, MMM Heart: RRR, no m/r/g Lungs: CTAB Abdomen: soft, nontender, nondistended Extremities: trace edema RLE, no edema LLE. Objective Last Vital Signs Temp 36.7 C 08/06/21 11:50 Pulse 89 08/06/21 11:50 Resp 17 08/06/21 11:50 BP 121/81 08/06/21 11:50 Pulse Ox 95 08/06/21 14:16 Laboratory Results - last 24 hr 08/05/21 08/06/21 20:30 00:25 WBC 4.54 RBC 3.17 L Hgb 10.1 L Hct 31.7 L MCV 100.0 H MCH 31.9 MCHC 31.9 L RDW 12.8 Plt Count 166 MPV 9.5 Urine Color Yellow Urine Clarity Clear Urine pH 6.0 Ur Specific [place] 1.015 Urine Protein Negative Urine Ketones Negative Urine Blood Negative Urine Nitrite Negative Urine Bilirubin Negative Urine Urobilinogen 0.2 Ur Leukocyte Esterase Moderate H Urine RBC 0-2 Urine WBC 10-20 H Ur Epithelial Cells Moderate Urine Crystals Negative Urine Bacteria Few Urine Mucus Negative Ur Culture Indicated? Yes Urine Glucose Negative
[2021-08-06] MEDS: Enoxaparin 40 MG/0.4 ML SYR 80 MG SC (20:01)
--- NOTE | 2021-08-07 | DI.NM_ITS ---
Exam(s) NM LUNG SCAN VENT PERF AEROS EXAM: NM LUNG SCAN VENT PERF AEROS CLINICAL HISTORY: Shortness of air, elevated d-dimer. TECHNIQUE: Injected Dose: Ventilation: 32 mCi Tc-99m DTPA via inhalation Perfusion: 4 mCi Tc-99m MAA via IV COMPARISON: CR,XR XR PORTABLE CHEST AP from 08/04/[address] CHEST WO from 08/06/2021 There is no chest x-ray from today or yesterday. Chest x-ray 08/04/2021 revealed no acute pulmonary findings. FINDINGS: There are multiple bilateral subsegmental perfusion defects noted. However, there are matched ventil ation defects at these levels. There are centrally no V/Q mismatches. IMPRESSION: 1. Multiple bilateral matched defects. No V/Q mismatches.. By the PIOPED criteria there is no evide nce of acute hemodynamically significant pulmonary emboli Modified PIOP. ED II criteria Probability Criteria High Two or more segments of V/Q mismatch Low Normal Perfusion, Non segmental perfusion abnormalitie s, pleural effusion in at least 1/3 of pleural cavity with no other defect Radiograph/perfusion matched defect in mid to upper lung confined to segment, one to three small segmental perfusion defects (<25% of segment) Perfusion defect smaller than corresponding radiogra phic lesion. Intermediate All other findings DATA REPOSITORY:
[2021-08-07 03:34] VITALS: BP 110/56; PULSE 76; RESP 16; TEMP 36.6; O2SAT 94
[2021-08-07 07:10] LABS: Abs Immature Grans 0.01 10^3/uL (0.0-0.06); Absolute Basophil Count 0.03 10^3/uL (0.0-0.2); Absolute Eosinophil Count 0.22 10^3/uL (0.0-0.7); Absolute Lymphocyte Count 0.84 10^3/uL (1.2-3.4); Absolute Monocyte Count 0.49 10^3/uL (0.1-0.8); Absolute Neutrophil Count 2.53 10^3/uL (1.2-6.7); Basophils % 0.7; Eosinophils % 5.3; HCT 32.9 % (36.0-46.0); HGB 10.5 g/dL (11.2-15.7); Immature Grans % 0.2; Lymphocytes % 20.4; MCH 31.5 pg (27.0-33.0); MCHC 31.9 % (32.0-36.0); MCV 98.8 fL (80-95); MPV 10.4 fL (8.0-11.0); Monocytes % 11.9; Neutrophils % 61.5; Nucleated RBC 0 %; Platelet Count 175 10^3/uL (130-400); RBC 3.33 10^6/uL (3.93-5.22); RDW 13.1 % (11.7-14.6); RDW-SD 47.7 fL; WBC 4.12 10^3/uL (4.4-10.8)
[2021-08-07 07:31] LABS: Anion Gap 8.5 mmol/L (3-11); BUN 28 mg/dL (7-18); CO2 26.5 mmol/L (21.0-32.0); CREATININE 1.6 mg/dL (0.55-1.02); Calcium 8.9 mg/dL (8.5-10.1); Chloride 103 mmol/L (98-107); Estimated GFR 30.71 (mL/min/1.73m2); Glucose 111 mg/dL (74-106); Magnesium 1.9 mg/dL (1.8-2.4); Potassium 4.2 mmol/L (3.5-5.1); Sodium 138 mmol/L (136-145)
[2021-08-07 08:15] VITALS: PULSE 76; RESP 1; RESP 16; RESP 8; O2SAT 95
[2021-08-07] MEDS: Albuterol/Ipratropium 3 ML UPD VIAL UPD ×2 (08:15→13:30)
[2021-08-07 08:18] VITALS: PULSE 80; RESP 1; RESP 16; RESP 8; O2SAT 98
--- NOTE | 2021-08-07 08:22 | W.PALLCONSUL ---
Date of service: 08/07/21 Time of Service: 08: [facility] All Active Problems (Updated 08/05/21 @ 15:14 by Ileana Beebe MD) Discharge planning issues (Acute) DVT prophylaxis (Acute) Rash (Acute) Shortness of breath (Acute) Cough (Acute) Elevated d-dimer (Acute) Helicobacter pylori gastritis (Acute) EGD 03/2020. rare. will treat 2wk amox/lilia AFTER her nephrectomy 07/13/20 Follow up (Acute) Anemia (Chronic) Abnormal CT of the head (Acute) Fall (Acute) Laceration of chin (Acute) Contusion of face (Acute) Hypertension (Chronic) Leukocytosis (Acute) GI bleed (Chronic) Acute anemia (Acute) Melena (Acute) History of renal cell cancer (Acute) Renal mass (Acute) Hydronephrosis, right (Acute) Urinary frequency (Acute) Medical History Cataracts, bilateral Cervical spondylosis Colon polyps COPD (chronic obstructive pulmonary disease) Diabetes Diverticulosis Diverticulosis Easy bruising Esophagitis Essential tremor 10/05/19: Pt denies. -BR Fatty liver Fatty liver disease, nonalcoholic GERD (gastroesophageal reflux disease) Hiatal hernia Hyperlipidemia Hypertension Impaired fasting glucose Night sweats Nocturia Peripheral neuropathy Squamous cell carcinoma Statin intolerance Urinary incontinence Surgical History Biopsy of breast History of cataract removal with insertion of prosthetic lens History of cholecystectomy History of colonoscopy History of cystoscopy Family History Sister Personal history of malignant neoplasm breast, colon Sister Personal history of malignant neoplasm uterine Social History Smoking/Tobacco Use Status: Former Tobacco Use Smoking risk assessment performed?: Yes Alcohol Intake: never Drug use: Never Substance use type: does not use Do you feel safe at home: Yes Do you feel safe in your relationship?: Yes Results Last Vital Signs Temp 97.9 F 08/07/21 03:34 Pulse 80 08/07/21 08:18 Resp 16 08/07/21 08:18 BP 110/56 L 08/07/21 03:34 Pulse Ox 98 08/07/21 08:18 Labs Result diagrams: 08/07/21 06:40 08/07/21 06:40 Labs: Laboratory Results - last 24 hr 08/07/21 08/07/21 06:40 06:40 WBC 4.12 L RBC 3.33 L Hgb 10.5 L Hct 32.9 L MCV 98.8 H MCH 31.5 MCHC 31.9 L RDW 13.1 Plt Count 175 MPV 10.4 Immature Gran % 0.2 Neutrophils % 61.5 Lymphocytes % 20.4 Monocytes % 11.9 Eosinophils % 5.3 Basophils % 0.7 Nucleated RBC % 0 Absolute Neutrophils 2.53 Absolute Lymphocytes 0.84 L Absolute Monocytes 0.49 Absolute Eosinophils 0.22 Absolute Basophils 0.03 Sodium 138 Potassium 4.2 Chloride 103 Carbon Dioxide 26.5 Anion Gap 8.5 BUN 28 H Creatinine 1.6 H Estimated GFR/1.73 m2 30.71 Glucose 111 H Calcium 8.9 Magnesium 1.9
[2021-08-07] MEDS: hydroCHLOROthiazide 25 MG TAB 12.5 MG PO (08:35)
[2021-08-07] MEDS: Lisinopril 20 MG TAB 40 MG PO (08:35)
[2021-08-07] MEDS: Hydrocortisone 1% CR 30 GM TUBE TP (08:37)
[2021-08-07 08:40] VITALS: BP 124/55; PULSE 79; RESP 18; TEMP 36; O2SAT 96
[2021-08-07 11:14] VITALS: BP 115/70; PULSE 81; RESP 18; TEMP 36.7; O2SAT 97
[2021-08-07 13:30] VITALS: PULSE 81; RESP 1; RESP 16; O2SAT 97
--- NOTE | 2021-08-07 14:29 | W.PM.DS.N ---
Date of service: 08/07/21 Time of Service: 14:29 DS: Diagnosis Discharge Diagnosis (1) Shortness of breath: Status: Acute (2) COPD (chronic obstructive pulmonary disease): (3) History of renal cell cancer: Status: Acute (4) Rash: Status: Acute (5) Hypertension: Status: Chronic Discharge Plan Disposition Patient Disposition: HOME Condition: Improving Discharge Details Reason For Visit: Shortness of breath Admit Date/Time: 08/05/21 15:10 Admit Provider: Ubaldo Hamilton Attending Provider: Ubaldo Hamilton Primary Care Provider: Mary Hollingsworth [facility] Course Hospital Course: Ms Clemente is an 86 year old female with PMHx of non-oxygen dependent COPD, renal cell ca s/p nephrectomy on nivolumab infusions, CKD, HTN, chronic anemia, who was admitted to [facility] Hospitalist service on 08/04/21 with shortness of breath. There was no evidence of acute pulmonary process on acute CXR and, later, on non-contrast CT of the chest. Due to patient's impaired renal function, we avoided IV contrast in ruling out of a PE and treated her empirically with therapeutic lovenox while awaiting a VQ scan and venous dopplers of BLE's, both of which were negative. The patient is allergic to prednisone which is confirmed by her , but neither her nor her can share with us what the allergy is. She was treated with scheduled and prn bronchodilators which helped somewhat, but some component of dyspnea remains. The patient does not have any evidence of wheezing or rales. She is not requiring oxygen at rest or on ambulation. It is possible that the patient's symptoms are due to a COPD exacerbation, but I cannot rule out a side effect of nivolumab as shortness of breath is seen in >18% of patients on this therapy. I am contacting [facility] [place] team to inform them of my concerns prior to patient's discharge. She states she has not had pulmonary function test and it is felt she would benefit from one as an outpatient. The patient is medically stable for discharge at this time. Care for patient as well as completion of her discharge paperwork on the day of discharge took 45 minutes. Home Meds and New Rx's Prescriptions: New hydrocortisone 1 % Cream With Perineal Applicator 1 applic topical BID Qty: 28.4 0RF Continued Bio-K plus 50 billion cell capsule,delayed release(DR/EC) 1 cap PO DAILY Qty: 30 0RF Rx Instructions: finish all ascorbate calcium (vitamin C) 500 MG tablet 500 mg PO DAILY 0RF nystatin-triamcinolone 15 GM cream 15 gm Topical BID 0RF cholecalciferol (vitamin D3) [Vitamin D3] 2,000 UNIT capsule 2,000 unit PO DAILY 0RF ProAir RespiClick 90 MCG aerosol powdr breath activated 90 mcg Inhalation Q 4 HR 0RF lidocaine 15 GM cream 15 gm Topical Q4H PRN Qty: 3 5RF Rx Instructions: Rr for Emla Cream. Apply to bilateral legs q4h hr prn pain. Dispense 1 month supply. hydrochlorothiazide 25 mg tablet 12.5 mg PO DAILY 0RF polyethylene glycol 3350 [Miralax] 17 gram/dose powder 17 gm PO DAILY PRN0RF lisinopril 20 mg tablet 40 mg PO QAM 0RF fluticasone propion-salmeterol [Advair Diskus] 1 EACH blister with device 1 ea Inhalation BID 0RF Discharge Instructions Instructions: COPD (Chronic Obstructive Pulmonary Disease) (DC), Shortness of Breath (DC) Additional Instructions: Return to the hospital with any worsening breathing, chest pain, fever, or bleeding. Follow up with [facility] oncology in 1- 2 weeks. Follow up with your PCP in 1- 2 weeks. Follow up for outpatient PFTs. Stand Alone Forms: Nursing Discharge Form Referrals: Frederick Payne [ NON-[facility] STAFF PHYSICIAN] - 08/15/21 9:00 am Mary Hollingsworth [Primary Care Provider] - 08/24/21 9:30 am (This appointment will take 1 hour.) Activity:: Activity as Tolerated Equipment/Supplies:: No Equipment Needed Diet:: As Tolerated Discharge Orders Discharge Orders: Discharge Order (Routine); Ordered 08/07/21 Ordered By: Ileana Beebe Discharge Data Discharge Date/Time-TO BE ENTERED AT DEPARTURE: 08/07/21 15:09 DS: Summary Time Spent with Patient providing and/or coordinating discharge services: Greater than 30 minutes Status at Discharge Functional status at discharge: independent ambulation Overall status at discharge: patient is progressing back to baseline Mental Status: mental status grossly normal Speech and Movement: speech and movement normal Mood: congruent mood Affect: normal affect Exam Narrative Exam Narrative: General: Pleasant elderly female who looks significantly less dyspneic, A&Ox3, able to complete sentences without having to pause to breathe; I see a lot less of the abdominal breathing pattern today. HEENT: EOMI, MMM Heart: RRR, no m/r/g Lungs: CTAB Abdomen: soft, nontender, nondistended Extremities: trace edema RLE, no edema LLE. Psych Mental Status: mental status grossly normal Speech and Movement: speech and movement normal Mood: congruent mood Affect: normal affect DS: Data Vitals/I&O Vitals and I&O: Vital Signs Temperature 36.7 C 08/07/21 11:14 Temperature Source Tympanic 08/07/21 11:14 Pulse 81 08/07/21 13:30 Pulse Rhythm Regular 08/07/21 08:40 Pulse 86 08/04/21 20:50 Respiratory Rate 16 08/07/21 13:30 Respiratory Effort Non-Labored 08/07/21 08:40 Respiratory Depth Normal 08/07/21 08:40 Respiratory Pattern Normal 08/07/21 08:40 Blood Pressure 115/70 08/07/21 11:14 Blood Pressure Mean 56 08/04/21 20:46 Pulse Oximetry 97 08/07/21 13:30 Oxygen Delivery Method Room Air 08/07/21 13:30 Oxygen Flow Rate 0 08/07/21 13:30 Fraction of Inspired Oxygen (FIO2) 21 08/05/21 14:18 Pain Level 0 08/07/21 11:14 Comment 08/05/21 14:04 Intake & Output 08/06/21 08/07/21 08/07/21 23:59 11:59 23:59 Intake Total 650 / 1020 610 / 850 240 / 850 Output Total 200 / 200 Balance 650 / 1020 410 / 650 240 / 650 Intake: Oral 650 / 1020 610 / 850 240 / 850 Output: Urine 200 / 200 Other: Urine Color Yellow Urine Appearance Clear Urine Odor Normal Comment patient is incontinent at times. Stool Size Moderate Stool Characteristics Formed Voiding Methods Toilet Data Completed and Pending Completed studies during hospitalization [Text1]: CXR; No acute pulmonary findings. Venous dopplers BLEs: Right: Negative for DVT Left: Negative for DVT CT chest w/o contrast :No acute pulmonary process.? VQ scan: 1. Multiple bilateral matched defects.? No V/Q mismatches..? By the PIOPED criteria there is no evidence of acute hemodynamically significant pulmonary emboli Labs on day of discharge: Labs from last 24 hours 08/07/21 08/07/21 06:40 06:40 WBC 4.12 L RBC 3.33 L Hgb 10.5 L Hct 32.9 L MCV 98.8 H MCH 31.5 MCHC 31.9 L RDW 13.1 Plt Count 175 MPV 10.4 Immature Gran % 0.2 Neutrophils % 61.5 Lymphocytes % 20.4 Monocytes % 11.9 Eosinophils % 5.3 Basophils % 0.7 Nucleated RBC % 0 Absolute Neutrophils 2.53 Absolute Lymphocytes 0.84 L Absolute Monocytes 0.49 Absolute Eosinophils 0.22 Absolute Basophils 0.03 Sodium 138 Potassium 4.2 Chloride 103 Carbon Dioxide 26.5 Anion Gap 8.5 BUN 28 H Creatinine 1.6 H Estimated GFR/1.73 m2 30.71 Glucose 111 H Calcium 8.9 Magnesium 1.9 PFSH All Active Problems (Updated 08/05/21 @ 15:14 by Ileana Beebe MD) Discharge planning issues (Acute) DVT prophylaxis (Acute) Rash (Acute) Shortness of breath (Acute) Cough (Acute) Elevated d-dimer (Acute) Helicobacter pylori gastritis (Acute) EGD 03/2020. rare. will treat 2wk amox/lilia AFTER her nephrectomy 07/13/20 Follow up (Acute) Anemia (Chronic) Abnormal CT of the head (Acute) Fall (Acute) Laceration of chin (Acute) Contusion of face (Acute) Hypertension (Chronic) Leukocytosis (Acute) GI bleed (Chronic) Acute anemia (Acute) Melena (Acute) History of renal cell cancer (Acute) Renal mass (Acute) Hydronephrosis, right (Acute) Urinary frequency (Acute) Medical History Cataracts, bilateral Cervical spondylosis Colon polyps COPD (chronic obstructive pulmonary disease) Diabetes Diverticulosis Diverticulosis Easy bruising Esophagitis Essential tremor 10/05/19: Pt denies. -BR Fatty liver Fatty liver disease, nonalcoholic GERD (gastroesophageal reflux disease) Hiatal hernia Hyperlipidemia Hypertension Impaired fasting glucose Night sweats Nocturia Peripheral neuropathy Squamous cell carcinoma Statin intolerance Urinary incontinence Surgical History Biopsy of breast History of cataract removal with insertion of prosthetic lens History of cholecystectomy History of colonoscopy History of cystoscopy Family History Sister Personal history of malignant neoplasm breast, colon Sister Personal history of malignant neoplasm uterine Social History Smoking/Tobacco Use Status: Former Tobacco Use Smoking risk assessment performed?: Yes Alcohol Intake: never Drug use: Never Substance use type: does not use Do you feel safe at home: Yes Do you feel safe in your relationship?: Yes
[2021-08-07] MEDS: Normal Saline Flush 10 ML SYR IVP (15:01)
[2021-08-07] MEDS: Heparin 500 UNITS/5 ML SYRINGE IVP (15:03)
--- NOTE | 2021-08-07 15:05 | CMDISCH_ITS ---
- If Service Date Differs Date of service: 08/07/21 Time of Service: 15:05 LACE Index Scoring Tool - Questions: Length of Stay (in days): 2 Acuity (Admit via E.D.?): Yes Comorbidities: Diabetes w/o Complication, Chronic Pulmonary Disease, Any Tumor E.D. Visits: 1 - Answers: Total Score: 11 Risk of Readmission: High Risk Care Management Discharge Reason for Hospitalization: Shortness of breath, COPD,rash Discharge Plan: Discharge home with no new services via private vehicle with . Resume activity and diet as tolerated. Follow up with [facility] oncology and PCP in 1-2 weeks. Follow up for out patient PFT's. Return to the hospital with any worsening breathing, chest pain, fever, or bleeding. Patient/Family Education Needs: Review discharge instructions, limitations, medications and plan to follow up with [facility] oncology and PCP in 1-2 weeks. Ask me three.
== END 2021-08-07 15:09 | disposition home or self-care (01) | DRG 191 ==
LOC: ER 20:06 → MS 21:06
PROVIDERS: Internal Medicine; Admitting Provider Family Medicine; Emergency Provider Student in an Organized Health Care Education/Training Program; PCP Nurse Practitioner Family; Visit Provider Family Medicine
DX: J44.1 Chronic obstructive pulmonary disease with (acute) exacerbation (principal); C64.1 Malignant neoplasm of right kidney, except renal pelvis; C77.5 Secondary and unspecified malignant neoplasm of intrapelvic lymph nodes; I10 Essential (primary) hypertension; Z87.891 Personal history of nicotine dependence; K76.0 Fatty (change of) liver, not elsewhere classified; K21.9 Gastro-esophageal reflux disease without esophagitis; E78.5 Hyperlipidemia, unspecified; E11.42 Type 2 diabetes mellitus with diabetic polyneuropathy; M47.812 Spondylosis without myelopathy or radiculopathy, cervical region; D64.9 Anemia, unspecified; Z90.5 Acquired absence of kidney; R21 Rash and other nonspecific skin eruption; R06.02 Shortness of breath; T45.1X5A Adverse effect of antineoplastic and immunosuppressive drugs, initial encounter; E03.8 Other specified hypothyroidism; Z79.899 Other long term (current) drug therapy
CPT/HCPCS: 71250; 80048; 80053; 85027; 87637; 93005; 94618; 94640; 96372; 99285; J1650; 71045; 78582; 81003; 81015; 83735; 83880; 84484; 85025; 85379; 85610; 85730; 87086; 93010; 93970; 99220; 99233; 99239; G0378; J7620

== ENCOUNTER 2021-08-10 02:56 | Outpatient (CLI) | payer MEDICARE, SELFPAY ==
[2021-08-10] MEDS: Albuterol HFA 18 GM 200 PUFF INH IH (13:57)
[2021-08-10] MEDS: Inhaler, Assist Device 1 EACH MC (13:58)
== END 2021-08-10 02:57 | disposition home or self-care (01) ==
LOC: RT 02:57
PROVIDERS: PCP Nurse Practitioner Family; Visit Provider Student in an Organized Health Care Education/Training Program
DX: R06.02 Shortness of breath (principal); R06.09 Other forms of dyspnea; R05.9 Cough, unspecified; Z87.891 Personal history of nicotine dependence
CPT/HCPCS: 94060; 94726; 94729

== ENCOUNTER 2021-08-16 00:55 | Outpatient (RCR) | payer MEDICARE, SELFPAY ==
[2021-08-16] MEDS: Normal Saline Flush 10 ML SYR IVP (08:37)
[2021-08-16 09:07] LABS: Abs Immature Grans 0.01 10^3/uL (0.0-0.06); Absolute Basophil Count 0.02 10^3/uL (0.0-0.2); Absolute Eosinophil Count 0.31 10^3/uL (0.0-0.7); Absolute Lymphocyte Count 0.72 10^3/uL (1.2-3.4); Absolute Neutrophil Count 2.75 10^3/uL (1.2-6.7); Basophils % 0.5; HCT 36.1 % (36.0-46.0); HGB 11.6 g/dL (11.2-15.7); Immature Grans % 0.2; Lymphocytes % 16.3; MCHC 32.1 % (32.0-36.0); MCV 99.4 fL (80-95); MPV 10.2 fL (8.0-11.0); Monocytes % 13.6; Neutrophils % 62.4; Nucleated RBC 0 %; Platelet Count 183 10^3/uL (130-400); RBC 3.63 10^6/uL (3.93-5.22); RDW 12.8 % (11.7-14.6); RDW-SD 46.5 fL; WBC 4.41 10^3/uL (4.4-10.8)
[2021-08-16 09:29] LABS: ALT 24 U/L (14-59); AST 15 U/L (15-37); Albumin 3.4 g/dL (3.4-5.0); Alkaline Phosphatase 65 U/L (46-116); Anion Gap 6.5 mmol/L (3-11); BUN 25 mg/dL (7-18); Bilirubin, Total 0.5 mg/dL (0.2-1.0); CO2 28.5 mmol/L (21.0-32.0); CREATININE 1.6 mg/dL (0.55-1.02); Calcium 8.9 mg/dL (8.5-10.1); Chloride 103 mmol/L (98-107); Estimated GFR 30.71 (mL/min/1.73m2); FREE T4 1.11 ng/dL (0.76-1.46); Glucose 116 mg/dL (74-106); Potassium 4.2 mmol/L (3.5-5.1); Sodium 138 mmol/L (136-145); TSH 8.74 uIU/mL (0.36-3.74); Total Protein 6.8 g/dL (6.4-8.2)
== END 2021-08-21 23:59 | disposition home or self-care (01) ==
LOC: INF 00:55
PROVIDERS: PCP Nurse Practitioner Family; Visit Provider Internal Medicine
DX: C79.10 Secondary malignant neoplasm of unspecified urinary organs (principal); D89.89 Other specified disorders involving the immune mechanism, not elsewhere classified; Z45.2 Encounter for adjustment and management of vascular access device
CPT/HCPCS: 36591; 80053; 84439; 84443; 85025

== ENCOUNTER 2021-09-12 08:33 | Outpatient (RCR) | payer MEDICARE, SELFPAY ==
[2021-09-12] MEDS: Normal Saline Flush 10 ML SYR IVP (08:49)
[2021-09-12 09:20] LABS: Abs Immature Grans 0.01 10^3/uL (0.0-0.06); Absolute Basophil Count 0.05 10^3/uL (0.0-0.2); Absolute Eosinophil Count 0.36 10^3/uL (0.0-0.7); Absolute Lymphocyte Count 0.71 10^3/uL (1.2-3.4); Absolute Monocyte Count 0.49 10^3/uL (0.1-0.8); Absolute Neutrophil Count 2.83 10^3/uL (1.2-6.7); Basophils % 1.1; Eosinophils % 8.1; HGB 11.2 g/dL (11.2-15.7); Immature Grans % 0.2; MCH 31.2 pg (27.0-33.0); MCV 97.5 fL (80-95); MPV 10.2 fL (8.0-11.0); Neutrophils % 63.6; Nucleated RBC 0 %; Platelet Count 198 10^3/uL (130-400); RBC 3.59 10^6/uL (3.93-5.22); RDW 12.9 % (11.7-14.6); RDW-SD 46.1 fL; WBC 4.45 10^3/uL (4.4-10.8)
[2021-09-12 09:43] LABS: ALT 13 U/L (14-59); AST 12 U/L (15-37); Albumin 3.3 g/dL (3.4-5.0); Alkaline Phosphatase 67 U/L (46-116); Anion Gap 6.8 mmol/L (3-11); BUN 23 mg/dL (7-18); Bilirubin, Total 0.4 mg/dL (0.2-1.0); CO2 28.2 mmol/L (21.0-32.0); CREATININE 1.5 mg/dL (0.55-1.02); Calcium 8.8 mg/dL (8.5-10.1); Chloride 104 mmol/L (98-107); Estimated GFR 33.08 (mL/min/1.73m2); FREE T4 1.05 ng/dL (0.76-1.46); Glucose 129 mg/dL (74-106); Potassium 3.9 mmol/L (3.5-5.1); Sodium 139 mmol/L (136-145); TSH 4.79 uIU/mL (0.36-3.74); Total Protein 6.6 g/dL (6.4-8.2)
== END 2021-09-21 23:59 | disposition home or self-care (01) ==
LOC: INF 08:33
PROVIDERS: Nurse Practitioner Adult Health; PCP Nurse Practitioner Family; Visit Provider Internal Medicine
DX: C79.10 Secondary malignant neoplasm of unspecified urinary organs (principal); D89.89 Other specified disorders involving the immune mechanism, not elsewhere classified; Z45.2 Encounter for adjustment and management of vascular access device; D63.0 Anemia in neoplastic disease
CPT/HCPCS: 36591; 80053; 84439; 84443; 85025

== ENCOUNTER 2022-01-16 03:14 | Outpatient (RCR) | payer MEDICARE, SELFPAY ==
[2022-01-16] MEDS: Normal Saline Flush 10 ML SYR IVP (14:42)
[2022-01-16] MEDS: Heparin 500 UNITS/5 ML SYRINGE IV (14:43)
[2022-01-16 14:55] LABS: Abs Immature Grans 0.03 10^3/uL (0.0-0.06); Absolute Basophil Count 0.03 10^3/uL (0.0-0.2); Absolute Eosinophil Count 0.46 10^3/uL (0.0-0.7); Absolute Lymphocyte Count 0.46 10^3/uL (1.2-3.4); Absolute Monocyte Count 0.76 10^3/uL (0.1-0.8); Absolute Neutrophil Count 3.86 10^3/uL (1.2-6.7); Basophils % 0.5; Eosinophils % 8.2; HCT 34.6 % (36.0-46.0); HGB 11.2 g/dL (11.2-15.7); Immature Grans % 0.5; Lymphocytes % 8.2; MCH 31.7 pg (27.0-33.0); MCHC 32.4 % (32.0-36.0); MCV 98 fL (80-95); MPV 10.4 fL (8.0-11.0); Monocytes % 13.6; Platelet Count 238 10^3/uL (130-400); RBC 3.53 10^6/uL (3.93-5.22); RDW-SD 46.7 fL
[2022-01-16 15:20] LABS: ALT 15 U/L (14-59); AST 15 U/L (15-37); Alkaline Phosphatase 56 U/L (46-116); Anion Gap 6.5 mmol/L (3-11); BUN 23 mg/dL (7-18); Bilirubin, Total 0.6 mg/dL (0.2-1.0); CO2 29.5 mmol/L (21.0-32.0); CREATININE 1.8 mg/dL (0.55-1.02); Calcium 8.9 mg/dL (8.5-10.1); Chloride 101 mmol/L (98-107); Estimated GFR 26.81 (mL/min/1.73m2); FREE T4 1.28 ng/dL (0.76-1.46); Glucose 111 mg/dL (74-106); Sodium 137 mmol/L (136-145); Total Protein 6.5 g/dL (6.4-8.2)
== END 2022-01-21 23:59 | disposition home or self-care (01) ==
LOC: INF 03:14
PROVIDERS: PCP Nurse Practitioner Family; Visit Provider Internal Medicine
DX: C79.10 Secondary malignant neoplasm of unspecified urinary organs (principal); R94.6 Abnormal results of thyroid function studies; Z45.2 Encounter for adjustment and management of vascular access device
CPT/HCPCS: 36415; 36591; 80053; 84439; 84443; 85025

== ENCOUNTER → 2022-01-22 13:16 | Outpatient (BNVA) | payer MEDICARE, SELFPAY | PROVIDERS: PCP Nurse Practitioner Family; Referring Provider Nurse Practitioner Family; Visit Provider Nurse Practitioner Gerontology | DX: R35.0 Frequency of micturition (principal); N28.89 Other specified disorders of kidney and ureter; R39.89 Other symptoms and signs involving the genitourinary system | CPT/HCPCS: 51798; 81003; 99214 ==

== ENCOUNTER 2022-04-25 13:38 | Outpatient (CLI) | payer MEDICARE, SELFPAY ==
[2022-04-25 13:42] LABS: Abs Immature Grans 0.02 10^3/uL (0.0-0.06); Absolute Basophil Count 0.05 10^3/uL (0.0-0.2); Absolute Eosinophil Count 0.46 10^3/uL (0.0-0.7); Absolute Lymphocyte Count 0.83 10^3/uL (1.2-3.4); Absolute Monocyte Count 0.52 10^3/uL (0.1-0.8); Absolute Neutrophil Count 4.09 10^3/uL (1.2-6.7); Basophils % 0.8; Eosinophils % 7.7; HCT 36.9 % (36.0-46.0); HGB 11.8 g/dL (11.2-15.7); Immature Grans % 0.3; Lymphocytes % 13.9; MCH 31.3 pg (27.0-33.0); MCV 98 fL (80-95); MPV 10.3 fL (8.0-11.0); Monocytes % 8.7; Neutrophils % 68.6; Platelet Count 188 10^3/uL (130-400); RBC 3.77 10^6/uL (3.93-5.22); RDW 14.3 % (11.7-14.6); RDW-SD 51.8 fL; WBC 5.97 10^3/uL (4.4-10.8)
[2022-04-25 13:46] LABS: ESR 10 mm/hr (0-30)
[2022-04-25 13:55] LABS: Hemoglobin A1C 5.7 % (<5.7)
[2022-04-25 14:35] LABS: ALT 18 U/L (14-59); AST 20 U/L (15-37); Albumin 3.5 g/dL (3.4-5.0); Alkaline Phosphatase 46 U/L (46-116); BUN 26 mg/dL (7-18); Bilirubin, Total 0.5 mg/dL (0.2-1.0); CREATININE 1.7 mg/dL (0.55-1.02); Chloride 105 mmol/L (98-107); Estimated GFR 29.39 (mL/min/1.73m2); Glucose 140 mg/dL (74-106); Potassium 3.5 mmol/L (3.5-5.1); Sodium 141 mmol/L (136-145); TSH (W/Ref FT4) 1.31 uIU/mL (0.36-3.74); Total Protein 6.7 g/dL (6.4-8.2)
== END 2022-04-25 13:39 | disposition home or self-care (01) ==
LOC: LBO 13:38
PROVIDERS: PCP Nurse Practitioner Family; Visit Provider Nurse Practitioner Family
DX: R63.4 Abnormal weight loss (principal)
CPT/HCPCS: 36415; 80053; 85652; 83036; 84443; 85025

== ENCOUNTER → 2022-05-31 10:23 | Outpatient (BNVA) | payer MEDICARE, SELFPAY | PROVIDERS: PCP Nurse Practitioner Family; Referring Provider Nurse Practitioner Family; Visit Provider Physical Therapy Assistant | DX: R06.09 Other forms of dyspnea (principal); Z99.81 Dependence on supplemental oxygen; R63.4 Abnormal weight loss; R94.8 Abnormal results of function studies of other organs and systems | CPT/HCPCS: 99213 ==

== ENCOUNTER 2022-06-12 08:51 | Day surgery (SDC) | payer MEDICARE, SELFPAY ==
--- NOTE | 2022-06-11 21:47 | W.PM.DSUDISC ---
Date of service: 06/12/22 Time of Service: 10:13 Discharge Plan Disposition Patient Disposition: Home Condition: Good Discharge Details Reason For Visit: EGD Attending Provider: Dany Clemente Primary Care Provider: Mary Hollingsworth Home Meds and New Rx's Prescriptions: Continued Bio-K plus 50 billion cell capsule,delayed release(DR/EC) 1 cap PO DAILY Qty: 30 0RF Rx Instructions: finish all Spiriva Respimat 2.5 mcg/actuation mist 2 puff inhalation DAILY Qty: 4 6RF ascorbate calcium (vitamin C) 500 MG tablet 500 mg PO DAILY nystatin-triamcinolone 15 GM cream 15 gm Topical BID cholecalciferol (vitamin D3) [Vitamin D3] 2,000 UNIT capsule 2,000 unit PO DAILY ProAir RespiClick 90 MCG aerosol powdr breath activated 90 mcg Inhalation Q 4 HR polyethylene glycol 3350 [Miralax] 17 gram/dose powder 17 gm PO DAILY PRN lisinopril 20 mg tablet 40 mg PO QAM acetaminophen 325 mg tablet 650 mg PO Q6H PRN docusate sodium 100 mg capsule 100 mg PO BID garlic 5,000 mcg tablet 5 mg PO DAILY potassium chloride 10 mEq tablet,ER particles/crystals 10 meq PO BID prednisone 20 mg tablet 40 mg PO DAILY Qty: 10 0RF Gaviscon Extra Strength 160-105 mg tablet,chewable 1 tab PO HS lidocaine 5 % cream 1 applic topical BID PRN (DME) Oxygen Tank See Rx Instructions .Route Rx Instructions: As directed prednisone 10 mg tablet 10 mg PO DAILY hydrochlorothiazide 25 mg tablet 25 mg PO DAILY levothyroxine 50 mcg capsule 50 mcg PO DAILY fluticasone propion-salmeterol [Advair Diskus] 1 EACH blister with device 1 ea Inhalation BID hydrocortisone 1 % Cream With Perineal Applicator 1 applic topical BID Qty: 28.4 0RF Discharge Instructions Additional Instructions: 1. If tolerated, consume a soft, low fiber diet for 1-2 days. [address] Do not drive, drink alcohol, operate machinery, make critical decisions, or do activities that require coordination or balance for 24 hours. 3. You may experience a sore throat for 24 to 48 hours. You may use throat lozenges or gargle with warm salt water to relieve the discomfort. 4. Because air was put into your stomach during the procedure, you may experience some belching. 5. Go directly to the emergency room if you notice any of the following: Develop chills (warm to touch), or if you have a thermometer and your temperature is above 101 Difficulty breathing or difficultly swallowing Persistent vomiting Severe abdominal pain, other than gas cramps Severe chest pain Black, tarry stools Any bleeding ? exceeding one tablespoon 6. Call your physician if the site where your intravenous was started becomes red, swollen, painful, and warm to touch. 7. Your physician has reviewed your pre-procedure medications. Please continue to take those medications as previously ordered. You will be given specific information/education regarding any changes to your medications before leaving. Activity:: Activity as Tolerated Diet:: As Tolerated Discharge Orders Discharge Orders: Discharge Order (Routine); Ordered 06/11/22 Ordered By: Dany Clemente DS: Diagnosis Discharge Diagnosis (1) Abnormal gastrointestinal PET scan: Status: Acute Asessment and Plan: The EGD is negative. There is no evidence of any abnormality within the lining of the stomach.
--- NOTE | 2022-06-11 21:49 | ENDO_ITS ---
Date of service: 06/12/22 Time of Service: 10:16 Endoscopy Report DATE OF PROCEDURE: 06/12/22 PRE-OP DIAGNOSIS: Positive PET CT scan POST-OP DIAGNOSIS: other (Normal EGD) PROCEDURE: EGD SURGEON: Dany Clemente ANESTHESIA TYPE: General:No Airway ESTIMATED BLOOD LOSS: 0 PATHOLOGY: none sent COMPLICATIONS: None DISPOSITION: same day INDICATIONS: Domenica is an 86-year-old woman with metastatic urothelial carcinoma. She was und ergoing surveillance PET/CT, when abnormality was noted in the distal body, and proximal antrum. PROCEDURE START TIME: 10:04 PROCEDURE END TIME: 10:07 FINDINGS: Normal stomach, duodenum, esophagus. PROCEDURE DESCRIPTION: After the initiation of monitored anesthetic care, and with the assistance of a bite block, I advanced a standard gastroscope through the mouth past the hypopharynx and into the esophagus.? Under the direct vision of the scope, I adv anced down the esophagus into the stomach.? Once I entered the stomach, I performed a brief inspection, followed by retroflexion towards the gastric cardia.? This appeared normal.? After that, I gently advanced the scope around the incisura angularis and examined the pylorus.? This also appeared normal.? Next, I advanced the scope through the pylorus into the duodenum.? The mucosa was pink and healthy appearing.? There were no abnormalities.? I was able to visualize bile draining into the duodenum through the ampulla Vater. ?Next, I began retracting the endoscope.? Again, I returned to the stomach which was carefully examined once again.? I then gently desufflated some of the stomach, and withdrew the endoscope into the distal esophagus. The Z-line and GE junction were normal-appearing around 36 cm. ?Finally, I withdrew the scope along the length of the esophagus taking great care to examine the entirety of the mucosa.? I did not appreciate any abnormalities.
[2022-06-12 08:55] VITALS: BP 157/61; PULSE 80; RESP 16; TEMP 36.2; O2SAT 94
--- NOTE | 2022-06-12 09:41 | ANES.PREOP_ITS ---
General Info Date of Service Date Performed: 06/12/22 Height: 5 ft 2.5 in Weight: 66.6 kg Body Mass Index (BMI): 26.4 Surgical Procedure: Operation Date: 06/12/22 10:35 Proposed Procedure Side Surgeon p Gastroscopy Dany Clemente MD Meds Allergies and Home Medications Allergies Allergy/AdvReac Type Severity Reaction Status Date / Time pregabalin [From Lyrica] Allergy Severe RASH/EXTREMITY Verified 06/12/22 09:20 EDEMA atorvastatin calcium Allergy Intermediate Verified 06/12/22 09:20 [From Lipitor] gabapentin [From Neurontin] Allergy Intermediate Verified 06/12/22 09:20 prednisone Allergy Mild Verified 06/12/22 09:20 codeine Allergy Verified 06/12/22 09:20 rosuvastatin calcium Allergy Verified 06/12/22 09:20 [From Crestor] sulfamethoxazole Allergy Verified 06/12/22 09:20 [From Bactrim] trimethoprim [From Bactrim] Allergy Verified 06/12/22 09:20 Home Medication Medication Instructions Recorded fluticasone 250 mcg-salmeterol 50 1 ea inhalation BID 01/09/14 mcg/dose blistr powdr for inhalation (Advair Diskus) albuterol sulfate 90 mcg/actuation 90 mcg inhalation Q 4 HR 06/10/17 breath activated powder inhaler (ProAir RespiClick) ascorbate calcium (vitamin C) 500 500 mg PO DAILY 06/10/17 mg tablet cholecalciferol (vitamin D3) 50 2,000 unit PO DAILY 06/10/17 mcg (2,000 unit) capsule (Vitamin D3) nystatin-triamcinolone 100,000 15 gm topical BID 06/10/17 unit/g-0.1 % topical cream polyethylene glycol 3350 17 17 gm PO DAILY PRN 04/03/19 gram/dose oral powder (Miralax) lisinopril 20 mg tablet 40 mg PO QAM 09/23/19 L. acidophilus,casei,rhamnosus 50 1 cap PO DAILY #30 caps 09/26/20 billion cell capsule,delayed release (Bio-K plus) hydrocortisone 1 % topical cream 1 applic topical BID #28.4 grams 08/07/21 with perineal applicator acetaminophen 325 mg tablet 650 mg PO Q6H PRN 08/31/21 docusate sodium 100 mg capsule 100 mg PO BID 08/31/21 garlic 5,000 mcg tablet 5 mg PO DAILY 08/31/21 potassium chloride 10 mEq 10 meq PO BID 08/31/21 tablet,extended release(part/cryst) tiotropium bromide 2.5 2 puff inhalation DAILY #4 grams 12/12/21 mcg/actuation mist for inhalation (Spiriva Respimat) prednisone 20 mg tablet 40 mg PO DAILY #10 tabs 01/17/22 Oxygen 05/24/22 aluminum hydrox-magnesium carb 160 1 tab PO HS 05/24/22 mg-105 mg chewable tablet (Gaviscon Extra Strength) hydrochlorothiazide 25 mg tablet 25 mg PO DAILY 05/24/22 levothyroxine 50 mcg capsule 50 mcg PO DAILY 05/24/22 lidocaine 5 % topical cream 1 applic topical BID PRN 05/24/22 prednisone 10 mg tablet 10 mg PO DAILY 05/24/22 Current Visit Medications: Current Medications Generic Name Dose Route Start Last Admin Trade Name Freq PRN Reason Stop Dose Admin Hyoscyamine Sulfate 0.125 mg 06/11/22 21:50 Hyoscyamine 0.125 Mg Sl/Oral/Chew SL DIRECTED PRN Ringer's Solution 1,000 mls @ 80 mls/hr 06/12/22 06:00 IV 07/11/22 23:59 [facility] IV Miscellaneous Supplies 1 each 06/12/22 06:00 Iv Access IV 07/11/22 23:59 DIRECTED [facility] Ondansetron HCl 4 mg 06/11/22 21:50 Ondansetron 4 Mg/2 Ml Vial IVP Q4H PRN PRN Nausea / Vomiting Sodium Chloride 0 ml 06/12/22 06:00 Normal Saline Flush 10 Ml Syr IV 07/11/22 23:59 PRN PRN Sodium Chloride 0 ml 06/12/22 06:00 Normal Saline 10 Ml Vial IJ 07/11/22 23:59 DIRECTED PRN Sterile Water 0 ml 06/12/22 06:00 Water,Injection,Sterile 10 Ml Vial IJ 07/11/22 23:59 DIRECTED PRN PFSH Active Problems Active Problems: Problem Status Onset Code 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 Abnormal TSH R79.89 Loose stools R19.5 Exertional shortness of breath R06.02 On home oxygen therapy Z99.81 Abnormal pulmonary function test R94.2 Hypoxemic respiratory failure, chronic J96.11 Unintentional weight loss R63.4 Abnormal gastrointestinal PET scan R94.8 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 Respiratory failure with hypoxia J96.91 COPD (chronic obstructive pulmonary disease) J44.9 Rash R21 Shortness of breath R06.02 Cough R05.9 Elevated d-dimer R79.89 Helicobacter pylori gastritis K29.70, B96.81 Follow up Z09 An[address]64.[address] of the head R93.0 Fall W19.XXXA Laceration of chin S01.81XA Contusion of face S00.83XA Leukocytosis D72.829 GI bleed K92.2 Acute anemia D64.9 Melena K92.1 Renal mass N28.89 Hydronephrosis, right N13.30 Urinary frequency R35.0 Medical History Medical History Cataracts, bilateral Cervical spondylosis Colon polyps COPD (chronic obstructive pulmonary disease) Diabetes Diverticulosis Diverticulosis Easy bruising Esophagitis Essential tremor 10/05/19: Pt denies. -BR Fatty liver Fatty liver disease, nonalcoholic GERD (gastroesophageal reflux disease) Hiatal hernia History of renal cell cancer Hyperlipidemia Hypertension Hypertension Impaired fasting glucose Night sweats Nocturia Peripheral neuropathy Squamous cell carcinoma Statin intolerance Urinary incontinence Surgical History Surgical History Biopsy of breast History of cataract removal with insertion of prosthetic lens History of cholecystectomy History of colonoscopy History of cystoscopy History of nephrectomy, right Tobacco Smoking/Tobacco Use Status: Former Tobacco Use Alcohol Alcohol Intake: never Substance Use Substance use: Never Substance use type: does not use Vital Signs and Lab Results Vital Signs Most Recent Vital Signs in EMR: Most Recent Vital Signs Temp Pulse Resp BP Pulse Ox 36.2 C L 80 16 157/61 H 94 06/12/22 08:55 06/12/22 08:55 06/12/22 08:55 06/12/22 08:55 06/12/22 08:55 Lab Results Blood Type / Crossmatch: No Data to Display Complete Blood Count: No Data to Display Complete Metabolic Panel: No Data to Display Liver Function Panel: No Data to Display Coagulation Panel: No Data to Display Cardiac Panel: No Data to Display Arterial Blood Gas: No Data to Display Venous Blood Gas: No Data to Display Pancreas Panel: No Data to Display Thyroid Panel: No Data to Display Infectious Disease: No Data to Display Blood Cultures: No Data to Display Toxicology Panel: 2 No Data to Display Anesthesia Assessment and Plan Anesthesia History Personal History: No History of Anesthesia Complications Family History: No Family History of Anesthesia Complications Exercise Tolerance Exercise Tolerance: Metabolic Equivalents<4 Pertinent Negatives Pertinent Negatives: No Symptoms of GERD, No Major Cardiovascular Symptoms or Complaints and No History of CVA/TIA Cardiac & Pulmonary Exam Cardiac Exam: Normal S1/S2 Heart Sounds Pulmonary Exam: Wheezing Present Implantable Cardiac Device Does patient have a Pacemaker or an ICD?: No Airway Exam Known Difficult Airway: No Mallampati Class: 2 Mouth Opening: Normal (> 3cm) Thyromental Distance: Greater than 3 cm Neck Range of Motion: Full ROM Neck Circumference: Normal Teeth Condition: Normal Dentition ASA Classification ASA Score: ASA 4 Emergency Case?: No NPO Status NPO Status: NPO Clears >2 hours, Solids >8 hours Anesthesia Plan Resuscitation Status: Full Code Anesthesia Technique: General Anesthesia Airway Planned: Natural Airway Monitors Used: Standard Monitors Preoperative Comments:: EKG 11/12 ECHO 07/14 EF 55% no valvular abnormalities COPD Oxygen dependent 2 L O2 Accessory muscle use states My breathing feels good today
[2022-06-12] MEDS: Lactated Ringers 1,000 ML 80 ML IV (09:43)
[2022-06-12 09:45] VITALS: BMI 26.4
--- NOTE | 2022-06-12 10:21 | W.ANESPOSTOP ---
Postoperative Evaluation Date, Time and Location Date Performed: 06/12/22 Time Performed: 10:21 Patient Location: Day Surgery Unit Vital Signs Most Recent Imported Vital Signs: Most Recent Vital Signs Temp Pulse Resp BP Pulse Ox 36.2 C L 80 16 157/61 H 94 06/12/22 08:55 06/12/22 08:55 06/12/22 08:55 06/12/22 08:55 06/12/22 08:55 Most Recent Manually Entered Vital Signs: Adult Blood Pressure: 92/47 Heart Rate: 79 Respirations: 16 Oxygen Saturation (%): 99 Temperature (C): 36.5 C Pain Score (0-10 Scale): 0 Assessment Mental Status: Awake (Alert & Oriented to Patient Baseline) Airway and Respiratory Function: Patent airway with normal (patient baseline) respiratory exam Cardiovascular Function: Hemodynamically Stable Hydration Status: Adequately Hydrated Nausea & Vomiting: No Nausea or Vomiting Pain: Pt. Denies Any Pain Peripheral Nerve Block: Patient did not receive a nerve block
[2022-06-12 10:22] VITALS: BP 92/47; PULSE 79; RESP 16; TEMPC 36.5; O2SAT 99
[2022-06-12 10:26] VITALS: BP 92/47; PULSE 84; RESP 20; TEMP 36.5; O2SAT 98
[2022-06-12 10:30] VITALS: BP 90/51; PULSE 76; RESP 20; TEMP 36.4; O2SAT 96
[2022-06-12 10:43] VITALS: BP 110/44; PULSE 76; RESP 18; O2SAT 97
== END 2022-06-12 11:48 | disposition home or self-care (01) ==
PROVIDERS: PCP Nurse Practitioner Family; Visit Provider Surgery
PROC: 0DJ68ZZ Inspection of Stomach, Via Natural or Artificial Opening Endoscopic (ICD-10-PCS; CPT 43235; principal; 2022-06-12 10:30)
DX: R93.3 Abnormal findings on diagnostic imaging of other parts of digestive tract (principal); C79.9 Secondary malignant neoplasm of unspecified site; Z85.528 Personal history of other malignant neoplasm of kidney
CPT/HCPCS: 43235

== ENCOUNTER 2022-09-04 02:00 | Outpatient (RCR) | payer MEDICARE, SELFPAY ==
[2022-09-04] MEDS: Heparin 500 UNITS/5 ML SYRINGE IV (08:34)
[2022-09-04] MEDS: Normal Saline Flush 10 ML SYR IVP (08:34)
[2022-09-04 08:50] LABS: Abs Immature Grans 0.02 10^3/uL (0.0-0.06); Absolute Basophil Count 0.02 10^3/uL (0.0-0.2); Absolute Eosinophil Count 0.24 10^3/uL (0.0-0.7); Absolute Lymphocyte Count 0.87 10^3/uL (1.2-3.4); Absolute Monocyte Count 0.42 10^3/uL (0.1-0.8); Absolute Neutrophil Count 3.23 10^3/uL (1.2-6.7); Basophils % 0.4; HCT 35.4 % (36.0-46.0); HGB 11.2 g/dL (11.2-15.7); Immature Grans % 0.4; Lymphocytes % 18.1; MCH 31.5 pg (27.0-33.0); MCHC 31.6 % (32.0-36.0); MCV 100 fL (80-95); MPV 10.2 fL (8.0-11.0); Monocytes % 8.8; Neutrophils % 67.3; Platelet Count 181 10^3/uL (130-400); RBC 3.55 10^6/uL (3.93-5.22); RDW 13.2 % (11.7-14.6)
[2022-09-04 09:07] LABS: ALT 20 U/L (14-59); AST 13 U/L (15-37); Albumin 3.4 g/dL (3.4-5.0); Alkaline Phosphatase 55 U/L (46-116); Anion Gap 10.1 mmol/L (3-11); BUN 26 mg/dL (7-18); Bilirubin, Total 0.5 mg/dL (0.2-1.0); CO2 26.9 mmol/L (21.0-32.0); CREATININE 1.7 mg/dL (0.55-1.02); Calcium 8.7 mg/dL (8.5-10.1); Chloride 103 mmol/L (98-107); Estimated GFR 29.21 (mL/min/1.73m2); Glucose 102 mg/dL (74-106); Potassium 4.1 mmol/L (3.5-5.1); Sodium 140 mmol/L (136-145); Total Protein 6.4 g/dL (6.4-8.2)
== END 2022-09-21 23:59 | disposition home or self-care (01) ==
LOC: INF 02:00
PROVIDERS: PCP Nurse Practitioner Family; Visit Provider Internal Medicine
DX: C79.10 Secondary malignant neoplasm of unspecified urinary organs (principal); Z45.2 Encounter for adjustment and management of vascular access device
CPT/HCPCS: 36591; 80053; 85025

== ENCOUNTER → 2023-01-22 10:13 | Outpatient (BNVA) | payer MEDICARE, SELFPAY | PROVIDERS: PCP Nurse Practitioner Family; Visit Provider Nurse Practitioner Gerontology | DX: N28.89 Other specified disorders of kidney and ureter (principal); Z85.528 Personal history of other malignant neoplasm of kidney; R35.0 Frequency of micturition | CPT/HCPCS: 99213 ==

== ENCOUNTER 2023-03-06 02:43 | Outpatient (RCR) | payer MEDICARE, SELFPAY ==
[2023-03-06] MEDS: Heparin 500 UNITS/5 ML SYRINGE IV (10:18)
[2023-03-06] MEDS: Normal Saline Flush 10 ML SYR IVP (10:18)
[2023-03-06 10:31] LABS: Abs Immature Grans 0.01 10^3/uL (0.0-0.06); Absolute Basophil Count 0.04 10^3/uL (0.0-0.2); Absolute Eosinophil Count 0.19 10^3/uL (0.0-0.7); Absolute Lymphocyte Count 0.86 10^3/uL (1.2-3.4); Absolute Monocyte Count 0.46 10^3/uL (0.1-0.8); Absolute Neutrophil Count 3.37 10^3/uL (1.2-6.7); Basophils % 0.8; Eosinophils % 3.9; HCT 36.3 % (36.0-46.0); HGB 11.9 g/dL (11.2-15.7); Immature Grans % 0.2; Lymphocytes % 17.4; MCH 31.4 pg (27.0-33.0); MCHC 32.8 % (32.0-36.0); MCV 96 fL (80-95); MPV 10.5 fL (8.0-11.0); Monocytes % 9.3; Neutrophils % 68.4; Platelet Count 187 10^3/uL (130-400); RBC 3.79 10^6/uL (3.93-5.22); RDW-SD 45.9 fL; WBC 4.93 10^3/uL (4.4-10.8)
[2023-03-06 10:56] LABS: ALT 22 U/L (14-59); AST 13 U/L (15-37); Albumin 3.6 g/dL (3.4-5.0); Alkaline Phosphatase 59 U/L (46-116); Anion Gap 9.3 mmol/L (3-11); BUN 30 mg/dL (7-18); Bilirubin, Total 0.5 mg/dL (0.2-1.0); CO2 27.7 mmol/L (21.0-32.0); CREATININE 1.8 mg/dL (0.55-1.02); Calcium 8.7 mg/dL (8.5-10.1); Chloride 99 mmol/L (98-107); Estimated GFR 27.27 (mL/min/1.73m2); FREE T4 1.57 ng/dL (0.76-1.46); Glucose 103 mg/dL (74-106); Sodium 136 mmol/L (136-145); TSH 1.86 uIU/mL (0.36-3.74); Total Protein 6.7 g/dL (6.4-8.2)
== END 2023-03-23 23:59 | disposition home or self-care (01) ==
LOC: INF 02:43
PROVIDERS: PCP Nurse Practitioner Family; Visit Provider Nurse Practitioner Family
DX: C79.10 Secondary malignant neoplasm of unspecified urinary organs (principal); R94.6 Abnormal results of thyroid function studies; E03.2 Hypothyroidism due to medicaments and other exogenous substances; Z45.2 Encounter for adjustment and management of vascular access device
CPT/HCPCS: 36591; 80053; 84439; 84443; 85025

== ENCOUNTER 2023-05-29 12:44 | Outpatient (CLI) | payer MEDICARE, SELFPAY ==
[2023-05-29 12:12] LABS: TSH (W/Ref FT4) 0.93 uIU/mL (0.36-3.74)
== END 2023-05-29 12:45 | disposition home or self-care (01) ==
LOC: LBO 12:45
PROVIDERS: PCP Nurse Practitioner Family; Visit Provider Nurse Practitioner Family
DX: E03.9 Hypothyroidism, unspecified (principal)
CPT/HCPCS: 36415; 84443

== ENCOUNTER 2023-07-22 08:06 | Emergency (ER) | payer MEDICARE, SELFPAY ==
[2023-07-22] VITALS (46 sets, daily range): BP systolic 117–182; BP diastolic 52–96; PULSE 73–90; RESP 12–30; TEMP 36.6–36.7; O2SAT 94–99
--- NOTE | 2023-07-22 08:13 | ED.GENADUL_ITS ---
HPI General Date/Time Provider Initiated Documentation: 07/22/23 08:12 . HPI Narrative: 88 year-old female presents to ED today by EMS with a chief complaint of generalized malaise, weakness with onset noticed last night by her . Quality described as feels great, by patient, question their reliability, no radiation to abdominal pain, nausea/vomiting, respiratory distress, chest pain, slurred speech. Severity is described as 0/10. Palliating factors include nothing specific attempted. Provoking factors include nothing specific. Patient not anticoagulated. Related Data Home Medications Medication Instructions Recorded Confirmed fluticasone 250 mcg-salmeterol 50 1 ea inhalation BID 01/09/14 07/22/23 mcg/dose blistr powdr for inhalation (Advair Diskus) albuterol sulfate 90 mcg/actuation 90 mcg inhalation Q 4 HR 06/10/17 07/22/23 breath activated powder inhaler (ProAir RespiClick) ascorbate calcium (vitamin C) 500 250 mg PO DAILY 06/10/17 07/22/23 mg tablet cholecalciferol (vitamin D3) 50 2,000 unit PO DAILY 06/10/17 07/22/23 mcg (2,000 unit) capsule (Vitamin D3) nystatin-triamcinolone 100,000 15 gm topical BID 06/10/17 07/22/23 unit/g-0.1 % topical cream polyethylene glycol 3350 17 17 gm PO DAILY PRN 04/03/19 07/22/23 gram/dose oral powder (Miralax) lisinopril 20 mg tablet 40 mg PO QAM 09/23/19 07/22/23 garlic 5,000 mcg tablet 5 mg PO DAILY 08/31/21 07/22/23 potassium chloride 10 mEq 10 meq PO BID 08/31/21 07/22/23 tablet,extended release(part/cryst) Oxygen 05/24/22 07/22/23 aluminum hydrox-magnesium carb 160 1 tab PO HS 05/24/22 07/22/23 mg-105 mg chewable tablet (Gaviscon Extra Strength) hydrochlorothiazide 25 mg tablet 25 mg PO DAILY 05/24/22 07/22/23 levothyroxine 50 mcg capsule 50 mcg PO DAILY 05/24/22 07/22/23 lidocaine 5 % topical cream 1 applic topical BID PRN 05/24/22 07/22/23 tiotropium bromide 2.5 2 puff inhalation DAILY #4 grams 08/03/22 07/22/23 mcg/actuation mist for inhalation (Spiriva Respimat) Previous Rx's Medication Instructions Recorded tiotropium bromide 2.5 2 puff inhalation DAILY #4 grams 08/03/22 mcg/actuation mist for inhalation (Spiriva Respimat) Allergies Allergy/AdvReac Type Severity Reaction Status Date / Time pregabalin [From Lyrica] Allergy Severe RASH/EXTREMITY Verified 07/22/23 13:39 EDEMA atorvastatin calcium Allergy Intermediate Verified 07/22/23 13:39 [From Lipitor] gabapentin [From Neurontin] Allergy Intermediate Verified 07/22/23 13:39 prednisone Allergy Mild Verified 07/22/23 13:39 rosuvastatin calcium Allergy Verified 07/22/23 13:39 [From Crestor] sulfamethoxazole Allergy Verified 07/22/23 13:39 [From Bactrim] trimethoprim [From Bactrim] Allergy Verified 07/22/23 13:39 codeine AdvReac nausea per Verified 07/22/23 13:39 [facility] chart General Stated Complaint: GenMedical SATHISH: 3 Review of Systems All systems reviewed & are unremarkable except as noted in HPI and below Exam Narrative Exam Narrative: GENERAL APPEARANCE: Well-nourished, non-toxic, awake and alert, atraumatic, no acute distress. SKIN: Warm, pink, dry, intact, without rashes/lesions/ulcerations. HEAD: Normocephalic, atraumatic, normal hair distribution for gender/age. EYES: Pupils PERRLA, EOMs intact without nystagmus, normal conjunctiva, no exudates on lids/lashes. ENT: Nares patent, no circumoral cyanosis, no facial swelling NECK: Supple, trachea midline, painless cervical ROM. LUNGS/CHEST: Lungs- diffuse rhonchi, expiratory wheezing, non-labored respirations, normal A/P diameter, symmetrical expansion, no chest wall deformity, on home 2L O2 by NC HEART (CV/PV): Regular rate and rhythm without murmur, no peripheral edema, no JVD. ABDOMEN: Soft, non-distended, no guarding, no tenderness. MSK: Normal ROM, no swelling/deformity to bilateral UEs or LEs, moving all extremities without weakness, no cyanosis, spine midline without tenderness, normal curvature. NEURO: Mental Status AAOx4 - alert to person, place, time, events No facial droop, no forehead involvement. Motor: No focal weakness - strength 5/5 in bilateral UEs and LEs, proximal and distal, symmetric. Sensory: sensation intact to light touch globally. Gait NT. PSYCH: euthymic, cooperative, pleasant, appropriate speech Course Vital Signs Vital signs: Vital Signs Temperature 36.6 C 07/22/23 08:05 Pulse 79 07/22/23 08:05 Respiratory Rate 12 07/22/23 08:05 Blood Pressure 182/90 H 07/22/23 08:05 Pulse Oximetry 96 07/22/23 08:05 Temperature 36.6 C 07/22/23 08:10 Temperature Source Tympanic 07/22/23 08:10 Pulse 79 07/22/23 08:10 Respiratory Rate 12 07/22/23 08:10 Blood Pressure 182/90 H 07/22/23 08:10 Blood Pressure Position Supine 07/22/23 08:10 Pulse Oximetry 96 07/22/23 08:10 Oxygen Delivery Method Nasal Cannula 07/22/23 08:10 Oxygen Flow Rate 2 07/22/23 08:10 Pain Level 0 07/22/23 08:10 Medical Decision Making This dictation utilizes [id number] dictation software and may contain unedited grammatical errors. 88 y/o F presents to ED today with a chief complaint of generalized malaise, onset last night. Patient states she feels fine herself, but noticed it last night- denies abdominal pain, chest pain, increased oxygen demand, nausea/vomiting, slurred speech. 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 Family and social history: lives at home with . Pertinent exam findings / vital signs include rhonchi, no respiratory distress beyond baseline O2 use, benign abdomen, nontoxic vitals. Differential / pathologies of concern include viral syndrome, GI bleeding, PNA, PE less likely. Diagnostic studies of: -CBC, CMP, CRP/ESR, lactate, lipase, D-dimer, urinalysis, Trop I, BNP, ma gnesium, Covid/Flu Rapid Ag. -Covid/Flu Ag negative -CBC no leukocytosis, low lymphocytes, HgB stable do not suspect GI bleeding -D-dimer 1705 -Lactate 1.2, not septic -Lipase wnl -Trop I negative, BNP elevated to 889 -ESR wnl / CRP 5.9 H -Mild hypokalemia of 3.2, SCr 1.5 (baseline), BUN 22, Mg++ 1.9 wnl -Elevated bilirubin 1.5, reflex to liver panel for obstructive pattern, conjugated shows 0.6- not convincing for biliary pathology with history cholecystectomy. -UA patient was unable to give urine -V:Q scan ordered due to patients poor GFR, s/p nephrectomy- which is negative. -CXR shows no focal PNA Interventions of: -IVF. ED Course/Assessment/Plan: 88-year-old female presents with subjective fatigue per her , states she feels fine, he states she has been coughing COVID flu is negative her CBC is benign, she is not septic there is no focal pulmonary edema on her chest x-ray or focal pneumonia, her VQ scan was negative for PE which was ordered because of her nephrectomy and poor GFR, she did not give a urinalysis sample- no actionable diagnoses for admission or empiric antibiotics, possible viral syndrome. Findings not consistent with sepsis, PE, increased oxygen requirement, PNA, ACS. Disposition of Viral Syndrome. Patient verbalized understanding of the plan and return to ED criteria and engaged in shared decision making. Medical Records Medical records reviewed: Yes I reviewed the patient's medical records. Imaging Data Radiologic Study: Attestation: I personally reviewed and interpreted this imaging study as follows: Radiologist's impression: EXAM: NM LUNG SCAN VENT PERF GRP CLINICAL HISTORY: elevated d-dimer, CA history, poor GFR. TECHNIQUE: Injected Dose: Ventilation: 30 mCi Tc-99m DTPA via inhalation Perfusion: 4 mCi Tc-99m MAA via IV COMPARISON: NM NM LUNG SCAN VENT PERF AEROS from 08/07/2021 CR XR CHEST 2V PA LATERAL from 07/22/2023 FINDINGS: Chest X-Ray: The lungs are clear. The are hyperinflated with flattened diaphragms consistent with underlying COPD. Perfusion: No perfusion defects are seen. Ventilation:There is a mottled ventilation pattern consistent with COPD. IMPRESSION: 1. Low probability VQ examination. No VQ mismatches are identified. 2. Findings consistent with COPD. 3. Findings were discussed with the emergency department at 3:13 p.m. on 07/22/2023. . . . Modified PIOPED II criteria Probability Criteria High Two or more segments of V/Q mismatch Low Normal Perfusion, Non segmental perfusion abnormalities, pleural effusion in at least 1/3 of pleural cavity with no other defect Radiograph/perfusion matched defect in mid to upper lung confined to segment, one to three small segmental perfusion defects (<25% of segment) Perfusion defect smaller than corresponding radiographic lesion. Intermediate All other findings DATA REPOSITORY: Radiologic Study #2: Imaging: X-Ray Radiologist's impression: EXAM: XR CHEST 2V PA LATERAL CLINICAL HISTORY: cough, V;Q scan TECHNIQUE: 2D digital imaging was performed of the chest. Two images were obtained. PA and lateral views were obtained. COMPARISON: CR,XR XR PORTABLE CHEST AP from 08/04/2021 FINDINGS: MEDIASTINUM: Normal. HEART: Normal. PULMONARY VASCULATURE: Normal. LUNGS: The lungs are hyperinflated with flattened diaphragms consistent with underlying COPD. No focal consolidating infiltrates are present. PLEURAL SPACE: No pleural effusion or pneumothorax. BONE:Within normal limits for the patient's age. OTHER FINDINGS:There is a right [id number] catheter again seen. It is stable in position. IMPRESSION: 1. No acute pulmonary findings. 2. COPD. Lab Data Lab results reviewed: Yes I reviewed the patient's lab results. Labs: Laboratory Tests Range/Units 07/22/23 07/22/23 07/22/23 08:32 08:32 08:32 WBC (4.4-10.8) 10^3/uL 5.64 RBC (3.93-5.22) 10^6/uL 3.85 L Hgb (11.2-15.7) g/dL 12.4 Hct (36.0-46.0) % 36.4 MCV (80-95) fL 95 MCH (27.0-33.0) pg 32.2 MCHC (32.0-36.0) % 34.1 RDW (11.7-14.6) % 12.8 Plt Count (130-400) 10^3/uL 238 MPV (8.0-11.0) fL 9.9 Immature Gran % 0.4 Neutrophils % 76.4 Lymphocytes % 9.8 Monocytes % 9.0 Eosinophils % 3.7 Basophils % 0.7 Nucleated RBC % (0.0-0.3) % 0.0 Absolute Neutrophils (1.2-6.7) 10^3/uL 4.31 Absolute Lymphocytes (1.2-3.4) 10^3/uL 0.55 L Absolute Monocytes (0.1-0.8) 10^3/uL 0.51 Absolute Eosinophils (0.0-0.7) 10^3/uL 0.21 Absolute Basophils (0.0-0.2) 10^3/uL 0.04 ESR (0-30) mm/hr 25 D-Dimer (<500) ng/mlFEU 1705 H VBG Lactate (0.6-1.4) mmol/L 1.2 Sodium (136-145) mmol/L 137 Potassium (3.5-5.1) mmol/L 3.2 L Chloride (98-107) mmol/L 96 L Carbon Dioxide (21.0-32.0) mmol/L 33.6 H Anion Gap (3-11) mmol/L 7.4 BUN (7-18) mg/dL 22 H Creatinine (0.55-1.02) mg/dL 1.5 H Est GFR (CKD-EPI 2020) (mL/min/1.73m2) 33.73 Glucose (74-106) mg/dL 96 Calcium (8.5-10.1) mg/dL 9.4 Magnesium (1.8-2.4) mg/dL 1.9 Total Bilirubin (0.2-1.0) mg/dL 1.5 H 1.5 H Conjugated Bilirubin TNP AST (15-37) U/L 39 H 37 ALT (14-59) U/L 22 Alkaline Phosphatase (46-116) U/L Troponin I (< or =60) ng/L C-Reactive Protein (0.0-0.3) mg/dL NT-Pro-B Natriuret Pep (<300) pg/mL Total Protein (6.4-8.2) g/dL Albumin (3.4-5.0) g/dL Lipase (16-77) U/L Range/Units 07/22/23 07/22/23 07/22/23 08:32 08:32 08:32 WBC (4.4-10.8) 10^3/uL RBC (3.93-5.22) 10^6/uL Hgb (11.2-15.7) g/dL Hct (36.0-46.0) % MCV (80-95) fL MCH (27.0-33.0) pg MCHC (32.0-36.0) % RDW (11.7-14.6) % Plt Count (130-400) 10^3/uL MPV (8.0-11.0) fL Immature Gran % Neutrophils % Lymphocytes % Monocytes % Eosinophils % Basophils % Nucleated RBC % (0.0-0.3) % Absolute Neutrophils (1.2-6.7) 10^3/uL Absolute Lymphocytes (1.2-3.4) 10^3/uL Absolute Monocytes (0.1-0.8) 10^3/uL Absolute Eosinophils (0.0-0.7) 10^3/uL Absolute Basophils (0.0-0.2) 10^3/uL ESR (0-30) mm/hr D-Dimer (<500) ng/mlFEU VBG Lactate (0.6-1.4) mmol/L Sodium (136-145) mmol/L Potassium (3.5-5.1) mmol/L Chloride (98-107) mmol/L Carbon Dioxide (21.0-32.0) mmol/L Anion Gap (3-11) mmol/L BUN (7-18) mg/dL Creatinine (0.55-1.02) mg/dL Est GFR (CKD-EPI 2020) (mL/min/1.73m2) Glucose (74-106) mg/dL Calcium (8.5-10.1) mg/dL Magnesium (1.8-2.4) mg/dL Total Bilirubin (0.2-1.0) mg/dL Conjugated Bilirubin AST (15-37) U/L ALT (14-59) U/L 22 Alkaline Phosphatase (46-116) U/L 57 58 Troponin I (< or =60) ng/L < 50 C-Reactive Protein (0.0-0.3) mg/dL 5.29 H NT-Pro-B Natriuret Pep (<300) pg/mL 889 H Total Protein (6.4-8.2) g/dL 6.5 6.6 Albumin (3.4-5.0) g/dL 3.0 L Lipase (16-77) U/L Range/Units 07/22/23 07/22/23 08:32 11:38 WBC (4.4-10.8) 10^3/uL RBC (3.93-5.22) 10^6/uL Hgb (11.2-15.7) g/dL Hct (36.0-46.0) % MCV (80-95) fL MCH (27.0-33.0) pg MCHC (32.0-36.0) % RDW (11.7-14.6) % Plt Count (130-400) 10^3/uL MPV (8.0-11.0) fL Immature Gran % Neutrophils % Lymphocytes % Monocytes % Eosinophils % Basophils % Nucleated RBC % (0.0-0.3) % Absolute Neutrophils (1.2-6.7) 10^3/uL Absolute Lymphocytes (1.2-3.4) 10^3/uL Absolute Monocytes (0.1-0.8) 10^3/uL Absolute Eosinophils (0.0-0.7) 10^3/uL Absolute Basophils (0.0-0.2) 10^3/uL ESR (0-30) mm/hr D-Dimer (<500) ng/mlFEU VBG Lactate (0.6-1.4) mmol/L Sodium (136-145) mmol/L Potassium (3.5-5.1) mmol/L Chloride (98-107) mmol/L Carbon Dioxide (21.0-32.0) mmol/L Anion Gap (3-11) mmol/L BUN (7-18) mg/dL Creatinine (0.55-1.02) mg/dL Est GFR (CKD-EPI 2020) (mL/min/1.73m2) Glucose (74-106) mg/dL Calcium (8.5-10.1) mg/dL Magnesium (1.8-2.4) mg/dL Total Bilirubin (0.2-1.0) mg/dL Conjugated Bilirubin 0.6 H AST (15-37) U/L ALT (14-59) U/L Alkaline Phosphatase (46-116) U/L Troponin I (< or =60) ng/L C-Reactive Protein (0.0-0.3) mg/dL NT-Pro-B Natriuret Pep (<300) pg/mL Total Protein (6.4-8.2) g/dL Albumin (3.4-5.0) g/dL 3.0 L Lipase (16-77) U/L 29 Quality:[facility] Health Related Social Needs: No Data to Display PFSH All Active Problems (Updated 07/22/23 @ 15:23 by YOLY Nieves) Viral syndrome (Acute) 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 rare. will treat 2wk amox/lilia AFTER her nephrectomy 07/13/20 Follow up (Acute) Anemia (Chronic) Abnormal CT of the head (Acute) Fall (Acute) Laceration of chin (Acute) Contusion of face (Acute) Leukocytosis (Acute) GI bleed (Chronic) Acute anemia (Acute) Melena (Acute) Renal mass (Acute) Hydronephrosis, right (Acute) Urinary frequency (Acute) Medical History (Updated 07/22/23 @ 15:23 by YOLY Nieves) Hypertension History of renal cell cancer Statin intolerance Fatty liver disease, nonalcoholic Colon polyps Diverticulosis Peripheral neuropathy Impaired fasting glucose Squamous cell carcinoma GERD (gastroesophageal reflux disease) Easy bruising Night sweats Esophagitis Hiatal hernia Cervical spondylosis Essential tremor 10/05/19: Pt denies. -BR Nocturia Urinary incontinence Hypertension COPD (chronic obstructive pulmonary disease) Hyperlipidemia Fatty liver Diabetes Diverticulosis Cataracts, bilateral Surgical History History of nephrectomy, right History of cystoscopy History of cataract removal with insertion of prosthetic lens History of colonoscopy History of cholecystectomy Biopsy of breast Family History Sister Personal history of malignant neoplasm breast, colon Sister Personal history of malignant neoplasm uterine Social History Smoking/Tobacco Use Status: Former Tobacco Use Smoking risk assessment performed?: Yes Alcohol Intake: never Drug use: Never Substance use type: does not use Do you feel safe at home: Yes Do you feel safe in your relationship?: Yes Discharge Plan Disposition Patient Disposition: Home Condition: Stable Discharge Details Clinical Impression: Viral syndrome Primary Care Provider: Mary Hollingsworth ED Provider: Ean Damon Home Meds and New Rx's Prescriptions: Continued Spiriva Respimat 2.5 mcg/actuation mist 2 puff inhalation DAILY Qty: 4 12RF ascorbate calcium (vitamin C) 500 MG tablet 250 mg PO DAILY nystatin-triamcinolone 15 GM cream 15 gm Topical BID cholecalciferol (vitamin D3) [Vitamin D3] 2,000 UNIT capsule 2,000 unit PO DAILY ProAir RespiClick 90 MCG aerosol powdr breath activated 90 mcg Inhalation Q 4 HR polyethylene glycol 3350 [Miralax] 17 gram/dose powder 17 gm PO DAILY PRN lisinopril 20 mg tablet 40 mg PO QAM garlic 5,000 mcg tablet 5 mg PO DAILY potassium chloride 10 mEq tablet,ER particles/crystals 10 meq PO BID Gaviscon Extra Strength 160-105 mg tablet,chewable 1 tab PO HS lidocaine 5 % cream 1 applic topical BID PRN (DME) Oxygen Tank See Rx Instructions .Route Rx Instructions: As directed hydrochlorothiazide 25 mg tablet 25 mg PO DAILY levothyroxine 50 mcg capsule 50 mcg PO DAILY fluticasone propion-salmeterol [Advair Diskus] 1 EACH blister with device 1 ea Inhalation BID Discharge Instructions Instructions: Viral Syndrome (ED) Additional Instructions: You were seen in the emergency department for your 's subjective fatigue, there is no remarkable studies on her labs she is not having any increased oxyg en demand at this time, there is no focal pneumonia seen on her chest x-ray, her labs are reassuring for a possible viral syndrome like a common cold virus causing a little bit increased fatigue. There is no blood clot in her lungs and she is not having any damage to the heart currently, she was unable to give urine but perhaps you could schedule this with your primary care provider to give a urine sample otherwise I do not see any admittable criteria, please give regular doses of Tylenol and Motrin as needed, continue all her at home medications and return for any worsening especially with respiratory distress, fever, nausea vomiting, try to keep her hydrated and eating good food. Referrals: Mary Hollingsworth [Primary Care Provider] -
[2023-07-22 08:38] LABS: Lactate 1.2 mmol/L (0.6-1.4)
[2023-07-22 08:40] LABS: Abs Immature Grans 0.02 10^3/uL (0.0-0.06); Absolute Basophil Count 0.04 10^3/uL (0.0-0.2); Absolute Eosinophil Count 0.21 10^3/uL (0.0-0.7); Absolute Lymphocyte Count 0.55 10^3/uL (1.2-3.4); Absolute Monocyte Count 0.51 10^3/uL (0.1-0.8); Absolute Neutrophil Count 4.31 10^3/uL (1.2-6.7); Basophils % 0.7; Eosinophils % 3.7; HCT 36.4 % (36.0-46.0); HGB 12.4 g/dL (11.2-15.7); Immature Grans % 0.4; Lymphocytes % 9.8; MCH 32.2 pg (27.0-33.0); MCHC 34.1 % (32.0-36.0); MCV 95 fL (80-95); MPV 9.9 fL (8.0-11.0); Neutrophils % 76.4; Platelet Count 238 10^3/uL (130-400); RBC 3.85 10^6/uL (3.93-5.22); RDW 12.8 % (11.7-14.6); RDW-SD 44.6 fL; WBC 5.64 10^3/uL (4.4-10.8)
[2023-07-22 08:42] LABS: ESR 25 mm/hr (0-30)
[2023-07-22 09:13] LABS: D-Dimer 1705 ng/mlFEU (<500)
[2023-07-22 09:14] LABS: ALT 22 U/L (14-59); AST 39 U/L (15-37); Alkaline Phosphatase 57 U/L (46-116); Anion Gap 7.4 mmol/L (3-11); BUN 22 mg/dL (7-18); Bilirubin, Total 1.5 mg/dL (0.2-1.0); C-Reactive Protein 5.29 mg/dL (0.0-0.3); CO2 33.6 mmol/L (21.0-32.0); CREATININE 1.5 mg/dL (0.55-1.02); Calcium 9.4 mg/dL (8.5-10.1); Chloride 96 mmol/L (98-107); Estimated GFR 33.73 (mL/min/1.73m2); Glucose 96 mg/dL (74-106); Lipase 29 U/L (16-77); Magnesium 1.9 mg/dL (1.8-2.4); NT-proBNP 889 pg/mL (<300); Potassium 3.2 mmol/L (3.5-5.1); Sodium 137 mmol/L (136-145); Total Protein 6.5 g/dL (6.4-8.2); Troponin I < 50 ng/L (< or =60)
[2023-07-22 10:30] LABS: ALT 22 U/L (14-59); AST 37 U/L (15-37); Alkaline Phosphatase 58 U/L (46-116); Bilirubin, Total 1.5 mg/dL (0.2-1.0); Total Protein 6.6 g/dL (6.4-8.2)
--- NOTE | 2023-07-22 10:45 | DI.NM_ITS ---
Exam(s) NH LUNG SCAN VENT PERF GRP EXAM: NH LUNG SCAN VENT PERF GRP CLINICAL HISTORY: elevated d-dimer, CA history, poor GFR. TECHNIQUE: Injected Dose: Ventilation: 30 mCi Tc-99m DTPA via inhalation Perfusion: 4 mCi Tc-99m MAA via IV COMPARISON: [facility] LUNG SCAN VENT PERF AEROS from 08/07/2021 CR XR CHEST 2V PA LATERAL from 07/22/2023 FINDINGS: Chest X-Ray: The lungs are clear. The are hyperinflated with flattened diaphragms consistent with un derlying COPD. Perfusion: No perfusion defects are seen. Ventilation:There is a mottled ventilation pattern consistent with COPD. IMPRESSION: 1. Low probability VQ examination. No VQ mismatches are identified. 2. Findings consistent with COPD. 3. Findings were discussed with the emergency department at 3:13 p.m. on 07/22/2023. . . . Modified PIOPED II criteria Probability Criteria High Two or more segments of V/Q mismatch Low Normal Perfusion, Non segmental perfusion abnormalitie s, pleural effusion in at least 1/3 of pleural cavity with no other defect Radiograph/perfusion matched defect in mid to upper lung confined to segment, one to three small segmental perfusion defects (<25% of segment) Perfusion defect smaller than corresponding radiogra phic lesion. Intermediate All other findings DATA REPOSITORY:
[2023-07-22] MEDS: Normal Saline 1,000 ML 150 ML IV (10:52)
[2023-07-22 12:04] LABS: Bilirubin, Direct 0.6 mg/dL (0.0-0.2)
--- NOTE | 2023-07-22 15:00 | DI.RAD_ITS ---
Exam(s) XR CHEST 2V PA LATERAL EXAM: XR CHEST 2V PA LATERAL CLINICAL HISTORY: cough, V;Q scan TECHNIQUE: 2D digital imaging was performed of the chest. Two images were obtained. PA and lateral views were obtained. COMPARISON: CR,XR XR PORTABLE CHEST AP from 08/04/2021 FINDINGS: MEDIASTINUM: Normal. HEART: Normal. PULMONARY VASCULATURE: Normal. LUNGS: The lungs are hyperinflated with flattened diaphragms consistent with underlying COPD. No foc al consolidating infiltrates are present. PLEURAL SPACE: No pleural effusion or pneumothorax. BONE:Within normal limits for the patient's age. OTHER FINDINGS:There is a right Fbjuti-Q-Nwex catheter again seen. It is stable in position. IMPRESSION: 1. No acute pulmonary findings. 2. COPD. DATA REPOSITORY: RADIATION DOSE DELIVERED:
== END 2023-07-22 15:43 | disposition home or self-care (01) ==
PROVIDERS: Emergency Provider Physician Assistant; PCP Nurse Practitioner Family
DX: B34.9 Viral infection, unspecified (principal); R53.1 Weakness; J44.9 Chronic obstructive pulmonary disease, unspecified; E11.42 Type 2 diabetes mellitus with diabetic polyneuropathy; E78.5 Hyperlipidemia, unspecified; I10 Essential (primary) hypertension; Z95.9 Presence of cardiac and vascular implant and graft, unspecified; Z85.528 Personal history of other malignant neoplasm of kidney; Z99.81 Dependence on supplemental oxygen
CPT/HCPCS: 36415; 78582; 80053; 80076; 83690; 85652; 87426; 99285; 71046; 81003; 82248; 83605; 83735; 83880; 84484; 85025; 85379; 86140; 99284

== ENCOUNTER 2023-07-30 07:31 | Emergency (ER) | payer MEDICARE, SELFPAY ==
[2023-07-30 07:33] VITALS: BP 173/49; PULSE 71; RESP 18; TEMP 36.6; O2SAT 94
--- NOTE | 2023-07-30 07:46 | ED.GENADUL_ITS ---
HPI General Date/Time Provider Initiated Documentation: 07/30/23 07:39 . HPI Narrative: 88-year-old female history of renal cell carcinoma status post nephrectomy, COPD, presents brought in by EMS at request of family for shortness of breath and fatigue over the last couple of days. Nonproductive cough, slight wheezing. Patient uses 2 L nasal cannula at home at baseline. Patient currently has no complaints. Related Data Home Medications Medication Instructions Recorded Confirmed fluticasone 250 mcg-salmeterol 50 1 ea inhalation BID 01/09/14 07/22/23 mcg/dose blistr powdr for inhalation (Advair Diskus) albuterol sulfate 90 mcg/actuation 90 mcg inhalation Q 4 HR 06/10/17 07/22/23 breath activated powder inhaler (ProAir RespiClick) ascorbate calcium (vitamin C) 500 250 mg PO DAILY 06/10/17 07/22/23 mg tablet cholecalciferol (vitamin D3) 50 2,000 unit PO DAILY 06/10/17 07/22/23 mcg (2,000 unit) capsule (Vitamin D3) nystatin-triamcinolone 100,000 15 gm topical BID 06/10/17 07/22/23 unit/g-0.1 % topical cream polyethylene glycol 3350 17 17 gm PO DAILY PRN 04/03/19 07/22/23 gram/dose oral powder (Miralax) lisinopril 20 mg tablet 40 mg PO QAM 09/23/19 07/22/23 garlic 5,000 mcg tablet 5 mg PO DAILY 08/31/21 07/22/23 potassium chloride 10 mEq 10 meq PO BID 08/31/21 07/22/23 tablet,extended release(part/cryst) Oxygen 05/24/22 07/22/23 aluminum hydrox-magnesium carb 160 1 tab PO HS 05/24/22 07/22/23 mg-105 mg chewable tablet (Gaviscon Extra Strength) hydrochlorothiazide 25 mg tablet 25 mg PO DAILY 05/24/22 07/22/23 levothyroxine 50 mcg capsule 50 mcg PO DAILY 05/24/22 07/22/23 lidocaine 5 % topical cream 1 applic topical BID PRN 05/24/22 07/22/23 tiotropium bromide 2.5 2 puff inhalation DAILY #4 grams 08/03/22 07/22/23 mcg/actuation mist for inhalation (Spiriva Respimat) Previous Rx's Medication Instructions Recorded tiotropium bromide 2.5 2 puff inhalation DAILY #4 grams 08/03/22 mcg/actuation mist for inhalation (Spiriva Respimat) Allergies Allergy/AdvReac Type Severity Reaction Status Date / Time pregabalin [From Lyrica] Allergy Severe RASH/EXTREMITY Verified 07/22/23 13:39 EDEMA atorvastatin calcium Allergy Intermediate Verified 07/22/23 13:39 [From Lipitor] gabapentin [From Neurontin] Allergy Intermediate Verified 07/22/23 13:39 prednisone Allergy Mild Verified 07/22/23 13:39 rosuvastatin calcium Allergy Verified 07/22/23 13:39 [From Crestor] sulfamethoxazole Allergy Verified 07/22/23 13:39 [From Bactrim] trimethoprim [From Bactrim] Allergy Verified 07/22/23 13:39 codeine AdvReac nausea per Verified 07/22/23 13:39 [facility] [place] General Stated Complaint: SOB SATHISH: 3 Review of Systems Narrative: Review of Systems Constitutional: negative Eyes: negative ENT: negative Cardiovascular: negative Respiratory: Cough, shortness of breath Gastrointestinal: negative : negative Musculoskeletal: negative Skin: negative Neurologic: negative Psych: negative Exam Narrative Exam Narrative: Physical Examination General: alert, awake, cooperative, resting comfortably, no acute distress HEENT: normocephalic, atraumatic; PERRL, EOM intact, conjunctiva normal; no nasal discharge; moist mucous membranes, oral and pharyngeal mucosa normal, tolerating secretions Neck: supple, trachea midline; full ROM Chest: normal to inspection Respiratory: normal respiratory effort, speaking in full sentences, clear to auscultation, no wheezing, rales or rhonchi Cardiac: regular rate, regular rhythm, S1S2 intact, no murmurs rubs or gallops GI: abdomen soft, non-tender, non-distended; no palpable mass or hepatosplenomegaly Skin: no lesions, rashes or trauma appreciated Neuro: AAOx3, normal speech, moving all extremities Extremities: No peripheral edema Psych: Appropriate mood and affect Course Vital Signs Vital signs: Vital Signs Temperature 36.6 C 07/30/23 07:33 Pulse 71 07/30/23 07:33 Respiratory Rate 18 07/30/23 07:33 Blood Pressure 173/49 H 07/30/23 07:33 Pulse Oximetry 94 02/06/24 07:33 Temperature 36.6 C 07/30/23 07:33 Temperature Source Temporal Artery Scan 07/30/23 07:33 Pulse 71 07/30/23 07:33 Respiratory Rate 18 07/30/23 07:33 Respiratory Effort Normal, Non-Labored 07/30/23 07:43 Blood Pressure 173/49 H 07/30/23 07:33 Blood Pressure Position Supine 07/30/23 07:33 Pulse Oximetry 94 07/30/23 07:33 Oxygen Delivery Method Room Air 07/30/23 07:33 Oxygen Flow Rate 0 07/30/23 07:33 Medical Decision Making 88-year-old female history of COPD, on 2 L nasal cannula at home presents with cough and shortness of breath wheezing reported by family, patient resting comfortably currently, lungs clear on examination, saturating 94% on room air. Speaking in full sentences. No peripheral edema. Consider COPD exacerbation mild versus viral illness versus early pneumonia lower suspicion for ACS CHF PE or pneumothorax given history and physical. Will obtain viral swab, screening x-ray, trial of nebs, close reassessment likely home with family. 9: 11 patient resting comfortably no acute distress. Feeling better after nebs. 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 rare. will treat 2wk amox/lilia AFTER her nephrectomy 07/13/20 Follow up (Acute) Anemia (Chronic) Abnormal CT of the head (Acute) Fall (Acute) Laceration of chin (Acute) Contusion of face (Acute) Leukocytosis (Acute) GI bleed (Chronic) Acute anemia (Acute) Melena (Acute) Renal mass (Acute) Hydronephrosis, right (Acute) Urinary frequency (Acute) Medical History (Updated 07/30/23 @ 09:11 by Ubaldo Sparks MD) Hypertension History of renal cell cancer Statin intolerance Fatty liver disease, nonalcoholic Colon polyps Diverticulosis Peripheral neuropathy Impaired fasting glucose Squamous cell carcinoma GERD (gastroesophageal reflux disease) Easy bruising Night sweats Esophagitis Hiatal hernia Cervical spondylosis Essential tremor 10/05/19: Pt denies. -BR Nocturia Urinary incontinence Hypertension COPD (chronic obstructive pulmonary disease) Hyperlipidemia Fatty liver Diabetes Diverticulosis Cataracts, bilateral Surgical History History of nephrectomy, right History of cystoscopy History of cataract removal with insertion of prosthetic lens History of colonoscopy History of cholecystectomy Biopsy of breast Family History Sister Personal history of malignant neoplasm breast, colon Sister Personal history of malignant neoplasm uterine Social History Smoking/Tobacco Use Status: Former Tobacco Use Smoking risk assessment performed?: Yes Alcohol Intake: never Drug use: Never Substance use type: does not use Housing: house Do you feel safe at home: Yes Do you feel safe in your relationship?: Yes Discharge Plan Disposition Patient Disposition: Home Condition: Improving Discharge Details Chief Complaint: SOB Clinical Impression: Dyspnea Primary Care Provider: Mary Hollingsworth ED Provider: Ubaldo Sparks Home Meds and New Rx's Prescriptions: No Action Spiriva Respimat 2.5 mcg/actuation mist 2 puff inhalation DAILY Qty: 4 12RF ascorbate calcium (vitamin C) 500 MG tablet 250 mg PO DAILY nystatin-triamcinolone 15 GM cream 15 gm Topical BID cholecalciferol (vitamin D3) [Vitamin D3] 2,000 UNIT capsule 2,000 unit PO DAILY ProAir RespiClick 90 MCG aerosol powdr breath activated 90 mcg Inhalation Q 4 HR polyethylene glycol 3350 [Miralax] 17 gram/dose powder 17 gm PO DAILY PRN lisinopril 20 mg tablet 40 mg PO QAM garlic 5,000 mcg tablet 5 mg PO DAILY potassium chloride 10 mEq tablet,ER particles/crystals 10 meq PO BID Gaviscon Extra Strength 160-105 mg tablet,chewable 1 tab PO HS lidocaine 5 % cream 1 applic topical BID PRN (DME) Oxygen Tank See Rx Instructions .Route Rx Instructions: As directed hydrochlorothiazide 25 mg tablet 25 mg PO DAILY levothyroxine 50 mcg capsule 50 mcg PO DAILY fluticasone propion-salmeterol [Advair Diskus] 1 EACH blister with device 1 ea Inhalation BID Discharge Instructions Instructions: Dyspnea (ED) Additional Instructions: Please follow-up with your primary care physician. Please return to the Emergency Department for any worsening symptoms
[2023-07-30 07:52] VITALS: PULSE 70; RESP 18; RESP 5; O2SAT 94
[2023-07-30] MEDS: Albuterol/Ipratropium 3 ML UPD VIAL UPD (07:52)
--- NOTE | 2023-07-30 08:45 | DI.RAD_ITS ---
Exam(s) XR CHEST 2V PA LATERAL EXAM: XR CHEST 2V PA LATERAL CLINICAL HISTORY: cough, sob, copd TECHNIQUE: 2D digital imaging was performed. COMPARISON: CR XR CHEST 2V PA LATERAL from 07/22/2023 FINDINGS: Exam limited by poor pulmonary inflation on AP view. Port noted with tip low in right atrium. HEART: Normal size. Aorta: Not dilated. PULMONARY VASCULATURE: Normal. LUNGS: Clear. PLEURAL SPACE: No pleural effusion or pneumothorax. BONE:Unremarkable for age. Soft tissues: Unremarkable. IMPRESSION: No acute abnormality. DATA REPOSITORY: RADIATION DOSE DELIVERED:
[2023-07-30 09:30] VITALS: BP 169/61; PULSE 82; RESP 18; TEMP 36.2; O2SAT 94
== END 2023-07-30 09:50 | disposition home or self-care (01) ==
PROVIDERS: Emergency Provider Emergency Medicine; PCP Nurse Practitioner Family
DX: R06.09 Other forms of dyspnea (principal); J44.9 Chronic obstructive pulmonary disease, unspecified; I10 Essential (primary) hypertension; E11.9 Type 2 diabetes mellitus without complications; Z85.528 Personal history of other malignant neoplasm of kidney; Z90.5 Acquired absence of kidney; Z99.81 Dependence on supplemental oxygen; Z87.891 Personal history of nicotine dependence
CPT/HCPCS: 87426; 94640; 99284; 71046; J7620

== ENCOUNTER 2023-08-08 12:31 | Outpatient (CLI) | payer MEDICARE, SELFPAY ==
[2023-08-08 13:17] LABS: FREE T4 1.72 ng/dL (0.76-1.46)
== END 2023-08-08 12:32 | disposition home or self-care (01) ==
LOC: LBO 12:32
PROVIDERS: PCP Nurse Practitioner Family; Visit Provider Nurse Practitioner Family
DX: E03.9 Hypothyroidism, unspecified (principal)
CPT/HCPCS: 36415; 84439; 84443

== ENCOUNTER 2023-08-09 17:04 | Outpatient (REF) | payer MEDICARE, SELFPAY | END 2023-08-09 17:05 | disposition home or self-care (01) | LOC: NCHCN 17:04 | PROVIDERS: PCP Nurse Practitioner Family; Visit Provider Nurse Practitioner Family | DX: R41.0 Disorientation, unspecified (principal); R82.998 Other abnormal findings in urine | CPT/HCPCS: 87086 ==

== ENCOUNTER 2023-08-12 10:02 | Emergency (ER) | payer MEDICARE, SELFPAY ==
[2023-08-12 10:15] VITALS: BP 162/70; PULSE 68; RESP 16; TEMP 36.2; O2SAT 92
--- NOTE | 2023-08-12 10:25 | W.ED.GENAD ---
HPI General Date/Time Provider Initiated Documentation: 08/12/23 10:25. [facility] Narrative: [facility] This is a chronically afebrile not tachycardic chronically ill-appearing 88-year-old female with head strike for which she will undergo dry CT scan given age based on [place] CT head rules. No nausea no vomiting so doubt any acute electrolyte abnormalities so will defer laboratory assessment. No chest pain so doubt ACS and no syncope so I did not obtain ECG. No chest trauma and equal breath sounds so my suspicion for chest pneumothorax is low so I did not obtain chest x-ray. Emergency department Public Relations Analyst Syd cleaned the patient's left upper extremity skin tear and dressed it with Steri-Strips. Patient's tetanus was updated. Patient's daughter reported that a urine sample had been taken at the patient's primary care provider's office 3 days ago. She reported that her PCP was concerned for the possibility of a urinary tract infection and that she was calling in a prescription for antibiotics. I advised the patient's daughter and her to return the patient to the emergency department if she develops fevers or had any mental status changes or could not eat or drink. I considered sepsis however patient the patient's reassuring presentation and vital signs and did not feel that she required empiric IV antibiotics lactate nor blood cultures. Will proceed with empiric trial of discharge with expectant outpatient management. Family reports mental status is baseline. Chronic conditions affecting the care of the patient: Dementia History obtained from an outside historian: Patient's daughter and External record review: N/A Medications: Acetaminophen and LET Social determinants of health affecting disposition: N/A Management discussed with: N/A Treatment/interventions considered: Urinalysis however deferred given plan to initiate outpatient antibiotics per primary care team later today Response to therapies provided: N/A HPI This is an 88-year-old female with history of dementia arrived via private vehicle with her daughter and following a fall. Patient reportedly lost her balance while sitting in her walker just prior to arrival. She sustained a left-sided skin tear to her left upper extremity. She hit her head. She has not been nauseous nor vomiting. She is not anticoagulated. She denies any difficulty breathing or any chest pain. She has been ambulating with assistance since her fall. No routine tobacco, ethanol, nor illicits. Patient denies dysuria and frequency. No fevers. Patient's outpatient provider is planning on initiating treatment UTI later today. Exam General: Chronically ill-appearing in no acute distress speaking in complete sentences. Head: Normocephalic, on the left side of the patient's temporal scalp there is an approximately 2 x 2 centimeter hematoma. Eye:[Pupils equal, round reactive to light.] Extraocular eye movements intact. No conjunctival injection. No scleral icterus. Ear, nose, mouth, throat: Grossly normal inspection. Normal voice, handling secretions normally. Neck: Trachea midline. No midline cervical spinal tenderness Cardiovascular: Well-perfused distal extremities. Regular rate and rhythm. Respiratory: Nonlabored respiration. Clear lungs bilaterally Gastrointestinal: Nondistended abdomen. Soft nontender Musculoskeletal: No edema. Moving all 4 extremities spontaneously. On the left upper extremity just superior to the elbow there is an approximately 4 x 4 centimeter hemostatic skin tear. Skin: Normal for age and race, grossly normal temperature and turgor. No acute rash. Neurologic: Alert. Moving all 4 extremities spontaneously. GCS 14: E4, V4, M6 Related Data Home Medications Medication Instructions Recorded Confirmed fluticasone 250 mcg-salmeterol 50 1 ea inhalation BID 01/09/14 07/22/23 mcg/dose blistr powdr for inhalation (Advair Diskus) albuterol sulfate 90 mcg/actuation 90 mcg inhalation Q 4 HR 06/10/17 07/22/23 breath activated powder inhaler (ProAir RespiClick) ascorbate calcium (vitamin C) 500 250 mg PO DAILY 06/10/17 07/22/23 mg tablet cholecalciferol (vitamin D3) 50 2,000 unit PO DAILY 06/10/17 07/22/23 mcg (2,000 unit) capsule (Vitamin D3) nystatin-triamcinolone 100,000 15 gm topical BID 06/10/17 07/22/23 unit/g-0.1 % topical cream polyethylene glycol 3350 17 17 gm PO DAILY PRN 04/03/19 07/22/23 gram/dose oral powder (Miralax) lisinopril 20 mg tablet 40 mg PO QAM 09/23/19 07/22/23 garlic 5,000 mcg tablet 5 mg PO DAILY 08/31/21 07/22/23 potassium chloride 10 mEq 10 meq PO BID 08/31/21 07/22/23 tablet,extended release(part/cryst) Oxygen 05/24/22 07/22/23 aluminum hydrox-magnesium carb 160 1 tab PO HS 05/24/22 07/22/23 mg-105 mg chewable tablet (Gaviscon Extra Strength) hydrochlorothiazide 25 mg tablet 25 mg PO DAILY 05/24/22 07/22/23 levothyroxine 50 mcg capsule 50 mcg PO DAILY 05/24/22 07/22/23 lidocaine 5 % topical cream 1 applic topical BID PRN 05/24/22 07/22/23 tiotropium bromide 2.5 2 puff inhalation DAILY #4 grams 08/03/22 07/22/23 mcg/actuation mist for inhalation (Spiriva Respimat) Previous Rx's Medication Instructions Recorded tiotropium bromide 2.5 2 puff inhalation DAILY #4 grams 08/03/22 mcg/actuation mist for inhalation (Spiriva Respimat) Allergies Allergy/AdvReac Type Severity Reaction Status Date / Time pregabalin [From Lyrica] Allergy Severe RASH/EXTREMITY Verified 08/12/23 10:14 EDEMA atorvastatin calcium Allergy Intermediate Agitation Verified 08/12/23 10:14 [From Lipitor] gabapentin [From Neurontin] Allergy Intermediate Agitation Verified 08/12/23 10:14 prednisone Allergy Mild Agitation Verified 08/12/23 10:14 rosuvastatin calcium Allergy Agitation Verified 08/12/23 10:14 [From Crestor] sulfamethoxazole Allergy Nausea Verified 08/12/23 10:14 [From Bactrim] trimethoprim [From Bactrim] Allergy Nausea Verified 08/12/23 10:14 codeine AdvReac nausea per Verified 08/12/23 10:14 [facility] [place] Stated Complaint: Fall/Non TraumaCriteria SATHISH: 3 Course Vital Signs Vital signs: Vital Signs Temperature 36.2 C L 08/12/23 10:15 Pulse 68 08/12/23 10:15 Respiratory Rate 16 08/12/23 10:15 Blood Pressure 162/70 H 08/12/23 10:15 Pulse Oximetry 92 08/12/23 10:15 Temperature 36.2 C L 08/12/23 10:15 Temperature Source Temporal Artery Scan 08/12/23 10:15 Pulse 68 08/12/23 10:15 Respiratory Rate 16 08/12/23 10:15 Blood Pressure 162/70 H 08/12/23 10:15 Blood Pressure Position Sitting 08/12/23 10:15 Pulse Oximetry 92 08/12/23 10:15 Oxygen Delivery Method Room Air 08/12/23 10:15 Oxygen Flow Rate 0 08/12/23 10:15 Pain Level 0 08/12/23 10:15 Medical Decision Making Quality:SDOH Health Related Social Needs: No Data to Display PFSH All Active Problems (Updated 08/12/23 @ 10:56 by Osorio Kendall MD) Hx of falling (Acute) Immunization, tetanus-diphtheria (Acute) Dyspnea (Acute) Viral syndrome (Acute) 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 rare. will treat 2wk amox/lilia AFTER her nephrectomy 07/13/20 Follow up (Acute) Anemia (Chronic) Abnormal CT of the head (Acute) Fall (Acute) Laceration of chin (Acute) Contusion of face (Acute) Leukocytosis (Acute) GI bleed (Chronic) Acute anemia (Acute) Melena (Acute) Renal mass (Acute) Hydronephrosis, right (Acute) Urinary frequency (Acute) Medical History (Updated 08/12/23 @ 10:56 by Osorio Kendall MD) Hypertension History of renal cell cancer Statin intolerance Fatty liver disease, nonalcoholic Colon polyps Diverticulosis Peripheral neuropathy Impaired fasting glucose Squamous cell carcinoma GERD (gastroesophageal reflux disease) Easy bruising Night sweats Esophagitis Hiatal hernia Cervical spondylosis Essential tremor 10/05/19: Pt denies. -BR Nocturia Urinary incontinence Hypertension COPD (chronic obstructive pulmonary disease) Hyperlipidemia Fatty liver Diabetes Diverticulosis Cataracts, bilateral Surgical History History of nephrectomy, right History of cystoscopy History of cataract removal with insertion of prosthetic lens History of colonoscopy History of cholecystectomy Biopsy of breast Family History Sister Personal history of malignant neoplasm breast, colon Sister Personal history of malignant neoplasm uterine Social History Smoking/Tobacco Use Status: Former Tobacco Use Smoking risk assessment performed?: Yes Alcohol Intake: never Drug use: Never Substance use type: does not use Housing: house Do you feel safe at home: Yes Do you feel safe in your relationship?: Yes Discharge Plan Disposition Patient Disposition: Home Discharge Details Clinical Impression: Immunization, tetanus-diphtheria, Hx of falling Primary Care Provider: Mary Hollingsworth ED Provider: Osorio Kendall Home Meds and New Rx's Prescriptions: Continued Spiriva Respimat 2.5 mcg/actuation mist 2 puff inhalation DAILY Qty: 4 12RF ascorbate calcium (vitamin C) 500 MG tablet 250 mg PO DAILY nystatin-triamcinolone 15 GM cream 15 gm Topical BID cholecalciferol (vitamin D3) [Vitamin D3] 2,000 UNIT capsule 2,000 unit PO DAILY ProAir RespiClick 90 MCG aerosol powdr breath activated 90 mcg Inhalation Q 4 HR polyethylene glycol 3350 [Miralax] 17 gram/dose powder 17 gm PO DAILY PRN lisinopril 20 mg tablet 40 mg PO QAM garlic 5,000 mcg tablet 5 mg PO DAILY potassium chloride 10 mEq tablet,ER particles/crystals 10 meq PO BID Gaviscon Extra Strength 160-105 mg tablet,chewable 1 tab PO HS lidocaine 5 % cream 1 applic topical BID PRN (DME) Oxygen Tank See Rx Instructions .Route Rx Instructions: As directed hydrochlorothiazide 25 mg tablet 25 mg PO DAILY levothyroxine 50 mcg capsule 50 mcg PO DAILY fluticasone propion-salmeterol [Advair Diskus] 1 EACH blister with device 1 ea Inhalation BID Discharge Instructions Additional Instructions: You were seen in the emergency department for your fall. Your tetanus was updated. Your CAT scan showed no sign of any bleeding in your head. Please continue taking your previously prescribed outpatient medications. If you develop fevers or any recurrent falls or if you have any other concerns please return to the emergency department. Discharge Data Discharge Date/Time-TO BE ENTERED AT DEPARTURE: 08/12/23 13:06
--- NOTE | 2023-08-12 10:45 | DI.CT_ITS ---
Exam(s) CT HEAD WO EXAM: CT HEAD WO CLINICAL HISTORY: Left-sided head strike. TECHNIQUE: Imaging Protocol: Axial computed tomography images with coronal and sagittal reformatted images were created and reviewed COMPARISON: CT CT HEAD WO from 05/06/[address] HEAD CERVICAL SPINE WO from 06/12/2020 FINDINGS: The examination is limited due to patient motion artifact. Ventricles and Extra axial spaces: There is diffuse cerebral atrophy present. Hemorrhage: None. Cerebral parenchyma: There are areas of decreased attenuation in the white matter consistent with sma ll vessel ischemic disease. No acute territorial infarct. Midline shift: None. Brainstem/Cerebellum: Normal. Calvarium: Normal. Visualized Paranasal sinuses/Mastoids: Clear. Soft Tissues: Unremarkable. IMPRESSION: No acute intracranial process. RADIATION DOSE DELIVERED: 694.16mGy.cm Total DLP DATA REPOSITORY: All CT scans at this facility are submitted to the National Radiology Data Registry (NRDR) Dose Index Registry (DIR) with the [employer] ([employer]). RADIATION OPTIMIZATION: All CT scans at this facility use at least one of these dose optimization te chniques: automated exposure control; mA and/or kV adjustment per patient size (includes targeted exa ms where dose is matched to clinical indication); or iterative reconstruction.
[2023-08-12] MEDS: Acetaminophen 500 MG TAB 1000 MG PO (11:32)
[2023-08-12] MEDS: Lidocaine/Epinephri/Tetracaine Topical Gel 3 ML (12:44)
== END 2023-08-12 13:06 | disposition home or self-care (01) ==
PROVIDERS: Emergency Provider Emergency Medicine; PCP Nurse Practitioner Family
DX: S41.112A Laceration without foreign body of left upper arm, initial encounter (principal); F03.90 Unspecified dementia, unspecified severity, without behavioral disturbance, psychotic disturbance, mood disturbance, and anxiety; I10 Essential (primary) hypertension; J44.9 Chronic obstructive pulmonary disease, unspecified; E11.9 Type 2 diabetes mellitus without complications; W07.XXXA Fall from chair, initial encounter; Z91.81 History of falling; Y93.89 Activity, other specified; Z23 Encounter for immunization; Z87.891 Personal history of nicotine dependence
CPT/HCPCS: 90471; 90715; 99284; 70450

== ENCOUNTER → 2023-08-23 00:58 | Outpatient (CLI) | payer MEDICARE, SELFPAY ==
--- NOTE | 2023-08-23 13:06 | DI.CT_ITS ---
Exam(s) CT HEAD WO EXAM: CT HEAD WO CLINICAL HISTORY: WORSENING COGNITION,? DEVELOPING DEMENTIA,r41.89. TECHNIQUE: Imaging Protocol: Axial computed tomography images with coronal and sagittal reformatted images were created and reviewed COMPARISON: CT CT HEAD CERVICAL SPINE WO from 06/12/[address] HEAD WO from 08/12/2023 FINDINGS: The examination is limited due to patient motion artifact. Ventricles and Extra axial spaces: Normal in size and morphology for the patient's age. Hemorrhage: None. Cerebral parenchyma: There are areas of decreased attenuation in the white matter consistent with sma ll vessel ischemic disease. Midline shift: None. Brainstem/Cerebellum: Normal. Calvarium: Normal. Visualized Paranasal sinuses/Mastoids: Clear. Soft Tissues: Unremarkable. IMPRESSION: 1. Examination limited by patient motion artifact. 2. Age-related cerebral atrophy and chronic microvascular ischemic disease. RADIATION DOSE DELIVERED: 1,256.96mGy.cm Total DLP DATA REPOSITORY: All CT scans at this facility are submitted to the National Radiology Data Registry (NRDR) Dose Index Registry (DIR) with the [employer] (ACR). RADIATION OPTIMIZATION: All CT scans at this facility use at least one of these dose optimization te chniques: automated exposure control; mA and/or kV adjustment per patient size (includes targeted exa ms where dose is matched to clinical indication); or iterative reconstruction.
== END ==
PROVIDERS: PCP Nurse Practitioner Family; Visit Provider Nurse Practitioner Family
DX: R41.89 Other symptoms and signs involving cognitive functions and awareness (principal)
CPT/HCPCS: 70450

== ENCOUNTER 2023-08-24 16:26 | Outpatient (REF) | payer MEDICARE, SELFPAY ==
[2023-08-24 14:42] LABS: Vitamin B12 374 pg/mL (193-986)
[2023-08-24 14:49] LABS: Folate > 20.0 ng/mL (8.6-20.0)
== END 2023-08-24 16:27 | disposition home or self-care (01) ==
LOC: NCHCN 16:26
PROVIDERS: PCP Nurse Practitioner Family; Visit Provider Nurse Practitioner Family
DX: F03.90 Unspecified dementia, unspecified severity, without behavioral disturbance, psychotic disturbance, mood disturbance, and anxiety (principal)
CPT/HCPCS: 82607; 82746

== ENCOUNTER 2023-08-30 13:13 | Emergency (ER) | payer MEDICARE, SELFPAY ==
[2023-08-30] VITALS (9 sets, daily range): BP systolic 106–190; BP diastolic 64–165; PULSE 72–97; RESP 16–26; TEMP 36.5; O2SAT 89
--- NOTE | 2023-08-30 14:10 | ED.GENADUL_ITS ---
Discharge Plan Disposition Patient Disposition: Home Condition: Stable Discharge Details Clinical Impression: Hypoxia Primary Care Provider: Mary Hollingsworth ED Provider: Wenceslao Palafox Home Meds and New Rx's Prescriptions: Continued Spiriva Respimat 2.5 mcg/actuation mist 2 puff inhalation DAILY Qty: 4 12RF Incruse Ellipta 62.5 mcg/actuation blister with device 1 inh inhalation DAILY ascorbate calcium (vitamin C) 500 MG tablet 250 mg PO DAILY nystatin-triamcinolone 15 GM cream 15 gm Topical BID cholecalciferol (vitamin D3) [Vitamin D3] 2,000 UNIT capsule 2,000 unit PO DAILY ProAir RespiClick 90 MCG aerosol powdr breath activated 90 mcg Inhalation Q 4 HR polyethylene glycol 3350 [Miralax] 17 gram/dose powder 17 gm PO DAILY PRN lisinopril 20 mg tablet 40 mg PO QAM Hold Instructions: Changed by Provider garlic 5,000 mcg tablet 5 mg PO DAILY potassium chloride 10 mEq tablet,ER particles/crystals 10 meq PO BID lidocaine 5 % cream 1 applic topical BID PRN (DME) Oxygen Tank See Rx Instructions .Route Rx Instructions: As directed hydrochlorothiazide 25 mg tablet 25 mg PO DAILY levothyroxine 50 mcg capsule 50 mcg PO DAILY fluticasone propion-salmeterol [Advair Diskus] 1 EACH blister with device 1 ea Inhalation BID Discharge Instructions Instructions: Hypoxia (ED) Additional Instructions: Please use your oxygen as prescribed. Please contact your primary care physician to arrange follow-up. Return to the ER immediately for any worsening or new concerning symptoms. Referrals: Mary Hollingsworth [Primary Care Provider] - Discharge Data Discharge Date/Time-TO BE ENTERED AT DEPARTURE: 08/30/23 14:29 HPI General Mode of arrival: ambulatory . Date/Time Provider Initiated Documentation: 08/30/23 13:31 . Limitations to Documentation: no limitations . Information obtained by: patient . HPI Narrative: 88-year-old female with multiple medical problems including oxygen dependence p resents with chief complaint of hypoxia. Patient was home and had her oxygen turned off and was hypoxic into the 80s. Oxygen was reinitiated by her after he realized it was off and saturations improved. She has no complaints at this time. She denies shortness of breath or chest pain. No leg swelling. Home health was concerned and sent the patient to the ED to be assessed. Related Data Home Medications Medication Instructions Recorded Confirmed fluticasone 250 mcg-salmeterol 50 1 ea inhalation BID 01/09/14 08/30/23 mcg/dose blistr powdr for inhalation (Advair Diskus) albuterol sulfate 90 mcg/actuation 90 mcg inhalation Q 4 HR 06/10/17 08/30/23 breath activated powder inhaler (ProAir RespiClick) ascorbate calcium (vitamin C) 500 250 mg PO DAILY 06/10/17 08/30/23 mg tablet cholecalciferol (vitamin D3) 50 2,000 unit PO DAILY 06/10/17 08/30/23 mcg (2,000 unit) capsule (Vitamin D3) nystatin-triamcinolone 100,000 15 gm topical BID 06/10/17 08/30/23 unit/g-0.1 % topical cream polyethylene glycol 3350 17 17 gm PO DAILY PRN 04/03/19 08/30/23 gram/dose oral powder (Miralax) lisinopril 20 mg tablet 40 mg PO QAM 09/23/19 08/30/23 garlic 5,000 mcg tablet 5 mg PO DAILY 08/31/21 08/30/23 potassium chloride 10 mEq 10 meq PO BID 08/31/21 08/30/23 tablet,extended release(part/cryst) Oxygen 05/24/22 08/30/23 hydrochlorothiazide 25 mg tablet 25 mg PO DAILY 05/24/22 08/30/23 levothyroxine 50 mcg capsule 50 mcg PO DAILY 05/24/22 08/30/23 lidocaine 5 % topical cream 1 applic topical BID PRN 05/24/22 08/30/23 tiotropium bromide 2.5 2 puff inhalation DAILY #4 grams 08/03/22 08/30/23 mcg/actuation mist for inhalation (Spiriva Respimat) umeclidinium 62.5 mcg/actuation 1 inh inhalation DAILY 08/20/23 08/30/23 blister powder for inhalation (Incruse Ellipta) Previous Rx's Medication Instructions Recorded tiotropium bromide 2.5 2 puff inhalation DAILY #4 grams 08/03/22 mcg/actuation mist for inhalation (Spiriva Respimat) Allergies Allergy/AdvReac Type Severity Reaction Status Date / Time pregabalin [From Lyrica] Allergy Severe RASH/EXTREMITY Verified 08/29/23 12:31 EDEMA atorvastatin calcium Allergy Intermediate Agitation Verified 08/29/23 12:31 [From Lipitor] gabapentin [From Neurontin] Allergy Intermediate Agitation Verified 08/29/23 12:31 prednisone Allergy Mild Agitation Verified 08/29/23 12:31 rosuvastatin calcium Allergy Agitation Verified 08/29/23 12:31 [From Crestor] sulfamethoxazole Allergy Nausea Verified 08/29/23 12:31 [From Bactrim] trimethoprim [From Bactrim] Allergy Nausea Verified 08/29/23 12:31 codeine AdvReac nausea per Verified 08/29/23 12:31 [facility] [place] chart General Stated Complaint: AMS/LOC SATHISH: 3 Review of Systems Constitutional Constitutional: Denies fever(s) Cardiovascular Cardiovascular: Reports as per HPI Respiratory Respiratory: Reports as per HPI Exam Const General: cooperative and no acute distress HENMT Mouth: moist mucous membranes Eyes Conjunctivae: normal conjunctivae Sclera: normal sclerae Neck Neck: trachea midline and supple Resp Auscultation: clear to auscultation bilaterally, no rales, no rhonchi and no wheezes Cardio Rate: regular rate and not tachycardic Rhythm: regular rhythm Neuro General: patient alert, patient awake and tone normal Extrem General: no calf tenderness and no edema Course Vital Signs Vital signs: Vital Signs Temperature 36.5 C 08/30/23 13:17 Pulse 84 08/30/23 13:17 Respiratory Rate 16 08/30/23 13:17 Blood Pressure 190/165 H 08/30/23 13:17 Pulse Oximetry 89 L 08/30/23 13:17 Temperature 36.5 C 08/30/23 13:35 Pulse 88 08/30/23 13:46 Pulse 76 08/30/23 13:50 Respiratory Rate 20 08/30/23 13:50 Respiratory Effort Normal, Non-Labored 08/30/23 13:37 Respiratory Depth Normal 08/30/23 13:37 Respiratory Pattern Normal 08/30/23 13:37 Blood Pressure 106/76 08/30/23 13:46 Blood Pressure Mean 85 08/30/23 13:46 Blood Pressure Position Sitting 08/30/23 13:35 Pulse Oximetry 89 L 08/30/23 13:35 Oxygen Delivery Method Nasal Cannula 08/30/23 13:35 Oxygen Flow Rate 2 08/30/23 13:35 Pain Level 0 08/30/23 13:35 Comment Pt adin stop moving arm around 08/30/23 13:35 Medical Decision Making 88-year-old female with multiple medical problems, on chronic home O2, was hypoxic while oxygen was turned off for prolonged period of time today. Oxygen has been reinitiated. She is now saturating well in no respiratory distress. She has no complaints. She has adequate oxygen supply at home. Plan for discharge with routine follow-up. Disposition decision was made weighing the risks and benefits of hospitalization versus outpatient treatment, the risk for further decompensation, and the patient's wishes. The patient was stable and requested discharge. Prior to discharge, my usual and customary return precautions were reviewed with the patient - this included follow-up instructions and reason to return to the emergency department if condition worsens, does not improve as expected, or other new concerns arise. 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 rare. will treat 2wk amox/lilia AFTER her nephrectomy 07/13/20 Follow up (Acute) Anemia (Chronic) Abnormal CT of the head (Acute) Fall (Acute) Laceration of chin (Acute) Contusion of face (Acute) Leukocytosis (Acute) GI bleed (Chronic) Acute anemia (Acute) Melena (Acute) Renal mass (Acute) Hydronephrosis, right (Acute) Urinary frequency (Acute) Medical History Diverticula of intestine Diarrhea Essential hypertension Polyneuropathy Allergy to drug Respiratory failure Melanocytic nevus Diaphragmatic hernia Other symptoms and signs involving cognitive functions and awareness Generalized hyperhidrosis Cervical spondylosis without myelopathy Abnormal weight loss GERD without esophagitis Malignant tumor of head and neck Agranulocytosis Tobacco dependence due to cigarettes Other skin changes Hypothyroidism Constipation Hypertension History of renal cell cancer Statin intolerance Fatty liver disease, nonalcoholic Colon polyps Diverticulosis Peripheral neuropathy Impaired fasting glucose Squamous cell carcinoma GERD (gastroesophageal reflux disease) Easy bruising Night sweats Esophagitis Hiatal hernia Cervical spondylosis Essential tremor 10/05/19: Pt denies. -BR Nocturia Urinary incontinence Hypertension COPD (chronic obstructive pulmonary disease) Hyperlipidemia Fatty liver Diabetes Diverticulosis Cataracts, bilateral Surgical History History of nephrectomy, right History of cystoscopy History of cataract removal with insertion of prosthetic lens History of colonoscopy History of cholecystectomy Biopsy of breast Family History Sister Personal history of malignant neoplasm breast, colon Sister Personal history of malignant neoplasm uterine Father Coronary heart disease Mother Hypertension Social History Smoking/Tobacco Use Status: Former Tobacco Use Smoking risk assessment performed?: Yes Alcohol Intake: never Drug use: Never Substance use type: does not use Housing: house Do you feel safe at home: Yes Do you feel safe in your relationship?: Yes
== END 2023-08-30 14:29 | disposition home or self-care (01) ==
PROVIDERS: Emergency Provider Student in an Organized Health Care Education/Training Program; PCP Nurse Practitioner Family
DX: R09.02 Hypoxemia (principal); I10 Essential (primary) hypertension; E11.40 Type 2 diabetes mellitus with diabetic neuropathy, unspecified; J44.9 Chronic obstructive pulmonary disease, unspecified; G30.9 Alzheimer's disease, unspecified; F02.80 Dementia in other diseases classified elsewhere, unspecified severity, without behavioral disturbance, psychotic disturbance, mood disturbance, and anxiety; Z85.528 Personal history of other malignant neoplasm of kidney; Z90.5 Acquired absence of kidney; Z87.891 Personal history of nicotine dependence; Z99.81 Dependence on supplemental oxygen
CPT/HCPCS: 99283